=== PATIENT | female | born 1960 | race Hispanic/Latino ===

== ENCOUNTER 2017-05-23 16:32 | Observation (INO) | payer MEDICAID ==
[2017-05-23] MEDS ORDERED: Iohexol 240 (50 ml) PO ONE (17:38)
[2017-05-23] MEDS ORDERED: Sodium Chloride 0.9% 1,000 ML IV STA ×2 (17:38→21:01)
--- NOTE | 2017-05-23 17:54 | ED PDOC ---
HPI: Abdomen Time Seen by Provider: 05/23/17 17:26 Chief Complaint (Nursing): GI Problem Chief Complaint (Provider): Abd pain History Per: Patient History/Exam Limitations: no limitations Onset/Duration Of Symptoms: Days (Today) Outside of [place] travel?: No Additional Complaint(s): Abd pain mid abd constant. Nausea, vomit. No headaches, dizziness, weakness. Denies any drugs or etoh today. No dizziness. No diarrhea. No leg pain. No new food or drinks. No travel. No chest pain. Past Medical History Reviewed: Nursing Documentation, Vital Signs Vital Signs: Last Vital Signs Temp 98 F 05/23/17 17:17 Pulse 117 H 05/23/17 17:17 Resp 18 05/23/17 17:17 BP 185/103 H 05/23/17 17:17 Pulse Ox 98 05/23/17 18:33 - Medical History PMH: Anxiety, Arthritis, Fractures (right arm, right shoulder, left clavical ( current)), HTN, Seizures (LAST EPISODE 1.5YRS) Denies: HIV, Chronic Kidney Disease - Surgical History Surgical History: Tonsillectomy - Family History Family History: States: Unknown Family Hx - Social History Current smoker - smoking cessation education provided: No Alcohol: Occasional Drugs: Denies - Immunization History Hx Tetanus Toxoid Vaccination: No Hx Influenza Vaccination: No Hx Pneumococcal Vaccination: No - Home Medications Home Medications: Ambulatory Orders Medication Instructions Recorded Carbamazepine [Carbatrol] 200 mg PO BID 09/16/16 Cyclobenzaprine [Flexeril] 5 mg PO TID 09/16/16 Diclofenac Sodium [Voltaren] 1 appl TOP QID PRN 09/16/16 Hydrocodone/Acetaminophen 1 tab PO Q4H PRN 09/16/16 [Hydrocodon-Acetaminophn 10-325] Phenytoin, Extended [Dilantin] 100 mg PO TID 09/16/16 clonazePAM [Klonopin] 0.5 mg PO BID 09/16/16 traMADol [Ultram] 50 mg PO Q6H PRN 09/16/16 amLODIPine [Norvasc] 2.5 mg PO DAILY #30 tab 09/19/16 - Allergies Allergies/Adverse Reactions: Allergies Allergy/AdvReac Type Severity Reaction Status Date / Time No Known Allergies Allergy Verified 08/04/15 12:48 Review of Systems ROS Statement: Except As Marked, All Systems Reviewed And Found Negative Gastrointestinal: Positive for: Nausea, Vomiting, Abdominal Pain Physical Exam - Reviewed Nursing Documentation Reviewed: Yes Vital Signs Reviewed: Yes - Physical Exam Appears: Positive for: Non-toxic, No Acute Distress Head Exam: Positive for: ATRAUMATIC, NORMAL INSPECTION, NORMOCEPHALIC Skin: Positive for: Normal Color, Warm, DRY Eye Exam: Positive for: EOMI, Normal appearance, PERRL ENT: Positive for: Normal ENT Inspection Neck: Positive for: Normal, Painless ROM Cardiovascular/Chest: Positive for: Regular Rate, Rhythm Respiratory: Positive for: CNT, Normal Breath Sounds Gastrointestinal/Abdominal: Positive for: Bowel Sounds, Soft, Tenderness (mid abd). Negative for: Guarding, Rebound Back: Positive for: Normal Inspection. Negative for: L CVA Tenderness, R CVA Tenderness Extremity: Positive for: Normal ROM. Negative for: Tenderness, Pedal Edema Neurologic/Psych: Positive for: Alert, Oriented - Laboratory Results Result Diagrams: 05/23/17 17:00 05/23/17 17:00 - ECG O2 Sat by Pulse Oximetry: 98 Pulse Ox Interpretation: Normal - Progress ED Course And Treament: 1833: Stable. Will give more zofran and pain meds. Pt. possible excessive etoh use. Will give ativan. 190: Dr. Sibley to take over care. Fu on labs and imaging. Disposition - Clinical Impression Clinical Impression: Abdominal pain - Patient ED Disposition Is Patient to be Admitted: Transfer of Care - Disposition Disposition: Transfer of Care Disposition Time: 19:09 Condition: FAIR Patient Signed Over To: Lakhwinder Sibley
[2017-05-23 18:00] LABS: BASO # 0.1 K/uL (0.0-0.2); BASO % 0.8 % (0.0-2.0); EOS % 0.1 % (0.0-4.0); HEMOGLOBIN 14.2 g/dL (12.0-16.0); LYMPH # 1.2 K/uL (1.0-4.3); LYMPH % 9.7 % (20.0-40.0); MEAN CELL VOLUME 102.6 fl (81.0-99.0); MEAN CORPUSCULAR HEMOGLOBIN 33.6 pg (27.0-31.0); MEAN CORPUSCULAR HGB CONC 32.8 g/dL (33.0-37.0); MEAN PLATELET VOLUME 9.9 fl (7.2-11.7); MONO # 1.1 K/uL (0.0-0.8); MONO % 8.7 % (0.0-10.0); NEUT % 80.7 % (50.0-75.0); NRBC % 0.1 % (0.0-0.0); PLATELET COUNT 261 K/uL (130-400); RBC 4.22 Mil/uL (3.80-5.20); RED CELL DISTRIBUTION WIDTH 16.5 % (11.5-14.5); WHITE BLOOD COUNT 12.4 K/uL (4.8-10.8)
[2017-05-23 18:19] LABS: INR 1.1 (0.9-1.2); PARTIAL THROMBOPLASTIN TIME 26.7 Seconds (25.6-37.1); PROTHROMBIN TIME 12.5 Seconds (9.8-13.1)
[2017-05-23 18:21] LABS: ALB/GLOB RATIO 1.7 (1.0-2.1); ALBUMIN 5.5 g/dL (3.5-5.0); ALT/SGPT 38 U/L (9-52); AST/SGOT 57 U/L (14-36); BLOOD UREA NITROGEN 17 mg/dl (7-17); CALCIUM 9.2 mg/dL (8.4-10.2); GFR AFRICAN-AMERICAN > 60; GFR NON-AFRICAN AMERICAN > 60; LIPASE 125 U/L (23-300)
[2017-05-23 19:35] LABS: SQUAMOUS EPITHIAL 5 /hpf (0-5); URINE BACTERIA RARE (<OCC); URINE BILIRUBIN NEGATIVE (NEGATIVE); URINE BLOOD NEGATIVE (NEGATIVE); URINE CLARITY SLIGHTY-CLOUDY (Clear); URINE COLOR YELLOW (YELLOW); URINE GLUCOSE (UA) 50 mg/dL (Normal); URINE LEUKOCYTE ESTERASE SMALL Leu/uL (Negative); URINE NITRATE NEGATIVE (NEGATIVE); URINE PROTEIN 100 mg/dL (NEGATIVE)
[2017-05-23] MEDS ORDERED: Iohexol 240 (50 ml) ONE (19:43)
[2017-05-23 19:51] LABS: BARBITURATES, UR POSITIVE (NEGATIVE); BENZODIAZEPINES, UR NEGATIVE (NEGATIVE); OPIATES, UR POSITIVE (NEGATIVE); PHENCYCLIDINE, UR NEGATIVE (NEGATIVE)
[2017-05-23] MEDS ORDERED: Sodium Chloride 0.9% 50 ML IV ONE (19:54)
[2017-05-23] MEDS ORDERED: Iohexol 300 100 ML IJ ONE (19:54)
[2017-05-23 20:45] LABS: LYMPHOCYTE 17 % (20-50); MONOCYTE 8 % (0-10); NEUTROPHIL 75 % (42-75); PLATELET ESTIMATE NORMAL (NORMAL); TOTAL CELLS COUNTED 100
[2017-05-23 20:46] LABS: ANISOCYTOSIS SLIGHT; LARGE PLATELETS PRESENT; OVALOCYTES SLIGHT; TEARDROP CELLS SLIGHT
--- NOTE | 2017-05-23 23:11 | CT ---
EXAM: CT Abdomen and Pelvis With Intravenous Contrast CLINICAL HISTORY: 56 years old, female; Pain and signs and symptoms; Nausea and vomiting; Abdominal pain; Generalized; Additional info: Abd pain TECHNIQUE: Axial computed tomography images of the abdomen and pelvis with intravenous contrast. This CT exam was performed using one or more of the following dose reduction techniques: automated exposure control, adjustment of the mA and/or kV according to patient size, and/or use of iterative reconstruction technique. Coronal and sagittal reformatted images were created and reviewed. CONTRAST: 95 mL of administered intravenously. COMPARISON: CT - CHEST,ABD,PEL W/IV CONT ONLY 02/22/2016 4:09:43 PM FINDINGS: Lower thorax: The bilateral lung bases are clear. ABDOMEN: Liver: The liver is enlarged, and demonstrates decreased attenuation consistent with steatosis. Gallbladder and bile ducts: The gallbladder is only minimally distended, without calcified stones. No significant intra- or extrahepatic biliary ductal dilation. Pancreas: Enhances homogeneously. No ductal dilation. No discrete mass. Spleen: No acute findings. Adrenals: Nodular hypertrophy, stable dating back to 02/22/2016. Kidneys and ureters: Asymmetric enlargement of the right kidney, stable from prior examination. No hydronephrosis or renal calculi. No discrete solid mass. PELVIS: Bladder: No acute findings. Reproductive: No acute findings. Appendix: The air filled appendix is of normal caliber (series 3, image 134; series 601, image 60) . ABDOMEN and PELVIS: Stomach and bowel: No obstruction. No mucosal thickening. Peritoneum: No significant fluid collection. No free air. Lymph nodes: No pathologically enlarged lymph nodes. Vasculature: Unremarkable. Bones: No acute fracture. IMPRESSION: Fatty infiltration of an enlarged liver. Normal appendix. No obstruction.
--- NOTE | 2017-05-24 00:03 | ED PDOC ---
- Laboratory Results Result Diagrams: 05/23/17 17:00 05/23/17 17:00 - ECG O2 Sat by Pulse Oximetry: 95 (RA) Pulse Ox Interpretation: Normal Medical Decision Making Medical Decision Making: Patient signed out to provider pending labs. Scribe Attestation Documented by Diana Randolph acting as a scribe for Lakhwinder Sibley MD. Provider Attestation All medical record entries made by the Scribe were at my direction and personally dictated by me. I have reviewed the chart and agree that the record accurately reflects my personal performance of the history, physical exam, medical decision making, and the department course for this patient. I have also personally directed, reviewed, and agree with the discharge instructions and disposition. Disposition - Clinical Impression Clinical Impression: Gastroenteritis, Alcohol withdrawal - POA Present On Arrival: None - Disposition Disposition: Hospitalized as Observation Patient Disposition Time: 01:00 Condition: FAIR ED OBSERVATION Date of observation admission: 05/23/17 Time of observation admission: 08:00 - Observation admission statement Patient is being placed in observation because:: Pending labs. 100 Pt. has hypertensive urgency requiring two rounds of lopressor IV. Pt. also has tachycardia, likely from dehydration 2/2 to gastroenteritis and possible alcohol withdrawal. Case discussed with Dr. Arreola. Scribe Attestation Documented by Diana Randolph acting as a scribe for Lakhwinder Sibley MD. Provider Attestation All medical record entries made by the Scribe were at my direction and personally dictated by me. I have reviewed the chart and agree that the record accurately reflects my personal performance of the history, physical exam, medical decision making, and the department course for this patient. I have also personally directed, reviewed, and agree with the discharge instructions and disposition.
[2017-05-24] MEDS ORDERED: Metoprolol 1 mg/ml Inj IVP STA ×2 (00:23→02:23)
[2017-05-24] MEDS ORDERED: Metoprolol 1 mg/ml Inj IVP ONE ×2 (01:12→02:39)
[2017-05-24 05:31] VITALS: RESP 20
--- NOTE | 2017-05-24 07:29 | CARD ---
APPROVED REPORT EKG Measurement Heart [id number] <Conclusion> Sinus tachycardia Otherwise normal ECG
[2017-05-24] MEDS ORDERED: Multivitamin (MVI) 10 ML, Thiamine 100 MG, Folic Acid 1 MG in Sodium Chloride 0.9% 1,00... IV ONE (09:26)
--- NOTE | 2017-05-24 10:13 | CP.PCM.HP ---
History of Present Illness - History of Present Illness History of Present Illness: 56 y/o female with a PMHx remarkable for ETOH abuse, HTN, anxiety, and arthritis presents with diffuse abdominal pain. Pain is constant and nonradiating. Associated with nausea and several episodes of NBNB emesis. Denies recent drug or alcohol abuse. Denies change in diet, travel, sick contacts. No other complaints. Denies fever/chills, headaches, dizziness, changes in vision, CP/SOB/KSAGGS, D/C, urinary symptoms, numbness/tingling, leg pain. PMHx: HTN, anxiety, ETOH abuse, arthritis Meds: as listed in med rec ALL: NKDA SocialHx: denies recent alcohol, tobacco, drug consumption FamilyHx: noncontributory ED COURSE: CBC CMP Troponin Lipase Serum Alc UA Utox Imaging: CXR Abd/pelvic CT EKG admitted to telemetry Present on Admission - Present on Admission Any Indicators Present on Admission: No Review of Systems - Constitutional Constitutional: As Per HPI Past Patient History - Infectious Disease Hx of Infectious Diseases: None - Past Medical History & Family History Past Medical History?: Yes - Past Social History Smoking Status: Light Smoker < 10 Cigarettes Daily Alcohol: None Drugs: Denies Home Situation {Lives}: Alone Domestic Violence: Negative - CARDIAC Hx Hypertension: Yes - PULMONARY Hx Respiratory Disorders: No - NEUROLOGICAL Hx Seizures: Yes (LAST EPISODE 1.5YRS) - HEENT Hx HEENT Problems: Yes Other/Comment: Nystagmus - RENAL Hx Chronic Kidney Disease: No - ENDOCRINE/METABOLIC Hx Endocrine Disorders: Yes Hx Diabetes Mellitus Type 2: Yes - HEMATOLOGICAL/ONCOLOGICAL Hx AIDS: No Hx Blood Transfusions: No Hx Human Immunodeficiency Virus (HIV): No - INTEGUMENTARY Hx Dermatological Problems: No - MUSCULOSKELETAL/RHEUMATOLOGICAL Hx Arthritis: Yes Hx Falls: Yes Hx Fractures: Yes (right arm, right shoulder, left clavical (current)) - GASTROINTESTINAL Hx Gastrointestinal Disorders: No - GENITOURINARY/GYNECOLOGICAL Hx Genitourinary Disorders: No - PSYCHIATRIC Hx Anxiety: Yes Hx Substance Use: No - SURGICAL HISTORY Hx Surgeries: Yes Hx Orthopedic Surgery: Yes (right arm with titanium) Hx Tonsillectomy: Yes - ANESTHESIA Hx Anesthesia: Yes Hx Anesthesia Reactions: No Hx Malignant Hyperthermia: No Meds Allergies/Adverse Reactions: Allergies Allergy/AdvReac Type Severity Reaction Status Date / Time No Known Allergies Allergy Verified 08/04/15 12:48 Physical Exam - Constitutional Appears: Non-toxic, No Acute Distress - Eye Exam Eye Exam: Conjunctival injection, EOMI Pupil Exam: PERRL - ENT Exam ENT Exam: Mucous Membranes Moist - Neck Exam Neck exam: Positive for: Full Rom. Negative for: Lymphadenopathy - Respiratory Exam Respiratory Exam: Clear to Auscultation Bilateral, NORMAL BREATHING PATTERN. absent: Accessory Muscle Use, Chest Wall Tenderness, Rales, Rhonchi, Wheezes - Cardiovascular Exam Cardiovascular Exam: REGULAR RHYTHM, RRR, +S1, +S2. absent: Diastolic murmur, JVD, Rubs, Systolic Murmur - GI/Abdominal Exam GI & Abdominal Exam: Distended, Normal Bowel Sounds, Soft, Tenderness. absent: Firm, Guarding, Rebound, Rigid - Extremities Exam Extremities exam: Positive for: normal inspection, pedal pulses present. Negative for: calf tenderness, pedal edema, tenderness - Neurological Exam Neurological exam: Alert, CN II-XII Intact, Oriented x3 Results - Vital Signs Recent Vital Signs: Last Vital Signs Temp 98.9 F 05/24/17 08:34 Pulse 91 H 05/24/17 09:15 Resp 20 05/24/17 08:34 BP 167/83 H 05/24/17 09:15 Pulse Ox 98 05/24/17 08:34 - Labs Result Diagrams: 05/24/17 11:20 05/23/17 17:00 Labs: Laboratory Results - last 24 hr 05/23/17 05/23/17 05/24/17 19:26 19:26 05:30 POC Glucose (mg/dL) 126 H TSH 3rd Generation Urine Color Yellow Urine Clarity Slighty-cloudy Urine pH 5.0 Ur Specific [place] 1.021 Urine Protein 100 Urine Glucose (UA) 50 Urine Ketones 80 Urine Blood Negative Urine Nitrate Negative Urine Bilirubin Negative Urine Urobilinogen 2.0 H Ur Leukocyte Esterase Small Urine RBC (Auto) 2 Urine Microscopic WBC 4 Ur Squamous Epith Cells 5 Urine Bacteria Rare Hyaline Casts 6-10 H Urine Opiates Screen Positive H Urine Methadone Screen Negative Ur Barbiturates Screen Positive H Ur Phencyclidine Scrn Negative Ur Amphetamines Screen Negative U Benzodiazepines Scrn Negative U Oth Cocaine Metabols Negative U Cannabinoids Screen Negative 05/24/17 07:30 POC Glucose (mg/dL) TSH 3rd Generation 0.97 Urine Color Urine Clarity Urine pH Ur Specific [place] Urine Protein Urine Glucose (UA) Urine Ketones Urine Blood Urine Nitrate Urine Bilirubin Urine Urobilinogen Ur Leukocyte Esterase Urine RBC (Auto) Urine Microscopic WBC Ur Squamous Epith Cells Urine Bacteria Hyaline Casts Urine Opiates Screen Urine Methadone Screen Ur Barbiturates Screen Ur Phencyclidine Scrn Ur Amphetamines Screen U Benzodiazepines Scrn U Oth Cocaine Metabols U Cannabinoids Screen Assessment & Plan (1) Dehydration Assessment and Plan: currently tolerating PO intake monitor for signs of alcohol withdrawal, Ativan PRN CBC shows mild leukocytosis at 12.4 UA: hylaine casts EKG: Sinus tachycardia will continue to monitor, as pt is improving. Possible discharge 05/24 afternoon Status: Acute Priority: Medium
--- NOTE | 2017-05-24 11:32 | RAD ---
HISTORY: abd pain COMPARISON: 09/16/2016 FINDINGS: LUNGS: No active pulmonary disease. PLEURA: No significant pleural effusion identified, no pneumothorax apparent. CARDIOVASCULAR: Normal. OSSEOUS STRUCTURES: No significant abnormalities. VISUALIZED UPPER ABDOMEN: Normal. OTHER FINDINGS: None. IMPRESSION: No active disease.
[2017-05-24 12:20] LABS: HEMOGLOBIN 12.9 g/dL (12.0-16.0); MEAN CELL VOLUME 103.3 fl (81.0-99.0); MEAN CORPUSCULAR HEMOGLOBIN 33.7 pg (27.0-31.0); MEAN CORPUSCULAR HGB CONC 32.7 g/dL (33.0-37.0); RBC 3.81 Mil/uL (3.80-5.20); RED CELL DISTRIBUTION WIDTH 16.8 % (11.5-14.5); WHITE BLOOD COUNT 12.7 K/uL (4.8-10.8)
[2017-05-24 13:07] VITALS: BP 144/74; PULSE 109; TEMP 99.9; O2SAT 96
--- NOTE | 2017-05-24 14:50 | CP.PCM.DIS ---
Provider - Provider Date of Admission: 05/23/17 19:00 Attending physician: Vinicius Arreola MD Time Spent in preparation of Discharge (in minutes): 35 Diagnosis - Discharge Diagnosis (1) Dehydration Status: Acute Priority: Medium Hospital Course - Lab Results Lab Results: Most Recent Lab Values WBC 12.7 K/uL (4.8-10.8) H 05/24/17 11:20 RBC 3.81 Mil/uL (3.80-5.20) 05/24/17 11:20 Hgb 12.9 g/dL (12.0-16.0) 05/24/17 11:20 Hct 39.4 % (34.0-47.0) 05/24/17 11:20 MCV 103.3 fl (81.0-99.0) H 05/24/17 11:20 MCH 33.7 pg (27.0-31.0) H 05/24/17 11:20 MCHC 32.7 g/dL (33.0-37.0) L 05/24/17 11:20 RDW 16.8 % (11.5-14.5) H 05/24/17 11:20 Plt Count 209 K/uL (130-400) 05/24/17 11:20 MPV 9.9 fl (7.2-11.7) 05/23/17 17:00 Neut % (Auto) 80.7 % (50.0-75.0) H 05/23/17 17:00 Lymph % (Auto) 9.7 % (20.0-40.0) L 05/23/17 17:00 [place] % (Auto) 8.7 % (0.0-10.0) 05/23/17 17:00 Eos % (Auto) 0.1 % (0.0-4.0) 05/23/17 17:00 Baso % (Auto) 0.8 % (0.0-2.0) 05/23/17 17:00 Neut # 10.0 K/uL (1.8-7.0) H 05/23/17 17:00 Lymph # 1.2 K/uL (1.0-4.3) 05/23/17 17:00 [place] # 1.1 K/uL (0.0-0.8) H 05/23/17 17:00 Eos # 0.0 K/uL (0.0-0.7) 05/23/17 17:00 Baso # 0.1 K/uL (0.0-0.2) 05/23/17 17:00 Neutrophils % (Manual) 75 % (42-75) 05/23/17 17:00 Lymphocytes % (Manual) 17 % (20-50) L 05/23/17 17:00 Monocytes % (Manual) 8 % (0-10) 05/23/17 17:00 Platelet Estimate Normal (NORMAL) 05/23/17 17:00 Large Platelets Present 05/23/17 17:00 Anisocytosis (manual) Slight 05/23/17 17:00 Macrocytosis (manual) Slight 05/23/17 17:00 Tear Drop Cells Slight 05/23/17 17:00 Ovalocytes Slight 05/23/17 17:00 PT 12.5 Seconds (9.8-13.1) 05/23/17 17:00 INR 1.1 (0.9-1.2) 05/23/17 17:00 APTT 26.7 Seconds (25.6-37.1) 05/23/17 17:00 Sodium 135 mmol/l (132-148) 05/23/17 17:00 Potassium 5.1 MMOL/L (3.6-5.0) H 05/23/17 17:00 Chloride 93 mmol/L (98-107) L 05/23/17 17:00 Carbon Dioxide 12 mmol/L (22-30) L 05/23/17 17:00 Anion Gap 35 (10-20) H 05/23/17 17:00 BUN 17 mg/dl (7-17) 05/23/17 17:00 Creatinine 0.6 mg/dL (0.7-1.2) L 05/23/17 17:00 Est GFR ( Amer) > 60 05/23/17 17:00 Est GFR (Non-Af Amer) > 60 05/23/17 17:00 POC Glucose (mg/dL) 145 mg/dL (65-110) H 05/24/17 11:59 Random Glucose 169 mg/dL (65-105) H 05/23/17 17:00 Hemoglobin A1c 6.1 % (4.2-6.5) 05/24/17 07:30 Calcium 9.2 mg/dL (8.4-10.2) 05/23/17 17:00 Total Bilirubin 1.6 mg/dl (0.2-1.3) H 05/23/17 17:00 AST 57 U/L (14-36) H D 05/23/17 17:00 ALT 38 U/L (9-52) 05/23/17 17:00 Alkaline Phosphatase 119 U/L (38-126) 05/23/17 17:00 Troponin I 0.0200 ng/mL (0.00-0.120) 05/23/17 17:00 Total Protein 8.7 G/DL (6.3-8.2) H 05/23/17 17:00 Albumin 5.5 g/dL (3.5-5.0) H D 05/23/17 17:00 Globulin 3.3 gm/dL (2.2-3.9) 05/23/17 17:00 Albumin/Globulin Ratio 1.7 (1.0-2.1) 05/23/17 17:00 Lipase 125 U/L (23-300) 05/23/17 17:00 TSH 3rd Generation 0.97 mIU/ML (0.46-4.68) 05/24/17 07:30 Urine Color Yellow (YELLOW) 05/23/17 19:26 Urine Clarity Slighty-cloudy (Clear) 05/23/17 19:26 Urine pH 5.0 (5.0-8.0) 05/23/17 19:26 Ur Specific [place] 1.021 (1.003-1.030) 05/23/17 19:26 Urine Protein 100 mg/dL (NEGATIVE) 05/23/17 19:26 Urine Glucose (UA) 50 mg/dL (Normal) 05/23/17 19:26 Urine Ketones 80 mg/dL (NEGATIVE) 05/23/17 19:26 Urine Blood Negative (NEGATIVE) 05/23/17 19:26 Urine Nitrate Negative (NEGATIVE) 05/23/17 19:26 Urine Bilirubin Negative (NEGATIVE) 05/23/17 19:26 Urine Urobilinogen 2.0 mg/dL (0.2-1.0) H 05/23/17 19:26 Ur Leukocyte Esterase [place]/uL (Negative) 05/23/17 19:26 Urine RBC (Auto) 2 /hpf (0-3) 05/23/17 19:26 Urine Microscopic WBC 4 /hpf (0-5) 05/23/17 19:26 Ur Squamous Epith Cells 5 /hpf (0-5) 05/23/17 19:26 Urine Bacteria Rare (<OCC) 05/23/17 19:26 Hyaline Casts 6-10 /hpf (0-2) H 05/23/17 19:26 Urine Opiates Screen Positive (NEGATIVE) H 05/23/17 19:26 Urine Methadone Screen Negative (NEGATIVE) 05/23/17 19:26 Ur Barbiturates Screen Positive (NEGATIVE) H 05/23/17 19:26 Ur Phencyclidine Scrn Negative (NEGATIVE) 05/23/17 19:26 Ur Amphetamines Screen Negative (NEGATIVE) 05/23/17 19:26 U Benzodiazepines Scrn Negative (NEGATIVE) 05/23/17 19:26 U Oth Cocaine Metabols Negative (NEGATIVE) 05/23/17 19:26 U Cannabinoids Screen Negative (NEGATIVE) 05/23/17 19:26 Alcohol, Quantitative 100 mg/dl (0-10) H 05/23/17 17:00 - Hospital Course Hospital Course: 56 y/o female with a PMHx remarkable for ETOH abuse, HTN, anxiety, and arthritis presents with diffuse abdominal pain. Pain is constant and nonradiating. Associated with nausea and several episodes of NBNB emesis. Denies recent drug or alcohol abuse. Denies change in diet, travel, sick contacts. No other complaints. Denies fever/chills, headaches, dizziness, changes in vision, CP/SOB/SKAGGS, D/C, urinary symptoms, numbness/tingling, leg pain. PMHx: HTN, anxiety, ETOH abuse, arthritis Meds: as listed in med rec ALL: NKDA SocialHx: denies recent alcohol, tobacco, drug consumption FamilyHx: noncontributory HOSPITAL COURSE: CBC: macrocytosis, otherwise wnl CMP: wnl Troponin: neg Lipase: neg Serum Alc: positive for ETOH UA: high amount of hyaline casts Utox: positive for opiates and barbituates Imaging: CXR: no active disease Abd/pelvic CT: neg EKG: NSR, Sinus tach Pt was advanced to CLD, then full LD. Pt tolerated intake without any vomiting. After an uneventful hospital stay the pt was discharged in stable condition. Discharge Exam - Head Exam Head Exam: ATRAUMATIC, NORMAL INSPECTION, NORMOCEPHALIC - Eye Exam Eye Exam: EOMI. absent: Conjunctival injection, Scleral icterus Pupil Exam: PERRL - ENT Exam ENT Exam: Mucous Membranes Moist - Respiratory Exam Respiratory Exam: Clear to PA & Lateral, UNREMARKABLE - Cardiovascular Exam Cardiovascular Exam: REGULAR RHYTHM, RRR, +S1, +S2. absent: Tachycardia, Gallop , JVD, Rubs - GI/Abdominal Exam GI & Abdominal Exam: Normal Bowel Sounds, Soft, Unremarkable. absent: Distended , Firm, Guarding, Rigid, Tenderness - Extremities Exam Extremities exam: normal inspection - Neurological Exam Neurological exam: Alert, CN II-XII Intact, Normal Gait, Oriented x3 - Psychiatric Exam Psychiatric exam: Normal Affect, Normal Mood - Skin Skin Exam: Dry, Intact, Normal Color Discharge Plan - Follow Up Plan Condition: FAIR Disposition: HOME/ ROUTINE
== END 2017-05-24 16:35 | disposition home or self-care (01) ==
LOC: H.ER 16:32 → H.EROBSV 19:00 → H.ERHOLD 05-24 00:23 → H.TEL 05-24 04:58
PROVIDERS: ADMIT Family Medicine; ATTEND Family Medicine
DX: E86.0 Dehydration (principal); F10.10 Alcohol abuse, uncomplicated; Y90.5 Blood alcohol level of 100-119 mg/100 ml; I10 Essential (primary) hypertension; R00.0 Tachycardia, unspecified; R11.2 Nausea with vomiting, unspecified; F41.9 Anxiety disorder, unspecified; M19.90 Unspecified osteoarthritis, unspecified site; I16.0 Hypertensive urgency

== ENCOUNTER 2017-08-05 16:16 | Inpatient (IN) | payer MEDICAID ==
--- NOTE | 2017-08-05 17:06 | ED PDOC ---
HPI: Psych/Substance Abuse Time Seen by Provider: 08/05/17 16:19 Chief Complaint (Nursing): Alcohol Ingestion Chief Complaint (Provider): Alcohol Ingestion ED Caveat: Intoxicated History Per: Patient, EMS History/Exam Limitations: intoxication Onset/Duration Of Symptoms: Mins (prior to arrival) Current Symptoms Are (Timing): Still Present Additional Complaint(s): Venessa Sanchez is a 57 year old female with previous medical history of hypertension, seizures and anxiety, who presents to the emergency department via EMS after bystanders reported witnessing patient falling. (+) AOB and Pt admits to drinking today and a history of alcohol abuse. Patient states she was walking to [employer] and thats the last thing she remembers until she woke up and saw" 2 beautiful women and the ambulance." She also noted having left shoulder pain in ED. PMD: none provided Past Medical History Reviewed: Historical Data, Nursing Documentation, Vital Signs Vital Signs: Last Vital Signs Temp 99.1 F 08/05/17 16:19 Pulse 109 H 08/05/17 16:19 Resp 16 08/05/17 16:19 BP 164/97 H 08/05/17 16:19 Pulse Ox 93 L 08/05/17 16:19 - Medical History PMH: Anxiety, Arthritis, Fractures (right arm, right shoulder, left clavical ( current)), HTN, Seizures (unknown) Denies: HIV, Chronic Kidney Disease - Surgical History Surgical History: Tonsillectomy - Family History Family History: States: Unknown Family Hx - Social History Current smoker - smoking cessation education provided: Yes Alcohol: Occasional Drugs: Denies - Immunization History Hx Tetanus Toxoid Vaccination: No Hx Influenza Vaccination: No Hx Pneumococcal Vaccination: No - Home Medications Home Medications: Ambulatory Orders Medication Instructions Recorded Carbamazepine [Carbatrol] 200 mg PO BID 09/16/16 Phenytoin, Extended [Dilantin] 100 mg PO TID 09/16/16 amLODIPine [Norvasc] 2.5 mg PO DAILY #30 tab 09/19/16 Ondansetron HCl [Zofran] 4 mg PO Q8 #20 tablet 05/24/17 - Allergies Allergies/Adverse Reactions: Allergies Allergy/AdvReac Type Severity Reaction Status Date / Time No Known Allergies Allergy Verified 08/04/15 12:48 Review of Systems Review Of Systems: ROS cannot be obtained secondary to pt's inabilty to answer questions. (unreliable history due to possible intoxication) Musculoskeletal: Positive for: Shoulder Pain (left) Neurological: Positive for: Other (loss on consciousness) Physical Exam - Reviewed Nursing Documentation Reviewed: Yes Vital Signs Reviewed: Yes - Physical Exam Appears: Positive for: Well (with alcohol on breath), Non-toxic, No Acute Distress Head Exam: Positive for: ATRAUMATIC, NORMAL INSPECTION, NORMOCEPHALIC Skin: Positive for: Normal Color Respiratory: Positive for: Normal Breath Sounds, Accessory Muscle Use. Negative for: Decreased Breath Sounds, Respiratory Distress Neurologic/Psych: Positive for: Alert (speaking full sentences), Oriented. Negative for: Motor/Sensory Deficits, Aphasia - Laboratory Results Result Diagrams: 08/05/17 17:29 08/05/17 17:29 - ECG O2 Sat by Pulse Oximetry: 93 (RA) Pulse Ox Interpretation: Normal Medical Decision Making Medical Decision Making: Initial Impression: Initial Plan: * CT head without contrast * EKG * Acetaminophen * Alcohol serum * CMP * Drug screen, urine * Salicylate * CBC * Chest X-Ray * Xray shoulder (left) * Urinalysis * Labs resulted and reviewed ETOH 347 UDS (+) Barbituates and Benzos UA resulted with 62 WBCs and large leuks. IV Rocephin started after Pt did admit to increased frequency of urination upon further questioning. CT Head IMPRESSION: Subacute isodense left subdural hematoma with mild effacement of sulci and gyri, 1.4 mm midline shift to the right Case discussed with ED MD, Dr. Musa.w ho discussed case with Dr. Dockery. Agreed admission to ICU Dr. Garcia at bedside for evaluation at 2030 Dr. Arreola, covering for Dr. Bradley, made aware. Scribe Attestation: Documented by Merry Yen, acting as a scribe for Silvia Dominguez Provider Scribe Attestation: All medical record entries made by the Scribe were at my direction and personally dictated by me. I have reviewed the chart and agree that the record accurately reflects my personal performance of the history, physical exam, medical decision making, and the department course for this patient. I have also personally directed, reviewed, and agree with the discharge instructions and disposition. Disposition - Clinical Impression Clinical Impression: Alcohol intoxication, Subdural hematoma - Patient ED Disposition Is Patient to be Admitted: Yes - Disposition Disposition Time: 21:07 Condition: FAIR - Pt Status Changed To: Hospital Disposition Of: Inpatient - Admit Certification Admit to Inpatient:: After my assessment, the patient will require hospitalization for at least two midnights. This is because of the severity of symptoms shown, intensity of services needed, and/or the medical risk in this patient being treated as an outpatient. - POA Present On Arrival: Falls Or Trauma
[2017-08-05 17:34] LABS: BASO # 0.1 K/uL (0.0-0.2); BASO % 1.5 % (0.0-2.0); EOS # 0.2 K/uL (0.0-0.7); HEMATOCRIT 40.5 % (34.0-47.0); LYMPH # 2.2 K/uL (1.0-4.3); LYMPH % 22.6 % (20.0-40.0); MEAN CORPUSCULAR HEMOGLOBIN 34.1 pg (27.0-31.0); MEAN CORPUSCULAR HGB CONC 32.3 g/dL (33.0-37.0); MEAN PLATELET VOLUME 8.3 fl (7.2-11.7); MONO # 0.7 K/uL (0.0-0.8); MONO % 7.3 % (0.0-10.0); NEUT # 6.6 K/uL (1.8-7.0); NEUT % 66.6 % (50.0-75.0); NRBC % 0.4 % (0.0-0.0); RED CELL DISTRIBUTION WIDTH 15.6 % (11.5-14.5); WHITE BLOOD COUNT 9.9 K/uL (4.8-10.8)
[2017-08-05 17:44] LABS: ALB/GLOB RATIO 1.6 (1.0-2.1); ALKALINE PHOSPHATASE 93 U/L (38-126); ALT/SGPT 34 U/L (9-52); AST/SGOT 50 U/L (14-36); BILIRUBIN,TOTAL 0.4 mg/dl (0.2-1.3); BLOOD UREA NITROGEN 18 mg/dl (7-17); CALCIUM 9.5 mg/dL (8.4-10.2); CARBON DIOXIDE 21 mmol/L (22-30); CHLORIDE 105 mmol/L (98-107); GFR AFRICAN-AMERICAN > 60; GLUCOSE,RANDOM 106 mg/dL (65-105); MEAN CELL VOLUME 105.5 fl (81.0-99.0); POTASSIUM 3.8 MMOL/L (3.6-5.0); SODIUM 150 mmol/l (132-148); TOTAL PROTEIN 7.8 G/DL (6.3-8.2)
--- NOTE | 2017-08-05 17:53 | RAD ---
PROCEDURE: Radiographs of the Left Shoulder HISTORY: shoulder pain s/p fall COMPARISON: Comparison is made to previous study dated 02/22/2016 FINDINGS: BONES: Again seen is old fracture at the distal left clavicle. No evidence of acute fracture. JOINTS: Mild osteoarthritic changes SOFT TISSUES: Again seen is calcification adjacent to the left humeral suggestive of calcified tendinitis. OTHER FINDINGS: None. IMPRESSION: No evidence of acute fracture or dislocation.
--- NOTE | 2017-08-05 17:54 | RAD ---
PROCEDURE: CHEST RADIOGRAPH, 1 VIEW HISTORY: med screening COMPARISON: Comparison is made to 05/23/2017 FINDINGS: LUNGS: No evidence of new infiltrate or consolidation in the lungs. PLEURA: No pneumothorax or pleural fluid seen. CARDIOVASCULAR: Normal. OSSEOUS STRUCTURES: Status post internal fixation at the right humerus again noted. Old fracture at the distal left clavicle is also again noted. VISUALIZED UPPER ABDOMEN: Normal. OTHER FINDINGS: None. IMPRESSION: No significant interval change since the previous exam.
[2017-08-05 18:13] LABS: ALCOHOL SERUM 347 mg/dl (0-10)
--- NOTE | 2017-08-05 18:42 | CT ---
EXAM: CT Head Without Intravenous Contrast EXAM DATE/TIME: 08/05/2017 5:08 PM CLINICAL HISTORY: 57 years old, female; Injury or trauma; Fall; Initial encounter; Laceration; Consciousness not specified; Without residual foreign body; Head, generalized; Injury date: Today; Injury details: ETOH seizure falling; Patient HX: HX anxiety HTN sizures. Tonsillectomy; Additional info: ETOH, loc TECHNIQUE: Axial computed tomography images of the head/brain without intravenous contrast. All CT scans at this facility use one or more dose reduction techniques, viz.: automated exposure control; ma/kV adjustment per patient size (including targeted exams where dose is matched to indication; i.e. head); or iterative reconstruction technique. Coronal and sagittal reformatted images were created and reviewed. COMPARISON: CT - HEAD W/O CONTRAST 09/16/2016 12:46:56 PM FINDINGS: Brain: Ventricles are normal in size. There is a 1.4 mm midline shift to the right. There is mild prominence of sulci and gyri. There are no intra-axial or extra-axial mass. There is no intra-axial hemorrhage. There is a subacute left subdural hematoma which is isodense with parenchyma. There is mild effacement of left sulci and gyri. Escamilla-white differentiation is maintained. Ventricles: See above Bones: Cranial vault is intact. There are postsurgical changes in the left orbital floor with mesh. Soft tissues: unremarkable Sinuses: There is no acute sinusitis. Ears and mastoids: Middle ears and mastoids are unremarkable Orbits: Globes are intact. IMPRESSION: Subacute isodense left subdural hematoma with mild effacement of sulci and gyri, 1.4 mm midline shift to the right Additional findings as described above.
--- NOTE | 2017-08-05 18:59 | ED PDOC ---
- Laboratory Results Result Diagrams: 08/05/17 17:29 08/05/17 17:29 - ECG O2 Sat by Pulse Oximetry: 93 (RA) Medical Decision Making Medical Decision Making: Subdural reported on interpretation of CT head. Pt awake alert and oriented with no focal dfeicits. Discussed with Dr. Doyle. Recommends observation in ICU. Disposition - Clinical Impression Clinical Impression: Alcohol intoxication, Subdural hematoma - POA Present On Arrival: None - Disposition Disposition: Transfer of Care Disposition Time: 18:59 Condition: FAIR Forms: [facility] (Yoruba) Patient Signed Over To: Sarath Rodriguez
[2017-08-05 19:07] LABS: RBC URINE 4 /hpf (0-3); URINE BILIRUBIN NEGATIVE (NEGATIVE); URINE BLOOD NEGATIVE (NEGATIVE); URINE COLOR YELLOW (YELLOW); URINE GLUCOSE (UA) NEG (Normal); URINE KETONE NEGATIVE (NEGATIVE); URINE LEUKOCYTE ESTERASE LARGE Leu/uL (Negative); URINE PROTEIN 30 mg/dL (NEGATIVE); URINE UROBILINOGEN 0.2-1.0 mg/dL (0.2-1.0); WBC URINE 62 /hpf (0-5)
[2017-08-05] MEDS ORDERED: Oxycodone/Acetaminophen 5/325 mg Tab PO STA (19:09)
[2017-08-05] MEDS ORDERED: Oxycodone/Acetaminophen 5/325 mg Tab ONE (19:50)
--- NOTE | 2017-08-05 19:57 | CP.PCM.CON ---
History of Present Illness - History of Present Illness History of Present Illness: Attending: Vinicius Bonner MD PCP: Jennifer Solis MD Reason for Consult: Critical care Management Chief Complaint: Fall with LOC HPI: The hx was obtained from the Patient and the Medical records. She is a 57 years old female Non compliant with medication, who was brought to the ED after she had a witnessed fall with loss of awareness. She had been drinking Alcohol earlier and was walking to the shop when she blanked out waking up when the ambulance arrived. She has Hx of HTN, DM II not on medication, Alcohol abuse and Seizures. In the ED she referred left shoulder and left lateral chest wall pain on deep inspiration and on sitting up from a lying position. She also has pain to the left forehead and the whole head with some dizziness and epigastric pain. PMH: Anxiety, panic attacks; Arthritis; Fractures (right arm, right shoulder, left clavicle ); HTN; Seizures ; DM II not on medication; Closed Nasal bone fracture; PSH: Tonsillectomy; ORIF right shoulder SH: Denies smoking cigarettes; Drinks Alcohol Occasionally; No illegal drug use ; Live alone with many cats; on Disability FH: Sister with Multiple Myeloma; mother with Diabetes Mellitus Allergies: NKDA Medication: Ibuprofen; Dilantin TID most days; Does not take Carbamazepine; Supposed to be taking Keppra, not taking keppra at present; Not taking medication for Hypertension Review of Systems - Constitutional Constitutional: Headache. absent: Anorexia, Chills, Fatigue, Fever, Lethargy - EENT Eyes: Requires Corrective Lenses. absent: Blind Spots, Diplopia, Floaters, Spots in Vision Ears: absent: Decreased Hearing, Ear Discharge, Ear Pain, Tinnitus Nose/Mouth/Throat: absent: Epistaxis, Nasal Congestion, Nasal Discharge - Cardiovascular Cardiovascular: Chest Pain, Leg Edema. absent: Dyspnea Additional comments: Left chest wall pain - Respiratory Respiratory: absent: Cough, Dyspnea, Wheezing, Chest Congestion - Gastrointestinal Gastrointestinal: Abdominal Pain, Diarrhea. absent: Constipation, Nausea, Vomiting - Genitourinary Genitourinary: absent: Dysuria, Flank Pain, Hematuria, Urinary Frequency - Musculoskeletal Additional comments: Pain to both feet and to the left chest wall. - Integumentary Integumentary: absent: Pruritus, Rash, Skin Ulcer, Sores, Striae - Neurological Neurological: Convulsions, Headaches. absent: Confusion, Focal Weakness, Vertigo, Weakness - Psychiatric Psychiatric: Anxiety, Panic Attacks. absent: Depression - Endocrine Endocrine: absent: Palpitations, Polydipsia, Polyphagia, Polyuria - Hematologic/Lymphatic Hematologic: absent: Easy Bleeding, Easy Bruising Past Patient History - Infectious Disease Hx of Infectious Diseases: None - Past Medical History & Family History Past Medical History?: Yes - Past Social History Smoking Status: Never Smoked Chewing Tobacco Use: No Cigar Use: No Alcohol: Occasional Drugs: Denies Home Situation {Lives}: Alone - CARDIAC Hx Hypertension: Yes - PULMONARY Hx Respiratory Disorders: No - NEUROLOGICAL Hx Seizures: Yes (unknown) - HEENT Hx HEENT Problems: Yes Other/Comment: Nystagmus - RENAL Hx Chronic Kidney Disease: No - ENDOCRINE/METABOLIC Hx Endocrine Disorders: Yes Hx Diabetes Mellitus Type 2: Yes - HEMATOLOGICAL/ONCOLOGICAL Hx Human Immunodeficiency Virus (HIV): No - INTEGUMENTARY Hx Dermatological Problems: No - MUSCULOSKELETAL/RHEUMATOLOGICAL Hx Arthritis: Yes Hx Fractures: Yes (right arm, right shoulder, left clavical (current)) - GASTROINTESTINAL Hx Gastrointestinal Disorders: No - GENITOURINARY/GYNECOLOGICAL Hx Genitourinary Disorders: No - PSYCHIATRIC Hx Anxiety: Yes - SURGICAL HISTORY Hx Orthopedic Surgery: Yes (ORIF right shoulder) Hx Tonsillectomy: Yes - ANESTHESIA Hx Anesthesia: Yes Hx Anesthesia Reactions: No Hx Malignant Hyperthermia: No Meds Allergies/Adverse Reactions: Allergies Allergy/AdvReac Type Severity Reaction Status Date / Time No Known Allergies Allergy Verified 08/04/15 12:48 Physical Exam - Constitutional Appears: No Acute Distress - Head Exam Head Exam: ATRAUMATIC, NORMAL INSPECTION, NORMOCEPHALIC - Eye Exam Eye Exam: EOMI, Normal appearance Pupil Exam: NORMAL ACCOMODATION, PERRL - ENT Exam ENT Exam: Mucous Membranes Moist, Normal Exam, TM's Normal Bilaterally - Neck Exam Neck exam: Positive for: Full Rom, Normal Inspection. Negative for: Lymphadenopathy, Tenderness - Respiratory Exam Respiratory Exam: Clear to Auscultation Bilateral. absent: Rales, Rhonchi, Wheezes - Cardiovascular Exam Cardiovascular Exam: REGULAR RHYTHM, RRR, +S1, +S2. absent: Gallop, JVD - GI/Abdominal Exam GI & Abdominal Exam: Normal Bowel Sounds, Soft. absent: Mass, Organomegaly Additional comments: Epigastric tenderness. - Rectal Exam Rectal Exam: Deferred - Extremities Exam Extremities exam: Positive for: full ROM, normal inspection. Negative for: calf tenderness, joint swelling, pedal edema, tenderness - Back Exam Back exam: NORMAL INSPECTION. absent: CVA tenderness (L), CVA tenderness (R) - Neurological Exam Neurological exam: CN II-XII Intact, Oriented x3, Reflexes Normal - Psychiatric Exam Psychiatric exam: Normal Affect, Normal Mood - Skin Skin Exam: Dry, Intact, Normal Color, Warm Results - Vital Signs Recent Vital Signs: Last Vital Signs Temp 99.1 F 08/05/17 16:19 Pulse 90 08/05/17 19:51 Resp 18 08/05/17 19:51 BP 164/97 H 08/05/17 16:19 Pulse Ox 100 08/05/17 19:51 - Labs Result Diagrams: 08/05/17 17:29 08/05/17 17:29 Labs: Laboratory Results - last 24 hr 08/05/17 08/05/17 08/05/17 17:29 17:29 17:29 WBC 9.9 RBC 3.84 Hgb 13.1 Hct 40.5 MCV 105.5 H D MCH 34.1 H MCHC 32.3 L RDW 15.6 H Plt Count 242 MPV 8.3 Neut % (Auto) 66.6 Lymph % (Auto) 22.6 Kimble % (Auto) 7.3 Eos % (Auto) 2.0 Baso % (Auto) 1.5 Neut # 6.6 Lymph # 2.2 Kimble # 0.7 Eos # 0.2 Baso # 0.1 Sodium 150 H Potassium 3.8 Chloride 105 Carbon Dioxide 21 L Anion Gap 28 H BUN 18 H Creatinine 0.5 L Est GFR ( Amer) > 60 Est GFR (Non-Af Amer) > 60 Random Glucose 106 H Calcium 9.5 Total Bilirubin 0.4 AST 50 H ALT 34 Alkaline Phosphatase 93 Total Protein 7.8 Albumin 4.8 Globulin 3.1 Albumin/Globulin Ratio 1.6 Salicylates < 1.0 Urine Opiates Screen Urine Methadone Screen Acetaminophen < 10.0 L Ur Barbiturates Screen Ur Phencyclidine Scrn Ur Amphetamines Screen U Benzodiazepines Scrn U Oth Cocaine Metabols U Cannabinoids Screen Alcohol, Quantitative 347 H* 08/05/17 19:12 WBC RBC Hgb Hct MCV MCH MCHC RDW Plt Count MPV Neut % (Auto) Lymph % (Auto) Kimble % (Auto) Eos % (Auto) Baso % (Auto) Neut # Lymph # Kimble # Eos # Baso # Sodium Potassium Chloride Carbon Dioxide Anion Gap BUN Creatinine Est GFR ( Amer) Est GFR (Non-Af Amer) Random Glucose Calcium Total Bilirubin AST ALT Alkaline Phosphatase Total Protein Albumin Globulin Albumin/Globulin Ratio Salicylates Urine Opiates Screen Negative Urine Methadone Screen Negative Acetaminophen Ur Barbiturates Screen Positive H Ur Phencyclidine Scrn Negative Ur Amphetamines Screen Negative U Benzodiazepines Scrn Positive U Oth Cocaine Metabols Negative U Cannabinoids Screen Negative Alcohol, Quantitative - Imaging and Cardiology Chest x-ray Status: Image reviewed by me, Report reviewed by me Additional comment: No infiltrates nor sign of acute process Right shoulder head with hard condon from ORIF CT scan - head Status: Image reviewed by me, Report reviewed by me Additional comment: Subacute isodense left subdural Hematoma with mild effacement of the Sulci and Gyri. Midline shift to the right. Left Rib X ray Status: Image reviewed by me Additional comment: No fracture seen Left shoulder X ray Additional comment: No acute fracture nor dislocation Old Left clavicle fracture Assessment & Plan - Assessment and Plan (Free Text) Assessment: #. Left Subdural hemorrhage #. Fall with LOC #. Alcohol Intoxication #. Hyponatremia #. Muscle skeletal left rib pain #. Seizure Disorder #. Anxiety disorder Plan: 57 years old female Non compliant with medication, who was brought to the ED after she had a witnessed fall with loss of awareness. She had been drinking Alcohol earlier and was walking to the shop when she blanked out waking up when the ambulance arrived. In the ED she referred left shoulder and left lateral chest wall pain on deep inspiration and on sitting up from a lying position. #. Left Subdural hemorrhage - Neuro surgery Dr Doyle on consult - Neuro checks Q1H - Follow repeat CT head at 500AM 08/06/17 #. Fall with LOC most likely due to the alcohol intoxication causing the fall and the concussion with Subdural hematoma - Patient is admitted to the ICU for Close monitoring - Neuro surgery on consult #. Alcohol Intoxication - IV Fluids with Thiamine, Folic Acid and Multivitamins -Alcohol withdrawal precaution - Ativan for Agitation #. Hypernatremia - IV fluids with 0.45 NS - follow electrolytes #. Muscle skeletal left rib pain from the fall - Lidoderm Patch to left chest wall #. Seizure Disorder. Patient is noncompliant with medication - Bolus Phenytoin 15mg/kg followed by 100mg PO TID -seizure precautions with bed rails up and bed rail paddings #. Anxiety disorder - [place]avan PRN #. Hx of DM II noit on medication - Regular insulin sliding scale according to Accucheck - Follow HbA1c #. Stress ulcer Prophylaxis with Pepcid #. DVT prophylaxis with SCD #.Code Status: Full - Date & Time Date: 08/05/17 Time: 19:57
[2017-08-05] MEDS ORDERED: Multivitamin (MVI) 10 ML, Folic Acid 1 MG, Thiamine 100 MG in Dextrose 5%/0.45% NS 1,00... IV ONE (20:41)
[2017-08-05] MEDS ORDERED: Lidocaine 5% Patch TD ONE (21:15)
[2017-08-05] MEDS ORDERED: cefTRIAXone (Rocephin) 1 gm Inj ONE (21:15)
[2017-08-05] MEDS: Lidocaine 5% Patch TD SCH (21:31)
[2017-08-05] MEDS ORDERED: EnalaprilAT 1.25 mg/ml Inj ONE (21:42)
[2017-08-05] MEDS: Insulin Regular 100 units/ml SC SCH (22:02)
[2017-08-05] MEDS: EnalaprilAT 1.25 mg/ml Inj IV SCH (22:13)
[2017-08-05] MEDS ORDERED: Phenytoin 100 mg/2 ml Inj IVPB ONE (22:32)
[2017-08-05] MEDS ORDERED: PHENYTOIN IVPB STA (23:22)
[2017-08-05] MEDS ORDERED: SODIUM CHLORIDE 0.9% IVPB STA (23:22)
[2017-08-06] MEDS: Insulin Regular 100 units/ml SC SCH ×2 (04:30→08:34)
[2017-08-06] MEDS ORDERED: Insulin Regular 100 units/ml ONE (04:31)
[2017-08-06] MEDS: EnalaprilAT 1.25 mg/ml Inj IV SCH ×2 (04:36→08:02)
[2017-08-06 04:52] LABS: ALCOHOL SERUM < 10 mg/dl (0-10); BLOOD UREA NITROGEN 15 mg/dl (7-17); CALCIUM 8.8 mg/dL (8.4-10.2); CARBON DIOXIDE 23 mmol/L (22-30); CHLORIDE 101 mmol/L (98-107); GFR AFRICAN-AMERICAN > 60; GLUCOSE,RANDOM 137 mg/dL (65-105); PHOSPHOROUS 3.8 mg/dl (2.5-4.5); POTASSIUM 3.5 MMOL/L (3.6-5.0); SODIUM 140 mmol/l (132-148)
[2017-08-06 05:12] LABS: HEMATOCRIT 36.3 % (34.0-47.0); MEAN CORPUSCULAR HEMOGLOBIN 34.2 pg (27.0-31.0); MEAN CORPUSCULAR HGB CONC 33.2 g/dL (33.0-37.0); WHITE BLOOD COUNT 10.9 K/uL (4.8-10.8)
[2017-08-06] MEDS ORDERED: Magnesium Sulfate 2 gm/50 ml 2 GM/50 ML BAG IVPB ONE (06:54)
[2017-08-06] MEDS ORDERED: Potassium Chloride 20 mEq ER Tab PO ONE ×2 (06:55→08:18)
--- NOTE | 2017-08-06 07:52 | CT ---
EXAM: CT Head Without Intravenous Contrast CLINICAL HISTORY: 57 years old, female; Pain; Headache; Tension; Additional info: Left subdural hemorrhage follow up TECHNIQUE: Axial computed tomography images of the head/brain without intravenous contrast. All CT scans at this facility use one or more dose reduction techniques, viz.: automated exposure control; ma/kV adjustment per patient size (including targeted exams where dose is matched to indication; i.e. head); or iterative reconstruction technique. 326 images are submitted. Coronal and sagittal reformatted images were created and reviewed. COMPARISON: CT - HEAD W/O CONTRAST 08/05/2017 6:09:00 PM FINDINGS: Brain: There is stable appearance to the left convexity isodense subdural hematoma near the vertex measuring 1.1 cm with minimum midline shift of 1-2 mm. There is asymmetric right frontal cerebral volume loss seen on image 45 series 601. No significant white matter disease. No edema. Ventricles: Unremarkable. No ventriculomegaly. Bones/joints: Left orbital hardware. No acute fracture. Soft tissues: Unremarkable. Sinuses: Unremarkable. No acute sinusitis. Mastoid air cells: Unremarkable. No mastoid effusion. IMPRESSION: There is stable appearance to the left convexity isodense subdural hematoma near the vertex measuring 1.1 cm with minimum midline shift of 1-2 mm.Correlation with clinical neurosurgical expectation evaluation and further workup or followup as recommended by patient's clinical data.
[2017-08-06] MEDS ORDERED: EnalaprilAT 1.25 mg/ml Inj ONE (08:02)
[2017-08-06] MEDS ORDERED: Magnesium Sulfate 2 gm/50 ml 2 GM/50 ML BAG ONE (08:02)
[2017-08-06] MEDS: Lidocaine 5% Patch TD SCH (08:37)
[2017-08-06] MEDS ORDERED: Multivitamin With Minerals Tab PO SCH (09:00)
[2017-08-06 09:22] VITALS: O2SAT 94
--- NOTE | 2017-08-06 09:38 | CARD ---
APPROVED REPORT EKG Measurement Heart [id number] <Conclusion> Sinus tachycardia Otherwise normal ECG
--- NOTE | 2017-08-06 10:47 | RAD ---
PROCEDURE: Radiographs of the Chest and Left Ribs. HISTORY: fall COMPARISON: None available. TECHNIQUE: Frontal radiograph of the chest and multiple oblique radiographs of the left ribs were obtained. FINDINGS: LEFT RIBS: No fracture or focal lesion visualized. LUNGS: Clear. PLEURA: No pneumothorax or pleural fluid. CARDIOVASCULAR: Normal sized heart. No pulmonary vascular congestion. OTHER FINDINGS: None. IMPRESSION: Unremarkable radiographs of the chest and left ribs. No left rib fracture.
[2017-08-06 11:36] VITALS: BP 173/82; PULSE 108; RESP 20; TEMP 98.3
--- NOTE | 2017-08-06 20:15 | CON ---
DATE: HISTORY OF PRESENT ILLNESS: A 57-year-old female noncompliant with medications, diabetic hypertensive, alcohol history, history of seizures, had apparent seizure in sleep yesterday. She had CT of the head demonstrating a small left chronic on acute subdural hematoma with minimal mass affect. CAT scan was repeated this morning show no significant change. She denies any new headache, so she constantly has a headache, but this is old. She says that she has no numbness, weakness or paresthesias except for bilateral stocking distribution in her feet, which has been longstanding. She currently is awake, alert and oriented. No motor weakness. No sensory deficits. Reflexes 1/4. Pupils equal. EOMs full. Face is symmetric. My impression is that she has stable chronic subdural hematoma. She has been here 12 hours. I recommended that she remain overnight and if another CT in the morning is unchanged then she may go home. At that point; however, she is fairly adamant at this point signing out AMA. I told her that she needs followup in terms of repeat CAT scans to be done. I told her to ask the nurse my phone number to contact me for followup. If she changes her mind, I will evaluate the repeat CAT scans tomorrow morning, but I am at this point going to order in case if she is going to stay. Please note, I have reviewed her past medical history, which is significant as mentioned above. She has had multiple traumatic injuries. She has arthritis. She had tonsillectomy. She had surgery on right shoulder. She does not smoke, but she reports she drinks occasionally. She lives alone on disability. No allergies. Medications are listed in the chart. Family history and review of systems noncontributory. Celio Doyle MD
== END 2017-08-06 11:51 | disposition left against medical advice (07) | DRG 761 ==
LOC: H.ER 16:16 → H.ERHOLD 19:20
PROVIDERS: ADMIT Family Medicine; ATTEND Family Medicine
DX: S06.5X9A Traumatic subdural hemorrhage with loss of consciousness of unspecified duration, initial encounter (principal); E87.0 Hyperosmolality and hypernatremia; F10.129 Alcohol abuse with intoxication, unspecified; W19.XXXA Unspecified fall, initial encounter; Y93.01 Activity, walking, marching and hiking; Y92.9 Unspecified place or not applicable; Y90.8 Blood alcohol level of 240 mg/100 ml or more; Z91.14 Patient's other noncompliance with medication regimen; E11.9 Type 2 diabetes mellitus without complications; G40.909 Epilepsy, unspecified, not intractable, without status epilepticus; I10 Essential (primary) hypertension; M19.90 Unspecified osteoarthritis, unspecified site; F41.9 Anxiety disorder, unspecified; R07.81 Pleurodynia

== ENCOUNTER 2017-08-30 10:57 | Observation (INO) | payer MEDICAID ==
[2017-08-30] MEDS ORDERED: Sodium Chloride 0.9% 1,000 ML IV STA (11:15)
--- NOTE | 2017-08-30 11:36 | ED PDOC ---
HPI: Seizure Time Seen by Provider: 08/30/17 11:00 Chief Complaint (Nursing): Seizure Chief Complaint (Provider): Seizure History Per: EMS History/Exam Limitations: no limitations Quality Of Seizure: Generalized Additional History Per: Patient, Family (cousin) Additional Complaint(s): Venessa Sanchez is a 57 year old female with a past medical history of seizure disorder, alcohol abuse, and status post subdural hematoma brought to the ED by EMS after experiencing a generalized seizure witnessed by her cousin. The patient states she has no recollection of the event. The patient bit her tongue but denies any other injury. She denies drinking and states she has been taking Dilantin as prescribed. PMD: Feliciano Graham MD Past Medical History Reviewed: Historical Data, Nursing Documentation, Vital Signs Vital Signs: Last Vital Signs Temp Pulse 121 H 08/30/17 11:03 Resp 20 08/30/17 11:03 BP 162/102 H 08/30/17 11:03 Pulse Ox 95 08/30/17 11:39 - Medical History PMH: Anxiety, Arthritis, Fractures (right arm, right shoulder, left clavical ( current)), HTN, Seizures (unknown) Denies: HIV, Chronic Kidney Disease - Surgical History Surgical History: Tonsillectomy - Family History Family History: States: Unknown Family Hx - Immunization History Hx Tetanus Toxoid Vaccination: No Hx Influenza Vaccination: No Hx Pneumococcal Vaccination: No - Home Medications Home Medications: Ambulatory Orders Medication Instructions Recorded Phenytoin, Extended [Dilantin] 100 mg PO TID 09/16/16 Acetaminophen/Butalbital/Caf 1 tab PO Q6H PRN 08/30/17 [Fioricet] Cyclobenzaprine HCl 5 mg PO Q8H PRN 08/30/17 [Cyclobenzaprine HCl] Escitalopram Oxalate [Lexapro] 5 mg PO DAILY 08/30/17 Ibuprofen [Motrin Tab] 800 mg PO Q8H 08/30/17 - Allergies Allergies/Adverse Reactions: Allergies Allergy/AdvReac Type Severity Reaction Status Date / Time No Known Allergies Allergy Verified 08/04/15 12:48 Review of Systems ROS Statement: Except As Marked, All Systems Reviewed And Found Negative Neurological: Positive for: Seizures (bit tongue) Physical Exam - Reviewed Nursing Documentation Reviewed: Yes Vital Signs Reviewed: Yes - Physical Exam Appears: Positive for: Non-toxic, No Acute Distress Head Exam: Positive for: ATRAUMATIC, NORMOCEPHALIC Skin: Positive for: Normal Color, Warm, Dry Eye Exam: Positive for: Normal appearance, EOMI, PERRL ENT: Positive for: Other (bite vanegas present on lateral edge of the right side of tongue ) Neck: Positive for: Normal Cardiovascular/Chest: Positive for: Chest Non Tender, Tachycardia Respiratory: Positive for: Normal Breath Sounds (clear to auscultation bilaterally). Negative for: Respiratory Distress Gastrointestinal/Abdominal: Positive for: Normal Exam, Soft. Negative for: Tenderness Extremity: Positive for: Normal ROM (full ROM), Other (surgical scar noted to right shoulder). Negative for: Deformity Neurologic/Psych: Positive for: Alert, Oriented (x3), Other (equal strength ). Negative for: Motor/Sensory Deficits (moving all extremities) - Laboratory Results Result Diagrams: 08/30/17 11:30 08/30/17 11:30 - ECG O2 Sat by Pulse Oximetry: 95 (RA) Pulse Ox Interpretation: Normal Medical Decision Making Medical Decision Making: Time: 11:00 Impression: Seizure Plan: * ED EKG * Alcohol Serum * CMP * Dilantin * Drug screen, urine * CBC (with differential) * NS 1,000 ml IV 100 mls/hr * CT Head W/O Contrast * Reevaluation Scribe Attestation: Documented by Monika Artis, acting as a scribe for Ravi Musa MD. Provider Scribe Attestation: All medical record entries made by the Scribe were at my direction and personally dictated by me. I have reviewed the chart and agree that the record accurately reflects my personal performance of the history, physical exam, medical decision making, and the department course for this patient. I have also personally directed, reviewed, and agree with the discharge instructions and disposition. Disposition - Clinical Impression Clinical Impression: Generalized seizure - Patient ED Disposition Is Patient to be Admitted: Yes - Disposition Disposition Time: 12:48 Condition: FAIR Forms: [employer] ([employer]) - Pt Status Changed To: Hospital Disposition Of: Observation - POA Present On Arrival: None
[2017-08-30 11:40] LABS: BASO # 0.2 K/uL (0.0-0.2); BASO % 1.4 % (0.0-2.0); EOS % 0.2 % (0.0-4.0); HEMATOCRIT 43.7 % (34.0-47.0); LYMPH # 1.7 K/uL (1.0-4.3); LYMPH % 12.4 % (20.0-40.0); MEAN CELL VOLUME 103.2 fl (81.0-99.0); MEAN CORPUSCULAR HEMOGLOBIN 34.4 pg (27.0-31.0); MEAN CORPUSCULAR HGB CONC 33.4 g/dL (33.0-37.0); MEAN PLATELET VOLUME 8.7 fl (7.2-11.7); MONO % 6.9 % (0.0-10.0); NEUT # 10.9 K/uL (1.8-7.0); NEUT % 79.1 % (50.0-75.0); NRBC % 0.1 % (0.0-0.0); WHITE BLOOD COUNT 13.7 K/uL (4.8-10.8)
[2017-08-30 11:58] LABS: ALB/GLOB RATIO 1.6 (1.0-2.1); ALCOHOL SERUM < 10 mg/dl (0-10); ALKALINE PHOSPHATASE 127 U/L (38-126); ALT/SGPT 54 U/L (9-52); AST/SGOT 105 U/L (14-36); BILIRUBIN,TOTAL 0.7 mg/dl (0.2-1.3); BLOOD UREA NITROGEN 11 mg/dl (7-17); CALCIUM 9.6 mg/dL (8.4-10.2); CARBON DIOXIDE 16 mmol/L (22-30); CHLORIDE 98 mmol/L (98-107); GFR AFRICAN-AMERICAN > 60; GLUCOSE,RANDOM 133 mg/dL (65-105); SODIUM 139 mmol/l (132-148); TOTAL PROTEIN 7.9 G/DL (6.3-8.2)
[2017-08-30 11:59] LABS: POTASSIUM 4.4 MMOL/L (3.6-5.0)
--- NOTE | 2017-08-30 12:04 | CT ---
PROCEDURE: CT HEAD WITHOUT CONTRAST. HISTORY: r/o bleed COMPARISON: 08/06/2017. TECHNIQUE: Axial computed tomography images were obtained through the head/brain without intravenous contrast. Radiation dose: Total exam DLP = 873.88 mGy-cm. This CT exam was performed using one or more of the following dose reduction techniques: Automated exposure control, adjustment of the mA and/or kV according to patient size, and/or use of iterative reconstruction technique. FINDINGS: HEMORRHAGE: There is an acute on chronic left convexity subdural hematoma measuring 10 mm in maximum width without significant mass effect or midline shift. BRAIN: There is no territorial infarction or intracranial mass. VENTRICLES: There is mild global parenchymal volume loss and proportionate enlargement of the ventricles and cortical sulci. CALVARIUM: The skull base and calvarium are normal. There is a metallic plate transfixing left orbital floor fracture. PARANASAL SINUSES: Predominantly clear. MASTOID AIR CELLS: Predominantly clear. OTHER FINDINGS: None. IMPRESSION: Acute on chronic left convexity subdural hematoma measuring 10 mm in maximum width without significant mass effect or midline shift.
[2017-08-30] MEDS ORDERED: Fosphenytoin 100 mg/2 ml Inj IV ONE (12:21)
[2017-08-30] MEDS ORDERED: FOSPHENYTOIN IV ONE (12:45)
[2017-08-30] MEDS ORDERED: SODIUM CHLORIDE 0.9% IV ONE (12:45)
--- NOTE | 2017-08-30 13:32 | CP.PCM.CON ---
History of Present Illness - History of Present Illness History of Present Illness: Mrs. Sanchez is a 57-year-old woman with a past medical history of seizures treated with dilantin and Keppra, but states that she forgets to take her medication sometimes and Keppra makes her nauseous. She has a history of a left subdural hemorrhage as a result of a fall. She presented after having a generalized tonic-clonic seizure. In the ED, she had 3 subsequent seizures and was treated with ativan and loaded with dilantin. She is now somnolent, but cognitively intact. She is conversant and is able to provide an accurate history. She complained of bilateral tongue pain from lacerations sustained during the seizure. She denied headache, back pain, limb pain, nausea, vomiting , dizziness, double vision, chest pain or shortness of breath. Review of Systems - Review of Systems All systems: reviewed and no additional remarkable complaints except Past Patient History - Infectious Disease Hx of Infectious Diseases: None - Past Medical History & Family History Past Medical History?: Yes - Past Social History Smoking Status: Never Smoked - CARDIAC Hx Hypertension: Yes - PULMONARY Hx Respiratory Disorders: No - NEUROLOGICAL Hx Seizures: Yes (unknown) - HEENT Hx HEENT Problems: No - RENAL Hx Chronic Kidney Disease: No - ENDOCRINE/METABOLIC Hx Endocrine Disorders: No - HEMATOLOGICAL/ONCOLOGICAL Hx Human Immunodeficiency Virus (HIV): No - INTEGUMENTARY Hx Dermatological Problems: No - MUSCULOSKELETAL/RHEUMATOLOGICAL Hx Arthritis: Yes Hx Fractures: Yes (right arm, right shoulder, left clavical (current)) - GASTROINTESTINAL Hx Gastrointestinal Disorders: No - GENITOURINARY/GYNECOLOGICAL Hx Genitourinary Disorders: No - PSYCHIATRIC Hx Anxiety: Yes - SURGICAL HISTORY Hx Tonsillectomy: Yes - ANESTHESIA Hx Anesthesia: Yes Hx Anesthesia Reactions: No Hx Malignant Hyperthermia: No Meds Allergies/Adverse Reactions: Allergies Allergy/AdvReac Type Severity Reaction Status Date / Time No Known Allergies Allergy Verified 08/04/15 12:48 - Medications Medications: Current Medications Sodium Chloride (Sodium Chloride 0.9%) 1,000 mls @ 100 mls/hr IV .Q10H STA Stop: 08/30/17 21:14 Last Admin: 08/30/17 11:20 Dose: 100 mls/hr Physical Exam - Constitutional Appears: Well - Head Exam Head Exam: ATRAUMATIC, NORMAL INSPECTION, NORMOCEPHALIC - Eye Exam Eye Exam: EOMI, Normal appearance, PERRL - ENT Exam ENT Exam: Mucous Membranes Moist Additional comments: tongue laceration - Neck Exam Neck exam: Positive for: Normal Inspection - Respiratory Exam Respiratory Exam: Clear to Auscultation Bilateral, NORMAL BREATHING PATTERN - Cardiovascular Exam Cardiovascular Exam: REGULAR RHYTHM, +S1, +S2 - GI/Abdominal Exam GI & Abdominal Exam: Normal Bowel Sounds, Soft. absent: Tenderness - Rectal Exam Rectal Exam: Deferred - Extremities Exam Extremities exam: Positive for: normal inspection - Back Exam Back exam: NORMAL INSPECTION - Neurological Exam Neurological exam: Abnormal Gait, Alert, CN II-XII Intact, Oriented x3, Reflexes Normal - Psychiatric Exam Psychiatric exam: Normal Affect, Normal Mood - Skin Skin Exam: Abrasion Results - Vital Signs Recent Vital Signs: Last Vital Signs Temp Pulse 121 H 08/30/17 11:03 Resp 20 08/30/17 11:03 BP 162/102 H 08/30/17 11:03 Pulse Ox 95 08/30/17 12:48 - Labs Result Diagrams: 08/30/17 11:30 08/30/17 11:30 Labs: Laboratory Results - last 24 hr 08/30/17 08/30/17 08/30/17 11:30 11:30 11:30 WBC 13.7 H RBC 4.23 Hgb 14.6 D Hct 43.7 MCV 103.2 H MCH 34.4 H MCHC 33.4 RDW 15.0 H Plt Count 292 MPV 8.7 Neut % (Auto) 79.1 H Lymph % (Auto) 12.4 L King % (Auto) 6.9 Eos % (Auto) 0.2 Baso % (Auto) 1.4 Neut # 10.9 H Lymph # 1.7 King # 1.0 H Eos # 0.0 Baso # 0.2 Sodium 139 Potassium 4.4 Chloride 98 Carbon Dioxide 16 L Anion Gap 29 H BUN 11 Creatinine 0.6 L Est GFR ( Amer) > 60 Est GFR (Non-Af Amer) > 60 Random Glucose 133 H Calcium 9.6 Total Bilirubin 0.7 AST 105 H D ALT 54 H D Alkaline Phosphatase 127 H D Total Protein 7.9 Albumin 4.8 Globulin 3.1 Albumin/Globulin Ratio 1.6 Phenytoin < 3.0 L Alcohol, Quantitative < 10 - Imaging and Cardiology CT scan - head Status: Image reviewed by me, Report reviewed by me (Chronic left subdural with no significant midline shift. ) Assessment & Plan (1) Generalized seizure Assessment and Plan: Will load with Vimpat 200 mg and continue 100 mg Q12 hours. The patient has difficulty with TID dosing and has bad reactions to Keppra. Will repeat CT head in the AM. Q2 hour neuro-checks. Seizure precautions. PT/OT eval. DVT Px. Status: Acute Priority: High (2) Alcohol withdrawal Assessment and Plan: CIWA protocol Status: Acute (3) Subdural hematoma Assessment and Plan: Will repeat CT head in AM and monitor. Status: Acute
[2017-08-30] MEDS ORDERED: Lacosamide 200mg/20ml 200 MG in Sodium Chloride 0.9% 100 ML IVPB ONE (17:00)
[2017-08-30] MEDS ORDERED: Apap-Butalbital-Caffeine 325-50-40mg Tab PO PRN (17:30)
--- NOTE | 2017-08-30 21:45 | CP.PCM.PN ---
Subjective - Date & Time of Evaluation Date of Evaluation: 08/30/17 Time of Evaluation: 21:44 - Subjective Subjective: pt known to me was seen twice within last 5 weeks once at [facility] [place] [facility] [place] are old and the sd size has diminshed over last month no intervention indicated Objective - Vital Signs/Intake and Output Vital Signs (last 24 hours): Temp Pulse Resp BP Pulse Ox 98.3 F 114 H 20 154/89 H 94 L 08/30/17 15:36 08/30/17 15:36 08/30/17 15:36 08/30/17 15:36 08/30/17 15:36 - Medications Medications: Current Medications Acetaminophen (Tylenol 325mg Tab) 650 mg PO Q6 PRN PRN Reason: Pain, moderate (4-7) Acetaminophen/Butalbital/Caffeine (Fioricet) 1 tab PO Q6H PRN PRN Reason: Migraine headache Cyclobenzaprine HCl (Flexeril) 5 mg PO Q8H PRN PRN Reason: Muscle spasm Escitalopram Oxalate (Lexapro) 5 mg PO DAILY ROBYN Lacosamide (Vimpat) 100 mg PO BID ROBYN Lorazepam (Ativan) 1 mg PO BID PRN PRN Reason: Anxiety Last Admin: 08/30/17 17:41 Dose: 1 mg - Labs Labs: 08/30/17 11:30 08/30/17 11:30
[2017-08-31 05:03] VITALS: O2SAT 98
--- NOTE | 2017-08-31 07:37 | CARD ---
APPROVED REPORT EKG Measurement Heart [id number] <Conclusion> Sinus tachycardia Possible Left atrial enlargement Borderline ECG
[2017-08-31] MEDS ORDERED: Lacosamide 50 MG Tab PO SCH (09:00)
[2017-08-31 09:01] VITALS: BP 165/82; PULSE 102; RESP 18; TEMP 98.2
--- NOTE | 2017-08-31 12:08 | CP.PCM.PN ---
Subjective - Date & Time of Evaluation Date of Evaluation: 08/31/17 Time of Evaluation: 12:06 - Subjective Subjective: Ms. Sanchez was seen and examined at the bedside. She is alert, oriented in all spheres. She denies any headache, dizziness. numbness, weakness, nausea, or vomiting. She states of wanting to go home today. She is not in any kind of distress. There was no untoward events overnight. Objective - Vital Signs/Intake and Output Vital Signs (last 24 hours): Temp Pulse Resp BP Pulse Ox 98.2 F 102 H 18 165/82 H 98 08/31/17 09:00 08/31/17 09:00 08/31/17 09:00 08/31/17 09:00 08/31/17 09:00 - Medications Medications: Current Medications Acetaminophen (Tylenol 325mg Tab) 650 mg PO Q6 PRN PRN Reason: Pain, moderate (4-7) Last Admin: 08/31/17 08:23 Dose: 650 mg Acetaminophen/Butalbital/Caffeine (Fioricet) 1 tab PO Q6H PRN PRN Reason: Migraine headache Cyclobenzaprine HCl (Flexeril) 5 mg PO Q8H PRN PRN Reason: Muscle spasm Last Admin: 08/31/17 08:24 Dose: 5 mg Escitalopram Oxalate (Lexapro) 5 mg PO DAILY [facility] Last Admin: 08/31/17 08:25 Dose: 5 mg Lacosamide (Vimpat) 100 mg PO BID [facility] Last Admin: 08/31/17 08:27 Dose: 100 mg Lorazepam (Ativan) 1 mg PO BID PRN PRN Reason: Anxiety Last Admin: 08/31/17 08:27 Dose: 1 mg - Labs Labs: 08/30/17 11:30 08/30/17 11:30 - Constitutional Appears: No Acute Distress - Head Exam Head Exam: NORMAL INSPECTION - Neurological Exam Neurological Exam: Alert, Awake, CN II-XII Intact, Oriented x3 Neuro motor strength exam: Left Upper Extremity: 5, Right Upper Extremity: 5, Left Lower Extremity: 5, Right Lower Extremity: 5 Additional comments: She follow commands and answer questions appropriately. Sensation is intact. Assessment and Plan (1) Generalized seizure Assessment & Plan: Case discussed with Dr. Steve, continue all current medical regimen. Clear for discharge. Status: Acute
--- NOTE | 2017-08-31 13:28 | CT ---
PROCEDURE: CT HEAD WITHOUT CONTRAST. HISTORY: follow sdh COMPARISON: 08/30/2017 and 08/06/2017 TECHNIQUE: Axial computed tomography images were obtained through the head/brain without intravenous contrast. Radiation dose: Total exam DLP = 857.19 mGy-cm. This CT exam was performed using one or more of the following dose reduction techniques: Automated exposure control, adjustment of the mA and/or kV according to patient size, and/or use of iterative reconstruction technique. FINDINGS: HEMORRHAGE: There is no appreciable change in size of a high left frontal convexity subdural hematoma as compared to the examination of 08/30/2017. The appearance is somewhat different from 08/30/2017 due to differences in patient positioning and gantry angulation relative to the brain. In comparison to the examination of 08/06/2017, the subdural collection shows little interval change. It is isodense to the brain parenchyma. It measures approximately 8 mm in width. There is no intraventricular hemorrhage. There is no other extra-axial hemorrhage. There is no parenchymal hemorrhage peer BRAIN: No mass effect or edema. There is mild diffuse atrophy. There is no appreciable chronic white matter ischemic VENTRICLES: Change. No hydrocephalus. No midline shift. CALVARIUM: Unremarkable. PARANASAL SINUSES: Unremarkable as visualized. No significant inflammatory changes. MASTOID AIR CELLS: Unremarkable as visualized. No inflammatory changes. OTHER FINDINGS: Evidence of surgical repair of left orbital floor. Only partially included in this examination. IMPRESSION: Stable high left frontal convexity isodense subdural hematoma. No acute hemorrhage. No midline shift.
--- NOTE | 2017-08-31 15:42 | CP.PCM.HP ---
History of Present Illness - History of Present Illness History of Present Illness: CC: Seizure. 57 y/o F, brought to ER [facility], [place] by EMS on 08/30/17 for evaluation of Seizure on DOA witnessed by cousin, Pt on Dilantin but not in compliance with her medication. Pt c/o of pain in the lateral edge of R tongue associated to tongue bite during the event. Worsening symptom: CT Head showing acute on chronic L convexity subdural hematoma. In ER Pt had 3 episodes of Seizure ( Tx with Ativan and Dilantin) Aggravated factor: Pt do no remember history of event. Pt denied: Fever, chills, headache, dizziness, n/v/d, abdominal pain, CP, palpitation, SOB, sick contact, recent travel. PMHx: Seizure, O/A/ HTN, Anxiety, Depression, Hx of fall and Multiple Fx: R arm , R shoulder (S/P ORIF R shoulder), L Clavicle, Hx of ETOH abuse. Present on Admission - Present on Admission Any Indicators Present on Admission: No Review of Systems - Constitutional Constitutional: Other (negative) - EENT Eyes: Other (negative) Ears: Other (negative) Nose/Mouth/Throat: Other (tongue pain 2nd to bite.) - Cardiovascular Cardiovascular: Other (negative) - Respiratory Respiratory: Other (negative) - Gastrointestinal Gastrointestinal: Other (negative) - Genitourinary Genitourinary: Other (negative) - Musculoskeletal Musculoskeletal: Arthralgias - Integumentary Integumentary: New Lesions (tongue bite) - Neurological Neurological: Convulsions - Psychiatric Psychiatric: Anxiety, Depression - Endocrine Endocrine: Other (negative) - Hematologic/Lymphatic Hematologic: Other (negative) Past Patient History - Infectious Disease Hx of Infectious Diseases: None - Past Medical History & Family History Past Medical History?: Yes Pertinent Family History: Unknown - Past Social History Smoking Status: Never Smoked Alcohol: Other (Hx of ETOH abuse) Drugs: Denies Home Situation {Lives}: Alone - CARDIAC Hx Cardiac Disorders: Yes Hx Hypertension: Yes - PULMONARY Hx Respiratory Disorders: No - NEUROLOGICAL Hx Neurological Disorder: Yes Hx Seizures: Yes - HEENT Hx HEENT Problems: No - RENAL Hx Chronic Kidney Disease: No - ENDOCRINE/METABOLIC Hx Endocrine Disorders: No - HEMATOLOGICAL/ONCOLOGICAL Hx Blood Disorders: No Hx AIDS: No Hx Human Immunodeficiency Virus (HIV): No - INTEGUMENTARY Hx Dermatological Problems: No - MUSCULOSKELETAL/RHEUMATOLOGICAL Hx Musculoskeletal Disorders: Yes Hx Arthritis: Yes Hx Falls: No Hx Fractures: Yes - GASTROINTESTINAL Hx Gastrointestinal Disorders: No - GENITOURINARY/GYNECOLOGICAL Hx Genitourinary Disorders: No - PSYCHIATRIC Hx Psychophysiologic Disorder: Yes Hx Anxiety: Yes Hx Substance Use: No - SURGICAL HISTORY Hx Surgeries: Yes Hx Tonsillectomy: Yes - ANESTHESIA Hx Anesthesia: Yes Hx Anesthesia Reactions: No Hx Malignant Hyperthermia: No Has any member of the family had a problem w/ anesthesia?: No Meds Home Medications: Home Medication List Medication Instructions Recorded Confirmed Type Lacosamide [Vimpat] 100 mg PO BID #60 tab 08/31/17 Rx Allergies/Adverse Reactions: Allergies Allergy/AdvReac Type Severity Reaction Status Date / Time No Known Allergies Allergy Verified 08/04/15 12:48 Physical Exam - Constitutional Appears: No Acute Distress - Head Exam Head Exam: NORMAL INSPECTION - Eye Exam Eye Exam: PERRL - ENT Exam ENT Exam: Normal Exam Additional comments: Tongue bite - Neck Exam Neck exam: Positive for: Normal Inspection - Respiratory Exam Respiratory Exam: NORMAL BREATHING PATTERN - Cardiovascular Exam Cardiovascular Exam: REGULAR RHYTHM - GI/Abdominal Exam GI & Abdominal Exam: Normal Bowel Sounds, Soft - Extremities Exam Extremities exam: Positive for: full ROM - Back Exam Additional comments: Sacral redness, POA - Neurological Exam Neurological exam: Alert, Oriented x3 Additional comments: Follows commands, answer questions appropriately. - Psychiatric Exam Psychiatric exam: Anxious, Depressed - Skin Skin Exam: Warm Results - Vital Signs Recent Vital Signs: Last Vital Signs Temp 98.2 F 08/31/17 09:00 Pulse 102 H 08/31/17 09:00 Resp 18 08/31/17 09:00 BP 165/82 H 08/31/17 09:00 Pulse Ox 98 08/31/17 09:00 reviewed J.P. - Labs Result Diagrams: 08/30/17 11:30 08/30/17 11:30 Labs: Laboratory Results - last 24 hr 08/30/17 08/30/17 11:04 21:27 POC Glucose (mg/dL) 122 H 110 reviewed J.P. - EKG Data EKG comments: Reviewed J.P. - Imaging and Cardiology CT scan - head Status: Report reviewed by me (Anthony) Assessment & Plan (1) Generalized seizure Status: Acute Priority: High (2) Anxiety Status: Acute (3) Depression Status: Acute (4) Subdural hematoma Status: Acute - Assessment and Plan (Free Text) Plan: Continue Vimpat as per Neurologist and rest of Tx. Neurology consult appreciated. Pt improved and stable to be discharged, f/u with PMD and Neurology in a week. - Date & Time Date: 08/31/17 Time: 11:30
== END 2017-08-31 14:30 | disposition home or self-care (01) ==
LOC: H.ER 10:57 → H.ERHOLD 12:44 → H.TEL 14:52
PROVIDERS: ADMIT Internal Medicine Pulmonary Disease; ATTEND Internal Medicine Pulmonary Disease
DX: G40.409 Other generalized epilepsy and epileptic syndromes, not intractable, without status epilepticus (principal); F41.9 Anxiety disorder, unspecified; F32.9 Major depressive disorder, single episode, unspecified; I10 Essential (primary) hypertension; Z91.14 Patient's other noncompliance with medication regimen; M19.90 Unspecified osteoarthritis, unspecified site; S06.5X9A Traumatic subdural hemorrhage with loss of consciousness of unspecified duration, initial encounter; X58.XXXA Exposure to other specified factors, initial encounter
CPT/HCPCS: 70450; 80053; 80185; 80320; 82948; 85025; 92526; 92610; 93005; 96374; 99285; G0378; G8996; G8997; G8998; J2060; J7040; Q2009

== ENCOUNTER 2017-09-06 11:12 | Observation (INO) | payer MEDICAID ==
[2017-09-06 11:17] VITALS: BMI 26.6
--- NOTE | 2017-09-06 11:39 | ED PDOC ---
HPI: Seizure <Garth Granado - Last Filed: 09/06/17 15:42> Quality Of Seizure: Focal Involving: (bilateral upper extremities, eyes rolling back) Precipitating Factor(s): Decreased Sleep <Nelli Mcmahon - Last Filed: 09/06/17 16:06> Time Seen by Provider: 09/06/17 11:22 Chief Complaint (Nursing): Seizure Additional Complaint(s): 57F p/w seizure at approximately 10:00am as witnessed by friend who is at bedside. The friend reports that the seizure involved b/l upper extremity flexion, with jaw clenching, and eyes "rolling into the back of her head", duration was ~1.5 minutes and there was no bowel/bladder loss. Pt unable to recall if she took any of her medication today. Of note, patient reports having difficulty staying asleep for the past couple of days, decreased appetite , nausea, fatigue, and loose, non-bloody BM 1-2x/day and has been having shortness of breath. She denies fever, chills, chest pain, palpitations, visual /auditory changes or difficulties, denies dysuria, or abdominal pain. PMD: Jennifer Linda Neurologist: Dr Yoo PMH: DM, Seizures PSH: RUE (fx in 4 places w/ kandis) Smoker: No Alcohol: Occasionally, last drink 2 days ago Allergies: None (Nelli Mcmhaon) Supervising Attending Note - Attestation: I have personally seen and examined this patient.: Yes I have fully participated in the care of the patient.: Yes I have reviewed all pertinent clinical information, including history, physical exam and plan: Yes <Garth Granado - Last Filed: 09/06/17 15:42> <Nelli Mcmahon - Last Filed: 09/06/17 16:06> - Notes: Notes:: 57 y/o f with a long ho of etoh withdrawal seizure p/w the same two seizure here last admission for same last week, examined by me neuro post ictal but moves all fours perrl, rrr lungs ctab. will admit (Garth Granado) Past Medical History <Garth Granado - Last Filed: 09/06/17 15:42> - Medical History PMH: Anxiety, Arthritis, Fractures, HTN, Seizures Denies: HIV, Chronic Kidney Disease - Surgical History Surgical History: Tonsillectomy - Family History Family History: States: Unknown Family Hx - Immunization History Hx Tetanus Toxoid Vaccination: No Hx Influenza Vaccination: No Hx Pneumococcal Vaccination: No <Nelli Mcmahon - Last Filed: 09/06/17 16:06> Vital Signs: Last Vital Signs Temp 37.3 C 09/06/17 14:50 Pulse 110 H 09/06/17 14:50 Resp 21 09/06/17 14:50 BP 162/92 H 09/06/17 14:50 Pulse Ox 98 09/06/17 14:50 - Home Medications Home Medications: Ambulatory Orders Medication Instructions Recorded Phenytoin, Extended [Dilantin] 100 mg PO TID 09/16/16 Acetaminophen/Butalbital/Caf 1 tab PO Q6H PRN 08/30/17 [Fioricet] Cyclobenzaprine HCl 5 mg PO Q8H PRN 08/30/17 Ibuprofen [Motrin Tab] 800 mg PO Q8H PRN 08/30/17 Escitalopram [Lexapro] 10 mg PO DAILY 09/06/17 Furosemide [Lasix] 20 mg PO DAILY 09/06/17 Lubiprostone [Amitiza] 8 mcg PO BID 09/06/17 Meclizine [Meclizine*] 25 mg PO Q8H PRN 09/06/17 Metformin ER [Glucophage XR] 500 mg PO BID 09/06/17 Triamterene/Hydrochlorothiazid 1 cap PO DAILY 09/06/17 [Triamterene-Hctz 37.5-25 mg Cp] amLODIPine [Norvasc] 2.5 mg PO DAILY 09/06/17 carBAMazepine [Tegretol] 200 mg PO BID 09/06/17 - Allergies Allergies/Adverse Reactions: Allergies Allergy/AdvReac Type Severity Reaction Status Date / Time No Known Allergies Allergy Verified 09/06/17 11:18 Review of Systems ROS Statement: Except As Marked, All Systems Reviewed And Found Negative Constitutional: Positive for: Malaise, Other (fatigue) Respiratory: Positive for: SOB with Exertion Gastrointestinal: Positive for: Diarrhea (loose stool) Neurological: Positive for: Seizures <Nelli Mcmahon - Last Filed: 09/06/17 16:06> Physical Exam - Reviewed Vital Signs Reviewed: Yes (Re-assess) - Physical Exam Appears: Positive for: Non-toxic, No Acute Distress Head Exam: Positive for: ATRAUMATIC, NORMAL INSPECTION Skin: Positive for: Normal Color, Warm, Dry Eye Exam: Positive for: Normal appearance, EOMI, PERRL. Negative for: Nystagmus ENT: Positive for: Other (Tongue with bite vanegas from prior visit last week) Neck: Positive for: Normal, Painless ROM, Supple Cardiovascular/Chest: Positive for: Regular Rate, Rhythm, Tachycardia. Negative for: JVD Respiratory: Positive for: Normal Breath Sounds. Negative for: Rales, Wheezing , Respiratory Distress Gastrointestinal/Abdominal: Positive for: Bowel Sounds, Soft. Negative for: Tenderness Extremity: Positive for: Normal ROM, Capillary Refill. 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 Negative for: Motor/Sensory Deficits, Facial Droop <Nelli Mcmahon - Last Filed: 09/06/17 16:06> - Laboratory Results Result Diagrams: 09/06/17 11:57 09/06/17 12:18 <Garth Granado - Last Filed: 09/06/17 15:42> - Laboratory Results Result Diagrams: 09/06/17 11:57 09/06/17 12:18 - ECG O2 Sat by Pulse Oximetry: 98 <Nelli Mcmahon - Last Filed: 09/06/17 16:06> Medical Decision Making <Garth Granado - Last Filed: 09/06/17 15:42> <Nelli Mcmahon - Last Filed: 09/06/17 16:06> Medical Decision Making: Breakthrough seizures - CBC, CMP, Phenytoin Level - Urinalysis, Urine C&S - etoh, UDS - EKG, Accu-check - CT Head - Neurology Consult: Spoke to Dr Reynoso who recommends not changing medication at present and feels patient could be discharged tomorrow. CBC: no leukocytosis, but elevated neutrophils CMP: no acute electrolyte abnml Alcohol: <10 Accu-check: 130 CT Head: minimal interval change since last CT, but no mass effect 1310: Patient began having another seizure involving upper extremities, eye movement, and head jerking. Oxygen placed, Ativan given, and mouth suctioned for secretions and post- biting her own tongue. CIWA: 4 (Nelli Mcmahon) Disposition <Garth Granado - Last Filed: 09/06/17 15:42> - Patient ED Disposition Is Patient to be Admitted: Yes Discussed With : Frandy Caldwell Doctor Will See Patient In The: Hospital Counseled Patient/Family Regarding: Studies Performed, Diagnosis - Disposition Disposition Time: 16:06 - Pt Status Changed To: Hospital Disposition Of: Observation <Nelli Mcmahon - Last Filed: 09/06/17 16:06> - Clinical Impression Clinical Impression: Seizure, Recurrent seizures - Disposition Condition: IMPROVED
[2017-09-06 12:00] LABS: BASO # 0.2 K/uL (0.0-0.2); BASO % 1.7 % (0.0-2.0); EOS # 0.1 K/uL (0.0-0.7); EOS % 0.5 % (0.0-4.0); HEMATOCRIT 39.8 % (34.0-47.0); LYMPH # 1.4 K/uL (1.0-4.3); LYMPH % 14.1 % (20.0-40.0); MEAN CELL VOLUME 98.9 fl (81.0-99.0); MEAN CORPUSCULAR HEMOGLOBIN 34.7 pg (27.0-31.0); MEAN CORPUSCULAR HGB CONC 35.1 g/dL (33.0-37.0); MEAN PLATELET VOLUME 8.7 fl (7.2-11.7); MONO % 9.6 % (0.0-10.0); NEUT # 7.6 K/uL (1.8-7.0); NEUT % 74.1 % (50.0-75.0); RED CELL DISTRIBUTION WIDTH 14.9 % (11.5-14.5); WHITE BLOOD COUNT 10.2 K/uL (4.8-10.8)
[2017-09-06 12:31] LABS: ALB/GLOB RATIO 1.5 (1.0-2.1); ALCOHOL SERUM < 10 mg/dl (0-10); ALKALINE PHOSPHATASE 127 U/L (38-126); ALT/SGPT 42 U/L (9-52); AST/SGOT 72 U/L (14-36); BILIRUBIN,TOTAL 0.7 mg/dl (0.2-1.3); BLOOD UREA NITROGEN 9 mg/dl (7-17); CALCIUM 9.2 mg/dL (8.4-10.2); CARBON DIOXIDE 25 mmol/L (22-30); CHLORIDE 99 mmol/L (98-107); GFR AFRICAN-AMERICAN > 60; GLUCOSE,RANDOM 137 mg/dL (65-105); POTASSIUM 4.3 MMOL/L (3.6-5.0); SODIUM 140 mmol/l (132-148); TOTAL PROTEIN 7.5 G/DL (6.3-8.2)
[2017-09-06] MEDS ORDERED: Multivitamin (MVI) 10 ML, Thiamine 100 MG, Folic Acid 1 MG in Sodium Chloride 0.9% 1,00... IV ONE (13:12)
--- NOTE | 2017-09-06 13:23 | CT ---
PROCEDURE: CT HEAD WITHOUT CONTRAST. HISTORY: Seizure COMPARISON: 08/31/2017. TECHNIQUE: Axial computed tomography images were obtained through the head/brain without intravenous contrast. Radiation dose: Total exam DLP = 883.27 mGy-cm. This CT exam was performed using one or more of the following dose reduction techniques: Automated exposure control, adjustment of the mA and/or kV according to patient size, and/or use of iterative reconstruction technique. FINDINGS: HEMORRHAGE: Since the prior examination, there has been no significant interval change 10 mm left high frontal convexity subacute subdural hematoma without significant mass effect, midline shift or herniation. BRAIN: There are mild chronic microangiopathic changes. There is no territorial infarction. VENTRICLES: There is mild age-related global parenchymal volume loss and proportionate enlargement of the ventricles and cortical sulci. CALVARIUM: The skull base and calvarium are normal. PARANASAL SINUSES: Predominantly clear. MASTOID AIR CELLS: Predominantly clear. OTHER FINDINGS: None. IMPRESSION: Little interval change in known left high frontal convexity subdural hematoma without evidence of mass effect, midline shift or herniation. Mild chronic microangiopathic changes and mild age-related global parenchymal volume loss.
[2017-09-06] MEDS ORDERED: Multivitamin (MVI) 10 ML, Thiamine 100 MG in Sodium Chloride 0.9% 1,000 ML IV ONE (13:41)
--- NOTE | 2017-09-06 14:43 | RAD ---
HISTORY: Seizure COMPARISON: 08/05/2017. FINDINGS: LUNGS: The lungs are clear. PLEURA: No significant pleural effusion identified, no pneumothorax apparent. CARDIOVASCULAR: Normal. OSSEOUS STRUCTURES: Status post open reduction and internal fixation of right proximal humeral fracture. VISUALIZED UPPER ABDOMEN: Normal. OTHER FINDINGS: None. IMPRESSION: No active pulmonary disease.
[2017-09-06 16:59] VITALS: RESP 20
[2017-09-06] MEDS ORDERED: Apap-Butalbital-Caffeine 325-50-40mg Tab PO PRN (17:25)
[2017-09-06 21:11] LABS: URINE BACTERIA MOD (<OCC); URINE BILIRUBIN SMALL (NEGATIVE); URINE BLOOD MODERATE (NEGATIVE); URINE COLOR AMBER (YELLOW); URINE GLUCOSE (UA) NEG (Normal); URINE KETONE NEGATIVE (NEGATIVE); URINE LEUKOCYTE ESTERASE MOD Leu/uL (Negative); URINE PROTEIN 100 mg/dL (NEGATIVE); WBC URINE 59 /hpf (0-5)
[2017-09-06 21:14] LABS: RBC URINE 10 /hpf (0-3)
--- NOTE | 2017-09-06 21:38 | CP.PCM.HP ---
History of Present Illness - History of Present Illness History of Present Illness: A 57 year old female with history of alcohol withdrawal seizure was admitted for two seizures, one at home and another at ER. She had a seizure at approximately 10:00 am as witnessed by a friend who is at bedside. The friend reports that the seizure involved b/l upper extremity flexion, with jaw clenching, tongue bites, and eyes "rolling into the back of her head", duration was ~1.5 minutes and there was no bowel/bladder loss. Pt was unable to recall if she took any of her medication today. Of note, patient reports having difficulty staying asleep for the past couple of days, decreased appetite, nausea, fatigue, and loose, non-bloody BM 1-2x/day and has been having shortness of breath. She denies fever, chills, chest pain, palpitations, visual /auditory changes or difficulties, denies dysuria, or abdominal pain. Present on Admission - Present on Admission Any Indicators Present on Admission: No History of DVT/PE: No History of Uncontrolled Diabetes: No Urinary Catheter: No Decubitus Ulcer Present: No Review of Systems - EENT Eyes: absent: Blurred Vision - Cardiovascular Cardiovascular: Dyspnea on Exertion. absent: Chest Pain, Diaphoresis, Dyspnea - Respiratory Respiratory: absent: Cough, Dyspnea - Gastrointestinal Gastrointestinal: absent: Bloating, Cramping, Diarrhea, Vomiting - Genitourinary Genitourinary: absent: Difficulty Urinating - Neurological Neurological: Abnormal Gait (knee weakness). absent: Abnormal Hearing, Dizziness, Headaches Past Patient History - Infectious Disease Hx of Infectious Diseases: None - Past Medical History & Family History Past Medical History?: Yes - Past Social History Smoking Status: Never Smoked - CARDIAC Hx Cardiac Disorders: Yes (HTN) Hx Hypertension: Yes - PULMONARY Hx Respiratory Disorders: No - NEUROLOGICAL Hx Neurological Disorder: Yes (SEIZURE) Hx Seizures: Yes - HEENT Hx HEENT Problems: No - RENAL Hx Chronic Kidney Disease: No - ENDOCRINE/METABOLIC Hx Endocrine Disorders: Yes (DM2) Hx Diabetes Mellitus Type 2: Yes - HEMATOLOGICAL/ONCOLOGICAL Hx Blood Disorders: No - INTEGUMENTARY Hx Dermatological Problems: No - MUSCULOSKELETAL/RHEUMATOLOGICAL Hx Musculoskeletal Disorders: Yes Hx Arthritis: Yes Hx Falls: Yes (X8 as per pt) Hx Fractures: Yes (right upper arm) Hx Unsteady Gait: Yes Other/Comment: pt had right upper arm fx in 4 places with kandis placement. - GASTROINTESTINAL Hx Gastrointestinal Disorders: No - GENITOURINARY/GYNECOLOGICAL Hx Genitourinary Disorders: No - PSYCHIATRIC Hx Psychophysiologic Disorder: Yes Hx Anxiety: Yes Hx Substance Use: No Other/Comment: pt states she drinks occasionally and last drink was 2 days ago. - SURGICAL HISTORY Hx Surgeries: Yes Hx Tonsillectomy: Yes - ANESTHESIA Hx Anesthesia: Yes Hx Anesthesia Reactions: No Hx Malignant Hyperthermia: No Has any member of the family had a problem w/ anesthesia?: No Meds Allergies/Adverse Reactions: Allergies Allergy/AdvReac Type Severity Reaction Status Date / Time No Known Allergies Allergy Verified 09/06/17 11:18 Physical Exam - Constitutional Appears: No Acute Distress - Neck Exam Neck exam: Negative for: Meningismus - Respiratory Exam Respiratory Exam: Clear to Auscultation Bilateral, NORMAL BREATHING PATTERN - Cardiovascular Exam Cardiovascular Exam: REGULAR RHYTHM - GI/Abdominal Exam GI & Abdominal Exam: Soft. absent: Normal Bowel Sounds, Tenderness - Extremities Exam Extremities exam: Positive for: full ROM, normal inspection. Negative for: pedal edema - Back Exam Back exam: NORMAL INSPECTION - Neurological Exam Neurological exam: Reflexes Normal - Psychiatric Exam Psychiatric exam: Normal Affect Results - Vital Signs Recent Vital Signs: Last Vital Signs Temp 99 F 09/06/17 19:37 Pulse 106 H 09/06/17 19:37 Resp 20 09/06/17 19:37 BP 159/92 H 09/06/17 19:37 Pulse Ox 95 09/06/17 19:37 - Labs Result Diagrams: 09/07/17 04:10 09/07/17 04:10 Labs: Laboratory Results - last 24 hr 09/06/17 09/06/17 09/06/17 11:57 12:18 16:53 WBC 10.2 RBC 4.02 Hgb 14.0 Hct 39.8 MCV 98.9 D MCH 34.7 H MCHC 35.1 RDW 14.9 H Plt Count 261 MPV 8.7 Neut % (Auto) 74.1 Lymph % (Auto) 14.1 L [place] % (Auto) 9.6 Eos % (Auto) 0.5 Baso % (Auto) 1.7 Neut # 7.6 H Lymph # 1.4 [place] # 1.0 H Eos # 0.1 Baso # 0.2 Sodium 140 Potassium 4.3 Chloride 99 Carbon Dioxide 25 Anion Gap 21 H BUN 9 Creatinine 0.6 L Est GFR ( Amer) > 60 Est GFR (Non-Af Amer) > 60 POC Glucose (mg/dL) 127 H Random Glucose 137 H Calcium 9.2 Total Bilirubin 0.7 AST 72 H D ALT 42 Alkaline Phosphatase 127 H Total Protein 7.5 Albumin 4.5 Globulin 3.0 Albumin/Globulin Ratio 1.5 Urine Color Urine Clarity Urine pH Ur Specific [place] Urine Protein Urine Glucose (UA) Urine Ketones Urine Blood Urine Nitrate Urine Bilirubin Urine Urobilinogen Ur Leukocyte Esterase Urine RBC (Auto) Urine Microscopic WBC Ur Squamous Epith Cells Urine Bacteria Hyaline Casts Ur Yeast w [place]pha[place] Urine Opiates Screen Urine Methadone Screen Ur Barbiturates Screen Ur Phencyclidine Scrn Ur Amphetamines Screen U Benzodiazepines Scrn U Oth Cocaine Metabols U Cannabinoids Screen Alcohol, Quantitative < 10 09/06/17 09/06/17 20:40 20:40 WBC RBC Hgb Hct MCV MCH MCHC RDW Plt Count MPV Neut % (Auto) Lymph % (Auto) [place] % (Auto) Eos % (Auto) Baso % (Auto) Neut # Lymph # [place] # Eos # Baso # Sodium Potassium Chloride Carbon Dioxide Anion Gap BUN Creatinine Est GFR ( Amer) Est GFR (Non-Af Amer) POC Glucose (mg/dL) Random Glucose Calcium Total Bilirubin AST ALT Alkaline Phosphatase Total Protein Albumin Globulin Albumin/Globulin Ratio Urine Color [place] Urine Clarity Cloudy Urine pH 5.0 Ur Specific [place] 1.023 Urine Protein 100 Urine Glucose (UA) Neg Urine Ketones Negative Urine Blood Moderate Urine Nitrate Negative Urine Bilirubin Small Urine Urobilinogen 4.0 H Ur Leukocyte Esterase Mod Urine RBC (Auto) 10 H Urine Microscopic WBC 59 H Ur Squamous Epith Cells 31 H Urine Bacteria Mod H Hyaline Casts >20 H Ur Yeast w [place] Occ H Urine Opiates Screen Negative Urine Methadone Screen Negative Ur Barbiturates Screen Positive H Ur Phencyclidine Scrn Negative Ur Amphetamines Screen Negative U Benzodiazepines Scrn Positive U Oth Cocaine Metabols Negative U Cannabinoids Screen Negative Alcohol, Quantitative Assessment & Plan - Assessment and Plan (Free Text) Assessment: 57 year old female came with seizure chronic subdural hematoma breakthrough seizure Plan: ativan prn for seziure neuro check neurology consult dilantin level continue anti-epileptic medicines - Date & Time Date: 09/06/17 Time: 21:41 Decision To Admit - Pt Status Changed To: Hospital Disposition Of: Inpatient - Admit Certification Admit to Inpatient:: After my assessment, the patient will require hospitalization for at least two midnights. This is because of the severity of symptoms shown, intensity of services needed, and/or the medical risk in this patient being treated as an outpatient. - . Bed Request Type: Telemetry Admitting Physician: Frandy Caldwell
[2017-09-07 01:03] VITALS: O2SAT 97
[2017-09-07 05:23] LABS: HEMATOCRIT 40.2 % (34.0-47.0); MEAN CELL VOLUME 103.3 fl (81.0-99.0); MEAN CORPUSCULAR HEMOGLOBIN 33.9 pg (27.0-31.0); MEAN CORPUSCULAR HGB CONC 32.9 g/dL (33.0-37.0); RED CELL DISTRIBUTION WIDTH 14.6 % (11.5-14.5); WHITE BLOOD COUNT 7.4 K/uL (4.8-10.8)
[2017-09-07 05:29] LABS: ALB/GLOB RATIO 1.3 (1.0-2.1); ALKALINE PHOSPHATASE 98 U/L (38-126); ALT/SGPT 29 U/L (9-52); AST/SGOT 69 U/L (14-36); BILIRUBIN,TOTAL 1.1 mg/dl (0.2-1.3); BLOOD UREA NITROGEN 14 mg/dl (7-17); CALCIUM 8.4 mg/dL (8.4-10.2); CARBON DIOXIDE 28 mmol/L (22-30); CHLORIDE 101 mmol/L (98-107); CHOLESTEROL 239 mg/dL (0-199); GFR AFRICAN-AMERICAN > 60; GLUCOSE,RANDOM 123 mg/dL (65-105); SODIUM 141 mmol/l (132-148); TOTAL PROTEIN 7.3 G/DL (6.3-8.2)
[2017-09-07 06:18] LABS: POTASSIUM 4.6 MMOL/L (3.6-5.0)
--- NOTE | 2017-09-07 06:59 | CON ---
DATE: 09/06/2017 REASON FOR THE CONSULTATION: Seizure. CHIEF COMPLAINT: Patient was brought into [facility] with a history of recurrent seizures. This happened approximately at 10 o'clock in the morning at the bedside. She was brought into the hospital bed for further evaluation. HISTORY OF PRESENT ILLNESS: Ms. Venessa Sanchez is a 57-year-old right-handed, well-built female, who carries a history of seizures for the last 6 years, being followed by the neurologist, been taking medication in the past. She also was having a history of alcohol abuse in the past, lately she admits she stopped drinking. Recently, she was admitted in [facility], being worked up and being discharged a few days ago. This morning, at around 10 o'clock, she had a seizure at the bedside manifesting with clenching of the teeth and upper extremity being flexed with rolled eyes. She bit her tongue on either side. No bowel or urinary incontinence. She claims that 2 nights, she had not slept good. PAST MEDICAL HISTORY: History of posttraumatic subdural hematoma in the past. Right shoulder injury resulting with metal placement in the past. PERSONAL HISTORY: Denies smoking. Her last drink was 2 days ago. ALLERGIES: NO KNOWN ALLERGIES. REVIEW OF SYSTEMS: A 12-point system being reviewed. From neurological point, the patient does have seizures and subdural hematoma. MEDICATIONS: Ativan, Fioricet, folic acid, Glucophage, Lasix, Lexapro, ibuprofen, thiamine and Norvasc. PHYSICAL EXAMINATION: VITAL SIGNS: Blood pressure 176/93, mean arterial pressure of 120, respiratory rate 16, temperature afebrile. NECK: Supple. No carotid bruit. HEART: Sounds regular. CHEST: Fair air entry. EXTREMITIES: No edema in legs. NEUROLOGIC: Mental status examination, she is awake, alert and oriented to person, place and time. Speech is clear. Naming, repetition, fluency, comprehension, all within normal. She is complaining of tongue soreness from her bite during the seizure. No confabulation. No suicidal ideation or depression. CRANIAL NERVE EXAMINATION: Visual field is intact. Pupils reactive to light. Extraocular movement normal. No nystagmus. No facial sensory deficit. No facial asymmetry. Hearing is normal. Tongue is midline. Good gag. MOTOR EXAMINATION: On an outstretched hand with eyes closed, no drift noted. Power is symmetric on either side. Deep tendon reflexes, biceps, brachialis, triceps 1+, both knees are 1+, both ankles are 1+. Plantars are downgoing. SENSORY EXAMINATION: Grossly intact. COORDINATION: [id number] test is intact. GAIT: Deferred at this time. DIAGNOSTIC AND LABORATORY DATA: CT of the head reviewed by me showed subdural hematoma, which was subacute process over left convexity, about 10 mm in maximum diameter, without any mass effect. Some small vessel disease also noted. Blood workup, WBC 10.2, hemoglobin 14.0, hematocrit 38.9, platelet 261. Sodium 140, potassium 4.3, chloride 99, bicarbonate 25, BUN 21, creatinine 0.6, GFR more than 60, glucose 127, calcium 9.2. shows less than 10. CONCLUSION: Ms. Venessa Sanchez presenting with following: Recurrent seizures, probably a subtherapeutic dose of antiepileptic drugs, which may be provoked with sleep deprivation as above. RECOMMENDATION: Continue observation for another 24-hour period. Tegretol dose can be increased to 300 mg b.i.d. and sleep hygiene being discussed with the patient. If patient is neurologically stable, no seizures for next 24-hour period. Patient can be discharged tomorrow and should have been followed by her neurologist. No further workup is needed. Alan Reynoso MD
--- NOTE | 2017-09-07 07:39 | CP.PCM.PN ---
Subjective - Date & Time of Evaluation Date of Evaluation: 09/07/17 Time of Evaluation: 07:37 - Subjective Subjective: came with two times of generalized seizure, one at home, one at ER no seizure overnight no headache tongue pain due to tongue bite Objective - Vital Signs/Intake and Output Vital Signs (last 24 hours): Temp Pulse Resp BP Pulse Ox 98.4 F 91 H 20 148/83 97 09/07/17 05:50 09/07/17 05:50 09/07/17 05:50 09/07/17 05:50 09/07/17 05:50 - Medications Medications: Current Medications Acetaminophen/Butalbital/Caffeine (Fioricet) 1 tab PO Q6H PRN PRN Reason: Migraine headache Amlodipine Besylate (Norvasc) 2.5 mg PO DAILY [facility] Last Admin: 09/06/17 18:04 Dose: 2.5 mg Carbamazepine (Tegretol-Xr) 200 mg PO Q12 [facility] Escitalopram Oxalate (Lexapro) 10 mg PO DAILY [facility] Folic Acid (Folic Acid) 1 mg PO DAILY [facility] Last Admin: 09/06/17 14:44 Dose: 1 mg Furosemide (Lasix) 20 mg PO DAILY [facility] Last Admin: 09/06/17 18:07 Dose: 20 mg Home Med (Lubiprostone [Amitiza]) 8 mcg PO BID [facility] Ibuprofen (Motrin Tab) 800 mg PO Q8H PRN PRN Reason: Pain, moderate (4-7) Last Admin: 09/07/17 04:56 Dose: 800 mg Lorazepam (Ativan) 2 mg IVP Q4H PRN PRN Reason: Seizure activity Metformin HCl (Glucophage) 500 mg PO BID [facility] - Labs Labs: 09/07/17 04:10 09/07/17 04:10 - Constitutional Appears: No Acute Distress - Respiratory Exam Respiratory Exam: Clear to Ausculation Bilateral, NORMAL BREATHING PATTERN. absent: Wheezes - Cardiovascular Exam Cardiovascular Exam: REGULAR RHYTHM. absent: Murmur - GI/Abdominal Exam GI & Abdominal Exam: Distended (obese), Soft. absent: Tenderness - Extremities Exam Extremities Exam: Normal Inspection. absent: Pedal Edema - Back Exam Back Exam: NORMAL INSPECTION - Neurological Exam Neurological Exam: Alert, Altered, Awake - Psychiatric Exam Psychiatric exam: Normal Mood - Skin Skin Exam: Dry, Warm Assessment and Plan - Assessment and Plan (Free Text) Assessment: a 57 year old female alcohol withdrawal seizure (she denies recent drinking) epilepsy Plan: optimize seizure medicines ativan at bed side neurology consult
[2017-09-07 08:10] VITALS: BP 150/87; PULSE 87; TEMP 98.9
--- NOTE | 2017-09-07 08:15 | CARD ---
APPROVED REPORT EKG Measurement Heart [id number] <Conclusion> Sinus tachycardia Possible Left atrial enlargement Borderline ECG
[2017-09-07] MEDS ORDERED: Nystatin 100,000 Units/ml Oral Susp 5 ml UD PO SCH (13:00)
== END 2017-09-07 11:45 | disposition home or self-care (01) ==
LOC: H.ER 11:12 → H.ERHOLD 15:27 → H.TEL 16:43
PROVIDERS: ADMIT Internal Medicine; ATTEND Internal Medicine
DX: F10.239 Alcohol dependence with withdrawal, unspecified (principal); G40.909 Epilepsy, unspecified, not intractable, without status epilepticus; E11.9 Type 2 diabetes mellitus without complications; I10 Essential (primary) hypertension; Y90.0 Blood alcohol level of less than 20 mg/100 ml; M19.90 Unspecified osteoarthritis, unspecified site
CPT/HCPCS: 36415; 70450; 71010; 80053; 80061; 80186; 80320; 80324; 80345; 80346; 80349; 80353; 80358; 80361; 81003; 82948; 83036; 83992; 85025; 85027; 87086; 93005; 96374; 99285; G0378; J2060; J3411; J7040

== ENCOUNTER 2017-09-20 10:07 | Observation (INO) | payer MEDICAID ==
[2017-09-20 10:12] VITALS: BMI 29.5
[2017-09-20] MEDS ORDERED: Sodium Chloride 0.9% 1,000 ML IV STA (10:22)
--- NOTE | 2017-09-20 10:37 | ED PDOC ---
HPI: Seizure Time Seen by Provider: 09/20/17 10:18 Chief Complaint (Provider): Seizure History Per: Patient, EMS, Other (homemaker) History/Exam Limitations: no limitations Recent Seizure Activity Began: Just Before Arrival Number Of Seizures: One Length Of Seizures (Duration): Minutes Quality Of Seizure: Generalized Associated Symptoms: Bit Tongue Additional Complaint(s): 57yo female with history of seizure disorder secondary to alcohol withdrawal, subdural hematoma, brought in by EMS for evaluation after the patient's homemaker witnessed a generalized seizure lasting approximately 1 minute. She denies any head injury. At present, patient has no recollection of the event. No other complaints. Past Medical History Reviewed: Historical Data, Nursing Documentation, Vital Signs Vital Signs: Last Vital Signs Temp 98.9 F 09/20/17 10:10 Pulse 116 H 09/20/17 11:09 Resp 20 09/20/17 10:10 BP 199/137 H 09/20/17 10:10 Pulse Ox 96 09/20/17 11:09 - Medical History PMH: Anxiety, Arthritis, Fractures (right upper arm), HTN, Seizures Denies: HIV, Chronic Kidney Disease - Surgical History Surgical History: Tonsillectomy - Family History Family History: States: No Known Family Hx, Unknown Family Hx - Living Arrangements Living Arrangements: Alone - Social History Current smoker - smoking cessation education provided: No Ex-Smoker (has not smoked in the last 12 months): No Alcohol: None Drugs: Denies - Immunization History Hx Tetanus Toxoid Vaccination: No Hx Influenza Vaccination: No Hx Pneumococcal Vaccination: No - Home Medications Home Medications: Ambulatory Orders Medication Instructions Recorded Phenytoin, Extended [Dilantin] 100 mg PO TID 09/16/16 Acetaminophen/Butalbital/Caf 1 tab PO Q6H PRN 08/30/17 [Fioricet] Cyclobenzaprine HCl 5 mg PO Q8H PRN 08/30/17 Ibuprofen [Motrin Tab] 800 mg PO Q8H PRN 08/30/17 Escitalopram [Lexapro] 10 mg PO DAILY 09/06/17 Furosemide [Lasix] 20 mg PO DAILY 09/06/17 Lubiprostone [Amitiza] 8 mcg PO BID 09/06/17 Meclizine [Meclizine*] 25 mg PO Q8H PRN 10/25/17 Metformin ER [Glucophage XR] 500 mg PO BID 09/06/17 Triamterene/Hydrochlorothiazid 1 cap PO DAILY 09/06/17 [Triamterene-Hctz 37.5-25 mg Cp] amLODIPine [Norvasc] 2.5 mg PO DAILY 09/06/17 Folic Acid 1 mg PO DAILY #30 tab 09/07/17 carBAMazepine [TEGretol-XR] 300 mg PO Q12 #60 ter 09/07/17 - Allergies Allergies/Adverse Reactions: Allergies Allergy/AdvReac Type Severity Reaction Status Date / Time No Known Allergies Allergy Verified 09/06/17 11:18 Review of Systems ROS Statement: Except As Marked, All Systems Reviewed And Found Negative Neurological: Positive for: Seizures. Negative for: Other (head injury) Physical Exam - Reviewed Nursing Documentation Reviewed: Yes Vital Signs Reviewed: Yes - Physical Exam Appears: Positive for: Non-toxic, No Acute Distress Head Exam: Positive for: ATRAUMATIC, NORMAL INSPECTION, NORMOCEPHALIC Skin: Positive for: Normal Color, Warm Eye Exam: Positive for: Normal appearance, EOMI, PERRL ENT: Positive for: Other (+ bite vanegas noted to lateral aspect of tongue bilaterally, no active bleeding) Neck: Positive for: Normal, Supple Cardiovascular/Chest: Positive for: Regular Rate, Rhythm Respiratory: Positive for: Normal Breath Sounds. Negative for: Respiratory Distress Gastrointestinal/Abdominal: Positive for: Normal Exam, Soft. Negative for: Tenderness Back: Positive for: Normal Inspection. Negative for: Vertebral Tenderness Extremity: Positive for: Normal ROM. Negative for: Deformity, Swelling Neurologic/Psych: Positive for: Alert, Oriented (x3). Negative for: Motor/ Sensory Deficits - Laboratory Results Result Diagrams: 09/20/17 10:45 09/20/17 10:45 - ECG ECG: Positive for: Interpreted By Me, Viewed By Me ECG Rhythm: Positive for: Normal QRS, Normal ST Segment, Sinus Tachycardia. Negative for: ST/T Changes Rate: 116 O2 Sat by Pulse Oximetry: 96 (RA) Medical Decision Making Medical Decision Making: Time: 1022 Impression: Seizure Plan: -- CT Head -- Labs -- EKG -- IV Fluids Reassess Scribe Attestation: Documented by Dorys Pinedo acting as a scribe for Ravi Musa MD. Provider Attestation: All medical record entries made by the Scribe were at my direction and personally dictated by me. I have reviewed the chart and agree that the record accurately reflects my personal performance of the history, physical exam, medical decision making, and the department course for this patient. I have also personally directed, reviewed, and agree with the discharge instructions and disposition. Disposition - Clinical Impression Clinical Impression: Recurrent seizures - Patient ED Disposition Is Patient to be Admitted: Yes - Disposition Disposition Time: 13:38 Condition: FAIR - Pt Status Changed To: Hospital Disposition Of: Observation - POA Present On Arrival: None
[2017-09-20 10:59] LABS: BASO # 0.2 K/uL (0.0-0.2); BASO % 1.3 % (0.0-2.0); HEMATOCRIT 40.6 % (34.0-47.0); MEAN CELL VOLUME 100.4 fl (81.0-99.0); MEAN CORPUSCULAR HEMOGLOBIN 33.5 pg (27.0-31.0); MEAN CORPUSCULAR HGB CONC 33.4 g/dL (33.0-37.0); MEAN PLATELET VOLUME 8.6 fl (7.2-11.7); MONO # 0.6 K/uL (0.0-0.8); MONO % 3.5 % (0.0-10.0); NEUT # 14.5 K/uL (1.8-7.0); NEUT % 89.2 % (50.0-75.0); PLATELET COUNT 228 K/uL (130-400); RED CELL DISTRIBUTION WIDTH 14.8 % (11.5-14.5); WHITE BLOOD COUNT 16.3 K/uL (4.8-10.8)
[2017-09-20 11:03] LABS: ALB/GLOB RATIO 1.5 (1.0-2.1); ALCOHOL SERUM < 10 mg/dl (0-10); ALKALINE PHOSPHATASE 131 U/L (38-126); ALT/SGPT 55 U/L (9-52); AST/SGOT 57 U/L (14-36); BILIRUBIN,TOTAL 0.8 mg/dl (0.2-1.3); BLOOD UREA NITROGEN 14 mg/dl (7-17); CALCIUM 8.9 mg/dL (8.4-10.2); CARBON DIOXIDE 19 mmol/L (22-30); CHLORIDE 98 mmol/L (98-107); GFR AFRICAN-AMERICAN > 60; GLUCOSE,RANDOM 142 mg/dL (65-105); POTASSIUM 3.6 MMOL/L (3.6-5.0); SODIUM 138 mmol/l (132-148); TOTAL PROTEIN 7.5 G/DL (6.3-8.2)
[2017-09-20 11:28] LABS: BASOPHIL 1 % (0-2); NEUTROPHIL 90 % (42-75); TOTAL CELLS COUNTED 100
[2017-09-20] MEDS ORDERED: Fosphenytoin 100 mg/2 ml Inj IV ONE (12:58)
[2017-09-20] MEDS: Fosphenytoin 1,000 MG in Sodium Chloride 0.9% 50 ML IV ONE ×2 (13:15→14:19)
--- NOTE | 2017-09-20 13:37 | CT ---
PROCEDURE: CT HEAD WITHOUT CONTRAST. HISTORY: r/o bleed COMPARISON: 09/06/2017. TECHNIQUE: Axial computed tomography images were obtained through the head/brain without intravenous contrast. Radiation dose: Total exam DLP = 1134.84 mGy-cm. This CT exam was performed using one or more of the following dose reduction techniques: Automated exposure control, adjustment of the mA and/or kV according to patient size, and/or use of iterative reconstruction technique. FINDINGS: HEMORRHAGE: No intracranial hemorrhage. BRAIN: There is a left convexity chronic subdural hematoma measuring 6 mm in maximum with without mass effect or midline shift. There are mild chronic microangiopathic changes. There is no mass, mass effect or abnormal extra-axial fluid collection. VENTRICLES: There is mild global parenchymal volume loss and proportionate enlargement of the ventricles and cortical sulci. CALVARIUM: There is no calvarial fracture or extracranial soft tissue swelling. PARANASAL SINUSES: Predominantly clear. MASTOID AIR CELLS: Predominantly clear. OTHER FINDINGS: None. IMPRESSION: No acute intracranial abnormality. Chronic left convexity subdural hematoma without mass effect or midline shift. Mild global parenchymal volume loss, slightly advanced for the patient's age.
--- NOTE | 2017-09-20 18:00 | CARD ---
APPROVED REPORT EKG Measurement Heart [id number] <Conclusion> Sinus tachycardia Otherwise normal ECG
[2017-09-20] MEDS ORDERED: Enoxaparin 40 mg Syringe SC STA (18:35)
[2017-09-20] MEDS: hydroCHLOROthiazide-Triamterene 25 mg-37.5 mg Cap UD PO SCH (18:39)
--- NOTE | 2017-09-20 18:50 | CP.PCM.HP ---
History of Present Illness - History of Present Illness History of Present Illness: 57 year old female with hx of seizures presented to ED after having seizure at home. Unsure if it was witnessed. Unsure if she hit her head, only her right hip hurts. She is confused, unable to give history. Has a neurologist she follows up with outpatient, unable to state his name. She is requesting Ativan, unable to give reason for why she needs it. Patients says she 'feels sick', some nausea, has sore throat, no cough, chest pain, dyspnea, abdominal pain, vomiting, diarrhea. Has home health aide. PMH: Seizures, seizures 2' to alcohol withdrawal, HTN Medications reviewed Allergies: NKDA PMD: unknown Present on Admission - Present on Admission Any Indicators Present on Admission: No Past Patient History - Infectious Disease Hx of Infectious Diseases: None - Past Medical History & Family History Past Medical History?: Yes - Past Social History Alcohol: None Drugs: Denies - CARDIAC Hx Hypertension: Yes - PULMONARY Hx Respiratory Disorders: No - NEUROLOGICAL Hx Seizures: Yes - HEENT Hx HEENT Problems: No - RENAL Hx Chronic Kidney Disease: No - ENDOCRINE/METABOLIC Hx Endocrine Disorders: Yes (DM2) Hx Diabetes Mellitus Type 2: Yes - HEMATOLOGICAL/ONCOLOGICAL Hx Human Immunodeficiency Virus (HIV): No - INTEGUMENTARY Hx Dermatological Problems: No - MUSCULOSKELETAL/RHEUMATOLOGICAL Hx Arthritis: Yes Hx Fractures: Yes (right upper arm) - GASTROINTESTINAL Hx Gastrointestinal Disorders: No - GENITOURINARY/GYNECOLOGICAL Hx Genitourinary Disorders: No - PSYCHIATRIC Hx Anxiety: Yes - SURGICAL HISTORY Hx Tonsillectomy: Yes - ANESTHESIA Hx Anesthesia: Yes Hx Anesthesia Reactions: No Hx Malignant Hyperthermia: No Meds Allergies/Adverse Reactions: Allergies Allergy/AdvReac Type Severity Reaction Status Date / Time No Known Allergies Allergy Verified 09/06/17 11:18 Physical Exam - Constitutional Appears: Confused - Head Exam Head Exam: ATRAUMATIC, NORMAL INSPECTION, NORMOCEPHALIC - Eye Exam Eye Exam: EOMI, Normal appearance, PERRL - Respiratory Exam Respiratory Exam: Clear to Auscultation Bilateral, NORMAL BREATHING PATTERN - Cardiovascular Exam Cardiovascular Exam: Tachycardia, REGULAR RHYTHM, +S1, +S2 - GI/Abdominal Exam GI & Abdominal Exam: Normal Bowel Sounds, Soft. absent: Tenderness - Extremities Exam Extremities exam: Negative for: pedal edema, tenderness - Expanded Neurological Exam Expanded Neurological exam: Memory Loss-Recent Event Cranial nerves: EOM's Intact: Normal, Facial Palsey w/Forehead Movement: Normal , Facial Palsey w/o Forehead Movement: Normal, Nystagmus: Normal Coma Scale Eye Opening: SPONTANEOUS Coma Scale Motor Response: OBEYS COMMANDS Coma Scale Verbal: Confused Coma Scale Total: 14 - Skin Skin Exam: Dry, Intact, Normal Color, Warm Results - Vital Signs Recent Vital Signs: Last Vital Signs Temp 98.9 F 09/20/17 10:10 Pulse 116 H 09/20/17 14:20 Resp 20 09/20/17 14:20 BP 188/107 H 09/20/17 14:20 Pulse Ox 95 09/20/17 14:20 - Labs Result Diagrams: 09/20/17 10:45 09/20/17 10:45 Labs: Laboratory Results - last 24 hr 09/20/17 09/20/17 09/20/17 10:45 10:45 11:09 WBC 16.3 H D RBC 4.05 Hgb 13.6 Hct 40.6 MCV 100.4 H D MCH 33.5 H MCHC 33.4 RDW 14.8 H Plt Count 228 D MPV 8.6 Neut % (Auto) 89.2 H Lymph % (Auto) 6.0 L Ripley % (Auto) 3.5 Eos % (Auto) 0.0 Baso % (Auto) 1.3 Neut # 14.5 H Lymph # 1.0 Ripley # 0.6 Eos # 0.0 Baso # 0.2 Neutrophils % (Manual) 90 H Band Neutrophils % 1 Lymphocytes % (Manual) 7 L Monocytes % (Manual) 1 Basophils % (Manual) 1 Platelet Estimate Normal Macrocytosis (manual) Slight Sodium 138 Potassium 3.6 Chloride 98 Carbon Dioxide 19 L Anion Gap 25 H BUN 14 Creatinine 0.5 L Est GFR ( Amer) > 60 Est GFR (Non-Af Amer) > 60 Random Glucose 142 H Calcium 8.9 Total Bilirubin 0.8 AST 57 H ALT 55 H D Alkaline Phosphatase 131 H D Total Protein 7.5 Albumin 4.5 Globulin 2.9 Albumin/Globulin Ratio 1.5 Urine Opiates Screen Urine Methadone Screen Ur Barbiturates Screen Phenytoin < 3.0 L Ur Phencyclidine Scrn Ur Amphetamines Screen U Benzodiazepines Scrn U Oth Cocaine Metabols U Cannabinoids Screen Alcohol, Quantitative < 10 09/20/17 13:55 WBC RBC Hgb Hct MCV MCH MCHC RDW Plt Count MPV Neut % (Auto) Lymph % (Auto) Ripley % (Auto) Eos % (Auto) Baso % (Auto) Neut # Lymph # Ripley # Eos # Baso # Neutrophils % (Manual) Band Neutrophils % Lymphocytes % (Manual) Monocytes % (Manual) Basophils % (Manual) Platelet Estimate Macrocytosis (manual) Sodium Potassium Chloride Carbon Dioxide Anion Gap BUN Creatinine Est GFR ( Amer) Est GFR (Non-Af Amer) Random Glucose Calcium Total Bilirubin AST ALT Alkaline Phosphatase Total Protein Albumin Globulin Albumin/Globulin Ratio Urine Opiates Screen Negative Urine Methadone Screen Negative Ur Barbiturates Screen Positive H Phenytoin Ur Phencyclidine Scrn Negative Ur Amphetamines Screen Negative U Benzodiazepines Scrn Negative U Oth Cocaine Metabols Negative U Cannabinoids Screen Negative Alcohol, Quantitative Assessment & Plan - Assessment and Plan (Free Text) Assessment: 57 year old female with recurrent seizures, hx of alcohol withdrawal seizures. Patient is confused, likely [address]' [address] state[address] head reviewed, labs reviewed. Unclear if she is compliant with her medications. Hemodynanmically stable. Given hx of alcoholism will tx with clindamycin due to aspiration risk Resume home medications, had phenytoin bolus. #Seizures #HTN #DVT PPX Neurology consult. Neurochecks Resume home medications. Lovenox Ativan PRN seizures.
[2017-09-20] MEDS ORDERED: Apap-Butalbital-Caffeine 325-50-40mg Tab ONE (20:17)
[2017-09-20] MEDS: Apap-Butalbital-Caffeine 325-50-40mg Tab PO PRN (20:26)
[2017-09-21] MEDS ORDERED: Benzocaine/Menthol (Cepacol) Lozenge PO PRN (07:50)
[2017-09-21] MEDS: hydroCHLOROthiazide-Triamterene 25 mg-37.5 mg Cap UD PO SCH (08:11)
[2017-09-21] MEDS: Enoxaparin 40 mg Syringe SC SCH (08:12)
--- NOTE | 2017-09-21 11:24 | CP.PCM.PN ---
Subjective - Date & Time of Evaluation Date of Evaluation: 09/21/17 Time of Evaluation: 07:30 - Subjective Subjective: Patient seen and examined with attending. Patient complaining of sore throat. Sleeping, arousable. No other complaints offered. NO seizure recurrence. Awaiting neurology evaluation. Objective - Vital Signs/Intake and Output Vital Signs (last 24 hours): Temp Pulse Resp BP Pulse Ox 98.9 F 98 H 20 165/95 H 96 09/21/17 08:00 09/21/17 09:00 09/21/17 08:00 09/21/17 08:14 09/21/17 08:00 - Medications Medications: Current Medications Acetaminophen/Butalbital/Caffeine (Fioricet) 1 tab PO Q6H PRN PRN Reason: Migraine headache Last Admin: 09/20/17 20:26 Dose: 1 tab Amlodipine Besylate (Norvasc) 2.5 mg PO DAILY [facility] Last Admin: 09/21/17 08:14 Dose: 2.5 mg Benzocaine/Menthol (Cepacol Sore Throat) 1 magi PO Q3 PRN PRN Reason: Sore Throat Carbamazepine (Tegretol-Xr) 300 mg PO Q12 [facility] Last Admin: 09/21/17 08:15 Dose: 300 mg Cyclobenzaprine HCl (Flexeril) 5 mg PO Q8H PRN PRN Reason: Muscle spasm Last Admin: 09/20/17 18:50 Dose: 5 mg Enoxaparin Sodium (Lovenox) 40 mg SC DAILY [facility] PRN Reason: Protocol Last Admin: 09/21/17 08:12 Dose: 40 mg Escitalopram Oxalate (Lexapro) 10 mg PO DAILY [facility] Last Admin: 09/21/17 08:12 Dose: 10 mg Folic Acid (Folic Acid) 1 mg PO DAILY [facility] Last Admin: 09/21/17 08:11 Dose: 1 mg Furosemide (Lasix) 20 mg PO DAILY [facility] Last Admin: 09/21/17 08:11 Dose: 20 mg Home Med (Lubiprostone [Amitiza]) 8 mcg PO BID [facility] Ibuprofen (Motrin Tab) 800 mg PO Q8H PRN PRN Reason: Pain, moderate (4-7) Last Admin: 09/21/17 08:13 Dose: 800 mg Lorazepam (Ativan) 2 mg IVP Q6 PRN PRN Reason: Seizure activity Meclizine HCl (Antivert) 25 mg PO Q8H PRN PRN Reason: Dizziness Metformin HCl (Glucophage) 500 mg PO BID [facility] Last Admin: 09/21/17 08:11 Dose: 500 mg Moxifloxacin HCl (Avelox) 400 mg PO DAILY [facility] Phenytoin Sodium (Dilantin) 100 mg PO TID [facility] Last Admin: 09/21/17 08:10 Dose: 100 mg Triamterene/HCTZ (Dyazide 25 Mg-37.5 Mg) 1 cap PO DAILY [facility] Last Admin: 09/21/17 08:11 Dose: 1 cap - Labs Labs: 09/20/17 10:45 09/20/17 10:45 - Constitutional Appears: No Acute Distress - Head Exam Head Exam: NORMOCEPHALIC - ENT Exam ENT Exam: Mucous Membranes Moist - Respiratory Exam Respiratory Exam: NORMAL BREATHING PATTERN - Cardiovascular Exam Cardiovascular Exam: REGULAR RHYTHM - Extremities Exam Extremities Exam: absent: Pedal Edema, Tenderness - Neurological Exam Additional comments: clear speech - Skin Skin Exam: Dry, Intact, Normal Color, Warm Assessment and Plan - Assessment and Plan (Free Text) Assessment: 57 year old female with recurrent seizures, hx of alcohol withdrawal seizures admitted for seizures x 2 yesterday. No longer confused this AM. no seizure recurrence. Abx prophlactic tx for aspiration risk -moxifloxacin Resume home medications, had phenytoin bolus. Awaiting neurology eval #Seizures #HTN #DVT PPX Neurology consult. Lovenox moxifloxacin Ativan PRN seizures. case d/w Dr. Warren
[2017-09-21] MEDS: Apap-Butalbital-Caffeine 325-50-40mg Tab PO PRN (15:52)
--- NOTE | 2017-09-21 17:34 | CP.PCM.CON ---
History of Present Illness - History of Present Illness History of Present Illness: 57 year old female with hx of seizures presented to ED after having seizure at home. Unsure if it was witnessed. Unsure if she hit her head, only her right hip hurts. She is confused, unable to give history. Has a neurologist she follows up with outpatient, unable to state his name. She is requesting Ativan, unable to give reason for why she needs it. Patients says she 'feels sick', some nausea, has sore throat, no cough, chest pain, dyspnea, abdominal pain, vomiting, diarrhea. Has home health aide. PMH: Seizures, seizures 2' to alcohol withdrawal, HTN Medications reviewed Allergies: NKDA PMD: unknown Present on Admission - Present on Admission Any Indicators Present on Admission: No Past Patient History - Infectious Disease Hx of Infectious Diseases: None - Past Medical History & Family History Past Medical History?: Yes - Past Social History Alcohol: None Drugs: Denies - CARDIAC Hx Hypertension: Yes - PULMONARY Hx Respiratory Disorders: No - NEUROLOGICAL Hx Seizures: Yes - HEENT Hx HEENT Problems: No - RENAL Hx Chronic Kidney Disease: No - ENDOCRINE/METABOLIC Hx Endocrine Disorders: Yes (DM2) DMII Hx Diabetes Mellitus Type 2: Yes - HEMATOLOGICAL/ONCOLOGICAL Hx Human Immunodeficiency Virus (HIV): No - INTEGUMENTARY Hx Dermatological Problems: No - MUSCULOSKELETAL/RHEUMATOLOGICAL Hx Arthritis: Yes Hx Fractures: Yes (right upper arm) - GASTROINTESTINAL Hx Gastrointestinal Disorders: No - GENITOURINARY/GYNECOLOGICAL Hx Genitourinary Disorders: No - PSYCHIATRIC Hx Anxiety: Yes Anxiety - SURGICAL HISTORY Hx Tonsillectomy: Yes - ANESTHESIA Hx Anesthesia: Yes Hx Anesthesia Reactions: No Hx Malignant Hyperthermia: No Meds Allergies/Adverse Reactions: Allergies Allergy/AdvReac Type Severity Reaction Status Date / Time No Known Allergies Allergy Verified 09/06/17 11:18 Physical Exam - Constitutional Appears: Confused - Head Exam Head Exam: ATRAUMATIC, NORMAL INSPECTION, NORMOCEPHALIC - Eye Exam Eye Exam: EOMI, Normal appearance, PERRL - Respiratory Exam Respiratory Exam: Clear to Auscultation Bilateral, NORMAL BREATHING PATTERN - Cardiovascular Exam Cardiovascular Exam: Tachycardia, REGULAR RHYTHM, +S1, +S2 - GI/Abdominal Exam GI & Abdominal Exam: Normal Bowel Sounds, Soft. absent: Tenderness - Extremities Exam Extremities exam: Negative for: pedal edema, tenderness - Expanded Neurological Exam Expanded Neurological exam: Memory Loss-Recent Event Cranial nerves: EOM's Intact: Normal, Facial Palsey w/Forehead Movement: Normal , Facial Palsey w/o Forehead Movement: Normal, Nystagmus: Normal Coma Scale Eye Opening: SPONTANEOUS Coma Scale Motor Response: OBEYS COMMANDS Coma Scale Verbal: Confused Coma Scale Total: 14 - Skin Skin Exam: Dry, Intact, Normal Color, Warm Results - Vital Signs Recent Vital Signs: Last Vital Signs Temp 98.9 F 09/20/17 10:10 Pulse 116 H 09/20/17 14:20 Resp 20 09/20/17 14:20 BP 188/107 H 09/20/17 14:20 Pulse Ox 95 09/20/17 14:20 Assessment & Plan - Assessment and Plan (Free Text) Assessment: 57 year old female with recurrent seizures, hx of alcohol withdrawal seizures. Patient is confused, likely [address] head reviewed, labs reviewed. Unclear if she is compliant with her medications. stable. Given hx of alcoholism will tx with clindamycin due to aspiration risk Resume home medications, had phenytoin bolus. #Seizures #HTN #DVT PPX Neurology consult. Neuro checks Resume home medications. Lovenox Ativan PRN seizures. Past Patient History - Infectious Disease Hx of Infectious Diseases: None - Past Medical History & Family History Past Medical History?: Yes - Past Social History Alcohol: None Drugs: Denies - CARDIAC Hx Hypertension: Yes - PULMONARY Hx Respiratory Disorders: No - NEUROLOGICAL Hx Seizures: Yes - HEENT Hx HEENT Problems: No - RENAL Hx Chronic Kidney Disease: No - ENDOCRINE/METABOLIC Hx Endocrine Disorders: Yes (DM2) Hx Diabetes Mellitus Type 2: Yes - HEMATOLOGICAL/ONCOLOGICAL Hx Human Immunodeficiency Virus (HIV): No - INTEGUMENTARY Hx Dermatological Problems: No - MUSCULOSKELETAL/RHEUMATOLOGICAL Hx Arthritis: Yes Hx Fractures: Yes (right upper arm) - GASTROINTESTINAL Hx Gastrointestinal Disorders: No - GENITOURINARY/GYNECOLOGICAL Hx Genitourinary Disorders: No - PSYCHIATRIC Hx Anxiety: Yes - SURGICAL HISTORY Hx Tonsillectomy: Yes - ANESTHESIA Hx Anesthesia: Yes Hx Anesthesia Reactions: No Hx Malignant Hyperthermia: No Meds Allergies/Adverse Reactions: Allergies Allergy/AdvReac Type Severity Reaction Status Date / Time No Known Allergies Allergy Verified 09/06/17 11:18 - Medications Medications: Current Medications Acetaminophen/Butalbital/Caffeine (Fioricet) 1 tab PO Q6H PRN PRN Reason: Migraine headache Last Admin: 09/21/17 15:52 Dose: 1 tab Amlodipine Besylate (Norvasc) 2.5 mg PO DAILY [facility] Last Admin: 09/21/17 08:14 Dose: 2.5 mg Benzocaine/Menthol (Cepacol Sore Throat) 1 magi PO Q3 PRN PRN Reason: Sore Throat Last Admin: 09/21/17 13:35 Dose: 1 magi Carbamazepine (Tegretol-Xr) 300 mg PO Q12 [facility] Last Admin: 09/21/17 08:15 Dose: 300 mg Cyclobenzaprine HCl (Flexeril) 5 mg PO Q8H PRN PRN Reason: Muscle spasm Last Admin: 09/20/17 18:50 Dose: 5 mg Enoxaparin Sodium (Lovenox) 40 mg SC DAILY [facility] PRN Reason: Protocol Last Admin: 09/21/17 08:12 Dose: 40 mg Escitalopram Oxalate (Lexapro) 10 mg PO DAILY [facility] Last Admin: 09/21/17 08:12 Dose: 10 mg Folic Acid (Folic Acid) 1 mg PO DAILY [facility] Last Admin: 09/21/17 08:11 Dose: 1 mg Furosemide (Lasix) 20 mg PO DAILY [facility] Last Admin: 09/21/17 08:11 Dose: 20 mg Home Med (Lubiprostone [Amitiza]) 8 mcg PO BID [facility] Ibuprofen (Motrin Tab) 800 mg PO Q8H PRN PRN Reason: Pain, moderate (4-7) Last Admin: 09/21/17 08:13 Dose: 800 mg Lorazepam (Ativan) 2 mg IVP Q6 PRN PRN Reason: Seizure activity Meclizine HCl (Antivert) 25 mg PO Q8H PRN PRN Reason: Dizziness Metformin HCl (Glucophage) 500 mg PO BID [facility] Last Admin: 09/21/17 17:02 Dose: 500 mg Moxifloxacin HCl (Avelox) 400 mg PO DAILY [facility] Last Admin: 09/21/17 13:35 Dose: 400 mg Phenytoin Sodium (Dilantin) 100 mg PO TID [facility] Last Admin: 09/21/17 17:02 Dose: 100 mg Triamterene/HCTZ (Dyazide 25 Mg-37.5 Mg) 1 cap PO DAILY [facility] Last Admin: 09/21/17 08:11 Dose: 1 cap Physical Exam - Neurological Exam Additional comments: Mental Status: Awake alert Oriented X2 disoriented to the President Mental Status: Awake, Alert, Oriented X 2 confused , memory is cloudy Patient has non fluent speech, slightly coherent Cranial Nerves II to XII: No deficits. Motor: Normal Tone, power DTR 0/4 Plantar are down going Sensory: no deficits Cerebellar; normal FNT Walks unsteadily Results - Vital Signs Recent Vital Signs: Last Vital Signs Temp 99.7 F H 09/21/17 15:52 Pulse 115 H 09/21/17 15:52 Resp 19 09/21/17 15:52 BP 162/106 H 09/21/17 15:52 Pulse Ox 95 09/21/17 15:52 - Labs Result Diagrams: 09/20/17 10:45 09/20/17 10:45 Labs: Laboratory Results - last 24 hr 09/20/17 09/21/17 09/21/17 21:36 05:30 12:07 POC Glucose (mg/dL) 98 127 H 137 H Assessment & Plan (1) Recurrent seizures Status: Acute (2) Alcohol abuse Status: Acute (3) Alcohol intoxication Status: Acute (4) Anxiety Status: Acute (5) Black eye of left side Status: Acute (6) Clavicle fracture Status: Acute (7) Closed nondisplaced fracture of clavicle Status: Acute
[2017-09-22 07:43] LABS: HEMATOCRIT 41.7 % (34.0-47.0); MEAN CELL VOLUME 100.6 fl (81.0-99.0); MEAN CORPUSCULAR HEMOGLOBIN 34.1 pg (27.0-31.0); MEAN CORPUSCULAR HGB CONC 33.9 g/dL (33.0-37.0); RED CELL DISTRIBUTION WIDTH 14.8 % (11.5-14.5); WHITE BLOOD COUNT 10.5 K/uL (4.8-10.8)
[2017-09-22] MEDS: hydroCHLOROthiazide-Triamterene 25 mg-37.5 mg Cap UD PO SCH (08:49)
[2017-09-22] MEDS: Enoxaparin 40 mg Syringe SC SCH (08:50)
[2017-09-22 13:04] VITALS: BP 129/76; PULSE 109; RESP 19; TEMP 98.9; O2SAT 98
--- NOTE | 2017-09-22 13:27 | US ---
PROCEDURE: Duplex ultrasound of the carotid and vertebral arteries. HISTORY: seizures, r/o cva COMPARISON: None available. TECHNIQUE: Grayscale and duplex Doppler evaluation of the cervical carotid and vertebral arteries were performed. The common carotid, carotid bifurcations and cervical ICA and proximal ECA were evaluated. The vertebral arteries were evaluated for gross patency and direction. FINDINGS: RIGHT CAROTID ARTERIES: Common Carotid Artery: Normal. Maximal flow velocity of 98.6 cm/s. Carotid Bifurcation: Normal. Internal Carotid Artery:Normal. Maximal flow velocity of 54.6 cm/s. External Carotid Artery (proximal branches): Heterogeneous plaque formation. Maximal flow velocity of 89.9 cm/s. ICA/CCA Ratio: 0.6 LEFT CAROTID ARTERIES: Common Carotid Artery: Normal. Maximal flow velocity of 98.4 cm/s. Carotid Bifurcation: Calcified plaque at the bifurcation and extending into the left ICA Internal Carotid Artery:Normal. Maximal flow velocity of 58.5 cm/s. External Carotid Artery (proximal branches): Normal. Maximal flow velocity of 89.1 cm/s. ICA/CCA Ratio: 0.6 VERTEBRAL ARTERIES: Right Vertebral Artery: Patent. Antegrade flow. Left Vertebral Artery: Patent. Antegrade flow. OTHER FINDINGS: Morphologically, unremarkable lymph nodes. Anatomically adjacent to the distal right common carotid artery IMPRESSION: Right ICA degree of stenosis: Less than 50% Left ICA degree of stenosis: Less than 50% Reference Internal Carotid Artery (ICA) Peak Systolic Velocity (PSV) for above: 1. Less than 50% stenosis less than 125 cm/s peak systolic velocity 2. 50-69% stenosis 125-230cm/s peak systolic velocity 3. Greater than 70% but less than near occlusion greater than 230 cm/s peak systolic velocity
[2017-09-22 17:17] LABS: VITAMIN D 25 OH TOTAL < 12.8 NG/ML (30.0-100.0)
[2017-09-22 18:05] LABS: FOLATE 6.8 ng/mL
--- NOTE | 2017-09-22 22:32 | CP.PCM.PN ---
Subjective - Date & Time of Evaluation Date of Evaluation: 09/22/17 Time of Evaluation: 18:00 - Subjective Subjective: No seizures, very low vitamin D level that needs to be treated. She is discharged home on Tegretol. she will be given Vitamin D and Calcium as an Outpatient. Objective - Vital Signs/Intake and Output Vital Signs (last 24 hours): Temp Pulse Resp BP Pulse Ox 98.9 F 109 H 19 129/76 98 09/22/17 13:03 09/22/17 13:03 09/22/17 13:03 09/22/17 13:03 09/22/17 13:03 - Labs Labs: 09/22/17 04:20 09/20/17 10:45 Assessment and Plan (1) Recurrent seizures Status: Acute (2) Alcohol abuse Status: Acute (3) Alcohol intoxication Status: Acute (4) Anxiety Status: Acute (5) Black eye of left side Status: Acute (6) Clavicle fracture Status: Acute (7) Closed nondisplaced fracture of clavicle Status: Acute
--- NOTE | 2017-09-26 09:17 | EEG ---
CONDITION OF THE RECORDING: The record was obtained for a history of rule-out seizures and the record was obtained while patient was awake and drowsy and the record was symmetrically equal on both sides with velocity of 8 cycles per second. The waves were fairly formed, fairly organized with a posterior distribution. Moderate amplitude, reactive to opening by attenuation. There were many movement artifacts, electrode artifact, muscle movement artifacts, and eye movement artifacts that were seen *------* artifacts. There were periods of drowsiness during which attenuation and slowing of the record were seen. There were no periods of sleep. The record did not show any change with photic stimulation. Hyperventilation was omitted. In sum, this is a normal, awake and drowsy EEG. Clinical correlation is recommended. Monae Ansari MD
== END 2017-09-22 15:09 | disposition left against medical advice (07) ==
LOC: H.ER 10:07 → H.ERHOLD 13:37 → H.TEL 21:21
PROVIDERS: ADMIT Internal Medicine; ATTEND Internal Medicine
DX: G40.909 Epilepsy, unspecified, not intractable, without status epilepticus (principal); F10.20 Alcohol dependence, uncomplicated; S00.12XA Contusion of left eyelid and periocular area, initial encounter; E11.9 Type 2 diabetes mellitus without complications; I10 Essential (primary) hypertension; F41.9 Anxiety disorder, unspecified; W18.39XA Other fall on same level, initial encounter; Y92.009 Unspecified place in unspecified non-institutional (private) residence as the place of occurrence of the external cause; Z87.81 Personal history of (healed) traumatic fracture
CPT/HCPCS: 36415; 70450; 80053; 80156; 80185; 80320; 80324; 80345; 80346; 80349; 80353; 80358; 80361; 82306; 82607; 82746; 82948; 83992; 85025; 85027; 93005; 93880; 95816; 96365; 96372; 96376; 99285; G0378; J1650; J2060; J7040; Q2009

== ENCOUNTER 2017-10-27 13:15 | Inpatient (IN) | payer MEDICAID ==
[2017-10-27 13:16] VITALS: BMI 29.5
[2017-10-27] MEDS ORDERED: Sodium Chloride 0.9% 1,000 ML IV STA (13:47)
--- NOTE | 2017-10-27 13:57 | ED PDOC ---
HPI: Psych/Substance Abuse Time Seen by Provider: 10/27/17 13:40 Chief Complaint (Nursing): Headache Chief Complaint (Provider): Tremulousness and Anxiety History Per: Patient History/Exam Limitations: no limitations Onset/Duration Of Symptoms: Days (x3) Current Symptoms Are (Timing): Still Present Additional Complaint(s): Venessa Sanchez is a 57 year old female with a past medical history of seizure disorder brought to the ED by her family complaining of tremulousness and anxiety. The patient reports she feels like shes going to have a seizure and she drinks daily. Her last drink was 3 days ago. The patient is also noncompliant with anti-seizure medications. PMD: Jennifer Solis MD Past Medical History Reviewed: Historical Data, Nursing Documentation, Vital Signs Vital Signs: Last Vital Signs Temp 98.4 F 10/27/17 13:21 Pulse 113 H 10/27/17 13:21 Resp 18 10/27/17 13:21 BP 139/76 10/27/17 13:21 Pulse Ox 97 10/27/17 13:21 - Medical History PMH: Anxiety, Arthritis, Fractures (right upper arm), HTN, Seizures Denies: HIV, Chronic Kidney Disease - Surgical History Surgical History: Tonsillectomy - Family History Family History: States: Unknown Family Hx - Immunization History Hx Tetanus Toxoid Vaccination: No Hx Influenza Vaccination: No Hx Pneumococcal Vaccination: No - Home Medications Home Medications: Ambulatory Orders Medication Instructions Recorded Phenytoin, Extended [Dilantin] 100 mg PO TID 09/16/16 Acetaminophen/Butalbital/Caf 1 tab PO Q6H PRN 08/30/17 [Fioricet] Cyclobenzaprine HCl 5 mg PO Q8H PRN 08/30/17 Ibuprofen [Motrin Tab] 800 mg PO Q8H PRN 08/30/17 Escitalopram [Lexapro] 10 mg PO DAILY 09/06/17 Furosemide [Lasix] 20 mg PO DAILY 09/06/17 Lubiprostone [Amitiza] 8 mcg PO BID 09/06/17 Meclizine [Meclizine*] 25 mg PO Q8H PRN 09/06/17 Metformin ER [Glucophage XR] 500 mg PO BID 09/06/17 Triamterene/Hydrochlorothiazid 1 cap PO DAILY 09/06/17 [Triamterene-Hctz 37.5-25 mg Cp] amLODIPine [Norvasc] 2.5 mg PO DAILY 09/06/17 Folic Acid 1 mg PO DAILY #30 tab 09/07/17 carBAMazepine [TEGretol-XR] 300 mg PO Q12 #60 ter 09/07/17 - Allergies Allergies/Adverse Reactions: Allergies Allergy/AdvReac Type Severity Reaction Status Date / Time No Known Allergies Allergy Verified 09/06/17 11:18 Review of Systems ROS Statement: Except As Marked, All Systems Reviewed And Found Negative Psych: Positive for: Anxiety (and tremulousness) Physical Exam - Reviewed Nursing Documentation Reviewed: Yes Vital Signs Reviewed: Yes - Physical Exam Appears: Positive for: Non-toxic, No Acute Distress Head Exam: Positive for: ATRAUMATIC, NORMOCEPHALIC Skin: Positive for: Normal Color, Warm, Dry Eye Exam: Positive for: Normal appearance, EOMI ENT: Positive for: Normal ENT Inspection Neck: Positive for: Normal, Painless ROM Cardiovascular/Chest: Positive for: Regular Rate, Rhythm, Chest Non Tender Respiratory: Positive for: Normal Breath Sounds. Negative for: Respiratory Distress Gastrointestinal/Abdominal: Positive for: Normal Exam, Soft. Negative for: Tenderness Back: Positive for: Normal Inspection Extremity: Positive for: Normal ROM. Negative for: Deformity, Swelling Neurologic/Psych: Positive for: Alert, Oriented (x3), Other (tremors in upper extremities). Negative for: Motor/Sensory Deficits (or focal deficits) - Laboratory Results Result Diagrams: 10/27/17 13:48 10/27/17 13:48 - ECG O2 Sat by Pulse Oximetry: 97 (RA) Pulse Ox Interpretation: Normal Medical Decision Making Medical Decision Making: Time: 13:40 Impression: s/p alcohol withdrawal and anxiety Plan: * Alcohol Serum * Carbamazepine * CMP * Dilantin * CBC (with differential) * ED EKG * Ativan 1 mg IVP * NS 0.9% 1,000 ml IV 100 mls/hr * [RAD] Chest portable * Reevaluation Scribe Attestation: Documented by Monika Artis, acting as a scribe for Ravi Musa MD. Provider Scribe Attestation: All medical record entries made by the Scribe were at my direction and personally dictated by me. I have reviewed the chart and agree that the record accurately reflects my personal performance of the history, physical exam, medical decision making, and the department course for this patient. I have also personally directed, reviewed, and agree with the discharge instructions and disposition. Disposition - Clinical Impression Clinical Impression: Seizure disorder, Alcohol withdrawal - Patient ED Disposition Is Patient to be Admitted: Yes - Disposition Disposition Time: 14:59 Condition: FAIR Forms: Vehrity (Scottish) - Pt Status Changed To: Hospital Disposition Of: Observation - POA Present On Arrival: None
[2017-10-27 14:18] LABS: BASO # 0.1 K/uL (0.0-0.2); BASO % 0.8 % (0.0-2.0); EOS # 0.1 K/uL (0.0-0.7); EOS % 0.8 % (0.0-4.0); HEMATOCRIT 33.4 % (34.0-47.0); LYMPH # 0.9 K/uL (1.0-4.3); LYMPH % 7.1 % (20.0-40.0); MEAN CELL VOLUME 106.6 fl (81.0-99.0); MEAN CORPUSCULAR HEMOGLOBIN 35.1 pg (27.0-31.0); MEAN CORPUSCULAR HGB CONC 32.9 g/dL (33.0-37.0); MEAN PLATELET VOLUME 8.9 fl (7.2-11.7); MONO # 1.2 K/uL (0.0-0.8); MONO % 9.9 % (0.0-10.0); NEUT # 9.9 K/uL (1.8-7.0); NEUT % 81.4 % (50.0-75.0); NRBC % 0.2 % (0.0-0.0); PLATELET COUNT 268 K/uL (130-400); RED CELL DISTRIBUTION WIDTH 17.6 % (11.5-14.5); WHITE BLOOD COUNT 12.1 K/uL (4.8-10.8)
[2017-10-27 14:48] LABS: ALB/GLOB RATIO 1.3 (1.0-2.1); ALCOHOL SERUM < 10 mg/dl (0-10); ALKALINE PHOSPHATASE 112 U/L (38-126); ALT/SGPT 48 U/L (9-52); AST/SGOT 104 U/L (14-36); BILIRUBIN,TOTAL 1.2 mg/dl (0.2-1.3); BLOOD UREA NITROGEN 11 mg/dl (7-17); CALCIUM 8.4 mg/dL (8.4-10.2); CARBON DIOXIDE 26 mmol/L (22-30); CHLORIDE 98 mmol/L (98-107); GFR AFRICAN-AMERICAN > 60; GLUCOSE,RANDOM 131 mg/dL (65-105); POTASSIUM 4.5 MMOL/L (3.6-5.0); SODIUM 136 mmol/l (132-148); TOTAL PROTEIN 7.6 G/DL (6.3-8.2)
[2017-10-27 14:52] LABS: CARBAMAZEPINE 6.6 ug/mL (4.0-12.0)
[2017-10-27] MEDS ORDERED: levETIRAcetam 1,000 MG in Sodium Chloride 0.9% 100 ML IVPB ONE (14:58)
[2017-10-27 15:10] LABS: BASOPHIL 1 % (0-2); EOSINOPHIL 2 % (0-7); NEUTROPHIL 76 % (42-75); TOTAL CELLS COUNTED 100
[2017-10-27 15:13] LABS: LARGE PLATELETS PRESENT
--- NOTE | 2017-10-27 15:26 | RAD ---
HISTORY: Cough. COMPARISON: 09/06/2017. FINDINGS: LUNGS: No active pulmonary disease. PLEURA: No significant pleural effusion identified, no pneumothorax apparent. CARDIOVASCULAR: Normal. OSSEOUS STRUCTURES: No significant abnormalities. VISUALIZED UPPER ABDOMEN: Normal. OTHER FINDINGS: None. IMPRESSION: No active disease. No significant interval change compared to the prior examination(s).
[2017-10-28 06:40] LABS: BASO # 0.1 K/uL (0.0-0.2); BASO % 0.7 % (0.0-2.0); EOS # 0.3 K/uL (0.0-0.7); EOS % 3.5 % (0.0-4.0); HEMATOCRIT 31.4 % (34.0-47.0); LYMPH # 1.4 K/uL (1.0-4.3); LYMPH % 15.9 % (20.0-40.0); MEAN CELL VOLUME 107.5 fl (81.0-99.0); MEAN CORPUSCULAR HEMOGLOBIN 34.7 pg (27.0-31.0); MEAN CORPUSCULAR HGB CONC 32.3 g/dL (33.0-37.0); MEAN PLATELET VOLUME 8.9 fl (7.2-11.7); MONO # 0.9 K/uL (0.0-0.8); MONO % 10.5 % (0.0-10.0); NEUT # 5.9 K/uL (1.8-7.0); NEUT % 69.4 % (50.0-75.0); RED CELL DISTRIBUTION WIDTH 17.3 % (11.5-14.5); WHITE BLOOD COUNT 8.5 K/uL (4.8-10.8)
[2017-10-28 07:22] LABS: ALB/GLOB RATIO 1.3 (1.0-2.1); ALKALINE PHOSPHATASE 98 U/L (38-126); ALT/SGPT 46 U/L (9-52); AST/SGOT 67 U/L (14-36); BILIRUBIN,TOTAL 0.9 mg/dl (0.2-1.3); BLOOD UREA NITROGEN 14 mg/dl (7-17); CALCIUM 8.3 mg/dL (8.4-10.2); CARBON DIOXIDE 30 mmol/L (22-30); CHLORIDE 101 mmol/L (98-107); GFR AFRICAN-AMERICAN > 60; GLUCOSE,RANDOM 121 mg/dL (65-105); POTASSIUM 3.9 MMOL/L (3.6-5.0); SODIUM 140 mmol/l (132-148); TOTAL PROTEIN 6.8 G/DL (6.3-8.2)
--- NOTE | 2017-10-28 07:27 | CP.PCM.CON ---
History of Present Illness - History of Present Illness History of Present Illness: CONSULT DICTATED [facility]BI NEEDS WORKUP Rx PER ORDER CONTINUE AED SHE TAKES DM/HTN CONTROL ABSTINENCE FROM ETOH - MVT B1 IF STABLE D/C HME AFTER HER WORK UP Past Patient History - Infectious Disease Hx of Infectious Diseases: None - Past Medical History & Family History Past Medical History?: Yes - Past Social History Smoking Status: Never Smoked - CARDIAC Hx Hypertension: Yes - PULMONARY Hx Respiratory Disorders: No - NEUROLOGICAL Hx Seizures: Yes - HEENT Hx HEENT Problems: No - RENAL Hx Chronic Kidney Disease: No - ENDOCRINE/METABOLIC Hx Endocrine Disorders: Yes (DM2) - HEMATOLOGICAL/ONCOLOGICAL Hx Human Immunodeficiency Virus (HIV): No - INTEGUMENTARY Hx Dermatological Problems: No - MUSCULOSKELETAL/RHEUMATOLOGICAL Hx Arthritis: Yes Hx Falls: Yes Hx Fractures: Yes (right upper arm) - GASTROINTESTINAL Hx Gastrointestinal Disorders: No - GENITOURINARY/GYNECOLOGICAL Hx Genitourinary Disorders: No - PSYCHIATRIC Hx Anxiety: Yes Hx Substance Use: No - SURGICAL HISTORY Hx Tonsillectomy: Yes - ANESTHESIA Hx Anesthesia: Yes Hx Anesthesia Reactions: No Hx Malignant Hyperthermia: No Meds Allergies/Adverse Reactions: Allergies Allergy/AdvReac Type Severity Reaction Status Date / Time No Known Allergies Allergy Verified 09/06/17 11:18 - Medications Medications: Current Medications Acetaminophen (Tylenol 325mg Tab) 650 mg PO Q6 PRN PRN Reason: Pain, Mild (1-3) Atorvastatin Calcium (Lipitor) 10 mg PO DAILY [facility] Carbamazepine (Tegretol-Xr) 300 mg PO DAILY [facility] Clopidogrel Bisulfate (Plavix) 75 mg PO DAILY [facility] Cyclobenzaprine HCl (Flexeril) 5 mg PO BID PRN PRN Reason: Pain, Mild (1-3) Last Admin: 10/28/17 06:03 Dose: 5 mg Enoxaparin Sodium (Lovenox) 40 mg SC DAILY [facility] PRN Reason: Protocol Lorazepam (Ativan) 1 mg IVP Q6 PRN PRN Reason: Anxiety Last Admin: 10/27/17 20:05 Dose: 1 mg Losartan Potassium (Cozaar) 25 mg PO DAILY [facility] Meclizine HCl (Antivert) 25 mg PO BID [facility] Last Admin: 10/27/17 20:06 Dose: 25 mg Metformin HCl (Glucophage) 500 mg PO BIDWM [facility] Phenytoin (Dilantin) 100 mg PO TID [facility] Thiamine HCl (Vitamin B1 Tab) 100 mg PO DAILY [facility] Results - Vital Signs Recent Vital Signs: Last Vital Signs Temp 97.7 F 10/28/17 05:00 Pulse 90 10/28/17 05:00 Resp 20 10/28/17 05:00 BP 139/81 10/28/17 05:00 Pulse Ox 96 10/28/17 05:00 - Labs Result Diagrams: 10/28/17 05:45 10/28/17 05:45 Labs: Laboratory Results - last 24 hr 10/27/17 10/27/17 10/27/17 13:48 13:48 13:48 WBC 12.1 H RBC 3.14 L Hgb 11.0 L D Hct 33.4 L MCV 106.6 H D MCH 35.1 H MCHC 32.9 L RDW 17.6 H Plt Count 268 D MPV 8.9 Neut % (Auto) 81.4 H Lymph % (Auto) 7.1 L [place] % (Auto) 9.9 Eos % (Auto) 0.8 Baso % (Auto) 0.8 Neut # 9.9 H Lymph # 0.9 L [place] # 1.2 H Eos # 0.1 Baso # 0.1 Neutrophils % (Manual) 76 H Band Neutrophils % 4 H Lymphocytes % (Manual) 10 L Monocytes % (Manual) 7 Eosinophils % (Manual) 2 Basophils % (Manual) 1 Platelet Estimate Normal Large Platelets Present Anisocytosis (manual) Slight Microcytosis (manual) Slight Tear Drop Cells Slight Ovalocytes Slight Sodium 136 Potassium 4.5 Chloride 98 Carbon Dioxide 26 Anion Gap 17 BUN 11 Creatinine 0.5 L Est GFR ( Amer) > 60 Est GFR (Non-Af Amer) > 60 POC Glucose (mg/dL) Random Glucose 131 H Calcium 8.4 Total Bilirubin 1.2 AST 104 H D ALT 48 Alkaline Phosphatase 112 Total Protein 7.6 Albumin 4.3 Globulin 3.3 Albumin/Globulin Ratio 1.3 Phenytoin < 3.0 L Carbamazepine 6.6 Alcohol, Quantitative < 10 10/27/17 10/27/17 10/28/17 14:01 20:54 05:19 WBC RBC Hgb Hct MCV MCH MCHC RDW Plt Count MPV Neut % (Auto) Lymph % (Auto) [place] % (Auto) Eos % (Auto) Baso % (Auto) Neut # Lymph # [place] # Eos # Baso # Neutrophils % (Manual) Band Neutrophils % Lymphocytes % (Manual) Monocytes % (Manual) Eosinophils % (Manual) Basophils % (Manual) Platelet Estimate Large Platelets Anisocytosis (manual) Microcytosis (manual) Tear Drop Cells Ovalocytes Sodium Potassium Chloride Carbon Dioxide Anion Gap BUN Creatinine Est GFR ( Amer) Est GFR (Non-Af Amer) POC Glucose (mg/dL) 125 H 142 H 110 Random Glucose Calcium Total Bilirubin AST ALT Alkaline Phosphatase Total Protein Albumin Globulin Albumin/Globulin Ratio Phenytoin Carbamazepine Alcohol, Quantitative 10/28/17 10/28/17 05:45 05:45 WBC 8.5 RBC 2.92 L Hgb 10.1 L Hct 31.4 L MCV 107.5 H MCH 34.7 H MCHC 32.3 L RDW 17.3 H Plt Count 229 MPV 8.9 Neut % (Auto) 69.4 Lymph % (Auto) 15.9 L [place] % (Auto) 10.5 H Eos % (Auto) 3.5 Baso % (Auto) 0.7 Neut # 5.9 Lymph # 1.4 Weld # 0.9 H Eos # 0.3 Baso # 0.1 Neutrophils % (Manual) Band Neutrophils % Lymphocytes % (Manual) Monocytes % (Manual) Eosinophils % (Manual) Basophils % (Manual) Platelet Estimate Large Platelets Anisocytosis (manual) Microcytosis (manual) Tear Drop Cells Ovalocytes Sodium 140 Potassium 3.9 Chloride 101 Carbon Dioxide 30 Anion Gap 13 BUN 14 Creatinine 0.6 L Est GFR ( Amer) > 60 Est GFR (Non-Af Amer) > 60 POC Glucose (mg/dL) Random Glucose 121 H Calcium 8.3 L Total Bilirubin 0.9 AST 67 H D ALT 46 Alkaline Phosphatase 98 Total Protein 6.8 Albumin 3.8 Globulin 3.0 Albumin/Globulin Ratio 1.3 Phenytoin Carbamazepine Alcohol, Quantitative
[2017-10-28 07:31] LABS: THYROID STIMULATING HORMONE 1.81 mIU/ML (0.46-4.68)
[2017-10-28] MEDS: Phenytoin 100 mg/4 ml Oral Susp UD PO SCH ×3 (08:38→16:44)
[2017-10-28 10:04] LABS: CHOLESTEROL 234 mg/dL (0-199)
--- NOTE | 2017-10-28 15:17 | MRI ---
PROCEDURE: MRI BRAIN WITHOUT CONTRAST HISTORY: vbi COMPARISON: Unenhanced brain MRI 09/17/[address] dated 09/20/2017. TECHNIQUE: Multiplanar, multisequence MR images of the brain were obtained without intravenous contrast enhancement. FINDINGS: HEMORRHAGE: None DWI: No evidence of an acute or early subacute infarction. BRAIN PARENCHYMA: Age-related neuro degenerative changes appear reiterated comprised of limited diffuse cerebral atrophy and minimal chronic microangiopathy as well. No interval mass effect or suspicious extra-axial fluid collection is appreciable with posted fossa remaining stable including the brainstem. VENTRICLES: Unremarkable. No hydrocephalus. CRANIUM: Unremarkable. ORBITS: Grossly unremarkable. PARANASAL SINUSES/MASTOIDS: Clear VASCULAR SYSTEM: Skull base flow voids intact including through the basilar and visualized distal vertebral arteries. OTHER FINDINGS: None. IMPRESSION: Stable reiterated age related neuro degenerative changes. No acute or subacute intracranial findings. Major skullbase arterial vasculature exhibits no MR sign of occlusion as discussed above. Further characterization can provided by MR angiography or contrast CT angiography if clinically warranted.
--- NOTE | 2017-10-28 15:25 | CARD ---
APPROVED REPORT EKG Measurement Heart [id number] <Conclusion> Sinus rhythm with short MS Otherwise normal ECG
--- NOTE | 2017-10-28 16:21 | CP.PCM.HP ---
History of Present Illness - History of Present Illness History of Present Illness: A 57 year old female with a past medical history of seizure disorder was admitted to telemetry for anxiety and dizziness. She has a history of multiple admissions due to seizure disorder and alcoholism. She was brought to the ED by her family complaining of tremulousness and anxiety. The patient reports she feels like shes going to have a seizure and she drinks daily. Her last drink was 3 days ago. The patient is also noncompliant with anti-seizure medications. She says she has three kinds of anti-seizure medicines. Present on Admission - Present on Admission Any Indicators Present on Admission: No History of DVT/PE: No History of Uncontrolled Diabetes: No Urinary Catheter: No Decubitus Ulcer Present: No Review of Systems - EENT Eyes: absent: Change in Vision - Cardiovascular Cardiovascular: absent: Chest Pain - Respiratory Respiratory: absent: Cough, Dyspnea - Gastrointestinal Gastrointestinal: Nausea, Vomiting. absent: Abdominal Pain Past Patient History - Infectious Disease Hx of Infectious Diseases: None - Past Medical History & Family History Past Medical History?: Yes - Past Social History Smoking Status: Never Smoked - CARDIAC Hx Hypertension: Yes - PULMONARY Hx Respiratory Disorders: No - NEUROLOGICAL Hx Seizures: Yes - HEENT Hx HEENT Problems: No - RENAL Hx Chronic Kidney Disease: No - ENDOCRINE/METABOLIC Hx Endocrine Disorders: Yes (DM2) - HEMATOLOGICAL/ONCOLOGICAL Hx Human Immunodeficiency Virus (HIV): No - INTEGUMENTARY Hx Dermatological Problems: No - MUSCULOSKELETAL/RHEUMATOLOGICAL Hx Arthritis: Yes Hx Falls: Yes Hx Fractures: Yes (right upper arm) - GASTROINTESTINAL Hx Gastrointestinal Disorders: No - GENITOURINARY/GYNECOLOGICAL Hx Genitourinary Disorders: No - PSYCHIATRIC Hx Anxiety: Yes Hx Substance Use: No - SURGICAL HISTORY Hx Tonsillectomy: Yes - ANESTHESIA Hx Anesthesia: Yes Hx Anesthesia Reactions: No Hx Malignant Hyperthermia: No Meds Allergies/Adverse Reactions: Allergies Allergy/AdvReac Type Severity Reaction Status Date / Time No Known Allergies Allergy Verified 09/06/17 11:18 Physical Exam - Constitutional Appears: No Acute Distress, Unkempt - Neck Exam Neck exam: Positive for: Full Rom - Respiratory Exam Respiratory Exam: Clear to Auscultation Bilateral. absent: Rales, Wheezes - Cardiovascular Exam Cardiovascular Exam: REGULAR RHYTHM. absent: Systolic Murmur - GI/Abdominal Exam GI & Abdominal Exam: Normal Bowel Sounds, Soft. absent: Tenderness - Neurological Exam Neurological exam: Abnormal Gait - Psychiatric Exam Psychiatric exam: Anxious Results - Vital Signs Recent Vital Signs: Last Vital Signs Temp 100.5 F H 10/28/17 15:44 Pulse 103 H 10/28/17 15:44 Resp 20 10/28/17 15:44 BP 157/78 H 10/28/17 15:44 Pulse Ox 95 10/28/17 15:44 - Labs Result Diagrams: 10/28/17 05:45 10/28/17 05:45 Labs: Laboratory Results - last 24 hr 10/27/17 10/28/17 10/28/17 20:54 05:19 05:45 WBC 8.5 RBC 2.92 L Hgb 10.1 L Hct 31.4 L MCV 107.5 H MCH 34.7 H MCHC 32.3 L RDW 17.3 H Plt Count 229 MPV 8.9 Neut % (Auto) 69.4 Lymph % (Auto) 15.9 L [place] % (Auto) 10.5 H Eos % (Auto) 3.5 Baso % (Auto) 0.7 Neut # 5.9 Lymph # 1.4 [place] # 0.9 H Eos # 0.3 Baso # 0.1 Sodium Potassium Chloride Carbon Dioxide Anion Gap BUN Creatinine Est GFR ( Amer) Est GFR (Non-Af Amer) POC Glucose (mg/dL) 142 H 110 Random Glucose Calcium Total Bilirubin AST ALT Alkaline Phosphatase Total Protein Albumin Globulin Albumin/Globulin Ratio Triglycerides Cholesterol LDL Cholesterol Direct HDL Cholesterol TSH 3rd Generation 10/28/17 10/28/17 10/28/17 05:45 09:30 10:49 WBC RBC Hgb Hct MCV MCH MCHC RDW Plt Count MPV Neut % (Auto) Lymph % (Auto) [place] % (Auto) Eos % (Auto) Baso % (Auto) Neut # Lymph # [place] # Eos # Baso # Sodium 140 Potassium 3.9 Chloride 101 Carbon Dioxide 30 Anion Gap 13 BUN 14 Creatinine 0.6 L Est GFR ( Amer) > 60 Est GFR (Non-Af Amer) > 60 POC Glucose (mg/dL) 127 H Random Glucose 121 H Calcium 8.3 L Total Bilirubin 0.9 AST 67 H D ALT 46 Alkaline Phosphatase 98 Total Protein 6.8 Albumin 3.8 Globulin 3.0 Albumin/Globulin Ratio 1.3 Triglycerides 134 Cholesterol 234 H LDL Cholesterol Direct 114 HDL Cholesterol 76 H TSH 3rd Generation 1.81 Assessment & Plan - Assessment and Plan (Free Text) Assessment: recurrent seizure disorder, noncompliant to medicines alcohol withdrawal dizziness, positional vertigo Plan: Ativan at bed side neurology consult for seizure disorder fall precaution DVT prophylaxis PT - Date & Time Date: 10/28/17 Time: 16:24
--- NOTE | 2017-10-28 16:26 | CP.PCM.PN ---
Subjective - Date & Time of Evaluation Date of Evaluation: 10/28/17 Time of Evaluation: 16:24 - Subjective Subjective: complaining that she can not walk and she has balance problem. she feels anxious and has pain on both hips denies tremor Objective - Vital Signs/Intake and Output Vital Signs (last 24 hours): Temp Pulse Resp BP Pulse Ox 100.5 F H 103 H 20 157/78 H 95 10/28/17 15:44 10/28/17 15:44 10/28/17 15:44 10/28/17 15:44 10/28/17 15:44 - Medications Medications: Current Medications Acetaminophen (Tylenol 325mg Tab) 650 mg PO Q6 PRN PRN Reason: Pain, Mild (1-3) Atorvastatin Calcium (Lipitor) 10 mg PO DAILY [facility] Carbamazepine (Tegretol-Xr) 300 mg PO DAILY [facility] Last Admin: 10/28/17 08:39 Dose: 300 mg Clopidogrel Bisulfate (Plavix) 75 mg PO DAILY [facility] Cyclobenzaprine HCl (Flexeril) 5 mg PO BID PRN PRN Reason: Pain, Mild (1-3) Last Admin: 10/28/17 13:12 Dose: 5 mg Enoxaparin Sodium (Lovenox) 40 mg SC DAILY [facility] PRN Reason: Protocol Lorazepam (Ativan) 1 mg PO Q6 [facility] Losartan Potassium (Cozaar) 25 mg PO DAILY [facility] Meclizine HCl (Antivert) 25 mg PO BID [facility] Last Admin: 10/28/17 08:38 Dose: 25 mg Metformin HCl (Glucophage) 500 mg PO BIDWM [facility] Last Admin: 10/28/17 08:39 Dose: 500 mg Phenytoin (Dilantin) 100 mg PO TID [facility] Last Admin: 10/28/17 13:15 Dose: 100 mg Thiamine HCl (Vitamin B1 Tab) 100 mg PO DAILY [facility] Last Admin: 10/28/17 08:40 Dose: 100 mg - Labs Labs: 10/28/17 05:45 10/28/17 05:45 - Constitutional Appears: No Acute Distress - Neck Exam Neck Exam: Full ROM - Respiratory Exam Respiratory Exam: Clear to Ausculation Bilateral. absent: Rales, Wheezes - Cardiovascular Exam Cardiovascular Exam: REGULAR RHYTHM. absent: Murmur - GI/Abdominal Exam GI & Abdominal Exam: Soft. absent: Tenderness Assessment and Plan - Assessment and Plan (Free Text) Assessment: recurrent seizure non-compliant to medicines alcohol (she is saying she was not drinking lately) fecal incontinence (as per the nurse, she defecates on the bed) brain MRI showed no infarct, age related changes Plan: follow up neurology consult she just had a carotid doppler one month ago. fall precaution PT continue anti-seizure medicines ativan po prn
[2017-10-28] MEDS: Enoxaparin 40 mg Syringe SC SCH (16:45)
[2017-10-29] MEDS: Phenytoin 100 mg/4 ml Oral Susp UD PO SCH ×3 (08:49→16:25)
[2017-10-29] MEDS: Enoxaparin 40 mg Syringe SC SCH (08:53)
--- NOTE | 2017-10-29 09:22 | CP.PCM.PN ---
Subjective - Date & Time of Evaluation Date of Evaluation: 10/29/17 Time of Evaluation: 09:20 - Subjective Subjective: fever this AM at 5, 101.3 feels less dizzy than yesterday has pain on both hips, more on right side can manage to go the bathroom Objective - Vital Signs/Intake and Output Vital Signs (last 24 hours): Temp Pulse Resp BP Pulse Ox 99.6 F 92 H 18 151/77 H 99 10/29/17 07:49 10/29/17 08:49 10/29/17 07:49 10/29/17 08:49 10/29/17 07:49 - Medications Medications: Current Medications Acetaminophen (Tylenol 325mg Tab) 650 mg PO Q6 PRN PRN Reason: Pain, Mild (1-3) Acetaminophen (Tylenol 325mg Tab) 650 mg PO Q4 PRN PRN Reason: Fever >100.4 F Atorvastatin Calcium (Lipitor) 10 mg PO DAILY [facility] Last Admin: 10/29/17 08:53 Dose: 10 mg Carbamazepine (Tegretol-Xr) 300 mg PO DAILY [facility] Last Admin: 10/29/17 08:54 Dose: 300 mg Clopidogrel Bisulfate (Plavix) 75 mg PO DAILY [facility] Last Admin: 10/29/17 08:54 Dose: 75 mg Cyclobenzaprine HCl (Flexeril) 5 mg PO BID PRN PRN Reason: Pain, Mild (1-3) Last Admin: 10/29/17 00:18 Dose: 5 mg Enoxaparin Sodium (Lovenox) 40 mg SC DAILY [facility] PRN Reason: Protocol Last Admin: 10/29/17 08:53 Dose: 40 mg Lorazepam (Ativan) 1 mg PO Q6 PRN PRN Reason: Anxiety Last Admin: 10/29/17 00:18 Dose: 1 mg Losartan Potassium (Cozaar) 25 mg PO DAILY [facility] Last Admin: 10/29/17 08:49 Dose: 25 mg Meclizine HCl (Antivert) 25 mg PO BID [facility] Last Admin: 10/29/17 08:49 Dose: 25 mg Metformin HCl (Glucophage) 500 mg PO BIDWM [facility] Last Admin: 10/29/17 08:53 Dose: 500 mg Phenytoin (Dilantin) 100 mg PO TID [facility] Last Admin: 10/29/17 08:49 Dose: 100 mg Thiamine HCl (Vitamin B1 Tab) 100 mg PO DAILY [facility] Last Admin: 10/29/17 08:54 Dose: 100 mg Zolpidem Tartrate (Ambien) 5 mg PO HS PRN PRN Reason: sleep Last Admin: 10/28/17 21:53 Dose: 5 mg - Labs Labs: 10/28/17 05:45 10/28/17 05:45 - Constitutional Appears: No Acute Distress - Respiratory Exam Respiratory Exam: Clear to Ausculation Bilateral. absent: Rales, Wheezes - Cardiovascular Exam Cardiovascular Exam: REGULAR RHYTHM. absent: Murmur - GI/Abdominal Exam GI & Abdominal Exam: Soft Assessment and Plan - Assessment and Plan (Free Text) Assessment: seizure disorder, non-compliant to medicines alcohol withdrawal Plan: continue seizure precaution anti-epileptic medicines septic work up follow up neurology
[2017-10-29] MEDS: Oxycodone/Acetaminophen 5/325 mg Tab PO PRN ×2 (11:58→18:09)
--- NOTE | 2017-10-29 16:06 | US ---
PROCEDURE: Duplex ultrasound of the carotid and vertebral arteries. HISTORY: assess stenosis COMPARISON: None available. TECHNIQUE: Grayscale and duplex Doppler evaluation of the cervical carotid and vertebral arteries were performed. The common carotid, carotid bifurcations and cervical ICA and proximal ECA were evaluated. The vertebral arteries were evaluated for gross patency and direction. FINDINGS: RIGHT CAROTID ARTERIES: Common Carotid Artery: Normal. Maximal flow velocity of 124.9 cm/s. Carotid Bifurcation: Normal. Internal Carotid Artery:Normal. Maximal flow velocity of 104.4 cm/s. External Carotid Artery (proximal branches): Normal. Maximal flow velocity of 47.0 cm/s. ICA/CCA Ratio: 1.0 LEFT CAROTID ARTERIES: Common Carotid Artery: Normal. Maximal flow velocity of 87.1 cm/s. Carotid Bifurcation: Normal. Internal Carotid Artery:Normal. Maximal flow velocity of 77.1 cm/s. External Carotid Artery (proximal branches): Normal. Maximal flow velocity of 73.7 cm/s. ICA/CCA Ratio: 1.1 VERTEBRAL ARTERIES: Right Vertebral Artery: Patent. Antegrade flow. Left Vertebral Artery: Patent. Antegrade flow. OTHER FINDINGS: None. IMPRESSION: Potential significant stenosis proximal to the visualized cervical common carotid artery at the right given elevated PEs and velocity approximate 1-5 cm/sec though this may be a function of turbulent blood flow. No morphological stenosis is been identified throughout the exam including the right common carotid artery. No significant stenosis bilateral visualized internal carotid arteries and left common carotid artery.
[2017-10-29 17:06] LABS: RBC URINE 4 /hpf (0-3); URINE BACTERIA RARE (<OCC); URINE BILIRUBIN NEGATIVE (NEGATIVE); URINE BLOOD NEGATIVE (NEGATIVE); URINE COLOR AMBER (YELLOW); URINE GLUCOSE (UA) NEG (Normal); URINE KETONE NEGATIVE (NEGATIVE); URINE LEUKOCYTE ESTERASE MOD Leu/uL (Negative); URINE PROTEIN 100 mg/dL (NEGATIVE); WBC URINE 109 /hpf (0-5)
--- NOTE | 2017-10-29 18:15 | PN ---
DATE: 10/29/2017 NEUROLOGICAL PROBLEM: Seizures and lower back pain. PHYSICAL EXAMINATION: VITAL SIGNS: Blood pressure 149/85, mean arterial pressure of 105, respiratory rate 16, temperature 99.3, pulse rate 105. NEUROLOGIC: Patient is complaining of lower back pain which has been radiating down to her leg, which is unbearable for her. Patient's seizure is well controlled with the current medication. Patient should be recommended to have MRA of the lumbosacral spine to rule out any herniated disk or stenosis. Pain medication can be given as she has been getting. Alan Reynoso MD
[2017-10-30] MEDS: Oxycodone/Acetaminophen 5/325 mg Tab PO PRN ×4 (00:29→21:01)
[2017-10-30] MEDS: Enoxaparin 40 mg Syringe SC SCH (08:26)
[2017-10-30] MEDS: Phenytoin 100 mg/4 ml Oral Susp UD PO SCH ×3 (08:27→16:58)
--- NOTE | 2017-10-30 10:18 | CON ---
DATE: 10/28/2017 NEUROLOGICAL PROBLEM: Dizziness. CHIEF COMPLAINT: The patient was brought into [facility] with history of high-level anxiety with tremor. From neurological point of view, I was called in to evaluate her for further management. HISTORY OF PRESENT ILLNESS: Ms. Venessa Sanchez is a 57-year-old right-handed female, usual state of health, waking up with dizziness, which she could not be able to control her leg and walking with unsteadiness. She became very anxious and tensed and decided to come to the hospital for further evaluation. Her last drink was a day prior to the admission. History of last seizure which was in weekend with family members related to alcohol use. PAST MEDICAL HISTORY: Arthritis, hypertension, seizure disorder for 4 years been diagnosed, being on dual medications and followed by neurologist. PERSONAL HISTORY: She smokes and drinks at least once to twice a week. ALLERGIES: NO KNOWN ALLERGIES. REVIEW OF SYSTEMS: A 12-point systems had been reviewed. From neuro, acute onset of dizziness. PHYSICAL EXAMINATION: VITAL SIGNS: Blood pressure 139/81, mean arterial pressure of 100, respiratory rate 18, temperature 97.7, pulse rate 82. NECK: Supple. No carotid bruit. HEART: Sounds are regular. CHEST: Fair air entry. EXTREMITIES: No edema in legs. NEUROLOGICAL: Mental status examination: She is awake, alert and oriented to person, place and time. Speech is clear. Naming, repetition, fluency, comprehension all within normal. No sign of confabulation. No sign of hallucination. No sign of suicidal ideation. No sign of apraxia. Cranial nerve examination: Visual field intact. Pupils react to light. Extraocular movement normal. No nystagmus. No facial sensory deficit. No facial asymmetry. Hearing is normal. Tongue is midline. Good gag. Motor examination: Outstretched hand with eyes closed, no drift noted. Power is symmetric on either side. Deep tendon reflexes, biceps, brachialis, triceps trace, both knees are absent, both ankles are absent. Plantars are downgoing. Sensory examination: Significant bilateral distal symmetric sensorimotor neuropathy, which probably secondary to her alcohol as well as diabetes mellitus. Coordination: [id number] test is intact. No sign of asterixis. Gait is deferred at this time. WORKUP: WBC 8.4, hemoglobin 10.1, hematocrit 31.4, platelet 229. Sodium 136, potassium 4.5, chloride 98, bicarbonate 26, BUN 11, creatinine 0.5, GFR more than 60, glucose 111. Calcium 8.4. Her Dilantin level less than 3. Carbamazepine 6.6. Alcohol level less than 10. CONCLUSION: Ms. Venessa Sanchez had been presenting with acute onset of dizziness and losing her balance. There is a possibility of vertebrobasilar insufficiency considering her risk factor of diabetes mellitus and hypertension. The patient has also alcohol-related seizures, which is controlled by dual medications. 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 RECOMMENDATION: 1. MRI of the brain to rule out any acute process. 2. If MRI is negative, start her on Plavix once a day. 3. Statin and keep the mean arterial pressure around 100 and the patient can be benefitted with starting angiotension receptor blockers or SAM inhibitor to stabilize the neurovascular endothelium. 4. Her pain can be controlled with Neurontin. For seizures, dual medication is not necessary, but she can be having one medication with keep the medication within therapeutic level. 5. If the patient is stable for next 24-hour period, the patient can be discharged and should have followup visit with me as outpatient. Alan Reynoso MD
--- NOTE | 2017-10-30 19:07 | CP.PCM.PN ---
Subjective - Date & Time of Evaluation Date of Evaluation: 10/30/17 Time of Evaluation: 19:05 - Subjective Subjective: complaining of right hip pain, sciatica less dizzy than yesterday no tremor no nausea Objective - Vital Signs/Intake and Output Vital Signs (last 24 hours): Temp Pulse Resp BP Pulse Ox 98.9 F 91 H 20 146/86 95 10/30/17 16:02 10/30/17 16:02 10/30/17 16:02 10/30/17 16:02 10/30/17 16:02 - Medications Medications: Current Medications Acetaminophen (Tylenol 325mg Tab) 650 mg PO Q6 PRN PRN Reason: Pain, Mild (1-3) Acetaminophen (Tylenol 325mg Tab) 650 mg PO Q4 PRN PRN Reason: Fever >100.4 F Atorvastatin Calcium (Lipitor) 10 mg PO DAILY [facility] Last Admin: 10/30/17 08:28 Dose: 10 mg Carbamazepine (Tegretol-Xr) 300 mg PO DAILY [facility] Last Admin: 10/30/17 08:27 Dose: 300 mg Clopidogrel Bisulfate (Plavix) 75 mg PO DAILY [facility] Last Admin: 10/30/17 08:26 Dose: 75 mg Cyclobenzaprine HCl (Flexeril) 5 mg PO BID PRN PRN Reason: Pain, Mild (1-3) Last Admin: 10/29/17 00:18 Dose: 5 mg Enoxaparin Sodium (Lovenox) 40 mg SC DAILY [facility] PRN Reason: Protocol Last Admin: 10/30/17 08:26 Dose: 40 mg Lorazepam (Ativan) 1 mg PO Q6 PRN PRN Reason: Anxiety Last Admin: 10/30/17 00:29 Dose: 1 mg Losartan Potassium (Cozaar) 25 mg PO DAILY [facility] Last Admin: 10/30/17 10:45 Dose: 25 mg Meclizine HCl (Antivert) 25 mg PO BID [facility] Last Admin: 10/30/17 16:59 Dose: 25 mg Metformin HCl (Glucophage) 500 mg PO BIDWM [facility] Last Admin: 10/30/17 17:39 Dose: 500 mg Oxycodone/Acetaminophen (Percocet 5/325 Mg Tab) 1 tab PO Q6 PRN PRN Reason: Pain, severe (8-10) Stop: 11/01/17 11:33 Last Admin: 10/30/17 15:04 Dose: 1 tab Phenytoin (Dilantin) 100 mg PO TID [facility] Last Admin: 10/30/17 16:58 Dose: 100 mg Thiamine HCl (Vitamin B1 Tab) 100 mg PO DAILY [facility] Last Admin: 10/30/17 08:27 Dose: 100 mg Zolpidem Tartrate (Ambien) 5 mg PO HS PRN PRN Reason: sleep Last Admin: 10/29/17 21:33 Dose: 5 mg - Labs Labs: 10/28/17 05:45 10/28/17 05:45 - Constitutional Appears: No Acute Distress - Respiratory Exam Respiratory Exam: Clear to Ausculation Bilateral - Cardiovascular Exam Cardiovascular Exam: REGULAR RHYTHM. absent: Murmur - Extremities Exam Extremities Exam: Normal Inspection Assessment and Plan - Assessment and Plan (Free Text) Assessment: seizure disorder alcohol withdrawal R/O herniated lumbar disc Plan: pending spine MRI continue anti-epileptic medicines as per neurology
[2017-10-31 00:40] VITALS: RESP 18
[2017-10-31] MEDS: Oxycodone/Acetaminophen 5/325 mg Tab PO PRN ×2 (04:22→11:14)
[2017-10-31] MEDS ORDERED: cefTRIAXone IV 1 gm in Dextros 50 ML IVPB SCH (09:00)
[2017-10-31] MEDS ORDERED: Lidocaine 5% Patch TD SCH (09:30)
[2017-10-31] MEDS: Phenytoin 100 mg/4 ml Oral Susp UD PO SCH (09:50)
[2017-10-31 12:11] VITALS: BP 150/91; PULSE 91; TEMP 98.9; O2SAT 96
--- NOTE | 2017-10-31 18:45 | CP.PCM.PN ---
Subjective - Date & Time of Evaluation Date of Evaluation: 10/31/17 Time of Evaluation: 11:43 - Subjective Subjective: right hip pain no seizure Objective - Vital Signs/Intake and Output Vital Signs (last 24 hours): Temp Pulse Resp BP Pulse Ox 98.9 F 91 H 18 150/91 H 96 10/31/17 12:00 10/31/17 12:00 10/31/17 12:00 10/31/17 12:00 10/31/17 12:00 Intake and Output: 10/31/17 10/31/17 06:59 18:59 Intake Total 1000 Balance 1000 - Labs Labs: 10/28/17 05:45 10/28/17 05:45 - Constitutional Appears: No Acute Distress - Respiratory Exam Respiratory Exam: Clear to Ausculation Bilateral - Cardiovascular Exam Cardiovascular Exam: REGULAR RHYTHM. absent: Murmur - GI/Abdominal Exam GI & Abdominal Exam: Soft. absent: Tenderness Assessment and Plan - Assessment and Plan (Free Text) Assessment: seizure disorder - less compliant to medicines alcohol withdrawal urine culture - E. coli UTI Plan: Neurology cleared the patient for discharge continue dilantain and carbamezepin at home discharge home with po antibioics for UTI.
== END 2017-10-31 14:38 | disposition home or self-care (01) | DRG 750 ==
LOC: H.ER 13:15 → H.ERHOLD 14:56 → H.TEL 17:19 → OBSVTOIN 10-28 14:56
PROVIDERS: ADMIT Internal Medicine; ATTEND Internal Medicine
DX: F10.239 Alcohol dependence with withdrawal, unspecified (principal); E11.40 Type 2 diabetes mellitus with diabetic neuropathy, unspecified; N39.0 Urinary tract infection, site not specified; G40.909 Epilepsy, unspecified, not intractable, without status epilepticus; B96.20 Unspecified Escherichia coli [E. coli] as the cause of diseases classified elsewhere; I10 Essential (primary) hypertension; Z91.14 Patient's other noncompliance with medication regimen; F41.9 Anxiety disorder, unspecified; M19.90 Unspecified osteoarthritis, unspecified site; G62.1 Alcoholic polyneuropathy; R15.9 Full incontinence of feces; M54.41 Lumbago with sciatica, right side; F17.200 Nicotine dependence, unspecified, uncomplicated; Y90.0 Blood alcohol level of less than 20 mg/100 ml

== ENCOUNTER 2017-11-21 01:20 | Emergency (ER) | payer MEDICAID ==
[2017-11-21 01:21] VITALS: BMI 29.5
--- NOTE | 2017-11-21 02:48 | ED PDOC ---
HPI: Altered Mental Status Time Seen by Provider: 11/21/17 01:35 Chief Complaint (Nursing): Altered Mental Status Chief Complaint (Provider): Confusion History Per: Patient History/Exam Limitations: None Exacerbating Factor(s): Alcohol Use Additional Complaint(s): Venessa Sanchez is a 57-year-old female with a past medical history of alcohol abuse, seizures, and subdural hematoma, who was brought to the emergency department by EMS for confusion. Patient was found wandering around streets. Admits she drank some vodka last night. Patient is noncompliant with seizure medications. Upon arrival, patient does not appear lethargic or altered. Patient is AAOx3. PMD: Provider TBD Past Medical History Reviewed: Historical Data, Nursing Documentation, Vital Signs Vital Signs: Last Vital Signs Temp 98.3 F 11/21/17 01:40 Pulse 107 H 11/21/17 01:40 Resp 16 11/21/17 01:40 BP 192/109 H 11/21/17 01:40 Pulse Ox 97 11/21/17 01:40 - Medical History PMH: Anxiety, Arthritis, Fractures (right upper arm), HTN, Seizures Denies: HIV, Chronic Kidney Disease Other PMH: subdural hematoma - Surgical History Surgical History: Tonsillectomy - Family History Family History: States: Unknown Family Hx - Immunization History Hx Tetanus Toxoid Vaccination: No Hx Influenza Vaccination: No Hx Pneumococcal Vaccination: No - Home Medications Home Medications: Ambulatory Orders Medication Instructions Recorded Escitalopram [Lexapro] 10 mg PO DAILY 09/06/17 Folic Acid 1 mg PO DAILY #30 tab 09/07/17 Atorvastatin [Lipitor] 10 mg PO DAILY #30 tab 10/31/17 Phenytoin, Extended [Dilantin] 100 mg PO TID #90 cer 11/17/17 amLODIPine [Norvasc] 5 mg PO DAILY #30 tab 11/17/17 carBAMazepine [Tegretol] 400 mg PO Q12 #60 tab 11/17/17 metFORMIN ER [glucoPHAGE XR] 500 mg PO BID #60 ter 11/17/17 Nitrofurantoin Macrocrystals 100 mg PO BID #14 cap 11/21/17 [Macrobid] - Allergies Allergies/Adverse Reactions: Allergies Allergy/AdvReac Type Severity Reaction Status Date / Time No Known Allergies Allergy Verified 01/09/18 01:40 Review of Systems ROS Statement: Except As Marked, All Systems Reviewed And Found Negative Neurological: Negative for: Confusion, Altered Mental Status Physical Exam - Reviewed Nursing Documentation Reviewed: Yes Vital Signs Reviewed: Yes - Physical Exam Appears: Positive for: Non-toxic, No Acute Distress Head Exam: Positive for: ATRAUMATIC, NORMAL INSPECTION, NORMOCEPHALIC Skin: Positive for: Normal Color, Warm, Dry Eye Exam: Positive for: EOMI, Normal appearance, PERRL Neck: Positive for: Normal, Supple Cardiovascular/Chest: Positive for: Regular Rate, Rhythm. Negative for: Murmur Respiratory: Positive for: Normal Breath Sounds. Negative for: Accessory Muscle Use, Respiratory Distress Gastrointestinal/Abdominal: Positive for: Normal Exam, Soft. Negative for: Tenderness Back: Positive for: Normal Inspection. Negative for: Vertebral Tenderness Extremity: Positive for: Normal ROM. Negative for: Pedal Edema, Deformity Neurologic/Psych: Positive for: Alert, Oriented (x3) - Laboratory Results Result Diagrams: 11/21/17 03:00 11/21/17 03:00 - ECG O2 Sat by Pulse Oximetry: 97 (RA) Pulse Ox Interpretation: Normal Medical Decision Making Medical Decision Making: Time: 02:39 Initial Plan:confusion --Urine drug screen --Acetaminophen --Alcohol serum --Salicylate --BMP --CBC w/ differential --Urinalysis --CT Head w/o contrast --Reevaluation Time: 05:[address]: FINDINGS: Brain: There is mild diffuse cerebral atrophy present, consistent with this patient's age. Left cerebral convexity extra-axial fluid collection demonstrating low density and intermediate density blood measuring 8 mm in thickness, unchanged. No significant white matter disease. No midline shift. Ventricles: The ventricular system demonstrates mild diffuse compensatory enlargement. Bones/joints: Unremarkable. No acute fracture. Soft tissues: Unremarkable. Sinuses: Unremarkable as visualized. No acute sinusitis. Mastoid air cells: Unremarkable as visualized. No mastoid effusion. IMPRESSION: Chronic left cerebral convexity subdural hematoma, stable since September 2017. No acute intracranial findings. Labs reviewed, and are grossly normal. Urine significant for UTI. Urine tox is negative. Patient is AAOx3, ambulating with steady gait. Will d/c with rx for macrobid Clinical Impression: UTI, Counseling was provided and all questions were answered regarding diagnosis and need for follow up with PMD. There is agreement to discharge plan. Return if symptoms persist or worsen. Scribe Attestation: Documented by Jie Durbin, acting as a scribe for Jose Alfredo Ortiz MD Provider Scribe Attestation: All medical record entries made by the Scribe were at my direction and personally dictated by me. I have reviewed the chart and agree that the record accurately reflects my personal performance of the history, physical exam, medical decision making, and the department course for this patient. I have also personally directed, reviewed, and agree with the discharge instructions and disposition. Disposition - Clinical Impression Clinical Impression: Altered mental status - Patient ED Disposition Is Patient to be Admitted: No Counseled Patient/Family Regarding: Studies Performed, Diagnosis, Need For Followup, Rx Given - Disposition Referrals: Jennifer Solis MD [Primary Care Provider] - Disposition: Routine/Home Disposition Time: 06:18 Condition: IMPROVED Additional Instructions: follow up with your primary doctor in 1-2 days return to the ED with any worsening or concerning symptoms Prescriptions: Nitrofurantoin Macrocrystals [Macrobid] 100 mg PO BID #14 cap Instructions: Urinary Tract Infection in Women (ED), Altered Mental Status (ED) Forms: [facility] ([place]) - POA Present On Arrival: None
[2017-11-21 03:54] LABS: BASO # 0.1 K/uL (0.0-0.2); BASO % 0.8 % (0.0-2.0); EOS # 0.4 K/uL (0.0-0.7); EOS % 3.8 % (0.0-4.0); HEMOGLOBIN 12.3 g/dL (12.0-16.0); LYMPH # 1.3 K/uL (1.0-4.3); LYMPH % 12.6 % (20.0-40.0); MEAN CORPUSCULAR HEMOGLOBIN 33.8 pg (27.0-31.0); MEAN CORPUSCULAR HGB CONC 33.1 g/dL (33.0-37.0); MEAN PLATELET VOLUME 8.9 fl (7.2-11.7); MONO # 0.8 K/uL (0.0-0.8); MONO % 7.5 % (0.0-10.0); NEUT # 7.9 K/uL (1.8-7.0); NEUT % 75.3 % (50.0-75.0); RBC 3.65 Mil/uL (3.80-5.20); RED CELL DISTRIBUTION WIDTH 15.8 % (11.5-14.5); WHITE BLOOD COUNT 10.5 K/uL (4.8-10.8)
[2017-11-21 04:05] LABS: BLOOD UREA NITROGEN 11 mg/dl (7-17); CALCIUM 9.7 mg/dL (8.4-10.2); GFR AFRICAN-AMERICAN > 60; GFR NON-AFRICAN AMERICAN > 60
[2017-11-21 04:10] LABS: ACETAMINOPHEN < 10.0 ug/ml (10.0-30.0); SALICYLATE < 1.0 mg/dl
--- NOTE | 2017-11-21 05:37 | CT ---
EXAM: CT Head Without Intravenous Contrast CLINICAL HISTORY: 57 years old, female; Signs and symptoms; Altered mental status/memory loss TECHNIQUE: Axial computed tomography images of the head/brain without intravenous contrast. All CT scans at this facility use one or more dose reduction techniques, viz.: automated exposure control; ma/kV adjustment per patient size (including targeted exams where dose is matched to indication; i.e. head); or iterative reconstruction technique. Coronal and sagittal reformatted images were created and reviewed. COMPARISON: CT - HEAD W/O CONTRAST 2017-09-20 12:56 FINDINGS: Brain: There is mild diffuse cerebral atrophy present, consistent with this patient's age. Left cerebral convexity extra-axial fluid collection demonstrating low density and intermediate density blood measuring 8 mm in thickness, unchanged. No significant white matter disease. No midline shift. Ventricles: The ventricular system demonstrates mild diffuse compensatory enlargement. Bones/joints: Unremarkable. No acute fracture. Soft tissues: Unremarkable. Sinuses: Unremarkable as visualized. No acute sinusitis. Mastoid air cells: Unremarkable as visualized. No mastoid effusion. IMPRESSION: Chronic left cerebral convexity subdural hematoma, stable since September 2017. No acute intracranial findings.
[2017-11-21 05:48] LABS: SQUAMOUS EPITHIAL 75 /hpf (0-5); URINE BACTERIA OCC (<OCC); URINE BILIRUBIN NEGATIVE (NEGATIVE); URINE BLOOD NEGATIVE (NEGATIVE); URINE CLARITY CLOUDY (Clear); URINE COLOR AMBER (YELLOW); URINE GLUCOSE (UA) NEG (Normal); URINE LEUKOCYTE ESTERASE LARGE Leu/uL (Negative); URINE NITRATE NEGATIVE (NEGATIVE); URINE PROTEIN 100 mg/dL (NEGATIVE); URINE UROBILINOGEN 0.2-1.0 mg/dL (0.2-1.0)
[2017-11-21 06:09] VITALS: BP 152/95; PULSE 95; RESP 18; TEMP 98.5
[2017-11-21 06:10] LABS: BARBITURATES, UR NEGATIVE (NEGATIVE); BENZODIAZEPINES, UR NEGATIVE (NEGATIVE); OPIATES, UR NEGATIVE (NEGATIVE); PHENCYCLIDINE, UR NEGATIVE (NEGATIVE)
[2017-11-21 06:12] VITALS: O2SAT 97
== END 2017-11-21 06:24 | disposition home or self-care (01) ==
LOC: H.ER 01:20
DX: N39.0 Urinary tract infection, site not specified (principal); Z91.14 Patient's other noncompliance with medication regimen; R56.9 Unspecified convulsions; F41.9 Anxiety disorder, unspecified; I10 Essential (primary) hypertension; Z79.84 Long term (current) use of oral hypoglycemic drugs

== ENCOUNTER 2017-12-19 17:21 | Emergency (ER) | payer MEDICAID ==
[2017-12-19 17:21] VITALS: BMI 29.5
--- NOTE | 2017-12-19 18:25 | ED PDOC ---
HPI: Head Injury Time Seen by Provider: 12/19/17 17:36 Chief Complaint (Nursing): Alcohol Ingestion Chief Complaint (Provider): Fall History Per: Patient History/Exam Limitations: intoxication Injury Occurred (Timing): Today @ (unknown time this afternoon) Patient States: Fell Striking Head Additional Complaint(s): Venessa Mcleod is a 57 year old female brought in by ambulance for evaluation of head injury. Patient admits to drinking today, and states she fell down at some point this afternoon (unsure of exact timing). She sustained a head injury , and may have had a seizure. History is unreliable due to level of intoxication. Patient now complaining of headache, dizziness, chest wall pain, and left knee pain. She denies any urinary incontinence or tongue biting. PMD: Dr. Nickie Graham Past Medical History Reviewed: Historical Data, Nursing Documentation, Vital Signs Vital Signs: Last Vital Signs Temp 98.0 F 12/19/17 17:25 Pulse 105 H 12/19/17 17:25 Resp 16 12/19/17 17:25 BP 196/116 H 12/19/17 17:25 Pulse Ox 98 12/19/17 17:25 - Medical History PMH: Anxiety, Arthritis, Fractures (right upper arm), HTN, Seizures Denies: HIV, Chronic Kidney Disease Other PMH: Alcohol abuse - Surgical History Surgical History: Tonsillectomy - Family History Family History: States: Unknown Family Hx - Social History Alcohol: > 2 Drinks/Day - Immunization History Hx Tetanus Toxoid Vaccination: No Hx Influenza Vaccination: No Hx Pneumococcal Vaccination: No - Home Medications Home Medications: Ambulatory Orders Medication Instructions Recorded Escitalopram [Lexapro] 10 mg PO DAILY 09/06/17 Folic Acid 1 mg PO DAILY #30 tab 09/07/17 Atorvastatin [Lipitor] 10 mg PO DAILY #30 tab 10/31/17 Phenytoin, Extended [Dilantin] 100 mg PO TID #90 cer 11/17/17 amLODIPine [Norvasc] 5 mg PO DAILY #30 tab 11/17/17 carBAMazepine [Tegretol] 400 mg PO Q12 #60 tab 11/17/17 metFORMIN ER [glucoPHAGE XR] 500 mg PO BID #60 ter 11/17/17 Nitrofurantoin Macrocrystals 100 mg PO BID #14 cap 11/21/17 [Macrobid] - Allergies Allergies/Adverse Reactions: Allergies Allergy/AdvReac Type Severity Reaction Status Date / Time No Known Allergies Allergy Verified 11/21/17 01:40 Review of Systems ROS Statement: Except As Marked, All Systems Reviewed And Found Negative (as per HPI otherwise negative) ENT: Negative for: Other (tongue biting) Cardiovascular: Positive for: Other (chest wall pain) Genitourinary Female: Negative for: Incontinence Musculoskeletal: Positive for: Other (left knee pain). Negative for: Neck Pain , Back Pain Skin: Positive for: Lesions (to head) Neurological: Positive for: Headache. Negative for: Weakness Physical Exam - Reviewed Nursing Documentation Reviewed: Yes Vital Signs Reviewed: Yes - Physical Exam Appears: Positive for: In Acute Distress (and appears intoxicated) Head Exam: Positive for: NORMOCEPHALIC (with hematoma on left brow, and abrasion to left forehead). Negative for: ATRAUMATIC Skin: Positive for: Warm, Dry Eye Exam: Positive for: EOMI, PERRL, Other (Left periorbital ecchymosis) Neck: Positive for: Normal, Painless ROM, Supple Cardiovascular/Chest: Positive for: Regular Rate, Rhythm, Other (Ecchymosis to superior sternum with tenderness at the site). Negative for: Murmur Respiratory: Positive for: Normal Breath Sounds. Negative for: Accessory Muscle Use, Respiratory Distress Gastrointestinal/Abdominal: Positive for: Normal Exam, Soft. Negative for: Tenderness Back: Positive for: Other (Ecchymosis at the left flank, no crepitus). Negative for: L CVA Tenderness, R CVA Tenderness, Vertebral Tenderness Extremity: Positive for: Tenderness (to left knee), Swelling (Diffuse edema noted to left knee), Other (Flexion and extension intact at the knee. (+) Ulcer to the plantar left second toe) Neurologic/Psych: Positive for: Alert (and awake), Other (Slurred speech, Poor concentration). Negative for: Motor/Sensory Deficits - Laboratory Results Result Diagrams: 12/19/17 18:30 12/19/17 18:30 - ECG O2 Sat by Pulse Oximetry: 98 (RA) Pulse Ox Interpretation: Normal Medical Decision Making Medical Decision Making: Impression: Alcohol intoxication, Fall, Multiple contusions, Head injury Time: 17:37 Initial Plan: * Blood type and screen * VBG * EKG * CMP * Alcohol serum * Urine drug screen * Creatine phosphokinase * Dilantin * Carbamazepine * Magnesium * CBC * PTT * Prothrombin time * Urine dipstick * Accucheck * X-Ray of left knee * CT Chest,Abd,Pelvis w/ IV contrast * CT Head w/o contrast * CT Orbits/Facial w/o contrast * Reevaluation Accession No. : [id number] Patient Name / ID : SHANI MARROQUIN D / [id number] Exam Date : 12/19/2017 18:36:22 ( Approved ) Study Comment : Sex / Age : F / 57Y Creator : Vipul Bauman MD Dictator : Vipul Bauman MD Metal Pourer : Youth Career Specialist : Vipul Bauman MD Approver2 : Report Date : 12/19/2017 18:54:57 My Comment : PROCEDURE: CT HEAD WITHOUT CONTRAST. HISTORY: alcohol intox head injury COMPARISON: 11/21/2017. Summary of findings on the comparison examination: Chronic left cerebral convexity subdural hematoma TECHNIQUE: Axial computed tomography images were obtained through the head/brain without intravenous contrast. Coronal and sagittal reconstructed images. Radiation dose: Total exam DLP = 897.53 mGy-cm. This CT exam was performed using one or more of the following dose reduction techniques: Automated exposure control, adjustment of the mA and/or kV according to patient size, and/or use of iterative reconstruction technique. FINDINGS: HEMORRHAGE: Chronic extra-axial fluid collection high left parietal frontal region. BRAIN: No mass effect or edema. No midline shift identified. Mild cortical atrophy. VENTRICLES: Unremarkable. No hydrocephalus. CALVARIUM: Unremarkable. PARANASAL SINUSES: Unremarkable as visualized. No significant inflammatory changes. MASTOID AIR CELLS: Unremarkable as visualized. No inflammatory changes. OTHER FINDINGS: Scalp contusion high posterior left parietal region without underlying calvarial or intracranial abnormality. Left periorbital scalp contusion. Adjacent osseous structures as visualized are unremarkable. Match identified medial wall of the left orbit, a finding identified previously. IMPRESSION: Stable chronic subdural hematoma high left anterior parietal region posterior left scalp contusion without adjacent or underlying calvarial, intracranial abnormality. Left periorbital contusion without visible orbital/ ocular abnormality. Patient Name: VENESSA MCLEOD (Age): 1960 57 Gender: F Date of Exam: 12/19/2017 Referring Physician: Silvia Moreno # of Images: [id number] Ordered As: CT ORBITS FACIALS W O CONTRAST Page 1 of 2 EXAM: CT Orbits Without Intravenous Contrast CLINICAL HISTORY: The patient is a 57 years female; Injury or trauma; Fall; Initial encounter; Blunt trauma (contusions or hematomas); Orbit/periorbital; Left; Injury date: 12/19/2017; Injury details: Pat admits drinking today and state she fell down at some point this afternoon; Additional info: Head injury 12/19/2017 5:53 PM TECHNIQUE: Axial computed tomography images of the orbits without intravenous contrast. All CT scans at this facility use one or more dose reduction techniques, viz.: automated exposure control; ma/kV adjustment per patient size (including targeted exams where dose is matched to indication; i.e. head); or iterative reconstruction technique. Coronal and sagittal reformatted images were created and reviewed. COMPARISON: CT - ORBITS W/O CONTRAST 2016-02-22 15:47 FINDINGS: Orbits: Postsurgical changes of the left inferior orbital wall. Sinuses: Unremarkable. No air-fluid levels. Bones/joints: Subcutaneous soft tissue swelling/hematoma is noted in the right left periorbital region. No evidence of acute displaced fracture. Left nasal bone fracture. Soft tissues: See above. Dental: Streak artifact from dental material limits evaluation. IMPRESSION: 1. Subcutaneous soft tissue swelling/hematoma is noted in the right left periorbital region. No evidence of acute displaced fracture. 2. Subcutaneous soft tissue swelling/hematoma is noted in the right left periorbital region. No evidence of acute displaced fracture. 3. Left nasal bone fracture. Thank you for allowing us to participate in the care of your patient. Dictated and Authenticated by: Naomi Yu MD 12/19/2017 7:19 PM Eastern Time ([place] & [place]) Patient Name: VENESSA MCLEOD (Age): 1960 57 Gender: F Date of Exam: 12/19/2017 Referring Physician: Silvia Moreno # of Images: [id number] Ordered As: CT CHEST ABD PEL W IV CONT ONLY Page 1 of 3 EXAM: CT Abdomen and Pelvis With Intravenous Contrast CLINICAL HISTORY: The patient is a 57 years female; Pain and injury or trauma; Fall; Initial encounter; Concussion/head injury; Abdominal pain; Flank; Left; Concussion /head injury; Other: Chest wall pain, see phy. Doc. ; Additional info: Fall alcohol intox left flank ecchymosis. Sent phy. Doc. 2017 5:56 PM TECHNIQUE: Axial computed tomography images of the abdomen and pelvis with intravenous contrast. All CT scans at this facility use one or more dose reduction techniques, viz.: automated exposure control; ma/kV adjustment per patient size (including targeted exams where dose is matched to indication; i.e. head); or iterative reconstruction technique. Coronal and sagittal reformatt H. ed images were created and reviewed. CONTRAST: 95 mL of [id number] administered intravenously. COMPARISON: CT - ABD PELVIS PO IV CONTRAST 2017-05-23 21:55 FINDINGS: Lower thorax: <No significant pleural effusions.> ABDOMEN: Liver: Lobular contour of the liver, correlate for chronic hepatic parenchymal disease. Gallbladder and bile ducts: Unremarkable. Pancreas: Unremarkable. No ductal dilation. Spleen: Unremarkable. No splenomegaly. Adrenals: Bilateral adrenal thickening. Kidneys and ureters: Symmetric enhancement. No hydronephrosis. Stomach and bowel: Lack of oral contrast opacification limits evaluation of the bowel. No dilated bowel loops are identified. Appendix: No findings to suggest acute appendicitis. PELVIS: Bladder: Partially contracted. Reproductive: Heterogeneous appearance of the uterus. Correlate with pelvic ultrasound. ABDOMEN and PELVIS: Intraperitoneal space: Unremarkable. No free air. No drainable fluid collection. Bones/joints: Spondylosis. No dislocation. Soft tissues: 17.8 x 3.7 cm which oblong collection with thick wall is noted in the left eye with associated fat infiltration. Vasculature: No abdominal aortic aneurysm. Lymph nodes: No enlarged lymph nodes. IMPRESSION: 1. Lobular contour of the liver, correlate for chronic hepatic parenchymal disease. 2. 17.8 x 3.7 cm oblong collection with thick wall is noted in the left eye with associated fat infiltration. Differential considerations include collection/hematoma versus superimposed infection/abscess in the appropriate clinical setting. 3. Heterogeneous appearance of the uterus. Correlate with pelvic ultrasound. EXAM: CT Chest With Intravenous Contrast CLINICAL HISTORY: The patient is a 57 years female; Pain and injury or trauma; Fall; Initial encounter; Concussion/head injury; Abdominal pain; Flank; Left; Concussion /head injury; Other: Chest wall pain, see phy. Doc. ; Additional info: Fall alcohol intox left flank ecchymosis. Sent phy. Doc. 2017 5:56 PM TECHNIQUE: Axial computed tomography images of the chest with intravenous contrast. All CT scans at this facility use one or more dose reduction techniques, viz.: automated exposure control; ma/kV adjustment per patient size (including targeted exams where dose is matched to indication; i.e. head); or iterative reconstruction technique. Coronal and sagittal reformatted images were created and reviewed. CONTRAST: 95 mL of [id number] administered intravenously. COMPARISON: No relevant prior studies available. FINDINGS: Lungs: No consolidation. Pleural space: Unremarkable. No pneumothorax. No significant effusion. 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 No cardiomegaly. No significant pericardial effusion. Bones/joints: Partially healed fractures of the right fourth, fifth, sixth ribs and 11th and 12th ribs. Partially healed fracture of the left fifth and sixth ribs. Partially displaced fracture of the right third and right ribs. Healed fracture of the left third rib fourth rib. Osteopenia. Spondylosis. Orthopedic hardware noted in the right humerus. Soft tissues: Unremarkable. Vasculature: Unremarkable. No thoracic aortic aneurysm. Lymph nodes: Unremarkable. No enlarged lymph nodes. IMPRESSION: 1. Partially healed fractures of the right fourth, fifth, sixth ribs and 11th and 12th ribs. Partially healed fracture of the left fifth and sixth ribs. Partially displaced fracture of the right third and right ribs. 2. No pneumothorax or consolidation. Thank you for allowing us to participate in the care of your patient. Dictated and Authenticated by: Naomi Yu MD 12/19/2017 8:23 PM Eastern Time ([place] & [place]) Time: 21:48 On reevaluation: patient is AAOx3, with no slurred speech. No signs of withdrawal. Patient reports feeling better, with decreased knee pain. Discussed findings with patient. Patient eager to go home. Will place in knee immobilizer and test her gait. Time: 00:00 While waiting for discharge transportation, patient got out of bed despite needing a walker, and fell down. Patient sustained a head injury, and will be signed out to Dr. Bautista pending CT Scan. Scribe Attestation: Documented by Jie Durbin and Rocio Naidu, acting as scribes for Silvia Moreno MD Provider Scribe Attestation: All medical record entries made by the Scribe were at my direction and personally dictated by me. I have reviewed the chart and agree that the record accurately reflects my personal performance of the history, physical exam, medical decision making, and the department course for this patient. I have also personally directed, reviewed, and agree with the discharge instructions and disposition. Disposition - Clinical Impression Clinical Impression: Alcohol abuse with intoxication, Black eye of left side, Dilantin level too low , Head injury, Knee contusion, Hematoma, Chest wall contusion - Patient ED Disposition Is Patient to be Admitted: Transfer of Care Counseled Patient/Family Regarding: Studies Performed, Diagnosis - Disposition Referrals: Jennifer Solis MD [Family Provider] - 12/20/17 Disposition: Transfer of Care Disposition Time: 00:00 Condition: FAIR Instructions: Black Eye (ED), Head Injury (ED), Alcohol Intoxication (ED), Contusion in Adults (ED), Fall Prevention (ED), Hematoma (ED), Facial Contusion (ED) Patient Signed Over To: Trinity Bautista
[2017-12-19 18:33] LABS: VENOUS BLOOD GAS BASE EXCESS -5.7 mmol/L (0.0-2.0); VENOUS BLOOD GAS PCO2 31 mmHg (40-60); VENOUS BLOOD GAS PO2 76 mm/Hg (30-55); VENOUS BLOOD PH 7.38 (7.32-7.43)
[2017-12-19 18:33] LABS: BENZODIAZEPINES, UR NEGATIVE (NEGATIVE); OPIATES, UR NEGATIVE (NEGATIVE); PHENCYCLIDINE, UR NEGATIVE (NEGATIVE)
[2017-12-19 18:34] LABS: BARBITURATES, UR POSITIVE (NEGATIVE)
[2017-12-19 18:43] LABS: BASO # 0.1 K/uL (0.0-0.2); BASO % 1.3 % (0.0-2.0); EOS # 0.3 K/uL (0.0-0.7); EOS % 3.1 % (0.0-4.0); HEMOGLOBIN 10.6 g/dL (12.0-16.0); LYMPH # 1.8 K/uL (1.0-4.3); LYMPH % 17.4 % (20.0-40.0); MEAN CELL VOLUME 100.4 fl (81.0-99.0); MEAN CORPUSCULAR HEMOGLOBIN 32.8 pg (27.0-31.0); MEAN CORPUSCULAR HGB CONC 32.6 g/dL (33.0-37.0); MEAN PLATELET VOLUME 8.5 fl (7.2-11.7); MONO # 0.5 K/uL (0.0-0.8); MONO % 5.1 % (0.0-10.0); NEUT # 7.3 K/uL (1.8-7.0); NEUT % 73.1 % (50.0-75.0); RBC 3.23 Mil/uL (3.80-5.20); WHITE BLOOD COUNT 10.1 K/uL (4.8-10.8)
[2017-12-19 18:49] LABS: ALB/GLOB RATIO 1.2 (1.0-2.1); ALBUMIN 3.8 g/dL (3.5-5.0); ALT/SGPT 23 U/L (9-52); AST/SGOT 20 U/L (14-36); BLOOD UREA NITROGEN 18 mg/dl (7-17); CALCIUM 8.2 mg/dL (8.4-10.2); GFR AFRICAN-AMERICAN > 60; GFR NON-AFRICAN AMERICAN > 60; MAGNESIUM 1.4 MG/DL (1.6-2.3)
--- NOTE | 2017-12-19 18:56 | CT ---
PROCEDURE: CT HEAD WITHOUT CONTRAST. HISTORY: alcohol intox head injury COMPARISON: 11/21/2017. Summary of findings on the comparison examination: Chronic left cerebral convexity subdural hematoma TECHNIQUE: Axial computed tomography images were obtained through the head/brain without intravenous contrast. Coronal and sagittal reconstructed images. Radiation dose: Total exam DLP = 897.53 mGy-cm. This CT exam was performed using one or more of the following dose reduction techniques: Automated exposure control, adjustment of the mA and/or kV according to patient size, and/or use of iterative reconstruction technique. FINDINGS: HEMORRHAGE: Chronic extra-axial fluid collection high left parietal frontal region. BRAIN: No mass effect or edema. No midline shift identified. Mild cortical atrophy. VENTRICLES: Unremarkable. No hydrocephalus. CALVARIUM: Unremarkable. PARANASAL SINUSES: Unremarkable as visualized. No significant inflammatory changes. MASTOID AIR CELLS: Unremarkable as visualized. No inflammatory changes. OTHER FINDINGS: Scalp contusion high posterior left parietal region without underlying calvarial or intracranial abnormality. Left periorbital scalp contusion. Adjacent osseous structures as visualized are unremarkable. Match identified medial wall of the left orbit, a finding identified previously. IMPRESSION: Stable chronic subdural hematoma high left anterior parietal region posterior left scalp contusion without adjacent or underlying calvarial, intracranial abnormality. Left periorbital contusion without visible orbital/ ocular abnormality.
[2017-12-19 19:03] LABS: CARBAMAZEPINE 10.4 ug/mL (4.0-12.0); DILANTIN (PHENYTOIN) < 3.0 ug/ML (10-20)
[2017-12-19 19:06] LABS: PROTHROMBIN TIME 10.9 Seconds (9.8-13.1)
[2017-12-19 19:07] LABS: PARTIAL THROMBOPLASTIN TIME 28.5 Seconds (25.6-37.1)
[2017-12-19] MEDS ORDERED: Sodium Chloride 0.9% 50 ML IV ONE (19:12)
[2017-12-19] MEDS ORDERED: Iohexol 300 100 ML IJ ONE (19:12)
[2017-12-19 22:45] VITALS: RESP 18
[2017-12-20] MEDS ORDERED: Lidocaine 2% Inj (20ml) ONE (00:27)
--- NOTE | 2017-12-20 00:44 | ED PDOC ---
- Laboratory Results Result Diagrams: 12/19/17 18:30 12/19/17 18:30 - ECG O2 Sat by Pulse Oximetry: 98 (RA) Medical Decision Making Medical Decision Makin:00 Patient signed out to me by Dr. Moreno pending repeat CT Scan after trying to ambulate without walker just prior to discharge. 2:[address] Head w/o Contrast FINDINGS: Grossly stable left-sided subdural hematoma with mild mass effect. Left-sided scalp swelling without calvarial fracture redemonstrated. No hydrocephalus, significant midline shift or acute territorial infarction. Left periorbital swelling is grossly stable. Chronic left orbital floor fracture. Chronic appearing nasal bone fractures IMPRESSION: Grossly stable noncontrast CT appearance of the brain Scribe Attestation: Documented by Rocio Naidu, acting as a scribe for Trinity Bautista MD. Provider Scribe Attestation: All medical record entries made by the Scribe were at my direction and personally dictated by me. I have reviewed the chart and agree that the record accurately reflects my personal performance of the history, physical exam, medical decision making, and the department course for this patient. I have also personally directed, reviewed, and agree with the discharge instructions and disposition. Disposition - Clinical Impression Clinical Impression: Alcohol abuse with intoxication, Black eye of left side, Dilantin level too low , Head injury, Knee contusion, Hematoma, Chest wall contusion - POA Present On Arrival: None - Disposition Referrals: Jennifer Solis MD [Family Provider] - 12/20/17 Disposition: Routine/Home Disposition Time: 02:53 Condition: FAIR Instructions: Black Eye (ED), Head Injury (ED), Alcohol Intoxication (ED), Contusion in Adults (ED), Fall Prevention (ED), Hematoma (ED), Facial Contusion (ED)
[2017-12-20] MEDS ORDERED: carBAMazepine Chew Tab 100 MG Chew Tab ONE (03:36)
[2017-12-20 06:54] VITALS: BP 160/96; PULSE 99; TEMP 98.5; O2SAT 100
--- NOTE | 2017-12-20 08:48 | CT ---
PROCEDURE: CT HEAD WITHOUT CONTRAST. HISTORY: recurrent head injury COMPARISON: 12/19/2017 TECHNIQUE: Axial computed tomography images were obtained through the head/brain without intravenous contrast. Radiation dose: Total exam DLP = 871 mGy-cm. This CT exam was performed using one or more of the following dose reduction techniques: Automated exposure control, adjustment of the mA and/or kV according to patient size, and/or use of iterative reconstruction technique. FINDINGS: HEMORRHAGE: Chronic left subdural hematoma high left parietal region -similar. No midline shift. No interval hyperdense re- bleeds BRAIN: Minimal mass effect from the left stable chronic subdural hematoma. Intrinsic mild cerebral atrophy -similar-appearing No gross interval infarct seen VENTRICLES: Unremarkable. No hydrocephalus. CALVARIUM: Unremarkable. PARANASAL SINUSES: No significant appearing inflammatory changes MASTOID AIR CELLS: Unremarkable as visualized. No inflammatory changes. OTHER FINDINGS: High left posterior parietal scalp hematoma and left periorbital soft tissue swelling -both slightly smaller in size compared the prior study. Left orbital wall fracture with plating -similar-appearing. No interval change in the orbits or intra orbital contents. Similar nasal bone fractures. IMPRESSION: Stable and chronic left subdural hematoma high parietal region. No rebleed noted Left scalp left periorbital soft tissue swelling -slightly decreased Known left orbital wall (and treated) and known left nasal bone fractures. No interval fractures noted Comments: Preliminary report per [facility] compatible with this report.
--- NOTE | 2017-12-20 10:38 | CT ---
PROCEDURE: CT ORBITS WITHOUT CONTRAST. HISTORY: head injury COMPARISON: Comparison is made to the previous study dated 02/22/2016 TECHNIQUE: Axial CT images of the orbits were obtained. Coronal and sagittal reformats were generated. Radiation dose: Total exam DLP = 813.41 mGy-cm. This CT exam was performed using one or more of the following dose reduction techniques: Automated exposure control, adjustment of the mA and/or kV according to patient size, and/or use of iterative reconstruction technique. FINDINGS: RIGHT ORBIT: RIGHT BONY ORBIT: Normal. RIGHT INTRAORBITAL STRUCTURES: Globe: Normal. Extraocular muscles: Normal. Post septal space: Normal. Optic Nerve: Normal. Lacrimal Apparatus: Normal. RIGHT PRESEPTAL SOFT TISSUES: Mild right periorbital soft tissue swelling. LEFT ORBIT: LEFT BONY ORBIT: Patient is status post hardware repair of left orbital floor fracture by metallic mesh. No evidence of new acute displaced fracture. LEFT INTRAORBITAL STRUCTURES: Globe: Normal. Extraocular muscles: Normal. Post septal space: Normal Optic Nerve: Normal. . Lacrimal Apparatus: Normal. LEFT PRESEPTAL SOFT TISSUES: Mild left periorbital soft tissue swelling. OTHER: There is displaced angulated fracture at the will nasal bone. IMPRESSION: Mild bilateral periorbital soft tissue swelling. Acute left nasal bone slightly displaced angulated fracture. Preliminary report was submitted by [facility].
--- NOTE | 2017-12-20 10:46 | RAD ---
PROCEDURE: Left Knee Radiographs. HISTORY: Pain. COMPARISON: None. FINDINGS: BONES: No fracture. JOINTS: Normal. No osteoarthritis. JOINT EFFUSION: None. OTHER FINDINGS: Mild subcutaneous reticulated edema present -fairly circumferential. Mild thickening of the prepatellar bone and prepatellar tendon soft tissues. A prepatellar bursitis is 1 consideration. Trace lateral patellar tilt. No subluxation IMPRESSION: No fracture or lytic lesion. No prominent spurs. Prepatellar soft tissue swelling - extensive skin thickening with or without prepatellar bursal effusion -consideration
--- NOTE | 2017-12-20 11:15 | CT ---
PROCEDURE: CT Chest, Abdomen and Pelvis with intravenous contrast HISTORY: fall alcohol intox LEFT flank ecchymosis COMPARISON: Comparison is made with the previous study dated 02/22/2016 TECHNIQUE: IV dose administered: 95 mL of Omnipaque 300. Axial and reformatted coronal and sagittal CT images of the chest abdomen and pelvis were obtained after IV contrast administration. Radiation dose: Total exam DLP = 1337.79 mGy-cm. This CT exam was performed using one or more of the following dose reduction techniques: Automated exposure control, adjustment of the mA and/or kV according to patient size, and/or use of iterative reconstruction technique. FINDINGS: CT CHEST WITH CONTRAST: LUNGS: No evidence of focal infiltrate or consolidation in the lungs. No CT evidence of lung contusion. MEDIASTINUM: Unremarkable. Normal caliber aorta and pulmonary arterial trunk. No aortic dissection. The heart is mildly to moderately enlarged. LYMPH NODES: Unremarkable. PLEURA: Unremarkable. No pneumothorax. No pleural fluid. BONES: Multiple bilateral bold rib fractures seen associated with callus formation. OTHER FINDINGS: None. CT ABDOMEN AND PELVIS: LIVER: Lobular contour of the liver noted suggestive of chronic hepatic parenchymal disease. No evidence of liver laceration or hematoma. GALLBLADDER AND BILE DUCTS: Unremarkable. PANCREAS: Unremarkable. No gross lesion or ductal dilatation. SPLEEN: Unremarkable. ADRENALS: Soft tissue nodule noted at the left adrenal gland measures 11.5 millimeter. KIDNEYS AND URETERS: No significant interval change in the kidneys noted since the previous exam. Again noted is a nonspecific bilateral perinephric strandy VASCULATURE: Unremarkable. No aortic aneurysm. BOWEL: Colonic diverticulosis are seen without evidence of diverticulitis. No evidence of bowel obstruction. Mild constipation is noted. APPENDIX: No evidence of appendicitis P PERITONEUM: Unremarkable. No free fluid. No free air. LYMPH NODES: Unremarkable. No enlarged lymph nodes. BLADDER: Unremarkable. REPRODUCTIVE: Heterogeneous mildly enlarged uterus likely contains fibroids is again noted. BONES: No acute fracture. OTHER FINDINGS: There is a thick wall collection at the left lateral pelvic wall measures 17.8 x 3.7 centimeter contains slightly high attenuation fluid and surrounding with fat stranding. The differential considerations include abscess formation versus hematoma. IMPRESSION: No evidence of acute traumatic changes in the chest. Multiple subacute or old partially healed fracture in the ribs bilaterally. No evidence of acute laceration or hematoma in the upper abdomen solid organs. Lobular contour of the liver suggestive of chronic hepatic parenchymal disease. 17.8 x 3.7 centimeter thick wall collection noted at the left lateral pelvic may represent hematoma or abscess. Mildly enlarged heterogeneous uterus likely contains fibroids. If indicated further assessment by ultrasound or MRI may be obtained. Preliminary report was submitted by [facility].
--- NOTE | 2017-12-20 11:19 | CARD ---
APPROVED REPORT EKG Measurement Heart [id number] <Conclusion> Sinus tachycardia Otherwise normal ECG
--- NOTE | 2017-12-20 13:02 | RAD ---
PROCEDURE: HISTORY: hematoma COMPARISON: None TECHNIQUE: Four images FINDINGS: No fracture dislocation. Left superolateral hip joint space narrowing with subchondral sclerosis noted. -senescent changes here suggested. There is mottled density and minimal reticulated edema of the left gluteal/lateral upper thigh soft tissue -compatible with a hematoma here. There is contrast within the moderately distended bladder IMPRESSION: No fracture or dislocation. Left lateral soft tissue swelling compatible with hematoma and edema here.
--- NOTE | 2017-12-20 13:06 | RAD ---
PROCEDURE: HISTORY: hematoma COMPARISON: None TECHNIQUE: AP view of the pelvis and applicable frog leg views obtained. FINDINGS: Left superolateral hip joint space narrowing with subchondral sclerosis. The covering of the left femoral head is slightly less than typically seen -a developmental variation is inferred No fracture or dislocation suggested. Lateral left thigh/left gluteal soft tissue swelling compatible with the clinical history provided of the left hematoma IMPRESSION: No fracture or dislocation. Left lateral hip soft tissue swelling compatible with hematoma. Degloving soft tissue injury - not excluded. .
== END 2017-12-20 07:39 | disposition home or self-care (01) ==
LOC: H.ER 17:21
DX: F10.129 Alcohol abuse with intoxication, unspecified (principal); S80.02XA Contusion of left knee, initial encounter; S30.1XXA Contusion of abdominal wall, initial encounter; S20.219A Contusion of unspecified front wall of thorax, initial encounter; S00.12XA Contusion of left eyelid and periocular area, initial encounter; S09.90XA Unspecified injury of head, initial encounter; W18.00XA Striking against unspecified object with subsequent fall, initial encounter; I10 Essential (primary) hypertension; R56.9 Unspecified convulsions
CPT/HCPCS: 70450; 70480; 71260; 73502; 73552; 73562; 74177; 80053; 80156; 80185; 80320; 80324; 80345; 80346; 80349; 80353; 80358; 80361; 82550; 82803; 82948; 83735; 83992; 85025; 85610; 85730; 86850; 86900; 93005; 96360; 99284; Q2009; Q9967

== ENCOUNTER 2018-01-03 14:58 | Emergency (ER) | payer MEDICAID ==
[2018-01-03 14:58] VITALS: BMI 29.5
[2018-01-03 15:57] VITALS: BP 187/110; PULSE 92; RESP 16; TEMP 98.4; O2SAT 94
--- NOTE | 2018-01-03 16:20 | ED PDOC ---
HPI: Wound Care - HPI Time Seen by Provider: 01/03/18 16:08 Chief Complaint (Nursing): Suture/Staple Removal Chief Complaint (Provider): Suture removal, left lateral eyebrow History Per: Patient Exam Limitations: no limitations Additional Complaint(s): PY denies pain or drainage. Pt states she had them placed 3 weeks ago when she fell while intoxicated. No complaints Past Medical History Reviewed: Historical Data, Nursing Documentation, Vital Signs Vital Signs: Last Vital Signs Temp 98.4 F 01/03/18 15:53 Pulse 92 H 01/03/18 15:53 Resp 16 01/03/18 15:53 BP 187/110 H 01/03/18 15:53 Pulse Ox 94 L 01/03/18 15:53 - Medical History PMH: Anxiety, Arthritis, Fractures (right upper arm), HTN, Seizures Denies: HIV, Chronic Kidney Disease - Surgical History Surgical History: Tonsillectomy - Family History Family History: States: Unknown Family Hx - Immunization History Hx Tetanus Toxoid Vaccination: No Hx Influenza Vaccination: No Hx Pneumococcal Vaccination: No - Home Medications Home Medications: Ambulatory Orders Medication Instructions Recorded Escitalopram [Lexapro] 10 mg PO DAILY 09/06/17 Folic Acid 1 mg PO DAILY #30 tab 09/07/17 Atorvastatin [Lipitor] 10 mg PO DAILY #30 tab 10/31/17 Phenytoin, Extended [Dilantin] 100 mg PO TID #90 cer 11/17/17 amLODIPine [Norvasc] 5 mg PO DAILY #30 tab 11/17/17 carBAMazepine [Tegretol] 400 mg PO Q12 #60 tab 11/17/17 metFORMIN ER [glucoPHAGE XR] 500 mg PO BID #60 ter 11/17/17 Nitrofurantoin Macrocrystals 100 mg PO BID #14 cap 11/21/17 [Macrobid] - Allergies Allergies/Adverse Reactions: Allergies Allergy/AdvReac Type Severity Reaction Status Date / Time No Known Allergies Allergy Verified 01/03/18 15:53 Review of Systems ROS Statement: Except As Marked, All Systems Reviewed And Found Negative Constitutional: Negative for: Fever, Chills Skin: Positive for: Other Physical Exam - Reviewed Nursing Documentation Reviewed: Yes Vital Signs Reviewed: Yes - Physical Exam Appears: Positive for: Well, Non-toxic, No Acute Distress Head Exam: Positive for: ATRAUMATIC, NORMAL INSPECTION, NORMOCEPHALIC Skin: Positive for: Warm. Negative for: Normal Color (Well healed area laceration, left lateral eyebrow - [address] ) Eye Exam: Positive for: Normal appearance, EOMI, PERRL ENT: Positive for: Normal ENT Inspection Neck: Positive for: Normal, Painless ROM Cardiovascular/Chest: Positive for: Regular Rate, Rhythm Respiratory: Positive for: CNT, Normal Breath Sounds Gastrointestinal/Abdominal: Positive for: Normal Exam, Bowel Sounds, Soft Back: Positive for: Normal Inspection Extremity: Positive for: Normal ROM Neurologic/Psych: Positive for: Alert, Oriented - ECG O2 Sat by Pulse Oximetry: 94 Medical Decision Making Medical Decision Making: Discussed abnormal vitals with patient. Pt does not want to stay for further evaluation and reports feeling well. Disposition - Clinical Impression Clinical Impression: Removal of suture - Patient ED Disposition Is Patient to be Admitted: No Counseled Patient/Family Regarding: Diagnosis, Need For Followup - Disposition Disposition: Routine/Home Disposition Time: 16:17 Condition: GOOD Instructions: Stitches Removal
== END 2018-01-03 16:46 | disposition home or self-care (01) ==
LOC: H.ER 14:58
DX: Z48.02 Encounter for removal of sutures (principal); Z79.84 Long term (current) use of oral hypoglycemic drugs; F41.9 Anxiety disorder, unspecified; I10 Essential (primary) hypertension

== ENCOUNTER 2018-02-25 19:57 | Observation (INO) | payer MEDICAID ==
[2018-02-25 19:57] VITALS: BMI 29.5
--- NOTE | 2018-02-25 20:52 | ED PDOC ---
HPI: Psych/Substance Abuse Time Seen by Provider: 02/25/18 20:07 Chief Complaint (Nursing): Alcohol Ingestion Chief Complaint (Provider): Alcohol Ingestion History Per: Patient History/Exam Limitations: no limitations Current Symptoms Are (Timing): Still Present Additional Complaint(s): 57 year old female presents to the emergency department via ambulance after alcohol intoxication. Patient presents with slurred speech. Past Medical History Reviewed: Historical Data, Nursing Documentation, Vital Signs Vital Signs: Last Vital Signs Temp 97.8 F 02/25/18 20:00 Pulse 109 H 02/25/18 20:00 Resp 16 02/25/18 20:00 BP Pulse Ox 100 02/25/18 20:00 - Medical History PMH: Anxiety, Arthritis, Fractures (right upper arm), HTN, Seizures Denies: HIV, Chronic Kidney Disease - Surgical History Surgical History: Tonsillectomy - Family History Family History: States: Unknown Family Hx - Immunization History Hx Tetanus Toxoid Vaccination: No Hx Influenza Vaccination: No Hx Pneumococcal Vaccination: No - Home Medications Home Medications: Ambulatory Orders Medication Instructions Recorded Escitalopram [Lexapro] 10 mg PO DAILY 09/06/17 Folic Acid 1 mg PO DAILY #30 tab 09/07/17 Atorvastatin [Lipitor] 10 mg PO DAILY #30 tab 10/31/17 amLODIPine [Norvasc] 5 mg PO DAILY #30 tab 11/17/17 carBAMazepine [Tegretol] 400 mg PO Q12 #60 tab 11/17/17 metFORMIN ER [glucoPHAGE XR] 500 mg PO BID #60 ter 11/17/17 Gabapentin [Neurontin] 600 mg PO TID #90 tab 02/03/18 - Allergies Allergies/Adverse Reactions: Allergies Allergy/AdvReac Type Severity Reaction Status Date / Time No Known Allergies Allergy Verified 02/25/18 20:00 Review of Systems Review Of Systems: ROS cannot be obtained secondary to pt's inabilty to answer questions. (intoxicated) Physical Exam - Reviewed Nursing Documentation Reviewed: Yes Vital Signs Reviewed: Yes - Physical Exam Appears: Positive for: No Acute Distress Head Exam: Positive for: NORMAL INSPECTION Skin: Positive for: Normal Color, Warm, Dry Cardiovascular/Chest: Positive for: Regular Rate, Rhythm. Negative for: Murmur Respiratory: Positive for: Normal Breath Sounds. Negative for: Accessory Muscle Use, Respiratory Distress Gastrointestinal/Abdominal: Positive for: Normal Exam, Soft. Negative for: Tenderness Extremity: Positive for: Normal ROM. Negative for: Pedal Edema Neurologic/Psych: Positive for: Other (slurred speech) - Laboratory Results Result Diagrams: 02/25/18 21:30 02/26/18 04:20 - ECG O2 Sat by Pulse Oximetry: 100 (RA) Pulse Ox Interpretation: Normal - Critical Care Total Time (In Min): 30 Medical Decision Making Medical Decision Making: Time: 2007 Initial impression: Alcohol intoxication Initial plan: Alcohol serum AccuCheck Reevaluation 0020 Labs reviewed: metabolic acidosis as per chemistry with CO2 <5 ABG indicates metabolic acidosis with compensatory respiratory alkalosis. Carbamazepine level is sub-therapeutic. Lactic acid level elevated at 5.6 Lab data indicative of likely seizure. Patient is unable to recall having one. It is unclear whether it is an alcohol-withdrawal seizure or breakthrough seizure. * CT HEAD * Librium 50mg PO * Ativan 2mg IV * Banana bag 30 minutes of critical care time documented. Patient will be admitted as discussed with Dr. Garcia (INPATIENT TELE) Condition: fair 0117 CT HEAD FINDINGS: Brain: Small left subdural intermediate density adjacent to the left frontal and parietal lobes most consistent with sequela of previous hematoma measuring 4 mm in thickness. No acute subdural hemorrhage. There is mild diffuse cerebral atrophy present, consistent with this patient's age. No hemorrhage. No acute infarct. Ventricles: The ventricular system demonstrates mild diffuse compensatory enlargement. Bones/joints: Nasal bone fracture, chronic. Postsurgical changes consistent with left orbital floor repair. Soft tissues: Left parietal scalp soft tissue swelling. Sinuses: Unremarkable as visualized. No acute sinusitis. Mastoid air cells: Unremarkable as visualized. No mastoid effusion. IMPRESSION: No evidence of an acute intracranial abnormality. Persistent left frontal and parietal subdural intermediate density likely the sequela of previous hematoma. No acute hemorrhage. Left parietal scalp soft tissue swelling Scribe Attestation: Documented by Geeta Hill and Oriana Galvan, acting as a scribe for Sarath Rodriguez MD Provider Scribe Attestation: All medical record entries made by the Scribe were at my direction and personally dictated by me. I have reviewed the chart and agree that the record accurately reflects my personal performance of the history, physical exam, medical decision making, and the department course for this patient. I have also personally directed, reviewed, and agree with the discharge instructions and disposition. Disposition - Clinical Impression Clinical Impression: Alcohol intoxication, Seizure, Lactic acid acidosis - Patient ED Disposition Is Patient to be Admitted: Yes - Disposition Disposition Time: 00:17 Condition: FAIR - Pt Status Changed To: Hospital Disposition Of: Inpatient (INPATIENT TELE) - Admit Certification Admit to Inpatient:: After my assessment, the patient will require hospitalization for at least two midnights. This is because of the severity of symptoms shown, intensity of services needed, and/or the medical risk in this patient being treated as an outpatient.
[2018-02-25] MEDS ORDERED: Thiamine 100 mg/ml Inj IM STA (21:36)
[2018-02-25] MEDS ORDERED: Thiamine 100 mg/ml Inj ONE (21:42)
[2018-02-25 21:52] LABS: BASO # 0.2 K/uL (0.0-0.2); BASO % 1.9 % (0.0-2.0); EOS % 0.5 % (0.0-4.0); LYMPH % 11.1 % (20.0-40.0); MEAN CELL VOLUME 100.3 fl (81.0-99.0); MEAN CORPUSCULAR HEMOGLOBIN 34.2 pg (27.0-31.0); MEAN CORPUSCULAR HGB CONC 34.1 g/dL (33.0-37.0); MEAN PLATELET VOLUME 8.8 fl (7.2-11.7); MONO # 0.4 K/uL (0.0-0.8); MONO % 4.3 % (0.0-10.0); NEUT # 7.2 K/uL (1.8-7.0); NEUT % 82.2 % (50.0-75.0); NRBC % 0.1 % (0.0-0.0); RBC 4.09 Mil/uL (3.80-5.20); RED CELL DISTRIBUTION WIDTH 16.7 % (11.5-14.5); WHITE BLOOD COUNT 8.7 K/uL (4.8-10.8)
[2018-02-25 23:00] LABS: ALB/GLOB RATIO 1.4 (1.0-2.1); ALBUMIN 4.4 g/dL (3.5-5.0); ALT/SGPT 44 U/L (9-52); AST/SGOT 42 U/L (14-36); BLOOD UREA NITROGEN 17 mg/dl (7-17); CALCIUM 8.7 mg/dL (8.4-10.2); GFR AFRICAN-AMERICAN > 60; GFR NON-AFRICAN AMERICAN > 60
[2018-02-25 23:02] LABS: PROTHROMBIN TIME 12.4 Seconds (9.8-13.1)
[2018-02-25 23:03] LABS: INR 1.1 (0.9-1.2); PARTIAL THROMBOPLASTIN TIME 30.2 Seconds (25.6-37.1)
[2018-02-25 23:19] LABS: ABG ALLEN TEST YES; ARTERIAL BLOOD GAS HCO3 22.6 mmol/L (21-28); ARTERIAL BLOOD GAS O2 SAT 99.8 % (95-98); ARTERIAL BLOOD GAS PCO2 24 mm/Hg (35-45); ARTERIAL BLOOD GAS PO2 104 mm/Hg (80-100); ARTERIAL BLOOD GAS TCO2 19.4 mmol/L (22-28)
[2018-02-25] MEDS ORDERED: Multivitamin (MVI) 10 ML, Folic Acid 1 MG, Thiamine 100 MG in Dextrose 5%/0.45% NS 1,00... IV ONE (23:29)
--- NOTE | 2018-02-26 00:59 | CP.PCM.HP ---
History of Present Illness - History of Present Illness History of Present Illness: PCP: Santos Julian MD Chief Complaint: Found sitting on ground post Alcohol Ingestion The patient was seen and examined in the ED HPI: 57 years old female who ambulates with walker has hx of DM II on Metformin , HTN, and multiple admissions for Alcohol intoxication and seizures. She was found sitting on the ground at an apartment complex admitting to ingesting Alcohol. She presented to the ED with slurred speech, fine tremors, anxious with pain to the left side of head, nausea, and referred some vomits. Occasional palpitation and chest pain. PMH: HTN; Seizure; Weakness to both lower extremities with Arthritis and ambulating with walker; Anxiety; DM II on Metformin; Left chronic Subdural Hemorrhage 08/2017; Fracture rt arm/ shoulder and clavicle PSH: tonsillectomy; Fx of the right arm SH: No illegal drug use; No cigarette smoking;Alcohol abuse; live alone FH: States: Unknown Family Hx Allergies: NKDA Medication: Reviewed Present on Admission - Present on Admission Any Indicators Present on Admission: No History of DVT/PE: No History of Uncontrolled Diabetes: No Urinary Catheter: No Decubitus Ulcer Present: No Review of Systems - Constitutional Constitutional: Headache. absent: Anorexia, Chills, Fever Additional comments: Pain to left side of head - EENT Eyes: Requires Corrective Lenses. absent: Diplopia, Floaters, Loss of Peripheral Vision Ears: absent: Decreased Hearing, Ear Discharge, Ear Pain, Tinnitus Nose/Mouth/Throat: absent: Epistaxis, Nasal Congestion, Nasal Discharge - Cardiovascular Cardiovascular: Chest Pain, Palpitations. absent: Dyspnea, Edema - Respiratory Respiratory: absent: Cough, Dyspnea, Wheezing - Gastrointestinal Gastrointestinal: Diarrhea, Nausea, Vomiting. absent: Abdominal Pain, Constipation - Genitourinary Genitourinary: absent: Dysuria, Flank Pain, Hematuria, Urinary Frequency - Musculoskeletal Musculoskeletal: Arthralgias, Back Pain, Muscle Weakness, Myalgias - Integumentary Integumentary: absent: Pruritus, Rash, Skin Ulcer, Sores, Striae, Swelling - Neurological Neurological: Weakness. absent: Confusion, Dizziness, Focal Weakness, Headaches - Psychiatric Psychiatric: Anxiety. absent: Depression, Panic Attacks - Endocrine Endocrine: absent: Palpitations, Polydipsia, Polyphagia, Polyuria - Hematologic/Lymphatic Hematologic: absent: Easy Bleeding, Easy Bruising Past Patient History - Infectious Disease Hx of Infectious Diseases: None - Past Medical History & Family History Past Medical History?: Yes - Past Social History Smoking Status: Never Smoked Chewing Tobacco Use: No Cigar Use: No Alcohol: Occasional Drugs: Denies Home Situation {Lives}: Alone - CARDIAC Hx Hypertension: Yes - PULMONARY Hx Respiratory Disorders: No - NEUROLOGICAL Hx Seizures: Yes - HEENT Hx HEENT Problems: No - RENAL Hx Chronic Kidney Disease: No - ENDOCRINE/METABOLIC Hx Endocrine Disorders: Yes Hx Diabetes Mellitus Type 2: Yes - HEMATOLOGICAL/ONCOLOGICAL Hx Blood Disorders: No Hx Human Immunodeficiency Virus (HIV): No - INTEGUMENTARY Hx Dermatological Problems: No - MUSCULOSKELETAL/RHEUMATOLOGICAL Hx Arthritis: Yes Hx Fractures: Yes (right upper arm) - GASTROINTESTINAL Hx Gastrointestinal Disorders: No - GENITOURINARY/GYNECOLOGICAL Hx Genitourinary Disorders: No - PSYCHIATRIC Hx Anxiety: Yes - SURGICAL HISTORY Hx Tonsillectomy: Yes - ANESTHESIA Hx Anesthesia: Yes Hx Anesthesia Reactions: No Hx Malignant Hyperthermia: No Meds Allergies/Adverse Reactions: Allergies Allergy/AdvReac Type Severity Reaction Status Date / Time No Known Allergies Allergy Verified 02/25/18 20:00 Physical Exam - Constitutional Appears: No Acute Distress - Head Exam Head Exam: NORMOCEPHALIC Additional comments: left side of head with mild swelling, mild tenderness to palpation - Eye Exam Eye Exam: EOMI, Normal appearance Pupil Exam: NORMAL ACCOMODATION, PERRL - ENT Exam ENT Exam: Mucous Membranes Dry, Normal Exam, Normal External Ear Exam - Neck Exam Neck exam: Positive for: Full Rom, Normal Inspection. Negative for: Lymphadenopathy, Tenderness - Respiratory Exam Respiratory Exam: Clear to Auscultation Bilateral. absent: Rales, Rhonchi, Wheezes - Cardiovascular Exam Cardiovascular Exam: REGULAR RHYTHM, RRR, +S1, +S2. absent: Gallop - GI/Abdominal Exam GI & Abdominal Exam: Normal Bowel Sounds, Soft. absent: Mass, Organomegaly, Tenderness - Rectal Exam Rectal Exam: Deferred - Extremities Exam Extremities exam: Positive for: normal inspection. Negative for: pedal edema, tenderness - Back Exam Back exam: NORMAL INSPECTION. absent: CVA tenderness (L), CVA tenderness (R) - Neurological Exam Neurological exam: Alert, CN II-XII Intact, Oriented x3, Reflexes Normal - Psychiatric Exam Psychiatric exam: Normal Affect, Normal Mood - Skin Skin Exam: Dry, Intact, Normal Color, Warm Results - Vital Signs Recent Vital Signs: Last Vital Signs Temp 97.8 F 02/25/18 20:00 Pulse 112 H 02/26/18 00:39 Resp 19 02/26/18 00:39 BP 157/91 H 02/26/18 00:39 Pulse Ox 100 02/26/18 00:50 - Labs Result Diagrams: 02/25/18 21:30 02/25/18 22:30 Labs: Laboratory Results - last 24 hr 02/25/18 02/25/18 02/25/18 20:43 21:30 22:30 WBC 8.7 RBC 4.09 Hgb 14.0 D Hct 41.0 MCV 100.3 H MCH 34.2 H MCHC 34.1 RDW 16.7 H Plt Count 204 MPV 8.8 Neut % (Auto) 82.2 H Lymph % (Auto) 11.1 L [place] % (Auto) 4.3 Eos % (Auto) 0.5 Baso % (Auto) 1.9 Neut # (Auto) 7.2 H Lymph # (Auto) 1.0 [place] # (Auto) 0.4 Eos # (Auto) 0.0 Baso # (Auto) 0.2 PT INR APTT pCO2 pO2 HCO3 ABG pH ABG Total CO2 ABG O2 Saturation ABG Base Excess Sebastien Test ABG Potassium A-a O2 Difference Glucose Lactate FiO2 Crit Value Called To Crit Value Called By Crit Value Read Back Blood Gas Notified Time Sodium 143 Potassium 4.1 Chloride 99 Carbon Dioxide 14 L Anion Gap 34 H BUN 17 Creatinine 0.5 L Est GFR ( Amer) > 60 Est GFR (Non-Af Amer) > 60 POC Glucose (mg/dL) 128 H Random Glucose 124 H Calcium 8.7 Total Bilirubin 0.8 AST 42 H D ALT 44 Alkaline Phosphatase 104 Total Protein 7.7 Albumin 4.4 Globulin 3.2 Albumin/Globulin Ratio 1.4 Arterial Blood Potassium Carbamazepine Alcohol, Quantitative 264 H 02/25/18 02/25/18 02/25/18 22:30 22:30 23:05 WBC RBC Hgb Hct MCV MCH MCHC RDW Plt Count MPV Neut % (Auto) Lymph % (Auto) [place] % (Auto) Eos % (Auto) Baso % (Auto) Neut # (Auto) Lymph # (Auto) [place] # (Auto) Eos # (Auto) Baso # (Auto) PT 12.4 INR 1.1 APTT 30.2 pCO2 24 L pO2 104 H HCO3 22.6 ABG pH 7.50 H ABG Total CO2 19.4 L ABG O2 Saturation 99.8 H ABG Base Excess -2.8 L Sebastien Test Yes ABG Potassium 3.8 A-a O2 Difference 16.0 Glucose 151 H Lactate 5.6 H* FiO2 21.0 Crit Value Called To Dr jay childers Crit Value Called By Genaro Crit Value Read Back Y Blood Gas Notified Time 2318 Sodium 139.0 Potassium Chloride 103.0 Carbon Dioxide Anion Gap BUN Creatinine Est GFR ( Amer) Est GFR (Non-Af Amer) POC Glucose (mg/dL) Random Glucose Calcium Total Bilirubin AST ALT Alkaline Phosphatase Total Protein Albumin Globulin Albumin/Globulin Ratio Arterial Blood Potassium 3.8 Carbamazepine < 3.0 L Alcohol, Quantitative - Imaging and Cardiology CT scan - head Status: Image reviewed by me, Report reviewed by me Additional comment: EXAM: CT Head Without Intravenous Contrast COMPARISON: CT - HEAD W/O CONTRAST 2017-12-20 02:28 FINDINGS: Brain: Small left subdural intermediate density adjacent to the left frontal and parietal lobes most consistent with sequela of previous hematoma measuring 4 mm in thickness. No acute subdural hemorrhage. There is mild diffuse cerebral atrophy present, consistent with this patient's age. No hemorrhage. No acute infarct. Ventricles: The ventricular system demonstrates mild diffuse compensatory enlargement. Bones/joints: Nasal bone fracture, chronic. Postsurgical changes consistent with left orbital floor repair. Soft tissues: Left parietal scalp soft tissue swelling. Sinuses: Unremarkable as visualized. No acute sinusitis. Mastoid air cells: Unremarkable as visualized. No mastoid effusion. IMPRESSION: No evidence of an acute intracranial abnormality. Persistent left frontal and parietal subdural intermediate density likely the sequela of previous hematoma. No acute hemorrhage. Left parietal scalp soft tissue swelling Chest x-ray Status: Image reviewed by me Additional comment: Clear No active disease Assessment & Plan - Assessment and Plan (Free Text) Assessment: #.Alcoholic Intoxication #. Head Trauma #. Hyperlactemia #. Dehydration #. DM II Plan: 57 years old female who ambulates with walker has hx of DM II on Metformin, HTN, and multiple admissions for Alcohol intoxication and seizures. She presented to the ED with slurred speech, fine tremors, anxious with headache, nausea, and referred some vomits. #. Alcoholic Intoxication with signs of impending withdrawal - Banana bag which includes Folic Acid , Thiamine, multivitamins - librium - Ativan #. Head Trauma, which could be from a fall as patient mentioned falling while walking with walker. - CT head showed no fracture nor new hemorrhage. There is Left parietal scalp soft tissue injury - Analgesics #. Hyperlactemia caused by a seizure but more likely by Metformin or a combination - IV fluids - Hold metformin - Hx of Seizure - Tegretol #. Dehydration - IV fluids #. DM II - Hold Metformin - Regular insulin sliding scale according to Accucheck - HbA1c 4.5 on 10/28/17 #. Stress Ulcer prophylaxis with Pepcid #. DVT prophylaxis with SCD and lovenox #. Code Status: Full - Date & Time Time: 00:59
--- NOTE | 2018-02-26 01:17 | CT ---
EXAM: CT Head Without Intravenous Contrast CLINICAL HISTORY: 57 years old, female; Signs and symptoms; Other: Seizures; Additional info: Seizure TECHNIQUE: Axial computed tomography images of the head/brain without intravenous contrast. All CT scans at this facility use one or more dose reduction techniques, viz.: automated exposure control; ma/kV adjustment per patient size (including targeted exams where dose is matched to indication; i.e. head); or iterative reconstruction technique. Coronal and sagittal reformatted images were created and reviewed. COMPARISON: CT - HEAD W/O CONTRAST 2017-12-20 02:28 FINDINGS: Brain: Small left subdural intermediate density adjacent to the left frontal and parietal lobes most consistent with sequela of previous hematoma measuring 4 mm in thickness. No acute subdural hemorrhage. There is mild diffuse cerebral atrophy present, consistent with this patient's age. No hemorrhage. No acute infarct. Ventricles: The ventricular system demonstrates mild diffuse compensatory enlargement. Bones/joints: Nasal bone fracture, chronic. Postsurgical changes consistent with left orbital floor repair. Soft tissues: Left parietal scalp soft tissue swelling. Sinuses: Unremarkable as visualized. No acute sinusitis. Mastoid air cells: Unremarkable as visualized. No mastoid effusion. IMPRESSION: No evidence of an acute intracranial abnormality. Persistent left frontal and parietal subdural intermediate density likely the sequela of previous hematoma. No acute hemorrhage. Left parietal scalp soft tissue swelling.
[2018-02-26] MEDS: Sodium Chloride 0.45% 1,000 ML IV SCH ×2 (02:07→10:00)
[2018-02-26 06:07] LABS: BLOOD UREA NITROGEN 19 mg/dl (7-17); CALCIUM 8.6 mg/dL (8.4-10.2); GFR AFRICAN-AMERICAN > 60; GFR NON-AFRICAN AMERICAN > 60
[2018-02-26] MEDS: Insulin Regular 100 units/ml SC SCH ×3 (06:36→17:16)
--- NOTE | 2018-02-26 08:05 | RAD ---
HISTORY: chest pain COMPARISON: Portable chest 10/27/2017. FINDINGS: LUNGS: No active pulmonary disease. PLEURA: No significant pleural effusion identified, no pneumothorax apparent. CARDIOVASCULAR: Normal. OSSEOUS STRUCTURES: Prior ORIF proximal right humerus again evident. VISUALIZED UPPER ABDOMEN: Normal. OTHER FINDINGS: None. IMPRESSION: No interval acute cardiopulmonary disease appreciated.
[2018-02-26 08:49] LABS: BENZODIAZEPINES, UR NEGATIVE (NEGATIVE)
[2018-02-26 08:51] LABS: BARBITURATES, UR NEGATIVE (NEGATIVE); OPIATES, UR NEGATIVE (NEGATIVE); PHENCYCLIDINE, UR NEGATIVE (NEGATIVE)
[2018-02-26 08:58] LABS: SQUAMOUS EPITHIAL 4 /hpf (0-5); URINE BILIRUBIN NEGATIVE (NEGATIVE); URINE BLOOD NEGATIVE (NEGATIVE); URINE CLARITY SLIGHTY-CLOUDY (Clear); URINE COLOR AMBER (YELLOW); URINE GLUCOSE (UA) 50 mg/dL (Normal); URINE LEUKOCYTE ESTERASE NEG Leu/uL (Negative); URINE PROTEIN 100 mg/dL (NEGATIVE)
[2018-02-26] MEDS ORDERED: Enoxaparin 40 mg Syringe SC SCH (09:00)
--- NOTE | 2018-02-26 11:38 | CARD ---
APPROVED REPORT EKG Measurement Heart [id number] <Conclusion> Sinus tachycardia Otherwise normal ECG
[2018-02-27] MEDS: Insulin Regular 100 units/ml SC SCH (01:17)
--- NOTE | 2018-02-27 11:53 | RAD ---
PROCEDURE: Radiographs of the pelvis and bilateral hips HISTORY: fall COMPARISON: None. FINDINGS: BONES: Pelvis: Unremarkable. Right hip:Unremarkable. Left hip:Unremarkable. JOINTS: Right hip: Unremarkable. Left hip: Unremarkable. Sacroiliac Joints: Unremarkable. Pubic symphysis: Unremarkable. SOFT TISSUES: Normal. OTHER FINDINGS: None. IMPRESSION: Unremarkable radiographs of the hips and pelvis.
--- NOTE | 2018-02-27 12:08 | CP.PCM.DIS ---
Provider - Provider Date of Admission: 02/26/18 00:17 Attending physician: Jose Garcia Consults: Dr Bradley Time Spent in preparation of Discharge (in minutes): 40 Diagnosis - Discharge Diagnosis (1) Alcohol intoxication Status: Acute (2) Lactic acid acidosis Status: Acute (3) Seizure Status: Chronic Priority: High (4) Alcohol abuse Status: Chronic (5) Alcohol withdrawal Status: Acute Hospital Course - Lab Results Lab Results: Most Recent Lab Values WBC 8.7 K/uL (4.8-10.8) 02/25/18 21:30 RBC 4.09 Mil/uL (3.80-5.20) 02/25/18 21:30 Hgb 14.0 g/dL (12.0-16.0) D 02/25/18 21: Hct 41.0 % (34.0-47.0) 02/25/18 21:30 MCV 100.3 fl (81.0-99.0) H 02/25/18 21:30 MCH 34.2 pg (27.0-31.0) H 02/25/18 21:30 MCHC 34.1 g/dL (33.0-37.0) 02/25/18 21:30 RDW 16.7 % (11.5-14.5) H 02/25/18 21:30 Plt Count 204 K/uL (130-400) 02/25/18 21:30 MPV 8.8 fl (7.2-11.7) 02/25/18 21:30 Neut % (Auto) 82.2 % (50.0-75.0) H 02/25/18 21:30 Lymph % (Auto) 11.1 % (20.0-40.0) L 02/25/18:30 Eagle % (Auto) 4.3 % (0.0-10.0) 02/25/18 21: Eos % (Auto) 0.5 % (0.0-4.0) 02/25/18 21:30 Baso % (Auto) 1.9 % (0.0-2.0) 02/25/18 21:30 Neut # (Auto) 7.2 K/uL (1.8-7.0) H 02/25/18 21:30 Lymph # (Auto) 1.0 K/uL (1.0-4.3) 02/25/18 21:30 Eagle # (Auto) 0.4 K/uL (0.0-0.8) 02/25/18 21:30 Eos # (Auto) 0.0 K/uL (0.0-0.7) 02/25/18 21:30 Baso # (Auto) 0.2 K/uL (0.0-0.2) 02/25/18 21:30 PT 12.4 Seconds (9.8-13.1) 02/25/18 22:30 INR 1.1 (0.9-1.2) 02/25/18 22:30 APTT 30.2 Seconds (25.6-37.1) 02/25/18 22:30 pCO2 24 mm/Hg (35-45) L 02/25/18 23:05 pO2 104 mm/Hg (80-100) H 02/25/18 23:05 HCO3 22.6 mmol/L (21-28) 02/25/18 23:05 ABG pH 7.50 (7.35-7.45) H 02/25/18 23:05 ABG Total CO2 19.4 mmol/L (22-28) L 02/25/18 23:05 ABG O2 Saturation 99.8 % (95-98) H 02/25/18 23:05 ABG Base Excess -2.8 mmol/L (-2.0-3.0) L 02/25/18 23:05 Sebastien Test Yes 02/25/18 23:05 ABG Potassium 3.8 mmol/L (3.6-5.2) 02/25/18 23:05 A-a O2 Difference 16.0 mm/Hg 02/25/18 23:05 Sodium 139.0 mmol/L (132-148) 02/25/18 23:05 Chloride 103.0 mmol/L (98-107) 02/25/18 23:05 Glucose 151 mg/dL (65-105) H 02/25/18 23:05 Lactate 5.6 mmol/L (0.7-2.1) H* 02/25/18 23:05 FiO2 21.0 % 02/25/18 23:05 Crit Value Called To Dr jay childers 02/25/18 23:05 Crit Value Called By Genaro 02/25/18 23:05 Crit Value Read Back Y 02/25/18 23:05 Blood Gas Notified Time 231702/25/18 23:05 Sodium 142 mmol/l (132-148) 02/26/18 04:20 Potassium 3.6 MMOL/L (3.6-5.0) 02/26/18 04:20 Chloride 97 mmol/L (98-107) L 02/26/18 04:20 Carbon Dioxide 19 mmol/L (22-30) L 02/26/18 04:20 Anion Gap 30 (10-20) H 02/26/18 04:20 BUN 19 mg/dl (7-17) H 02/26/18 04:20 Creatinine 0.5 mg/dl (0.7-1.2) L 02/26/18 04:20 Est GFR ( Amer) > 60 02/26/18 04:20 Est GFR (Non-Af Amer) > 60 02/26/18 04:20 POC Glucose (mg/dL) 167 mg/dL (65-110) H 02/27/18 11:07 Random Glucose 161 mg/dL (65-105) H 02/26/18 04:20 Lactic Acid 0.8 MMOL/L (0.7-2.1) 02/27/18 10:18 Calcium 8.6 mg/dL (8.4-10.2) 02/26/18 04:20 Total Bilirubin 0.8 mg/dl (0.2-1.3) 02/25/18 22:30 AST 42 U/L (14-36) H D 02/25/18 22:30 ALT 44 U/L (9-52) 02/25/18 22:30 Alkaline Phosphatase 104 U/L (38-126) 02/25/18 22:30 Total Protein 7.7 G/DL (6.3-8.2) 02/25/18 22:30 Albumin 4.4 g/dL (3.5-5.0) 02/25/18 22:30 Globulin 3.2 gm/dL (2.2-3.9) 02/25/18 22:30 Albumin/Globulin Ratio 1.4 (1.0-2.1) 02/25/18 22:30 Arterial Blood Potassium 3.8 mmol/L (3.6-5.2) 02/25/18 23:05 Urine Color Mary Lou (YELLOW) 02/26/18 08:24 Urine Clarity Slighty-cloudy (Clear) 02/26/18 08:24 Urine pH 5.0 (5.0-8.0) 02/26/18 08:24 Ur Specific Cocoa 1.026 (1.003-1.030) 02/26/18 08:24 Urine Protein 100 mg/dL (NEGATIVE) 02/26/18 08:24 Urine Glucose (UA) 50 mg/dL (Normal) 02/26/18 08:24 Urine Ketones 20 mg/dL (NEGATIVE) 02/26/18 08:24 Urine Blood Negative (NEGATIVE) 02/26/18 08:24 Urine Nitrate Negative (NEGATIVE) 02/26/18 08:24 Urine Bilirubin Negative (NEGATIVE) 02/26/18 08:24 Urine Urobilinogen 2.0 mg/dL (0.2-1.0) H 02/26/18 08:24 Ur Leukocyte Esterase Neg Brook/uL (Negative) 02/26/18 08:24 Urine RBC (Auto) < 1 /hpf (0-3) 02/26/18 08:24 Urine Microscopic WBC 3 /hpf (0-5) 02/26/18 08:24 Ur Squamous Epith Cells 4 /hpf (0-5) 02/26/18 08:24 Hyaline Casts 3-5 /hpf (0-2) H 02/26/18 08:24 Urine Opiates Screen Negative (NEGATIVE) 02/26/18 08:24 Urine Methadone Screen Negative (NEGATIVE) 02/26/18 08:24 Ur Barbiturates Screen Negative (NEGATIVE) 02/26/18 08:24 Carbamazepine < 3.0 ug/mL (4.0-12.0) L 02/25/18 22:30 Ur Phencyclidine Scrn Negative (NEGATIVE) 02/26/18 08:24 Ur Amphetamines Screen Negative (NEGATIVE) 02/26/18 08:24 U Benzodiazepines Scrn Negative (NEGATIVE) 02/26/18 08:24 U Oth Cocaine Metabols Negative (NEGATIVE) 02/26/18 08:24 U Cannabinoids Screen Negative (NEGATIVE) 02/26/18 08:24 Alcohol, Quantitative 63 mg/dl (0-10) H 02/26/18 04:20 - Hospital Course Hospital Course: 57 years old female who ambulates with walker has hx of DM II on Metformin, HTN, and multiple admissions for Alcohol intoxication and seizures. She presented to the ED after she was found sitting on the sidewalk intoxicated , with slurred speech, fine tremors, anxious with headache, nausea, and referred some vomits. In the ED CT of the head : no acute finding , old SDH Pt was admitted to Telemetry and monitored closely for ETOH withdrawal. She was started on IVF hydration, Thiamine , FA and RTC Librium. XRay of Hip/ Pelvis : neg for fracture. Pt felt better. PT consulted and rec JOHAN placement due to gait instability however pt refused and signed AMA despite explanation of risk - fall , SDH and event . Pt is alert, oriented and able to make decision for herself - she wants to go home bec she has cats at home who need to be fed. She verbalized understanding of consequences. While pt was waiting for ambulance to go home , she had slipped on the floor - this was witnessed by staff , she did not have any head trauma but landed on her buttocks. She denies pain , refused any further work up nor imaging. I again discussed with pt risk for signing AMA however she adamantly refuses to stay , she states that she has friends and neighbors who check on her daily. 1. Alcoholic Intoxication with impending withdrawal - Banana bag which includes Folic Acid , Thiamine, multivitamins given - librium round the clock - Ativan prn - cont Librium and taper off - Pt recommended JOHAN however pt refused 2. Head Trauma sec to Hx of Fall due to Gait Instability due to ETOH Abuse - CT head showed no fracture nor new hemorrhage. There is Left parietal scalp soft tissue injury and old SDH - Analgesics 3. Metabolic Acidosis prob sec to Metformin and sec to ETOH - IV fluids - d/c metformin 4. Hx of Seizure - cont Tegretol and Gabapentin 5. Dehydration - IV fluids 6. DM II - d/c Metformin, pt does not need oral hypoglycemics , her HgbA1C done a few mos ago was 4.5 - Regular insulin sliding scale according to Accucheck #. Stress Ulcer prophylaxis with Pepcid #. DVT prophylaxis with SCD - no anticoag sec to SDH Discharge Exam - Head Exam Head Exam: NORMOCEPHALIC. absent: ATRAUMATIC - Eye Exam Eye Exam: EOMI, Normal appearance Pupil Exam: NORMAL ACCOMODATION - ENT Exam ENT Exam: Mucous Membranes Moist, Normal External Ear Exam - Neck Exam Neck exam: Full Rom - Respiratory Exam Respiratory Exam: NORMAL BREATHING PATTERN. absent: Respiratory Distress - Cardiovascular Exam Cardiovascular Exam: REGULAR RHYTHM, +S1, +S2 - GI/Abdominal Exam GI & Abdominal Exam: Normal Bowel Sounds, Soft. absent: Tenderness - Extremities Exam Extremities exam: normal capillary refill, pedal pulses present Additional comments: able to move all extremities no pain on ROM - Back Exam Back exam: FULL ROM. absent: CVA tenderness (L), CVA tenderness (R), paraspinal tenderness, vertebral tenderness - Neurological Exam Neurological exam: Alert, CN II-XII Intact, Oriented x3, Reflexes Normal - Psychiatric Exam Psychiatric exam: Flat Affect - Skin Skin Exam: Dry, Normal Color, Warm Discharge Plan - Discharge Medications Prescriptions: chlordiazePOXIDE [Chlordiazepoxide HCl] 10 mg PO Q6 #10 cap Famotidine [Pepcid] 20 mg PO DAILY #30 tab - Follow Up Plan Condition: IMPROVED Disposition: AGAINST MEDICAL ADVICE Instructions: Alcohol Withdrawal (DC), Alcohol Abuse and Alcoholism (DC) Additional Instructions: ff up with PMD joaquin
[2018-02-27 15:41] VITALS: BP 136/90; PULSE 118; RESP 20; TEMP 99.7; O2SAT 94
== END 2018-02-27 18:30 | disposition left against medical advice (07) ==
LOC: H.ER 19:57 → INTOOBSV 02-26 00:17 → H.ERHOLD 02-26 00:17 → H.TEL 02-26 01:45
PROVIDERS: ADMIT Internal Medicine; ATTEND Internal Medicine
DX: F10.239 Alcohol dependence with withdrawal, unspecified (principal); F10.229 Alcohol dependence with intoxication, unspecified; Y90.8 Blood alcohol level of 240 mg/100 ml or more; E86.0 Dehydration; E87.2 Acidosis; R56.9 Unspecified convulsions; E11.9 Type 2 diabetes mellitus without complications; I10 Essential (primary) hypertension; S09.90XA Unspecified injury of head, initial encounter; R26.89 Other abnormalities of gait and mobility; F41.9 Anxiety disorder, unspecified; M19.90 Unspecified osteoarthritis, unspecified site; W01.0XXA Fall on same level from slipping, tripping and stumbling without subsequent striking against object, initial encounter; Z91.81 History of falling
CPT/HCPCS: 36415; 70450; 71045; 73521; 80048; 80053; 80156; 80320; 80324; 80345; 80346; 80349; 80353; 80358; 80361; 81003; 82803; 82948; 83605; 83992; 85025; 85610; 85730; 93005; 96372; 96374; 97116; 97161; 97530; 99285; G0378; G8978; G8979; J1650; J2060; J3411; J7030; J7042

== ENCOUNTER 2018-04-15 16:32 | Emergency (ER) | payer MEDICAID ==
[2018-04-15 16:32] VITALS: BMI 29.5
--- NOTE | 2018-04-15 19:08 | ED PDOC ---
HPI: Trauma/Fall - HPI Time Seen by Provider: 04/15/18 17:31 Chief Complaint (Nursing): Alcohol Ingestion Chief Complaint (Provider): fall History Per: Patient History/Exam Limitations: no limitations Injury Occurred (Timing): Just Before Arrival Additional Complaint(s): 57 y/o female well known to ER for alcohol abuse with a pmhx of subdural hematoma, anxiety, arthritis, depression, seizures, and HTN, brought in after witnessed fall while walking. Patient reports frequent falls due to chronic ataxic gait likely due to alcohol abuse. She reports headache x8 days s/p previous fall at home, but did not go to hospital at that time. She admits to drinking some alcohol today, but otherwise denies any drugs, and she reports that she feels fine and is requesting to be discharged. Against Medical Advice - AMA Patient Left Against Medical Advice: The patient declines admission to the hospital and wishes to leave the Emergency Department. This action is against my medical advice. This decision was made with informed refusal. The patient was told that admission to the hospital is necessary. Explanation of the reasons why were discussed. The risks of leaving were explained to the patient and include, but are not limited to, worsening of known or currently unknown conditions, permanent disability and from undiagnosed or untreated conditions. The patient has the capacity to make this informed decision and understands my explanation of the current medical problem and risks of leaving. The patient voluntarily accepts these risks and signed an AMA form documenting our conversation. The patient was given the opportunity to ask questions and reconsider. The patient was encouraged to return to the Emergency Department at any time for further care. Past Medical History Reviewed: Historical Data, Nursing Documentation, Vital Signs Vital Signs: Last Vital Signs Temp 98 F 04/15/18 19:11 Pulse 76 04/15/18 19:11 Resp 20 04/15/18 19:11 BP 120/70 04/15/18 19:11 Pulse Ox 98 04/15/18 19:11 - Medical History PMH: Anxiety, Arthritis, Depression, Fractures (right upper arm), HTN, Seizures Denies: HIV, Chronic Kidney Disease - Surgical History Surgical History: Tonsillectomy - Family History Family History: States: Unknown Family Hx - Social History Current smoker - smoking cessation education provided: No Alcohol: Occasional Drugs: Denies - Immunization History Hx Tetanus Toxoid Vaccination: No Hx Influenza Vaccination: No Hx Pneumococcal Vaccination: No - Home Medications Home Medications: Ambulatory Orders Medication Instructions Recorded Escitalopram [Lexapro] 10 mg PO DAILY 09/06/17 Folic Acid 1 mg PO DAILY #30 tab 09/07/17 Atorvastatin [Lipitor] 10 mg PO DAILY #30 tab 10/31/17 carBAMazepine [Tegretol] 400 mg PO Q12 #60 tab 11/17/17 Gabapentin [Neurontin] 600 mg PO TID #90 tab 02/03/18 Famotidine [Pepcid] 20 mg PO DAILY #30 tab 02/27/18 amLODIPine [Norvasc] 10 mg PO DAILY tab 02/27/18 chlordiazePOXIDE [Chlordiazepoxide 10 mg PO Q6 #10 cap 02/27/18 HCl] - Allergies Allergies/Adverse Reactions: Allergies Allergy/AdvReac Type Severity Reaction Status Date / Time No Known Allergies Allergy Verified 02/25/18 20:00 Review of Systems ROS Statement: Except As Marked, All Systems Reviewed And Found Negative Eyes: Negative for: Vision Change Skin: Positive for: Lesions (scalp) Neurological: Positive for: Headache. 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 Negative for: Motor/Sensory Deficits, Aphasia - ECG O2 Sat by Pulse Oximetry: 99 (RA) Pulse Ox Interpretation: Normal Medical Decision Making Medical Decision Making: Initial Impression: Head injury. Differential diagnoses include, but are not limited to traumatic brain injury. Plan: Patient does not want to stay and have any test does. Patient oriented x3, understands risks and benefits and is choosing to sign out AMA. This patient is choosing to leave against medical advice. The EP has personally explained to the pt that choosing to do so may result in permanent bodily harm or . The EP discussed at great length that without further evaluation and monitoring there may be unforeseen circumstances and/or deterioration causing permanent bodily harm or as a result of their choice. The pt verbalized these risks back to the physician in laymans terms. The pt is alert, oriented, and shows the mental capacity to make clear decisions regarding the pts health care at this time. The pt continues to wish to leave against medical advice. In light of the pts decision to leave AMA, follow-up has been arranged and the pt is aware of the importance of following up as instructed. The pt has been advised that they should return to the ED immediately if they change their mind at any time, or if thier condition begins to change or worsen in any way. Scribe Attestation: Documented by Chance Levine, acting as a scribe for Silvia Moreno MD. Provider Scribe Attestation: All medical record entries made by the Scribe were at my direction and personally dictated by me. I have reviewed the chart and agree that the record accurately reflects my personal performance of the history, physical exam, medical decision making, and the department course for this patient. I have also personally directed, reviewed, and agree with the discharge instructions and disposition. Disposition - Clinical Impression Clinical Impression: Head injury - Patient ED Disposition Is Patient to be Admitted: No Counseled Patient/Family Regarding: Diagnosis, Need For Followup - Disposition Disposition: Against Medical Advice Disposition Time: 17:15 Condition: UNKNOWN Additional Instructions: RETURN TO ER IMMEDIATELY FOR FURTHER WORKUP AND MANAGEMENT Instructions: Leaving Against Medical Advice Forms: [employer] (Khmer)
[2018-04-15 19:12] VITALS: BP 120/70; PULSE 76; RESP 20; TEMP 98
[2018-04-15 19:20] VITALS: O2SAT 99
== END 2018-04-15 19:11 | disposition left against medical advice (07) ==
LOC: H.ER 16:32
DX: F10.10 Alcohol abuse, uncomplicated (principal); S09.90XA Unspecified injury of head, initial encounter; W19.XXXA Unspecified fall, initial encounter; Y92.89 Other specified places as the place of occurrence of the external cause; F32.9 Major depressive disorder, single episode, unspecified; F41.9 Anxiety disorder, unspecified; I10 Essential (primary) hypertension; M19.90 Unspecified osteoarthritis, unspecified site; R56.9 Unspecified convulsions

== ENCOUNTER 2018-04-28 19:26 | Inpatient (IN) | payer MEDICAID ==
[2018-04-28 19:39] VITALS: BMI 27.3
[2018-04-28] MEDS ORDERED: Sodium Chloride 0.9% 1,000 ML IV STA (19:42)
[2018-04-28] MEDS ORDERED: Multivitamin (MVI) 10 ML, Thiamine 100 MG, Folic Acid 1 MG in Dextrose 5%/0.45% NS 1,00... IV ONE (19:42)
--- NOTE | 2018-04-28 20:21 | ED PDOC ---
HPI: Altered Mental Status Time Seen by Provider: 04/28/18 19:35 Chief Complaint (Nursing): Altered Mental Status Chief Complaint (Provider): Altered Mental Status History Per: Patient, EMS History/Exam Limitations: Clinical Condition (Altered mental status) Onset/Duration Of Symptoms: Mins Current Symptoms Are (Timing): Still Present Additional Complaint(s): 57 year old female presented to the ED via EMS with altered mental status. Patient was found on the floor of her apartment for an unknown period of time. Patient sleeps by herself and her neighbors had heard her screaming. The last time patient was seen was at least 2 days ago by neighbors. No history presented due to altered mental status. Swelling and injury to the left of face was noted. Patient is obtunded but responsive to painful stimuli and incontinent of urine. Patient is presumably intoxicated. According to previous charts, patient has a history of chronic alcohol use, seizures, and subdural hematoma. History obtained from EMS and previous charts. PCP: unknown NIHSS Stroke Scale - Date/Time Evaluation Performed Date Performed: 04/28/18 Time Performed: 19:40 When Was NIHSS Performed: Baseline - How Severe is the Stroke Level of Consciousness: 1=Drowsy LOC to Questions: 2=Neither correct LOC to commands: 0=Obeys both correctly Best Gaze: 1=Partial gaze palsy Visual: 0=No visual loss Facial: 1=Minor asymmetry Motor Arm - Left: 3=No effort against gravity (falls immediately) Motor Arm - Right: 0=No drift Motor Leg - Left: 3=No effort against gravity (falls immediately) Motor Leg - Right: 0=No drift Limb Ataxia: 0=Absent Sensory: 0=Normal Best Language: 1=Mild to moderate aphasia Dysarthia: 1=Mild to moderate slurring Extinction & Inattention (Neglect): 0=Normal, no object Score: 13 Severity Of Stroke: 5-15 = Moderate Stroke rTPA Inclusion/Exclusion - Refusal of Treatment Patient Refused Treatment: No - Inclusion Criteria for Altepase Patient is 18 years or Older: Yes Clinical DX Ischemic Stroke Cause Neurological Deficit: No Time of Onset Established Less Than 270 Mins Before TX Begin: No Risk/Benefit Discussed With Patient/Family Member Present: No - Exclusion Criteria for Altepase Uncontrolled Hypertension at Time of TX (SBP>185 or DBP>110): Yes Evidence of an Intracranial Hemorrhage: Yes Past Medical History Reviewed: Historical Data, Nursing Documentation, Vital Signs Vital Signs: Last Vital Signs Temp 98.8 F 04/28/18 19:32 Pulse 131 H 04/28/18 19:32 Resp 18 04/28/18 19:32 BP 166/107 H 04/28/18 19:32 Pulse Ox 94 L 04/28/18 19:32 - Medical History PMH: Anxiety, Arthritis, Depression, Fractures (right upper arm), HTN, Seizures Denies: HIV, Chronic Kidney Disease Other PMH: subdural hematoma - Surgical History Surgical History: Tonsillectomy - Family History Family History: States: Unknown Family Hx - Immunization History Hx Tetanus Toxoid Vaccination: No Hx Influenza Vaccination: No Hx Pneumococcal Vaccination: No - Home Medications Home Medications: Ambulatory Orders Medication Instructions Recorded Ibuprofen [Motrin Tab] 800 mg PO TID PRN 04/16/18 Phenytoin, Extended [Dilantin 100 mg PO TID 04/16/18 Kapseals] carBAMazepine [TEGretol] 200 mg PO BID 04/16/18 - Allergies Allergies/Adverse Reactions: Allergies Allergy/AdvReac Type Severity Reaction Status Date / Time No Known Allergies Allergy Verified 02/25/18 20:00 Review of Systems Review Of Systems: ROS cannot be obtained secondary to pt's inabilty to answer questions. Genitourinary Female: Positive for: Incontinence Neurological: Positive for: Altered Mental Status Physical Exam - Reviewed Nursing Documentation Reviewed: Yes Vital Signs Reviewed: Yes - Physical Exam Appears: Positive for: Non-toxic, No Acute Distress (not screaming or mourning) . Negative for: Well (disheveled) Head Exam: Positive for: ATRAUMATIC, NORMOCEPHALIC. Negative for: NORMAL INSPECTION (swelling of left face) Skin: Positive for: Normal Color, Warm, Dry Eye Exam: Positive for: PERRL, Other (Ecchymosis of left periorbital and gazed deviation to the left). Negative for: EOMI Neck: Positive for: Normal, Painless ROM, Supple Cardiovascular/Chest: Positive for: Regular Rate, Rhythm, Tachycardia, Other ( ecchymosis on lower part of sternum) Respiratory: Positive for: Normal Breath Sounds. Negative for: Wheezing, Respiratory Distress Gastrointestinal/Abdominal: Positive for: Normal Exam, Soft, Other (ecchymosos of LUQ). Negative for: Tenderness, Distended Back: Positive for: Normal Inspection. Negative for: Other (no ecchymosis or deformity) Extremity: Positive for: Normal ROM, Other (Chronic wound of right great toe distal aspect) Neurologic/Psych: Positive for: Alert, Oriented (x1), Aphasia, Facial Droop (on left side), Other (weakness of left arm with no weakness of right arm). Negative for: Motor/Sensory Deficits (of legs) - Laboratory Results Result Diagrams: 04/29/18 05:30 04/29/18 05:30 - ECG ECG: Positive for: Interpreted By Me, Viewed By Me ECG Rhythm: Positive for: Normal QRS, Normal ST Segment, Sinus Rhythm, Sinus Tachycardia Rate: 123 O2 Sat by Pulse Oximetry: 94 (RA) Pulse Ox Interpretation: Abnormal - Critical Care Total Time (In Min): 120 Documented Critical Care: Time excludes all time spent performint seperately billable procedures Medical Decision Making Medical Decision Making: Initial Impression: head injury, left side weakness, fall of unknown cause, possible alcohol intoxication Differentials: hypertensive ICH, CVA, intracranial bleeding with subdural hematoma with neuro deficits, syncope, acute renal failure, rhabdomyolysis Initial Plan: CT cervical spine CT head CT maxillofacial ECG Alcohol serum Ammonia CMP CPK Drug screen Troponin ED urine CBC Partial thromboplastin Prothrombin time Chest X-ray Dextrose 1000mL IV Sodium chloride 1000mL IV X-ray Pelvis 21:03 CT Head FINDINGS: Brain: There is a 4.8 x 8 cm intraparenchymal hemorrhage seen on the right image 17 in the right temporal lobe extending to the frontal lobe with intraventricular and subarachnoid hemorrhage. Blood layers in the subarachnoid spaces in the basilar cisterns tracking along the sylvian fissures. There is anterior interhemispheric blood. Peripheral subarachnoid hemorrhage in the right frontal lobe is noted. There is mass effect in the right cerebral hemisphere with compression of ventricular system and shift of the midline from [id number] of 5 mm. Sinuses: Normal as visualized. No acute sinusitis. Mastoid air cells: Normal as visualized. No mastoid effusion. Orbits: Orbit postop changes left orbit. Soft tissues: Normal. Vasculature: Hematoma formation posteriorly over the left frontal bone. No fracture is seen however. Nasal cavity: Old trauma left nasal bone. IMPRESSION: 1. There is a 4.8 x 8 cm intraparenchymal hemorrhage seen on the right image 17 in the right temporal lobe extending to the frontal lobe with intraventricular and subarachnoid hemorrhage. Blood layers in the subarachnoid spaces in the basilar cisterns tracking along the sylvian fissures. There is anterior interhemispheric blood. Peripheral subarachnoid hemorrhage in the right frontal lobe is noted. There is mass effect in the right cerebral hemisphere with compression of ventricular system and shift of the midline from [id number]-[id number] of 5 mm. 2. Hematoma formation posteriorly over the left frontal bone. No fracture is seen however. 21:[address] Steve after reviewing CT results. Dr. Steve recommends blood pressure control and admission to the ICU. He also recommends giving kepra but not mannitol. [id number] Meade who recommends conservative management and CT angio for final disposition. No mannitol recommended agrees with keppra and nicardipine. 212 Discussed with hospitalist for ICU admission. Discussed with Dr Arreola for admission. 21:17 CT cervical spine FINDINGS: Vertebrae: There is a stable mild cervical kyphosis. Hypertrophic change in the mid cervical spine anteriorly. Discs/Spinal canal/Neural foramina: There is degenerative disc disease with central and foraminal narrowing at multiple levels most prominent at C5-C6. Soft tissues: Soft tissue swelling in the left supraclavicular region is noted. Lung apices: Scarring in both apices. IMPRESSION: Negative acute. No significant change. 21:25 CT maxillofacial FINDINGS: Bones/joints: Chronic nasal bone fracture. Soft tissues: Soft tissue swelling anteriorly over the orbital region without underlying acute fracture. Orbits: Postop changes left orbit. Sinuses: Normal. No air-fluid levels. Brain: Known intraparenchymal subarachnoid and subdural blood products with midline shift as seen on head CT. IMPRESSION: Negative acute. Chronic facial changes. 21:[address] CT head angiography ordered. 2324 CT Angiography FINDINGS: Somewhat suboptimal bolus. No definitive aneurysm is seen. Right internal carotid artery: No acute findings. Intracranial segment is patent with no significant stenosis. No aneurysm. Right anterior cerebral artery: Unremarkable. No occlusion or significant stenosis. No aneurysm. Right middle cerebral artery: Unremarkable. No occlusion or significant stenosis. No aneurysm. Right posterior cerebral artery: Unremarkable. No occlusion or significant stenosis. No aneurysm. Right vertebral artery: Unremarkable as visualized. Left internal carotid artery: No acute findings. Intracranial segment is patent with no significant stenosis. No aneurysm. Left anterior cerebral artery: Unremarkable. No occlusion or significant stenosis. No aneurysm. Left middle cerebral artery: Unremarkable. No occlusion or significant stenosis. No aneurysm. Left posterior cerebral artery: Unremarkable. No occlusion or significant stenosis. No aneurysm. Left vertebral artery: Unremarkable as visualized. Basilar artery: Unremarkable. No occlusion or significant stenosis. No aneurysm. Brain: Again identified is intraparenchymal, subarachnoid and subdural blood with midline shift, see CT report. Bones/joints: Chronic appearing nasal bone fracture. Soft tissues: Soft tissue swelling anteriorly in the facial region. Orbits: Postop left orbit. IMPRESSION: No acute findings. Dictated and Authenticated by: Rory Robles MD 04/28/2018 11:25 PM Eastern Time ([place] & [place]) 2340 Dr. Meade was consulted again and recommends admitting patient to ICU. 0008 CT Chest FINDINGS: Lungs and pleural spaces: Trachea and main bronchi are patent.There is no pneumothorax. There is apical pleural parenchymal thickening on the right. There is atelectasis and scarring greatest in the lung bases. There is no lobar or segmental consolidation. There are no effusions. Heart and vasculature: Heart size is normal. There are coronary artery calcifications. Aorta and main pulmonary artery are normal in caliber. Mediastinum: The esophagus is unremarkable. There are no pathologically enlarged mediastinal nodes.Leigh are not optimally evaluated without contrast material. Thyroid: Thyroid is not optimally demonstrated. Bones/joints: Bony structures are osteopenic. There extensive degenerative changes in the right shoulder. There are postsurgical changes with streak artifact from sideplate and screws in the right shoulder. There are multiple bilateral rib fractures of varying ages. There is an old distal left clavicle fracture. Soft tissues: unremarkable IMPRESSION: No acute intrathoracic injury; mild cardiomegaly; right apical pleural- parenchymal opacity; multiple bilateral rib fractures of varying ages Additional nonemergent findings as described above. CT Abdomen/Pelvis FINDINGS: Lung bases: Refer to prior report for chest findings ABDOMEN: Liver: There is fatty infiltration of the liver. The liver is enlarged. Gallbladder and bile ducts: unremarkable Pancreas: Pancreas is mildly atrophic. Spleen: unremarkable Adrenals: There is diffuse nodular adrenal thickening bilaterally. Kidneys and ureters: unremarkable Stomach and bowel: Stomach is almost empty. Rotation is normal. There is fluid and air throughout the small bowel. There is no obstruction. Terminal ileum is unremarkable. Appendix is not visualized. There is no pericecal inflammation.Colon is incompletely distended which limits evaluation. There is scattered diverticulosis PELVIS: Appendix: See stomach and bowel Bladder: unremarkable Reproductive: Uterus is mildly enlarged with lobular contours. Adnexa are unremarkable. ABDOMEN and PELVIS: Intraperitoneal space: There is no free air or free fluid. Bones/joints: Bony structures are osteopenic with degenerative change There degenerative changes. Soft tissues: There is minimal bruising in the right buttock. There is bruising of the right hip. Vasculature: There are vascular calcifications. Lymph nodes: There is no pathologic adenopathy. IMPRESSION: Enlarged fatty liver, no acute solid visceral or bowel injury identified; probable fibroid uterus; diverticulosis Dictated and Authenticated by: Judith Echeverria MD 04/29/2018 12:08 AM Eastern Time ([place] & [place]) Scribe Attestation: Documented by Jose Artis acting as a scribe for Demetria Ames MD. Provider Scribe Attestation: All medical record entries made by the Scribe were at my direction and personally dictated by me. I have reviewed the chart and agree that the record accurately reflects my personal performance of the history, physical exam, medical decision making, and the department course for this patient. Disposition - Clinical Impression Clinical Impression: Intracranial hemorrhage, Hemorrhagic stroke, Hypertensive emergency, Head injury - Patient ED Disposition Is Patient to be Admitted: Yes Discussed With : Clair Sutton Will See Patient In The: ED Counseled Patient/Family Regarding: Studies Performed, Diagnosis - Disposition Disposition Time: 22:00 Condition: CRITICAL - Pt Status Changed To: Hospital Disposition Of: Inpatient - Admit Certification Admit to Inpatient:: After my assessment, the patient will require hospitalization for at least two midnights. This is because of the severity of symptoms shown, intensity of services needed, and/or the medical risk in this patient being treated as an outpatient. - POA Present On Arrival: Pressure Ulcer (right foot)
[2018-04-28] MEDS ORDERED: Labetalol 5 mg/ml Inj 20ML IVP STA (20:37)
[2018-04-28] MEDS ORDERED: levETIRAcetam 1,000 MG in Sodium Chloride 0.9% 100 ML IVPB ONE (20:56)
[2018-04-28 21:14] LABS: BASO # 0.1 K/uL (0.0-0.2); BASO % 0.6 % (0.0-2.0); HEMOGLOBIN 13.2 g/dL (12.0-16.0); LYMPH # 0.4 K/uL (1.0-4.3); LYMPH % 2.1 % (20.0-40.0); MEAN CORPUSCULAR HEMOGLOBIN 33.9 pg (27.0-31.0); MEAN CORPUSCULAR HGB CONC 32.9 g/dL (33.0-37.0); MEAN PLATELET VOLUME 9.9 fl (7.2-11.7); MONO # 1.3 K/uL (0.0-0.8); MONO % 8.1 % (0.0-10.0); NEUT # 14.7 K/uL (1.8-7.0); NEUT % 89.2 % (50.0-75.0); NRBC % 0.1 % (0.0-0.0); PLATELET COUNT 204 K/uL (130-400); RBC 3.89 Mil/uL (3.80-5.20); RED CELL DISTRIBUTION WIDTH 14.6 % (11.5-14.5)
[2018-04-28] MEDS: Nicardipine 20 MG/200 ML 20 MG/200 ML BAG IV ONE ×3 (21:14→21:44)
[2018-04-28 21:22] LABS: CALCIUM 9.2 mg/dL (8.4-10.2); GFR AFRICAN-AMERICAN > 60; GFR NON-AFRICAN AMERICAN > 60
[2018-04-28 21:25] LABS: ALB/GLOB RATIO 1.2 (1.0-2.1); ALBUMIN 4.6 g/dL (3.5-5.0); ALT/SGPT 24 U/L (9-52); AST/SGOT 55 U/L (14-36); BLOOD UREA NITROGEN 28 mg/dl (7-17)
[2018-04-28 21:27] LABS: PARTIAL THROMBOPLASTIN TIME 25.9 Seconds (25.6-37.1); PROTHROMBIN TIME 11.5 Seconds (9.8-13.1)
[2018-04-28 21:31] LABS: WHITE BLOOD COUNT 16.5 K/uL (4.8-10.8)
[2018-04-28 22:05] LABS: ANISOCYTOSIS SLIGHT; BANDS 3 % (0-2); BASOPHIL 1 % (0-2); LYMPHOCYTE 3 % (20-50); MONOCYTE 8 % (0-10); MYELOCYTE 2 % (0-0); NEUTROPHIL 83 % (42-75); PLATELET ESTIMATE NORMAL (NORMAL); TOTAL CELLS COUNTED 100
[2018-04-28 22:06] LABS: LARGE PLATELETS PRESENT; STOMATOCYTES SLIGHT
[2018-04-28] MEDS ORDERED: Iodixanol 320 MG/ML 100 ML BOTTLE IV ONE (22:12)
[2018-04-28] MEDS ORDERED: Sodium Chloride 0.9% 50 ML IV ONE (22:12)
[2018-04-28] MEDS ORDERED: Nicardipine 20 MG/200 ML 20 MG/200 ML BAG ONE (23:34)
[2018-04-28] MEDS ORDERED: Nicardipine 20 MG/200 ML 20 MG/200 ML BAG IV ONE (23:35)
--- NOTE | 2018-04-28 23:54 | CP.PCM.CON ---
History of Present Illness - History of Present Illness History of Present Illness: CC/Reason for ICU: Hypertensive crisis with ICH, altered mental status This is a y/o female with MHx significant for HTN, possible prior SDH and possible seizure disorder who is brought in by EMS with AMS after she was found down at home. She was last seen to be at baseline about 2 days prior. Apparently EMS was called after neighbors heard her screaming. Patient is arousable and can interact somewhat when awake, but appears to have an aphasia, and is unable to provide any history. Patient is incontinent of urine. Per chart , there is a history of EtOH abuse. ROS: Comprehensive ROS cannot be performed because patient is not able to communicate at this time MHx: HTN, depression/anxiety, ?Seizures, ?Prior SDH per chart SHx: Tonsillectomy Allergies: NKDA Medications: Per med rec Family Hx: Cannot obtain Social Hx: Lives at home alone; history of EtOH abuse Surrogate Dec Mkr: Pending Past Patient History - Infectious Disease Hx of Infectious Diseases: None - Past Medical History & Family History Past Medical History?: Yes - Past Social History Smoking Status: Never Smoked - CARDIAC Hx Hypertension: Yes - PULMONARY Hx Respiratory Disorders: No - NEUROLOGICAL Hx Seizures: Yes - HEENT Hx HEENT Problems: No - RENAL Hx Chronic Kidney Disease: No - ENDOCRINE/METABOLIC Hx Endocrine Disorders: Yes Hx Diabetes Mellitus Type 2: Yes - HEMATOLOGICAL/ONCOLOGICAL Hx Human Immunodeficiency Virus (HIV): No - INTEGUMENTARY Hx Dermatological Problems: No - MUSCULOSKELETAL/RHEUMATOLOGICAL Hx Arthritis: Yes Hx Fractures: Yes (right upper arm) - GASTROINTESTINAL Hx Gastrointestinal Disorders: No - GENITOURINARY/GYNECOLOGICAL Hx Genitourinary Disorders: No - PSYCHIATRIC Hx Anxiety: Yes Hx Depression: Yes - SURGICAL HISTORY Hx Tonsillectomy: Yes - ANESTHESIA Hx Anesthesia: Yes Hx Anesthesia Reactions: No Hx Malignant Hyperthermia: No Meds Allergies/Adverse Reactions: Allergies Allergy/AdvReac Type Severity Reaction Status Date / Time No Known Allergies Allergy Verified 02/25/18 20:00 - Medications Medications: Current Medications Acetaminophen (Tylenol 325 Mg Supp) 650 mg NC Q6 PRN PRN Reason: Fever >100.4 F Acetaminophen (Tylenol 325 Mg Supp) 650 mg NC Q6 PRN PRN Reason: Pain, Mild (1-3) Multivitamins/Vitamin C 10 ml/Thiamine HCl 100 mg/ Folic Acid 1 mg/ Dextrose/ Sodium Chloride 1,011.2 mls @ 125 mls/hr IV .Q8H6M ONE Stop: 04/29/18 03:47 Last Admin: 04/28/18 23:37 Dose: 125 mls/hr Nicardipine HCl (Cardene Iv Premix) 20 mg in 200 mls @ 50 mls/hr IV .Q4H ONE; 5 MG/HR PRN Reason: Protocol Stop: 04/29/18 01:03 Last Admin: 04/28/18 21:44 Dose: 50 mls/hr Nicardipine HCl (Cardene Iv Premix) 20 mg in 200 mls @ 100 mls/hr IV .Q2H ONE; 10 MG/HR PRN Reason: Protocol Stop: 04/29/18 01:34 Levetiracetam 500 mg/ Sodium (Chloride) 105 mls @ 210 mls/hr IVPB Q12 ROBYN Physical Exam - Constitutional Appears: No Acute Distress - Head Exam Additional comments: some contusions to head/face - Eye Exam Eye Exam: EOMI, PERRL - ENT Exam ENT Exam: Mucous Membranes Moist - Respiratory Exam Respiratory Exam: Clear to Auscultation Bilateral, NORMAL BREATHING PATTERN - Cardiovascular Exam Cardiovascular Exam: Tachycardia, REGULAR RHYTHM, +S1, +S2 - GI/Abdominal Exam GI & Abdominal Exam: Normal Bowel Sounds, Soft - Extremities Exam Additional comments: some bruising on trunk - Neurological Exam Additional comments: arousable; LUE and LLE weakness, L facial droop - Skin Skin Exam: Dry, Warm Results - Vital Signs Recent Vital Signs: Last Vital Signs Temp 98.9 F 04/28/18 22:39 Pulse 119 H 04/28/18 23:29 Resp 24 04/28/18 23:29 BP 177/89 H 04/28/18 23:29 Pulse Ox 94 L 04/28/18 23:43 - Labs Result Diagrams: 04/28/18 21:07 04/28/18 21:07 Labs: Laboratory Results - last 24 hr 04/28/18 04/28/18 04/28/18 20:44 21:07 21:07 WBC 16.5 H D RBC 3.89 Hgb 13.2 Hct 40.1 MCV 103.0 H D MCH 33.9 H MCHC 32.9 L RDW 14.6 H Plt Count 204 MPV 9.9 Neut % (Auto) 89.2 H Lymph % (Auto) 2.1 L [place] % (Auto) 8.1 Eos % (Auto) 0.0 Baso % (Auto) 0.6 Neut # (Auto) 14.7 H Lymph # (Auto) 0.4 L [place] # (Auto) 1.3 H Eos # (Auto) 0.0 Baso # (Auto) 0.1 Neutrophils % (Manual) 83 H Band Neutrophils % 3 H Lymphocytes % (Manual) 3 L Monocytes % (Manual) 8 Basophils % (Manual) 1 Myelocytes % 2 H Platelet Estimate Normal Large Platelets Present Anisocytosis (manual) Slight Macrocytosis (manual) Slight Stomatocytes Slight PT INR APTT Sodium 144 Potassium 4.6 Chloride 102 Carbon Dioxide 25 Anion Gap 22 H BUN 28 H Creatinine 0.8 Est GFR ( Amer) > 60 Est GFR (Non-Af Amer) > 60 POC Glucose (mg/dL) 175 H Random Glucose 194 H Lactic Acid Calcium 9.2 Total Bilirubin 1.6 H AST 55 H D ALT 24 Alkaline Phosphatase 123 Ammonia Total Creatine Kinase 264 H Troponin I 0.0600 Total Protein 8.3 H Albumin 4.6 Globulin 3.7 Albumin/Globulin Ratio 1.2 Alcohol, Quantitative < 10 04/28/18 04/28/18 04/28/18 21:07 21:07 21:07 WBC RBC Hgb Hct MCV MCH MCHC RDW Plt Count MPV Neut % (Auto) Lymph % (Auto) [place] % (Auto) Eos % (Auto) Baso % (Auto) Neut # (Auto) Lymph # (Auto) [place] # (Auto) Eos # (Auto) Baso # (Auto) Neutrophils % (Manual) Band Neutrophils % Lymphocytes % (Manual) Monocytes % (Manual) Basophils % (Manual) Myelocytes % Platelet Estimate Large Platelets Anisocytosis (manual) Macrocytosis (manual) Stomatocytes PT 11.5 INR 1.0 APTT 25.9 Sodium Potassium Chloride Carbon Dioxide Anion Gap BUN Creatinine Est GFR ( Amer) Est GFR (Non-Af Amer) POC Glucose (mg/dL) Random Glucose Lactic Acid 2.2 H Calcium Total Bilirubin AST ALT Alkaline Phosphatase Ammonia 32 Total Creatine Kinase Troponin I Total Protein Albumin Globulin Albumin/Globulin Ratio Alcohol, Quantitative - Imaging and Cardiology CT scan - head Status: Image reviewed by me, Report reviewed by me (Largely R sided hemorrhage) Assessment & Plan (1) Altered mental status Assessment and Plan: 57 y/o with R sided hemorrhagic stroke likely in setting of uncontrolled HTN. Also possible EtOH abuse. -admit ICU -head of bed up 30 deg -NPO, low rate IVF -q4h neuro checks -Continue nicardipine gtt to control SBP -Rec'd 1 g Keppra IV x 1 in ER, will continue from tmrw am at 500 mg iv q12h -Neurology, neurosurgery consult ([place]) -SCDs only for DVT PPx Status: Acute (2) Hemorrhagic stroke Status: Acute (3) Seizure disorder Status: Acute (4) Leukocytosis Status: Acute (5) Alcohol abuse Status: Chronic (6) DVT prophylaxis Status: Acute
--- NOTE | 2018-04-29 00:08 | CT ---
EXAM: CT Chest Without Intravenous Contrast CLINICAL HISTORY: 57 years old, female; Signs and symptoms; Other: Unresponsive; Additional info: Chest and abdominal injury TECHNIQUE: Axial computed tomography images of the chest without intravenous contrast. All CT scans at this facility use one or more dose reduction techniques, viz.: automated exposure control; ma/kV adjustment per patient size (including targeted exams where dose is matched to indication; i.e. head); or iterative reconstruction technique. Coronal and sagittal reformatted images were created and reviewed. COMPARISON: No relevant prior studies available. FINDINGS: Lungs and pleural spaces: Trachea and main bronchi are patent.There is no pneumothorax. There is apical pleural parenchymal thickening on the right. There is atelectasis and scarring greatest in the lung bases. There is no lobar or segmental consolidation. There are no effusions. Heart and vasculature: Heart size is normal. There are coronary artery calcifications. Aorta and main pulmonary artery are normal in caliber. Mediastinum: The esophagus is unremarkable. There are no pathologically enlarged mediastinal nodes.Leigh are not optimally evaluated without contrast material. Thyroid: Thyroid is not optimally demonstrated. Bones/joints: Bony structures are osteopenic. There extensive degenerative changes in the right shoulder. There are postsurgical changes with streak artifact from sideplate and screws in the right shoulder. There are multiple bilateral rib fractures of varying ages. There is an old distal left clavicle fracture. Soft tissues: unremarkable IMPRESSION: No acute intrathoracic injury; mild cardiomegaly; right apical pleural-parenchymal opacity; multiple bilateral rib fractures of varying ages Additional nonemergent findings as described above. EXAM: CT Abdomen and Pelvis Without Intravenous Contrast EXAM DATE/TIME: 04/28/2018 9:11 PM CLINICAL HISTORY: 57 years old, female; Signs and symptoms; Other: Unresponsive; Additional info: Chest and abdominal injury TECHNIQUE: Axial computed tomography images of the abdomen and pelvis without intravenous contrast. All CT scans at this facility use one or more dose reduction techniques, viz.: automated exposure control; ma/kV adjustment per patient size (including targeted exams where dose is matched to indication; i.e. head); or iterative reconstruction technique. Coronal and sagittal reformatted images were created and reviewed. COMPARISON: CT - CHEST,ABD,PEL W/IV CONT ONLY 2016-02-22 16:09 FINDINGS: Lung bases: Refer to prior report for chest findings ABDOMEN: Liver: There is fatty infiltration of the liver. The liver is enlarged. Gallbladder and bile ducts: unremarkable Pancreas: Pancreas is mildly atrophic. Spleen: unremarkable Adrenals: There is diffuse nodular adrenal thickening bilaterally. Kidneys and ureters: unremarkable Stomach and bowel: Stomach is almost empty. Rotation is normal. There is fluid and air throughout the small bowel. There is no obstruction. Terminal ileum is unremarkable. Appendix is not visualized. There is no pericecal inflammation.Colon is incompletely distended which limits evaluation. There is scattered diverticulosis PELVIS: Appendix: See stomach and bowel Bladder: unremarkable Reproductive: Uterus is mildly enlarged with lobular contours. Adnexa are unremarkable. ABDOMEN and PELVIS: Intraperitoneal space: There is no free air or free fluid. Bones/joints: Bony structures are osteopenic with degenerative change There degenerative changes. Soft tissues: There is minimal bruising in the right buttock. There is bruising of the right hip. Vasculature: There are vascular calcifications. Lymph nodes: There is no pathologic adenopathy. IMPRESSION: Enlarged fatty liver, no acute solid visceral or bowel injury identified; probable fibroid uterus; diverticulosis
[2018-04-29] MEDS: Nicardipine 20 MG/200 ML 20 MG/200 ML BAG IV ONE (00:30)
[2018-04-29] MEDS ORDERED: Pneumococcal 23-Valent Vaccine IM ONE (02:54)
[2018-04-29 06:09] LABS: HEMOGLOBIN 11.3 g/dL (12.0-16.0); MEAN CELL VOLUME 102.4 fl (81.0-99.0); MEAN CORPUSCULAR HEMOGLOBIN 33.6 pg (27.0-31.0); MEAN CORPUSCULAR HGB CONC 32.8 g/dL (33.0-37.0); RBC 3.36 Mil/uL (3.80-5.20); RED CELL DISTRIBUTION WIDTH 14.5 % (11.5-14.5); WHITE BLOOD COUNT 15.5 K/uL (4.8-10.8)
[2018-04-29 06:26] LABS: BLOOD UREA NITROGEN 23 mg/dl (7-17); CALCIUM 8.5 mg/dL (8.4-10.2); GFR AFRICAN-AMERICAN > 60; GFR NON-AFRICAN AMERICAN > 60
--- NOTE | 2018-04-29 07:28 | CP.CCUPN ---
CCU Subjective - Physician Review Events Since Last Encounter (Free Text): Patient lethergic, no fever, no vomiting, no distress, events reviewed CCU Objective - Vital Signs / Intake & Output Vital Signs (Last 4 hours): Vital Signs Temp Pulse Resp BP Pulse Ox 04/29/18 06:00 107 H 24 167/95 H 93 L 04/29/18 04:00 98 F 102 H 22 146/80 97 Intake and Output (Last 8hrs): Intake & Output 04/28/18 04/29/18 04/29/18 22:59 06:59 14:59 Intake Total 711 Output Total 400 Balance 311 Weight 191 lb 188 lb Intake: IV 632 Intake, Piggyback 79 Output: Urine 400 Urethral ([place]) 400 - Physical Exam Physical Exam Limitations: Positive for: Altered Mental Status Head: Positive for: Normocephalic, Other (left eye ecchymosis) Conjunctiva: Positive for: Normal Ears: Positive for: Normal Mouth: Positive for: Moist Mucous Membranes Pharnyx: Positive for: Normal Neck: Positive for: Normal Range of Motion Respiratory/Chest: Positive for: Clear to Auscultation Cardiovascular: Positive for: Regular Rate and Rhythm Abdomen: Positive for: Normal Bowel Sounds Upper Extremity: Positive for: Normal Inspection Lower Extremity: Positive for: Normal Inspection Neurological: Positive for: Other (left side weakness, left fascial droop) Skin: Positive for: Dry, Normal Color Psychiatric: Positive for: Other (lethergic) - Medications Active Medications: Active Medications Generic Name Dose Route Start Last Admin Trade Name Freq PRN Reason Stop Dose Admin Acetaminophen 650 mg 04/28/18 23:43 Tylenol 650 Mg Supp HI Q6 PRN Fever >100.4 F Acetaminophen 650 mg 04/28/18 23:44 Tylenol 650 Mg Supp HI Q6 PRN Pain, Mild (1-3) Levetiracetam 500 mg/ Sodium 105 mls @ 210 mls/hr 04/29/18 09:00 Chloride IVPB Q12 ROBYN Nicardipine HCl 20 mg in 200 mls @ 50 mls/hr 04/29/18 07:04 Cardene Iv Premix IV .Q4H ROBYN Protocol 5 MG/HR Potassium Chloride 50 mls @ 50 mls/hr 04/29/18 08:00 Potassium Cl 10meq/50ml Sterile Water IVPB 04/29/18 11:59 Q1 ROBYN Magnesium Sulfate 1 gm/ Sodium 102 mls @ 204 mls/hr 04/29/18 08:00 Chloride IVPB 04/29/18 08:29 ONCE ONE 1 GM/30 MIN - Patient Studies Lab Studies: Lab Studies 04/29/18 04/29/18 04/28/18 Range/Units 05:30 05:30 21:07 WBC 15.5 H (4.8-10.8) K/uL RBC 3.36 L (3.80-5.20) Mil/uL Hgb 11.3 L (12.0-16.0) g/dL Hct 34.5 (34.0-47.0) % MCV 102.4 H (81.0-99.0) fl MCH 33.6 H (27.0-31.0) pg MCHC 32.8 L (33.0-37.0) g/dL RDW 14.5 (11.5-14.5) % Plt Count 180 (130-400) K/uL MPV (7.2-11.7) fl Neut % (Auto) (50.0-75.0) % Lymph % (Auto) (20.0-40.0) % Divide % (Auto) (0.0-10.0) % Eos % (Auto) (0.0-4.0) % Baso % (Auto) (0.0-2.0) % Neut # (Auto) (1.8-7.0) K/uL Lymph # (Auto) (1.0-4.3) K/uL Divide # (Auto) (0.0-0.8) K/uL Eos # (Auto) (0.0-0.7) K/uL Baso # (Auto) (0.0-0.2) K/uL Neutrophils % (Manual) (42-75) % Band Neutrophils % (0-2) % Lymphocytes % (Manual) (20-50) % Monocytes % (Manual) (0-10) % Basophils % (Manual) (0-2) % Myelocytes % (0-0) % Platelet Estimate (NORMAL) Large Platelets Anisocytosis (manual) Macrocytosis (manual) Stomatocytes PT (9.8-13.1) Seconds INR (0.9-1.2) APTT (25.6-37.1) Seconds Sodium 141 (132-148) mmol/l Potassium 3.1 L (3.6-5.0) MMOL/L Chloride 100 (98-107) mmol/L Carbon Dioxide 28 (22-30) mmol/L Anion Gap 16 (10-20) BUN 23 H (7-17) mg/dl Creatinine 0.5 L (0.7-1.2) mg/dl Est GFR ( Amer) > 60 Est GFR (Non-Af Amer) > 60 POC Glucose (mg/dL) (65-110) mg/dL Random Glucose 247 H (65-105) mg/dL Lactic Acid 2.2 H (0.7-2.1) MMOL/L Calcium 8.5 (8.4-10.2) mg/dL Total Bilirubin (0.2-1.3) mg/dl AST (14-36) U/L ALT (9-52) U/L Alkaline Phosphatase (38-126) U/L Ammonia (11-51) umo/L Total Creatine Kinase 163 H (30-135) U/L Troponin I (0.00-0.120) ng/mL Total Protein (6.3-8.2) G/DL Albumin (3.5-5.0) g/dL Globulin (2.2-3.9) gm/dL Albumin/Globulin Ratio (1.0-2.1) Alcohol, Quantitative (0-10) mg/dl 04/28/18 04/28/18 04/28/18 Range/Units 21:07 21:07 21:07 WBC 16.5 H D (4.8-10.8) K/uL RBC 3.89 (3.80-5.20) Mil/uL Hgb 13.2 (12.0-16.0) g/dL Hct 40.1 (34.0-47.0) % MCV 103.0 H D (81.0-99.0) fl MCH 33.9 H (27.0-31.0) pg MCHC 32.9 L (33.0-37.0) g/dL RDW 14.6 H (11.5-14.5) % Plt Count 204 (130-400) K/uL MPV 9.9 (7.2-11.7) fl Neut % (Auto) 89.2 H (50.0-75.0) % Lymph % (Auto) 2.1 L (20.0-40.0) % Divide % (Auto) 8.1 (0.0-10.0) % Eos % (Auto) 0.0 (0.0-4.0) % Baso % (Auto) 0.6 (0.0-2.0) % Neut # (Auto) 14.7 H (1.8-7.0) K/uL Lymph # (Auto) 0.4 L (1.0-4.3) K/uL Divide # (Auto) 1.3 H (0.0-0.8) K/uL Eos # (Auto) 0.0 (0.0-0.7) K/uL Baso # (Auto) 0.1 (0.0-0.2) K/uL Neutrophils % (Manual) 83 H (42-75) % Band Neutrophils % 3 H (0-2) % Lymphocytes % (Manual) 3 L (20-50) % Monocytes % (Manual) 8 (0-10) % Basophils % (Manual) 1 (0-2) % Myelocytes % 2 H (0-0) % Platelet Estimate Normal (NORMAL) Large Platelets Present Anisocytosis (manual) Slight Macrocytosis (manual) Slight Stomatocytes Slight PT 11.5 (9.8-13.1) Seconds INR 1.0 (0.9-1.2) APTT 25.9 (25.6-37.1) Seconds Sodium (132-148) mmol/l Potassium (3.6-5.0) MMOL/L Chloride (98-107) mmol/L Carbon Dioxide (22-30) mmol/L Anion Gap (10-20) BUN (7-17) mg/dl Creatinine (0.7-1.2) mg/dl Est GFR ( Amer) Est GFR (Non-Af Amer) POC Glucose (mg/dL) (65-110) mg/dL Random Glucose (65-105) mg/dL Lactic Acid (0.7-2.1) MMOL/L Calcium (8.4-10.2) mg/dL Total Bilirubin (0.2-1.3) mg/dl AST (14-36) U/L ALT (9-52) U/L Alkaline Phosphatase (38-126) U/L Ammonia 32 (11-51) umo/L Total Creatine Kinase (30-135) U/L Troponin I (0.00-0.120) ng/mL Total Protein (6.3-8.2) G/DL Albumin (3.5-5.0) g/dL Globulin (2.2-3.9) gm/dL Albumin/Globulin Ratio (1.0-2.1) Alcohol, Quantitative (0-10) mg/dl 04/28/18 04/28/18 Range/Units 21:07 20:44 WBC (4.8-10.8) K/uL RBC (3.80-5.20) Mil/uL Hgb (12.0-16.0) g/dL Hct (34.0-47.0) % MCV (81.0-99.0) fl MCH (27.0-31.0) pg MCHC (33.0-37.0) g/dL RDW (11.5-14.5) % Plt Count (130-400) K/uL MPV (7.2-11.7) fl Neut % (Auto) (50.0-75.0) % Lymph % (Auto) (20.0-40.0) % Divide % (Auto) (0.0-10.0) % Eos % (Auto) (0.0-4.0) % Baso % (Auto) (0.0-2.0) % Neut # (Auto) (1.8-7.0) K/uL Lymph # (Auto) (1.0-4.3) K/uL Divide # (Auto) (0.0-0.8) K/uL Eos # (Auto) (0.0-0.7) K/uL Baso # (Auto) (0.0-0.2) K/uL Neutrophils % (Manual) (42-75) % Band Neutrophils % (0-2) % Lymphocytes % (Manual) (20-50) % Monocytes % (Manual) (0-10) % Basophils % (Manual) (0-2) % Myelocytes % (0-0) % Platelet Estimate (NORMAL) Large Platelets Anisocytosis (manual) Macrocytosis (manual) Stomatocytes PT (9.8-13.1) Seconds INR (0.9-1.2) APTT (25.6-37.1) Seconds Sodium 144 (132-148) mmol/l Potassium 4.6 (3.6-5.0) MMOL/L Chloride 102 (98-107) mmol/L Carbon Dioxide 25 (22-30) mmol/L Anion Gap 22 H (10-20) BUN 28 H (7-17) mg/dl Creatinine 0.8 (0.7-1.2) mg/dl Est GFR ( Amer) > 60 Est GFR (Non-Af Amer) > 60 POC Glucose (mg/dL) 175 H (65-110) mg/dL Random Glucose 194 H (65-105) mg/dL Lactic Acid (0.7-2.1) MMOL/L Calcium 9.2 (8.4-10.2) mg/dL Total Bilirubin 1.6 H (0.2-1.3) mg/dl AST 55 H D (14-36) U/L ALT 24 (9-52) U/L Alkaline Phosphatase 123 (38-126) U/L Ammonia (11-51) umo/L Total Creatine Kinase 264 H (30-135) U/L Troponin I 0.0600 (0.00-0.120) ng/mL Total Protein 8.3 H (6.3-8.2) G/DL Albumin 4.6 (3.5-5.0) g/dL Globulin 3.7 (2.2-3.9) gm/dL Albumin/Globulin Ratio 1.2 (1.0-2.1) Alcohol, Quantitative < 10 (0-10) mg/dl Laboratory Results - last 24 hr 04/28/18 04/28/18 04/28/18 20:44 21:07 21:07 WBC 16.5 H D RBC 3.89 Hgb 13.2 Hct 40.1 MCV 103.0 H D MCH 33.9 H MCHC 32.9 L RDW 14.6 H Plt Count 204 MPV 9.9 Neut % (Auto) 89.2 H Lymph % (Auto) 2.1 L Divide % (Auto) 8.1 Eos % (Auto) 0.0 Baso % (Auto) 0.6 Neut # (Auto) 14.7 H Lymph # (Auto) 0.4 L Divide # (Auto) 1.3 H Eos # (Auto) 0.0 Baso # (Auto) 0.1 Neutrophils % (Manual) 83 H Band Neutrophils % 3 H Lymphocytes % (Manual) 3 L Monocytes % (Manual) 8 Basophils % (Manual) 1 Myelocytes % 2 H Platelet Estimate Normal Large Platelets Present Anisocytosis (manual) Slight Macrocytosis (manual) Slight Stomatocytes Slight PT INR APTT Sodium 144 Potassium 4.6 Chloride 102 Carbon Dioxide 25 Anion Gap 22 H BUN 28 H Creatinine 0.8 Est GFR ( Amer) > 60 Est GFR (Non-Af Amer) > 60 POC Glucose (mg/dL) 175 H Random Glucose 194 H Lactic Acid Calcium 9.2 Total Bilirubin 1.6 H AST 55 H D ALT 24 Alkaline Phosphatase 123 Ammonia Total Creatine Kinase 264 H Troponin I 0.0600 Total Protein 8.3 H Albumin 4.6 Globulin 3.7 Albumin/Globulin Ratio 1.2 Alcohol, Quantitative < 10 04/28/18 04/28/18 04/28/18 21:07 21:07 21:07 WBC RBC Hgb Hct MCV MCH MCHC RDW Plt Count MPV Neut % (Auto) Lymph % (Auto) Divide % (Auto) Eos % (Auto) Baso % (Auto) Neut # (Auto) Lymph # (Auto) Divide # (Auto) Eos # (Auto) Baso # (Auto) Neutrophils % (Manual) Band Neutrophils % Lymphocytes % (Manual) Monocytes % (Manual) Basophils % (Manual) Myelocytes % Platelet Estimate Large Platelets Anisocytosis (manual) Macrocytosis (manual) Stomatocytes PT 11.5 INR 1.0 APTT 25.9 Sodium Potassium Chloride Carbon Dioxide Anion Gap BUN Creatinine Est GFR ( Amer) Est GFR (Non-Af Amer) POC Glucose (mg/dL) Random Glucose Lactic Acid 2.2 H Calcium Total Bilirubin AST ALT Alkaline Phosphatase Ammonia 32 Total Creatine Kinase Troponin I Total Protein Albumin Globulin Albumin/Globulin Ratio Alcohol, Quantitative 04/29/18 04/29/18 05:30 05:30 WBC 15.5 H RBC 3.36 L Hgb 11.3 L Hct 34.5 MCV 102.4 H MCH 33.6 H MCHC 32.8 L RDW 14.5 Plt Count 180 MPV Neut % (Auto) Lymph % (Auto) Divide % (Auto) Eos % (Auto) Baso % (Auto) Neut # (Auto) Lymph # (Auto) Divide # (Auto) Eos # (Auto) Baso # (Auto) Neutrophils % (Manual) Band Neutrophils % Lymphocytes % (Manual) Monocytes % (Manual) Basophils % (Manual) Myelocytes % Platelet Estimate Large Platelets Anisocytosis (manual) Macrocytosis (manual) Stomatocytes PT INR APTT Sodium 141 Potassium 3.1 L Chloride 100 Carbon Dioxide 28 Anion Gap 16 BUN 23 H Creatinine 0.5 L Est GFR ( Amer) > 60 Est GFR (Non-Af Amer) > 60 POC Glucose (mg/dL) Random Glucose 247 H Lactic Acid Calcium 8.5 Total Bilirubin AST ALT Alkaline Phosphatase Ammonia Total Creatine Kinase 163 H Troponin I Total Protein Albumin Globulin Albumin/Globulin Ratio Alcohol, Quantitative EKG/Cardiology Studies: Cardiology / EKG Studies 04/28/18 19:36 ELECTROCARDIOGRAM Stat Comment: Mode Of Transportation: Reason For Exam: ams Fingerstick Blood Sugar Results: 175 Critical Care Progress Note - Nutrition Nutrition: Nutrition Category Date Time Status NPO Diet [DIET] Diets 04/28/18 Breakfast Active Assessment/Plan - Assessment and Plan (Free Text) Assessment: A/P Altered mental status, ICH, HTN, h/o ETOH abuse, seizer disorder, h/o depression /anxiety, h/o SDH - Neurology follow up - Neurosurgery follow up - Neuro check - Continue meds - Pulmonary toilets
[2018-04-29] MEDS: Potassium CL 10 MEQ/50 ML 50 ML IVPB SCH ×6 (07:36→22:29)
[2018-04-29] MEDS: Nicardipine 20 MG/200 ML 20 MG/200 ML BAG IV SCH ×7 (07:46→22:27)
[2018-04-29 08:18] LABS: SQUAMOUS EPITHIAL < 1 /hpf (0-5); URINE BILIRUBIN NEGATIVE (NEGATIVE); URINE BLOOD NEGATIVE (NEGATIVE); URINE CLARITY CLEAR (Clear); URINE COLOR YELLOW (YELLOW); URINE GLUCOSE (UA) 150 mg/dL (Normal); URINE LEUKOCYTE ESTERASE NEG Leu/uL (Negative); URINE PROTEIN 30 mg/dL (NEGATIVE)
[2018-04-29 08:19] LABS: BARBITURATES, UR NEGATIVE (NEGATIVE); BENZODIAZEPINES, UR NEGATIVE (NEGATIVE); OPIATES, UR NEGATIVE (NEGATIVE); PHENCYCLIDINE, UR NEGATIVE (NEGATIVE)
[2018-04-29] MEDS ORDERED: levETIRAcetam 500 MG in Sodium Chloride 0.9% 100 ML IVPB SCH (09:00)
[2018-04-29] MEDS ORDERED: Sodium Chloride 3% 500 ML IV SCH (09:30)
[2018-04-29] MEDS ORDERED: Magnesium Sulfate 1 GM in Dextrose 5% In Water 100 ML IVPB ONE (09:30)
[2018-04-29] MEDS ORDERED: Sodium Chloride 3% 250 ML IV SCH (10:00)
[2018-04-29] MEDS ORDERED: Magnesium Sulfate 2 gm/50 ml 2 GM/50 ML BAG IV ONE (11:00)
--- NOTE | 2018-04-29 11:02 | CP.PCM.CON ---
History of Present Illness - History of Present Illness History of Present Illness: Mrs. Sanchez is a 57-year-old woman with a past medical history of alcoholism, hypertension, seizure disorder (non-compliance), who I know well from prior consultations, and was last seen at her baseline 3 days ago. She was found on the floor of her home, unconscious and brought in to the ED. CT scan of the head showed a large right MCA region intraparenchymal hemorrhage with subarachnoid and intraventricular components and midline shift. This morning, the patient was more obtunded. She is still able to move the right arm and leg , but has neglect of the left side as well as complete hemiplegia. She was evaluated by neurosurgery, but is not a good surgical candidate. Review of Systems - Review of Systems All systems: reviewed and no additional remarkable complaints except Past Patient History - Infectious Disease Hx of Infectious Diseases: None - Past Medical History & Family History Past Medical History?: Yes - Past Social History Smoking Status: Unknown If Ever Smoked - CARDIAC Hx Hypertension: Yes - PULMONARY Hx Respiratory Disorders: No - NEUROLOGICAL Hx Seizures: Yes - HEENT Hx HEENT Problems: No - RENAL Hx Chronic Kidney Disease: No - ENDOCRINE/METABOLIC Hx Endocrine Disorders: Yes - HEMATOLOGICAL/ONCOLOGICAL Hx Human Immunodeficiency Virus (HIV): No - INTEGUMENTARY Hx Dermatological Problems: No - MUSCULOSKELETAL/RHEUMATOLOGICAL Hx Arthritis: Yes Hx Falls: Yes Hx Fractures: Yes (right upper arm) - GASTROINTESTINAL Hx Gastrointestinal Disorders: No - GENITOURINARY/GYNECOLOGICAL Hx Genitourinary Disorders: No - PSYCHIATRIC Hx Anxiety: Yes Hx Depression: Yes Hx Substance Use: Yes - SURGICAL HISTORY Hx Tonsillectomy: Yes - ANESTHESIA Hx Anesthesia: Yes Hx Anesthesia Reactions: No Hx Malignant Hyperthermia: No Meds Allergies/Adverse Reactions: Allergies Allergy/AdvReac Type Severity Reaction Status Date / Time No Known Allergies Allergy Verified 02/25/18 20:00 - Medications Medications: Current Medications Acetaminophen (Tylenol 650 Mg Supp) 650 mg MT Q6 PRN PRN Reason: Fever >100.4 F Acetaminophen (Tylenol 650 Mg Supp) 650 mg MT Q6 PRN PRN Reason: Pain, Mild (1-3) Nicardipine HCl (Cardene Iv Premix) 20 mg in 200 mls @ 50 mls/hr IV .Q4H ROBYN; 5 MG/HR PRN Reason: Protocol Last Titration: 04/29/18 09:14 Dose: 7.5 mg/hr, 75 mls/hr Potassium Chloride (Potassium Cl 10meq/50ml Sterile Water) 50 mls @ 50 mls/hr IVPB Q1 ROBYN Stop: 04/29/18 11:59 Last Admin: 04/29/18 09:54 Dose: 50 mls/hr Sodium Chloride (Hypertonic Saline 3%) 250 mls @ 0 mls/hr IV .Q0M [facility] PRN Reason: As Directed Stop: 04/30/18 10:01 Last Admin: 04/29/18 10:32 Dose: 100 mls/hr Sodium Chloride (Hypertonic Saline 3%) 500 mls @ 40 mls/hr IV .[id number] [facility] Stop: 04/30/18 09:22 Magnesium Sulfate (Magnesium Sulfate 2 Gm/50 Ml Water) 2 gm in 50 mls @ 50 mls/ hr IV ONCE ONE PRN Reason: 2 GM/HR Stop: 04/29/18 11:59 Levetiracetam 1,000 mg/ Sodium (Chloride) 110 mls @ 210 mls/hr IVPB Q12 [facility] Physical Exam - Neurological Exam Neurological exam: Altered Additional comments: Left eye has periorbital echymosis and edema. Right eye ophthalmoplegia. Does not follow commands, but says a few words. Moves right arm spontaneously, but not left arm or leg. Responds to pain by verbally saying "ouch". Hyper- reflexive on the left with upgoing plantar response. Neglect of left side. GCS = 12 Results - Vital Signs Recent Vital Signs: Last Vital Signs Temp 98.3 F 04/29/18 07:38 Pulse 119 H 04/29/18 10:00 Resp 33 H 04/29/18 10:00 BP 156/82 H 04/29/18 10:00 Pulse Ox 92 L 04/29/18 10:00 - Labs Result Diagrams: 04/29/18 05:30 04/29/18 05:30 Labs: Laboratory Results - last 24 hr 04/28/18 04/28/18 04/28/18 07:45 20:44 21:07 WBC RBC Hgb Hct MCV MCH MCHC RDW Plt Count MPV Neut % (Auto) Lymph % (Auto) [place] % (Auto) Eos % (Auto) Baso % (Auto) Neut # (Auto) Lymph # (Auto) [place] # (Auto) Eos # (Auto) Baso # (Auto) Neutrophils % (Manual) Band Neutrophils % Lymphocytes % (Manual) Monocytes % (Manual) Basophils % (Manual) Myelocytes % Platelet Estimate Large Platelets Anisocytosis (manual) Macrocytosis (manual) Stomatocytes PT INR APTT Sodium 144 Potassium 4.6 Chloride 102 Carbon Dioxide 25 Anion Gap 22 H BUN 28 H Creatinine 0.8 Est GFR ( Amer) > 60 Est GFR (Non-Af Amer) > 60 POC Glucose (mg/dL) 175 H Random Glucose 194 H Lactic Acid Calcium 9.2 Total Bilirubin 1.6 H AST 55 H D ALT 24 Alkaline Phosphatase 123 Ammonia Total Creatine Kinase 264 H Troponin I 0.0600 Total Protein 8.3 H Albumin 4.6 Globulin 3.7 Albumin/Globulin Ratio 1.2 Urine Color Yellow Urine Clarity Clear Urine pH 5.0 Ur Specific [place] > 1.060 H Urine Protein 30 Urine Glucose (UA) 150 Urine Ketones Trace Urine Blood Negative Urine Nitrate Negative Urine Bilirubin Negative Urine Urobilinogen 2.0 H Ur Leukocyte Esterase Neg Urine RBC (Auto) 1 Urine Microscopic WBC < 1 Ur Squamous Epith Cells < 1 Urine Opiates Screen Urine Methadone Screen Ur Barbiturates Screen Ur Phencyclidine Scrn Ur Amphetamines Screen U Benzodiazepines Scrn U Oth Cocaine Metabols U Cannabinoids Screen Alcohol, Quantitative < 10 04/28/18 04/28/18 04/28/18 21:07 21:07 21:07 WBC 16.5 H D RBC 3.89 Hgb 13.2 Hct 40.1 MCV 103.0 H D MCH 33.9 H MCHC 32.9 L RDW 14.6 H Plt Count 204 MPV 9.9 Neut % (Auto) 89.2 H Lymph % (Auto) 2.1 L [place] % (Auto) 8.1 Eos % (Auto) 0.0 Baso % (Auto) 0.6 Neut # (Auto) 14.7 H Lymph # (Auto) 0.4 L [place] # (Auto) 1.3 H Eos # (Auto) 0.0 Baso # (Auto) 0.1 Neutrophils % (Manual) 83 H Band Neutrophils % 3 H Lymphocytes % (Manual) 3 L Monocytes % (Manual) 8 Basophils % (Manual) 1 Myelocytes % 2 H Platelet Estimate Normal Large Platelets Present Anisocytosis (manual) Slight Macrocytosis (manual) Slight Stomatocytes Slight PT 11.5 INR 1.0 APTT 25.9 Sodium Potassium Chloride Carbon Dioxide Anion Gap BUN Creatinine Est GFR ( Amer) Est GFR (Non-Af Amer) POC Glucose (mg/dL) Random Glucose Lactic Acid Calcium Total Bilirubin AST ALT Alkaline Phosphatase Ammonia 32 Total Creatine Kinase Troponin I Total Protein Albumin Globulin Albumin/Globulin Ratio Urine Color Urine Clarity Urine pH Ur Specific [place] Urine Protein Urine Glucose (UA) Urine Ketones Urine Blood Urine Nitrate Urine Bilirubin Urine Urobilinogen Ur Leukocyte Esterase Urine RBC (Auto) Urine Microscopic WBC Ur Squamous Epith Cells Urine Opiates Screen Urine Methadone Screen Ur Barbiturates Screen Ur Phencyclidine Scrn Ur Amphetamines Screen U Benzodiazepines Scrn U Oth Cocaine Metabols U Cannabinoids Screen Alcohol, Quantitative 04/28/18 04/29/18 04/29/18 21:07 05:30 05:30 WBC 15.5 H RBC 3.36 L Hgb 11.3 L Hct 34.5 MCV 102.4 H MCH 33.6 H MCHC 32.8 L RDW 14.5 Plt Count 180 MPV Neut % (Auto) Lymph % (Auto) [place] % (Auto) Eos % (Auto) Baso % (Auto) Neut # (Auto) Lymph # (Auto) [place] # (Auto) Eos # (Auto) Baso # (Auto) Neutrophils % (Manual) Band Neutrophils % Lymphocytes % (Manual) Monocytes % (Manual) Basophils % (Manual) Myelocytes % Platelet Estimate Large Platelets Anisocytosis (manual) Macrocytosis (manual) Stomatocytes PT INR APTT Sodium 141 Potassium 3.1 L Chloride 100 Carbon Dioxide 28 Anion Gap 16 BUN 23 H Creatinine 0.5 L Est GFR ( Amer) > 60 Est GFR (Non-Af Amer) > 60 POC Glucose (mg/dL) Random Glucose 247 H Lactic Acid 2.2 H Calcium 8.5 Total Bilirubin AST ALT Alkaline Phosphatase Ammonia Total Creatine Kinase 163 H Troponin I Total Protein Albumin Globulin Albumin/Globulin Ratio Urine Color Urine Clarity Urine pH Ur Specific [place] Urine Protein Urine Glucose (UA) Urine Ketones Urine Blood Urine Nitrate Urine Bilirubin Urine Urobilinogen Ur Leukocyte Esterase Urine RBC (Auto) Urine Microscopic WBC Ur Squamous Epith Cells Urine Opiates Screen Urine Methadone Screen Ur Barbiturates Screen Ur Phencyclidine Scrn Ur Amphetamines Screen U Benzodiazepines Scrn U Oth Cocaine Metabols U Cannabinoids Screen Alcohol, Quantitative 04/29/18 07:45 WBC RBC Hgb Hct MCV MCH MCHC RDW Plt Count MPV Neut % (Auto) Lymph % (Auto) [place] % (Auto) Eos % (Auto) Baso % (Auto) Neut # (Auto) Lymph # (Auto) [place] # (Auto) Eos # (Auto) Baso # (Auto) Neutrophils % (Manual) Band Neutrophils % Lymphocytes % (Manual) Monocytes % (Manual) Basophils % (Manual) Myelocytes % Platelet Estimate Large Platelets Anisocytosis (manual) Macrocytosis (manual) Stomatocytes PT INR APTT Sodium Potassium Chloride Carbon Dioxide Anion Gap BUN Creatinine Est GFR ( Amer) Est GFR (Non-Af Amer) POC Glucose (mg/dL) Random Glucose Lactic Acid Calcium Total Bilirubin AST ALT Alkaline Phosphatase Ammonia Total Creatine Kinase Troponin I Total Protein Albumin Globulin Albumin/Globulin Ratio Urine Color Urine Clarity Urine pH Ur Specific [place] Urine Protein Urine Glucose (UA) Urine Ketones Urine Blood Urine Nitrate Urine Bilirubin Urine Urobilinogen Ur Leukocyte Esterase Urine RBC (Auto) Urine Microscopic WBC Ur Squamous Epith Cells Urine Opiates Screen Negative Urine Methadone Screen Negative Ur Barbiturates Screen Negative Ur Phencyclidine Scrn Negative Ur Amphetamines Screen Negative U Benzodiazepines Scrn Negative U Oth Cocaine Metabols Negative U Cannabinoids Screen Negative Alcohol, Quantitative Assessment & Plan (1) Hemorrhagic stroke Assessment and Plan: I recommend the followin. ICU 2. Cardene drip to maintain sBP 110-160 3. Keep head of bed above 35 degrees 4. Bolus 3% 250 mL, and continue at 40 mL/hr with goal serum sodium of 145-150 and serum osmolarity less than 320 5. Keppra 1000 mg IV Q12 (first does now) 6. Avoid fever, hyperglycemia or hyponatremia, hold all anticoagulants or antiplatelet agents until further notice 7. Discuss code status with family 8. Case management consult 9. slag worker consult Thank you. Status: Acute Priority: High
--- NOTE | 2018-04-29 11:02 | CP.PCM.PN ---
Subjective - Date & Time of Evaluation Date of Evaluation: 04/29/18 Time of Evaluation: 11:00 - Subjective Subjective: dictated hypertensive hemorrhage R hemisphere rec medical mgmt f/u CT am Objective - Vital Signs/Intake and Output Vital Signs (last 24 hours): Temp Pulse Resp BP Pulse Ox 98.3 F 119 H 33 H 156/82 H 92 L 04/29/18 07:38 04/29/18 10:00 04/29/18 10:00 04/29/18 10:00 04/29/18 10:00 Intake and Output: 04/29/18 04/29/18 06:59 18:59 Intake Total 711 600 Output Total 400 Balance 311 600 - Medications Medications: Current Medications Acetaminophen (Tylenol 650 Mg Supp) 650 mg OR Q6 PRN PRN Reason: Fever >100.4 F Acetaminophen (Tylenol 650 Mg Supp) 650 mg OR Q6 PRN PRN Reason: Pain, Mild (1-3) Nicardipine HCl (Cardene Iv Premix) 20 mg in 200 mls @ 50 mls/hr IV .Q4H ROBYN; 5 MG/HR PRN Reason: Protocol Last Titration: 04/29/18 09:14 Dose: 7.5 mg/hr, 75 mls/hr Potassium Chloride (Potassium Cl 10meq/50ml Sterile Water) 50 mls @ 50 mls/hr IVPB Q1 ROBYN Stop: 04/29/18 11:59 Last Admin: 04/29/18 09:54 Dose: 50 mls/hr Sodium Chloride (Hypertonic Saline 3%) 250 mls @ 0 mls/hr IV .Q0M ROBNY PRN Reason: As Directed Stop: 04/30/18 10:01 Last Admin: 04/29/18 10:32 Dose: 100 mls/hr Sodium Chloride (Hypertonic Saline 3%) 500 mls @ 40 mls/hr IV .[id number] ROBYN Stop: 04/30/18 09:22 Magnesium Sulfate (Magnesium Sulfate 2 Gm/50 Ml Water) 2 gm in 50 mls @ 50 mls/ hr IV ONCE ONE PRN Reason: 2 GM/HR Stop: 04/29/18 11:59 Levetiracetam 1,000 mg/ Sodium (Chloride) 110 mls @ 210 mls/hr IVPB Q12 ROBYN - Labs Labs: 04/29/18 05:30 04/29/18 05:30 PT 11.5 Seconds (9.8-13.1) 04/28/18 21:07 INR 1.0 (0.9-1.2) 04/28/18 21:07 APTT 25.9 Seconds (25.6-37.1) 04/28/18 21:07
[2018-04-29] MEDS: levETIRAcetam 1,000 MG in Sodium Chloride 0.9% 100 ML IVPB SCH ×2 (11:03→20:31)
--- NOTE | 2018-04-29 12:32 | CT ---
PROCEDURE: CT HEAD WITHOUT CONTRAST. HISTORY: head injury COMPARISON: Noncontrast head CT 02/26/2018 TECHNIQUE: Axial computed tomography images were obtained through the head/brain without intravenous contrast. Radiation dose: Total exam DLP = 922.73 mGy-cm. This CT exam was performed using one or more of the following dose reduction techniques: Automated exposure control, adjustment of the mA and/or kV according to patient size, and/or use of iterative reconstruction technique. FINDINGS: HEMORRHAGE: A large intraparenchymal hemorrhage is identified with an epicenter at the right frontotemporal distribution exerting mass effect locally an in general somewhat, with a leftward midline shift of approximately 6 mm. Exact measurement of the intraparenchymal hemorrhages overestimated due to the heterogeneous distribution of hemorrhagic products, however, it appears to measure 4.8 x 6.8 x 6.0 cm (transverse by anteroposterior by superoinferior dimensions). The right lateral ventricle is largely effaced and intraparenchymal hemorrhage is identified at the left greater the right lateral ventricle atria. Subarachnoid hemorrhage partially opacifies the suprasellar and perimesencephalic cisterns as well as right frontal temporal sulci and sulcus at the right parietal lobe as well. hemorrhages also identified crossing the left sylvian fissure and extending anteriorly into the anterior hemispheric fissure. BRAIN: Supratentorial compartment as discussed above. Below the tentorium, trace hemorrhage is seen the pre pontine and pre medullary cisterns with limited cerebellar atrophy identified. VENTRICLES: See hemorrhage section above. CALVARIUM: No fracture the calvarium or skullbase identified although there is a moderate left parietal scalp hematoma identified. Limited left frontotemporal and periorbital preseptal soft tissue edema identified. PARANASAL SINUSES: Unremarkable as visualized. No significant inflammatory changes. MASTOID AIR CELLS: Unremarkable as visualized. No inflammatory changes. OTHER FINDINGS: Postop changes left orbital floor reiterated. IMPRESSION: A large intraparenchymal hemorrhage is identified at the deep right frontotemporal distribution causing a leftward midline shift and extending into the subarachnoid space including suprasellar and cistern and interhemispheric fissure, perimesencephalic cisterns and pre pontine and pre medullary cisterns. Numerous peripheral subarachnoid extension into the sulci is also identified as discussed above and including the left sylvian fissure. No displaced fracture although a moderate left parietal scalp hematoma is identified and mild scalp edema seen at the left frontoparietal distribution and preseptal periorbital soft tissue. Clinical and CT follow-up are advised. Concordant preliminary report from [facility],
--- NOTE | 2018-04-29 12:39 | CT ---
PROCEDURE: CT MAXILLOFACIAL BONES WITHOUT CONTRAST HISTORY: left facial injury COMPARISON: None TECHNIQUE: Contiguous axial CT images of the maxillofacial bones were obtained. Coronal and sagittal reformats were generated. Radiation dose: Total exam DLP = 759.58 mGy-cm. This CT exam was performed using one or more of the following dose reduction techniques: Automated exposure control, adjustment of the mA and/or kV according to patient size, and/or use of iterative reconstruction technique. FINDINGS: NASAL BONES: Chronic deformity from fracture the left and right nasal bones is seen once again. ORBITS: No acute fracture bilaterally. Postoperative changes are seen at left orbital floor once again. PARANASAL SINUSES/ MASTOIDS: Clear. MAXILLA: No fracture identified. Mild left premalar soft tissue edema identified extending into the left periorbital and left scalp soft tissues without related fracture. MANDIBLE/ TEMPOROMANDIBULAR JOINTS: Unremarkable. SKULL BASE: Unremarkable. TEMPORAL BONES: Middle ears and mastoid grossly unremarkable. OTHER FINDINGS: Intracranial hemorrhage predominate at the right fronto parietal distribution described in greater detail in separate head CT also performed 04/28/2018. Please separate report. IMPRESSION: No acute fracture throughout the facial bones. Old healed nasal bone fractures are identified with deformity stable. Postop changes left oral floor reiterated. Acute subacute left premalar, periorbital and frontal soft tissue edema/hematoma identified. Incidental intracranial hemorrhage described in great detail in separate head CT report 04/28/2018.
--- NOTE | 2018-04-29 12:51 | CT ---
PROCEDURE: CT Cervical Spine without contrast HISTORY: head injury COMPARISON: Noncontrast cervical spine CT 02/09/2016. TECHNIQUE: Axial computed tomography images were obtained of the cervical spine without the use of intravenous contrast. Coronal and sagittal reformatted images were created and reviewed. Radiation dose: Total exam DLP = 611.22 mGy-cm. This CT exam was performed using one or more of the following dose reduction techniques: Automated exposure control, adjustment of the mA and/or kV according to patient size, and/or use of iterative reconstruction technique. FINDINGS: VERTEBRAE: There is a further reversal the cervical curvature without definite fracture or spondylolisthesis appreciated. DISCS/SPINAL CANAL/NEURAL FORAMINA: There is a mild left C5 root foraminal stenosis appreciated due to degenerative facet joint and uncovertebral joint osteophytes. Multilevel moderate mid cervical spondylosis identified. There is a mild C5-6 central canal stenosis appreciated due to a disc osteophyte complex. No additional bony central stenosis appreciated. PARASPINAL SOFT TISSUES: Unremarkable. OTHER FINDINGS: Moderate superficial and deep left chest wall and supraclavicular soft tissue edema is identified extending to the left paraspinal soft tissues. IMPRESSION: No fracture or spondylolisthesis identified in the interval. Increased reversal of cervical curvature is evident. Multilevel cervical spondylosis appreciated predominate the mid cervical spine with mild left C5 neural foraminal stenosis evident and mild degenerative central stenosis also present. Moderate superficial and deep left chest wall and supraclavicular soft tissue edema is identified extending to the left paraspinal soft tissues.
--- NOTE | 2018-04-29 13:25 | CT ---
PROCEDURE: CT Angiography of the Brain. HISTORY: ICH COMPARISON: None available. TECHNIQUE: CT angiography of the intracranial arteries was performed. Coronal and sagittal maximum intensity projection reformated images were generated. Contrast Dose: Visipaque 320, 99 cc Radiation dose:Total exam DLP = 570.56 mGy-cm. This CT exam was performed using one or more of the following dose reduction techniques: Automated exposure control, adjustment of the mA and/or kV according to patient size, and/or use of iterative reconstruction technique. FINDINGS: INTERNAL CEREBRAL ARTERIES: Unremarkable. The skull base, petrous, cavernous and supraclinoid segments are bilaterally widely patent. ANTERIOR CEREBRAL ARTERIES: Unremarkable. A1 and A2 segments are widely patent. Smaller distal branches unremarkable, as visualized. MIDDLE CEREBRAL ARTERIES: Unremarkable. M1 and M2 segments are widely patent. Perisylvian branches grossly symmetric. POSTERIOR CIRCULATION: Basilar Artery: Unremarkable. Distal Vertebral Arteries: Unremarkable. Posterior Cerebral Arteries: Unremarkable. Posterior Inferior Cerebellar Arteries: Unremarkable. ANEURYSM/ VASCULAR MALFORMATIONS: No large aneurysm or arteriovascular malformation is encountered. Smaller right perisylvian aneurysms may be obscured by hemorrhage if present. OTHER FINDINGS: Intraparenchymal and subarachnoid hemorrhage is appreciated in greater detail in separate head CT also performed 04/28/2018. IMPRESSION: No vascular occlusion or marked stenosis appreciable on intracranial head CT. However, small vascular lesions would be difficult to evaluate, particularly at the right perisylvian distribution due to accentuated subarachnoid intraparenchymal hemorrhage in the brain as described in separate head CT 04/28/2018, present in the current examination as well. Concordant preliminary report from [facility], 04/28/2018.
[2018-04-29] MEDS ORDERED: Chlorhexidine Gluconate 1 APPL/PKT TP ONE (16:01)
[2018-04-29 19:03] LABS: BLOOD UREA NITROGEN 24 mg/dl (7-17); CALCIUM 8.2 mg/dL (8.4-10.2); GFR AFRICAN-AMERICAN > 60; GFR NON-AFRICAN AMERICAN > 60
[2018-04-30] MEDS: Nicardipine 20 MG/200 ML 20 MG/200 ML BAG IV SCH ×10 (00:50→22:49)
[2018-04-30 05:38] LABS: HEMOGLOBIN 11.2 g/dL (12.0-16.0); MEAN CELL VOLUME 104.6 fl (81.0-99.0); MEAN CORPUSCULAR HGB CONC 32.5 g/dL (33.0-37.0); RBC 3.28 Mil/uL (3.80-5.20); RED CELL DISTRIBUTION WIDTH 14.5 % (11.5-14.5); WHITE BLOOD COUNT 16.5 K/uL (4.8-10.8)
[2018-04-30 05:41] LABS: BLOOD UREA NITROGEN 26 mg/dl (7-17); CALCIUM 8.2 mg/dL (8.4-10.2); GFR AFRICAN-AMERICAN > 60; GFR NON-AFRICAN AMERICAN > 60
--- NOTE | 2018-04-30 08:20 | CON ---
HISTORY OF PRESENT ILLNESS: This is a 57-year-old woman well known to the ER. Apparently, habitual alcoholic who was found down, brought to the ER, found to be minimally responsive and having an intracranial hemorrhage. She does have a history of hypertension. She has a history of substance abuse. The rest of all her information reviewed in the EMR. PHYSICAL EXAMINATION: GENERAL: She is mumbling, but slurred speech, perseverating. HEENT: She does open her eyes to stimulus. She follows some, but not all commands. Pupils are equally reactive. She does have a facial palsy and a profound left hemiparesis. She is living with good strength on the right. LABORATORY DATA: CT of the brain shows a hemorrhage, primarily in the right basal ganglia and hemispheric area, ruptured into the subarachnoid space with a fair amount of subarachnoid blood and rupture into the right lateral ventricle. CT angiography was confirmed to rule out aneurysm and was negative. IMPRESSION AND PLAN: Right-sided hypertensive hemorrhage. There is no neurosurgical indication. At this point, I would certainly recommend continued medical management with head of bed elevation and dehydration. I see ____ type blood pressure control. I would follow up CT tomorrow morning. Carlos Meade MD
[2018-04-30] MEDS: levETIRAcetam 1,000 MG in Sodium Chloride 0.9% 100 ML IVPB SCH ×2 (08:43→20:35)
--- NOTE | 2018-04-30 09:16 | CP.PCM.PN ---
Subjective - Date & Time of Evaluation Date of Evaluation: 04/30/18 Time of Evaluation: 09:14 - Subjective Subjective: Ms. Sanchez was seen and examined at the bedside in ICU. She is able to open her eyes spontaneously with her pupils reactive to light accommodation 3 mm in size. She has right gaze palsy with left side paraplegia. She mumbles few words , some are clear and some are incomprehensible.She is able to move minimally on her right side especially the upper extremity. She remains on Cardene drip and BP-160/90 and heart rate above 120. She is currently on hypertonic at 40ml/hr. Her latest na- 142 and serum osmolality is 310. She had an episode of febrile last night. Septic work up done. Objective - Vital Signs/Intake and Output Vital Signs (last 24 hours): Temp Pulse Resp BP Pulse Ox 100.5 F H 123 H 29 H 160/96 H 100 04/30/18 08:00 04/30/18 08:00 04/30/18 08:00 04/30/18 08:00 04/30/18 08:00 Intake and Output: 04/30/18 04/30/18 06:59 18:59 Intake Total 1580 300 Output Total 375 Balance 1205 300 - Medications Medications: Current Medications Acetaminophen (Tylenol 650 Mg Supp) 650 mg [place] Q6 PRN PRN Reason: Fever >100.4 F Last Admin: 04/30/18 04:16 Dose: 650 mg Acetaminophen (Tylenol 650 Mg Supp) 650 mg MI Q6 PRN PRN Reason: Pain, Mild (1-3) Nicardipine HCl (Cardene Iv Premix) 20 mg in 200 mls @ 50 mls/hr IV .Q4H ROBYN; 5 MG/HR PRN Reason: Protocol Last Admin: 04/30/18 08:42 Dose: 10 mg/hr, 100 mls/hr Sodium Chloride (Hypertonic Saline 3%) 250 mls @ 0 mls/hr IV .Q0M ROBYN PRN Reason: As Directed Stop: 04/30/18 10:01 Last Admin: 04/29/18 10:32 Dose: 100 mls/hr Sodium Chloride (Hypertonic Saline 3%) 500 mls @ 40 mls/hr IV .[id number] ROBYN Stop: 04/30/18 09:22 Last Admin: 04/29/18 12:12 Dose: 40 mls/hr Levetiracetam 1,000 mg/ Sodium (Chloride) 110 mls @ 210 mls/hr IVPB Q12 ROBYN Last Admin: 04/30/18 08:43 Dose: 210 mls/hr - Labs Labs: 04/30/18 04:30 04/30/18 04:30 PT 11.5 Seconds (9.8-13.1) 04/28/18 21:07 INR 1.0 (0.9-1.2) 04/28/18 21:07 APTT 25.9 Seconds (25.6-37.1) 04/28/18 21:07 - Constitutional Appears: No Acute Distress - Head Exam Head Exam: NORMAL INSPECTION - Eye Exam Pupil Exam: PERRL Additional comments: right gaze palsy. - Neurological Exam Neurological Exam: Awake Neuro motor strength exam: Left Upper Extremity: 0, Right Upper Extremity: 2/1, Left Lower Extremity: 0, Right Lower Extremity: 0 Additional comments: awake, moves her right upper extremity spontaneously, sensation is intact. Assessment and Plan (1) Hemorrhagic stroke Assessment & Plan: Case discussed with Dr. Carmichael, continue all current medical regimen. Pending CT scan result. Recommend ID consult for (fever, elevated WBC), maintain head of bed elevated at least 30-40 degrees, blood pressure control, keep na level 145- 150 and serum osmolality below 320. Status: Acute
--- NOTE | 2018-04-30 09:40 | CT ---
PROCEDURE: CT HEAD WITHOUT CONTRAST. HISTORY: ICH COMPARISON: Noncontrast head CT 04/28/2018. TECHNIQUE: Axial computed tomography images were obtained through the head/brain without intravenous contrast. Radiation dose: Total exam DLP = 800.01 mGy-cm. This CT exam was performed using one or more of the following dose reduction techniques: Automated exposure control, adjustment of the mA and/or kV according to patient size, and/or use of iterative reconstruction technique. FINDINGS: HEMORRHAGE: No significant interval change in the volume of a right fronto temporal intraparenchymal hemorrhage measuring 4.8 x 6.8 x 6.1 cm. 6 mm leftward shift is appreciated, also not significantly changed. Anteroinferior subarachnoid hemorrhagic extension is unchanged including a minimally toward the left. Antral lateral right subarachnoid hemorrhage remains limited extending primarily to the right frontotemporal distribution but also affecting a few sulci at the right parietal lobe. There is further effacement on the right lateral ventricle due to increased edema surrounding the intraparenchymal hemorrhage. Further effacement of distant superior right cerebral sulci is also evident from the same etiology. Basilar cisterns remain patent although hemorrhage is again seen extending into the pre pontine/pre medullary space. BRAIN: Underlying diffuse cerebral atrophy is reiterated VENTRICLES: Effacement of the right lateral ventricle as discussed above. No definite hydrocephalus at the remaining ventricles. CALVARIUM: Calvarium is stable as well as moderate left parietal scalp hematoma and limited left frontotemporal and periorbital preseptal edema. PARANASAL SINUSES: Unremarkable as visualized. No significant inflammatory changes. MASTOID AIR CELLS: Unremarkable as visualized. No inflammatory changes. OTHER FINDINGS: None. IMPRESSION: Stable large intraparenchymal hemorrhage at the right frontotemporal distribution increased edema causing further effacement of the right lateral ventricle minimally and distance sulci at the right cerebral vertex though the midline shift is stable at 6 mm leftward. Additional subarachnoid hemorrhage again seen the right greater than left as discussed above as well as anterior to the jonathan and medulla. Basilar cisterns remain adequately patent. Continued clinical and CT monitoring are advised.
--- NOTE | 2018-04-30 10:14 | CP.PCM.HP ---
History of Present Illness - History of Present Illness History of Present Illness: This is a 57 y/o female admitted for change in mental status. She was found by her neighbors to be comatose.. Initial CT scan showed large area of hemorrhage at the right frontoparietal area. She was found unresponsive by neighbors and not known how many days she has been on that condition. She has a hx of depression, significant alcohol abuse very noncompliant with medications Has a hx of previous SH hx ? of DM 2 Present on Admission - Present on Admission Any Indicators Present on Admission: No History of DVT/PE: No History of Uncontrolled Diabetes: No Urinary Catheter: No Decubitus Ulcer Present: No Past Patient History - Infectious Disease Hx of Infectious Diseases: None - Past Medical History & Family History Past Medical History?: Yes - Past Social History Smoking Status: Unknown If Ever Smoked - CARDIAC Hx Hypertension: Yes - PULMONARY Hx Respiratory Disorders: No - NEUROLOGICAL Hx Seizures: Yes - HEENT Hx HEENT Problems: No - RENAL Hx Chronic Kidney Disease: No - ENDOCRINE/METABOLIC Hx Endocrine Disorders: Yes - HEMATOLOGICAL/ONCOLOGICAL Hx Human Immunodeficiency Virus (HIV): No - INTEGUMENTARY Hx Dermatological Problems: No - MUSCULOSKELETAL/RHEUMATOLOGICAL Hx Arthritis: Yes Hx Fractures: Yes (right upper arm) - GASTROINTESTINAL Hx Gastrointestinal Disorders: No - GENITOURINARY/GYNECOLOGICAL Hx Genitourinary Disorders: No - PSYCHIATRIC Hx Anxiety: Yes Hx Depression: Yes - SURGICAL HISTORY Hx Tonsillectomy: Yes - ANESTHESIA Hx Anesthesia: Yes Hx Anesthesia Reactions: No Hx Malignant Hyperthermia: No Meds Allergies/Adverse Reactions: Allergies Allergy/AdvReac Type Severity Reaction Status Date / Time No Known Allergies Allergy Verified 02/25/18 20:00 Physical Exam - Constitutional Additional comments: comatose - Eye Exam Additional comments: sluggish pupils reaction to light - Respiratory Exam Respiratory Exam: Clear to Auscultation Bilateral - Cardiovascular Exam Cardiovascular Exam: REGULAR RHYTHM - GI/Abdominal Exam GI & Abdominal Exam: Normal Bowel Sounds - Neurological Exam Additional comments: comatose left hemiplegia Results - Vital Signs Recent Vital Signs: Last Vital Signs Temp 100.5 F H 04/30/18 08:00 Pulse 113 H 04/30/18 10:00 Resp 24 04/30/18 10:00 BP 163/90 H 04/30/18 10:00 Pulse Ox 100 04/30/18 10:00 - Labs Result Diagrams: 05/02/18 04:45 05/02/18 04:45 Labs: Laboratory Results - last 24 hr 04/29/18 04/29/18 04/30/18 11:30 18:30 04:30 WBC 16.5 H RBC 3.28 L Hgb 11.2 L Hct 34.3 MCV 104.6 H D MCH 34.0 H MCHC 32.5 L RDW 14.5 Plt Count 180 Sodium 141 Potassium 3.5 L Chloride 102 Carbon Dioxide 26 Anion Gap 17 BUN 24 H Creatinine 0.5 L Est GFR ( Amer) > 60 Est GFR (Non-Af Amer) > 60 Random Glucose 188 H Serum Osmolality 307 H Calcium 8.2 L 04/30/18 04/30/18 04:30 04:30 WBC RBC Hgb Hct MCV MCH MCHC RDW Plt Count Sodium 142 Potassium 3.3 L Chloride 103 Carbon Dioxide 26 Anion Gap 16 BUN 26 H Creatinine 0.6 L Est GFR ( Amer) > 60 Est GFR (Non-Af Amer) > 60 Random Glucose 199 H Serum Osmolality 310 H Calcium 8.2 L Assessment & Plan (1) Hemorrhagic stroke Status: Acute (2) Hypertensive emergency Status: Acute (3) Alcohol abuse with intoxication Status: Acute (4) Diabetes mellitus type 2 in obese Status: Acute (5) Hypertensive encephalopathy Status: Acute - Assessment and Plan (Free Text) Plan: start accucheck ICU cardiology eval Neuro eval control BP check labs hydrate NPO\ antacid CXR showed no aspiration.
--- NOTE | 2018-04-30 10:20 | CP.PCM.PN ---
Subjective - Date & Time of Evaluation Date of Evaluation: 04/30/18 Time of Evaluation: 10:19 - Subjective Subjective: Patient continues to be comatose. Noted slight improvement of changes on CT scan Not on DNR No available next of kin Still with elevated WBC CXR showed no sign of aspiration Objective - Vital Signs/Intake and Output Vital Signs (last 24 hours): Temp Pulse Resp BP Pulse Ox 100.5 F H 113 H 24 163/90 H 100 04/30/18 08:00 04/30/18 10:00 04/30/18 10:00 04/30/18 10:00 04/30/18 10:00 Intake and Output: 04/30/18 04/30/18 06:59 18:59 Intake Total 1580 300 Output Total 375 Balance 1205 300 - Medications Medications: Current Medications Acetaminophen (Tylenol 650 Mg Supp) 650 mg [place] Q6 PRN PRN Reason: Fever >100.4 F Last Admin: 04/30/18 04:16 Dose: 650 mg Acetaminophen (Tylenol 650 Mg Supp) 650 mg LA Q6 PRN PRN Reason: Pain, Mild (1-3) Nicardipine HCl (Cardene Iv Premix) 20 mg in 200 mls @ 50 mls/hr IV .Q4H ROBYN; 5 MG/HR PRN Reason: Protocol Last Admin: 04/30/18 08:42 Dose: 10 mg/hr, 100 mls/hr Levetiracetam 1,000 mg/ Sodium (Chloride) 110 mls @ 210 mls/hr IVPB Q12 ROBYN Last Admin: 04/30/18 08:43 Dose: 210 mls/hr - Labs Labs: 04/30/18 04:30 04/30/18 04:30 PT 11.5 Seconds (9.8-13.1) 04/28/18 21:07 INR 1.0 (0.9-1.2) 04/28/18 21:07 APTT 25.9 Seconds (25.6-37.1) 04/28/18 21:07 - Eye Exam Additional comments: sluggishly reactive - ENT Exam ENT Exam: Mucous Membranes Moist - Cardiovascular Exam Cardiovascular Exam: REGULAR RHYTHM - GI/Abdominal Exam GI & Abdominal Exam: Normal Bowel Sounds - Neurological Exam Additional comments: comatose Assessment and Plan (1) Diabetes mellitus type 2 in obese Status: Acute (2) Hemorrhagic stroke Status: Acute (3) Hypertensive encephalopathy Status: Acute (4) Leukocytosis Status: Acute - Assessment and Plan (Free Text) Plan: Cont meds cont tx insulin coverage cont current nursing care
--- NOTE | 2018-04-30 10:43 | CP.PCM.PN ---
Subjective - Date & Time of Evaluation Date of Evaluation: 04/30/18 Time of Evaluation: 10:43 - Subjective Subjective: CT = no hydrocephalus rec cont medical mgmt Objective - Vital Signs/Intake and Output Vital Signs (last 24 hours): Temp Pulse Resp BP Pulse Ox 100.5 F H 113 H 24 163/90 H 100 04/30/18 08:00 04/30/18 10:00 04/30/18 10:00 04/30/18 10:00 04/30/18 10:00 Intake and Output: 04/30/18 04/30/18 06:59 18:59 Intake Total 1580 300 Output Total 375 Balance 1205 300 - Medications Medications: Current Medications Acetaminophen (Tylenol 650 Mg Supp) 650 mg [place] Q6 PRN PRN Reason: Fever >100.4 F Last Admin: 04/30/18 04:16 Dose: 650 mg Acetaminophen (Tylenol 650 Mg Supp) 650 mg [place] Q6 PRN PRN Reason: Pain, Mild (1-3) Nicardipine HCl (Cardene Iv Premix) 20 mg in 200 mls @ 50 mls/hr IV .Q4H ROBYN; 5 MG/HR PRN Reason: Protocol Last Admin: 04/30/18 08:42 Dose: 10 mg/hr, 100 mls/hr Levetiracetam 1,000 mg/ Sodium (Chloride) 110 mls @ 210 mls/hr IVPB Q12 ROBYN Last Admin: 04/30/18 08:43 Dose: 210 mls/hr Potassium Chloride (Potassium Cl 10meq/50ml Sterile Water) 50 mls @ 50 mls/hr IVPB Q1 ROBYN Stop: 04/30/18 12:59 - Labs Labs: 04/30/18 04:30 04/30/18 04:30 PT 11.5 Seconds (9.8-13.1) 04/28/18 21:07 INR 1.0 (0.9-1.2) 04/28/18 21:07 APTT 25.9 Seconds (25.6-37.1) 04/28/18 21:07
[2018-04-30] MEDS: Potassium CL 10 MEQ/50 ML 50 ML IVPB SCH ×2 (10:57→12:06)
[2018-04-30] MEDS ORDERED: Chlorhexidine Gluconate 1 APPL/PKT TP ONE (11:03)
--- NOTE | 2018-04-30 11:35 | CARD ---
APPROVED REPORT EKG Measurement Heart [id number] AL [id number] [id number] <Conclusion> Sinus tachycardia Possible Left atrial enlargement Borderline ECG
--- NOTE | 2018-04-30 13:37 | CP.PCM.PN ---
Subjective - Date & Time of Evaluation Date of Evaluation: 04/30/18 Time of Evaluation: 11:36 - Subjective Subjective: i d note patient examined ,emr reviewed s/p fall c haemorrhage right frontal parietal area has fever,leukocytosis possible aspiration start antibiotic rx c clindamycin/unasyn full consult to follow Objective - Vital Signs/Intake and Output Vital Signs (last 24 hours): Temp Pulse Resp BP Pulse Ox 100.0 F H 114 H 28 H 155/59 H 100 04/30/18 12:00 04/30/18 13:00 04/30/18 13:00 04/30/18 13:00 04/30/18 13:00 Intake and Output: 04/30/18 04/30/18 06:59 18:59 Intake Total 1580 800 Output Total 375 Balance 1205 800 - Medications Medications: Current Medications Acetaminophen (Tylenol 650 Mg Supp) 650 mg [place] Q6 PRN PRN Reason: Fever >100.4 F Last Admin: 04/30/18 11:02 Dose: 650 mg Acetaminophen (Tylenol 650 Mg Supp) 650 mg [place] Q6 PRN PRN Reason: Pain, Mild (1-3) Nicardipine HCl (Cardene Iv Premix) 20 mg in 200 mls @ 50 mls/hr IV .Q4H ROBYN; 5 MG/HR PRN Reason: Protocol Last Admin: 04/30/18 13:21 Dose: 10 mg/hr, 100 mls/hr Levetiracetam 1,000 mg/ Sodium (Chloride) 110 mls @ 210 mls/hr IVPB Q12 ROBYN Last Admin: 04/30/18 08:43 Dose: 210 mls/hr Clindamycin Phosphate (Cleocin) 600 mg in 50 mls @ 50 mls/hr IVPB Q8 ROBYN PRN Reason: Protocol Ampicillin Sodium/Sulbactam (Sodium 1.5 gm/ Sodium Chloride) 100 mls @ 100 mls/ hr IVPB Q6 ROBYN PRN Reason: Protocol - Labs Labs: 04/30/18 04:30 04/30/18 04:30 PT 11.5 Seconds (9.8-13.1) 04/28/18 21:07 INR 1.0 (0.9-1.2) 04/28/18 21:07 APTT 25.9 Seconds (25.6-37.1) 04/28/18 21:07
--- NOTE | 2018-04-30 14:30 | PQF GENQUE ---
Dr. Arreola, Are there any additional diagnoses to go along with the use of Mg Sulfate IV and IV Antihypertensives? OR: [place] OR: Other explanation of clinical finding B/P High :194/122 04/[address]:Impression: Stable large intraparenchymal hemorrhage at the right frontotemporal distribution increased edema causing further effacement of the right lateral ventricle minimally and distance sulci at the right cerebral vertex though the midline shift is stable at 6 mm leftward. Additional subarachnoid hemorrhage again seen the right greater than left as discussed above as well as anterior to the jonathan and medulla. Basilar cisterns remain adequately patent. Continued clinical and CT monitoring are advised. ER:Obtunded : Clinical Impression: Intracranial hemorrhage, Hemorrhagic stroke, Hypertensive emergency, Head injury H and P: admitted for change in mental status. She was found by her neighbors to be comatose.. Initial CT scan showed large area of hemorrhage at the right frontoparietal area. Hospitalist-Patient is arousable and can interact somewhat when awake, but appears to have an aphasia, and is unable to provide any history. -Altered mental status 57 y/o with R sided hemorrhagic stroke likely in setting of uncontrolled HTN. Also possible EtOH abuse. -admit ICU -head of bed up 30 deg -NPO, low rate IVF -q4h neuro checks -Continue nicardipine gtt to control SBP -Rec'd 1 g Keppra IV x 1 in ER, will continue from tmrw am at 500 mg iv q12h - Neurology, neurosurgery consult ([place]) -SCDs only for DVT PPx Status: Acute (2) Hemorrhagic stroke Status: Acute (3) Seizure disorder Status: Acute (4) Leukocytosis Status: Acute (5) Alcohol abuse Status: Chronic Neurology consult :She is still able to move the right arm and leg, but has neglect of the left side as well as complete hemiplegia--Hemorrhagic stroke Neuro Surgical : Right-sided hypertensive hemorrhage. There is no neurosurgical indication 04/29 Neuro Surgical note; hypertensive hemorrhage R hemisphere :rec medical mgmt 04/30 Attending: comatose This form is a permanent part of the medical record Clarification of your documentation is requested to better reflect the severity of illness and intensity of treatment of your patient. Indicators present [] Specify: [] [] Specify: [] [] Specify: [] [] Specify: [] Location in the medical record that reflects the above clinical findings: [] Treatment Provided: [] PHYSICIAN'S RESPONSE Based on your medical judgment of the clinical indicators outlined above please clarify the following: [] Practitioner response [] If unable to determine, please check the box, sign and date. Present On Admission (POA) Indicator: [] Present at the time of admission [] Not present at the time of admission [] Clinically Undetermined In responding to this query, please exercise your independent professional judgment. The fact that a question is asked does not imply that any particular answer is desired or expected. Thank you for your clarification on this documentation. If you have any questions please call. * Thank you, Apoorva Meehan RN ext. #[phone] MTDD
[2018-04-30] MEDS: Clindamycin 600mg/50ml D5W 600 MG/50 ML VIAL IVPB SCH (16:00)
[2018-04-30] MEDS ORDERED: Sodium Chloride 3% 500 ML IV SCH (16:00)
--- NOTE | 2018-04-30 16:38 | RAD ---
PROCEDURE: CHEST RADIOGRAPH, 1 VIEW HISTORY: aspiration COMPARISON: 04/28/2018 FINDINGS: LUNGS: Clear. PLEURA: No pneumothorax or pleural fluid seen. CARDIOVASCULAR: No radiographic findings to suggest acute or significant cardiovascular disease. OSSEOUS STRUCTURES: No significant abnormalities. VISUALIZED UPPER ABDOMEN: Normal. OTHER FINDINGS: None. IMPRESSION: No active disease. No acute/significant interval changes.
[2018-04-30 18:37] LABS: BLOOD UREA NITROGEN 23 mg/dl (7-17); CALCIUM 8.1 mg/dL (8.4-10.2); GFR AFRICAN-AMERICAN > 60; GFR NON-AFRICAN AMERICAN > 60
[2018-04-30] MEDS ORDERED: Potassium Chloride 20 mEq 100 ML IVPB ONE (21:10)
--- NOTE | 2018-05-01 00:21 | PN ---
DATE: 04/30/2018 CRITICAL CARE PROGRESS NOTE LOCATION: The patient in ICU bed 434. TIME SPENT: 35 minutes. SUBJECTIVE: The patient is seen and evaluated at the bedside. Past medical, surgical, social, family history reviewed. A 57-year-old female with a history significant for alcohol dependence, seizure disorder, noncompliant with the medications, multiple admissions in the hospital for seizure and change in the mental status, admitted with change in the mental status after being found unresponsive on the floor. CT showed intracerebral hematoma at the right frontotemporal distribution with increased edema causing further effacement of the right lateral ventricle minimally and distant sulci at the right cerebral vertex, though the midline shift is stable at 6 mm leftward, subarachnoid hemorrhage again seen in the right greater than left. Chest x-ray: No acute infiltrate, but for basal atelectasis. CT chest, abdomen and pelvis: Enlarged fatty liver, no acute solid visceral or bowel injury identified, probable fibroid uterus, and diverticulosis. Maxillofacial CT: No acute fracture throughout the facial bones, old healed nasal bone fracture with deformity stable, postop changes in left oral floor reiterated, acute/subacute left premalar, periorbital, and frontal soft tissue edema/hematoma identified. MEDICATIONS: Include potassium chloride 10 mEq 50 mL IVSS x1, nicardipine 20 mg/200 mL to maintain systolic pressure less than 160, Keppra 1000 mg every 12 hours, Tylenol 650 mg every 6 hours p.r.n., nicardipine drip as noted. LABORATORY DATA: WBC 16.5, hemoglobin 11.2, hematocrit 34.3, and platelet count 180. PT 11.5, INR 1, PTT 25.9. SMA-7: Sodium 142, potassium 3.3, chloride 103, CO2 of 26, blood urea nitrogen 26, creatinine 0.6, random glucose 199. Lactic acid 2.2. Calcium 8.2. Serum osmolality 310. IMPRESSION: 1. Neuro: Altered mental status, left frontotemporal intracerebral hemorrhage with further effacement of the bush-white matter. Continue 3% saline. Maintain serum osmolality less than 330. Leukocytosis with low-grade fever, unclear etiology about infection verus reactive to intracerebral hemorrhage. Infectious Disease consulted for further evaluation. 2. Renal: No acute abnormality except for hypokalemia. Supplement potassium. No history of diabetes. Maintain blood sugar less than 180 mg. Continue deep venous thrombosis prophylaxis. Hold anticoagulation. Venodyne boots in place. 3. Hematology: Platelet count and hemoglobin remain stable. Leukocytosis is reactive and/or due to infection. PLAN: Discussed with family. Updated clinical status. Continue current care. Currently remains in full code. Continue Keppra 1000 mg every 12 hours, nicardine drip, potassium supplement, levetiracetam 1000 mg every 12 hours. Junior Broderick MD MTDD
[2018-05-01] MEDS: Clindamycin 600mg/50ml D5W 600 MG/50 ML VIAL IVPB SCH ×3 (00:30→16:50)
[2018-05-01] MEDS: Nicardipine 20 MG/200 ML 20 MG/200 ML BAG IV SCH ×8 (01:44→21:53)
[2018-05-01 05:34] LABS: BASO % 0.1 % (0.0-2.0); EOS % 0.2 % (0.0-4.0); HEMOGLOBIN 12.1 g/dL (12.0-16.0); LYMPH # 1.1 K/uL (1.0-4.3); MEAN CELL VOLUME 104.9 fl (81.0-99.0); MEAN CORPUSCULAR HEMOGLOBIN 33.9 pg (27.0-31.0); MEAN CORPUSCULAR HGB CONC 32.4 g/dL (33.0-37.0); MEAN PLATELET VOLUME 9.2 fl (7.2-11.7); MONO # 1.6 K/uL (0.0-0.8); MONO % 10.5 % (0.0-10.0); NEUT # 12.9 K/uL (1.8-7.0); NEUT % 82.2 % (50.0-75.0); NRBC % 0.1 % (0.0-0.0); RBC 3.57 Mil/uL (3.80-5.20); RED CELL DISTRIBUTION WIDTH 14.8 % (11.5-14.5); WHITE BLOOD COUNT 15.7 K/uL (4.8-10.8)
[2018-05-01 05:39] LABS: BLOOD UREA NITROGEN 20 mg/dl (7-17); CALCIUM 8.2 mg/dL (8.4-10.2); GFR AFRICAN-AMERICAN > 60; GFR NON-AFRICAN AMERICAN > 60
[2018-05-01] MEDS ORDERED: Magnesium Sulfate 2 gm/50 ml 2 GM/50 ML BAG IVPB ONE (08:31)
--- NOTE | 2018-05-01 08:37 | CARD ---
APPROVED REPORT EKG Measurement Heart [id number] VT 136P53 [id number] <Conclusion> Sinus tachycardia with premature atrial complexes Otherwise normal ECG
[2018-05-01] MEDS: levETIRAcetam 1,000 MG in Sodium Chloride 0.9% 100 ML IVPB SCH ×2 (09:05→20:51)
[2018-05-01] MEDS: Potassium Chloride 20 mEq 100 ML IVPB SCH ×3 (11:00→20:51)
[2018-05-01] MEDS ORDERED: Chlorhexidine Gluconate 1 APPL/PKT TP ONE (12:29)
--- NOTE | 2018-05-01 17:58 | CP.PCM.CON ---
History of Present Illness - History of Present Illness History of Present Illness: PT WITH HEMORRHAGIC CVA AND OBTUNDED STATE. PTS BP WAS ELEVATED. ON CARDENE WITH BP RUNNING AROUND 160 SYSTOLIC. NO TACHY ARRYTHMIAS. VENTED. CHART REVIEWED. Past Patient History - Infectious Disease Hx of Infectious Diseases: None - Past Medical History & Family History Past Medical History?: Yes - Past Social History Smoking Status: Unknown If Ever Smoked - CARDIAC Hx Hypertension: Yes - PULMONARY Hx Respiratory Disorders: No - NEUROLOGICAL Hx Seizures: Yes - HEENT Hx HEENT Problems: No - RENAL Hx Chronic Kidney Disease: No - ENDOCRINE/METABOLIC Hx Endocrine Disorders: Yes - HEMATOLOGICAL/ONCOLOGICAL Hx Human Immunodeficiency Virus (HIV): No - INTEGUMENTARY Hx Dermatological Problems: No - MUSCULOSKELETAL/RHEUMATOLOGICAL Hx Arthritis: Yes Hx Fractures: Yes (right upper arm) - GASTROINTESTINAL Hx Gastrointestinal Disorders: No - GENITOURINARY/GYNECOLOGICAL Hx Genitourinary Disorders: No - PSYCHIATRIC Hx Anxiety: Yes Hx Depression: Yes - SURGICAL HISTORY Hx Tonsillectomy: Yes - ANESTHESIA Hx Anesthesia: Yes Hx Anesthesia Reactions: No Hx Malignant Hyperthermia: No Meds Allergies/Adverse Reactions: Allergies Allergy/AdvReac Type Severity Reaction Status Date / Time No Known Allergies Allergy Verified 02/25/18 20:00 - Medications Medications: Current Medications Acetaminophen (Tylenol 650 Mg Supp) 650 mg [place] Q6 PRN PRN Reason: Fever >100.4 F Last Admin: 05/01/18 09:11 Dose: 650 mg Acetaminophen (Tylenol 650 Mg Supp) 650 mg GA Q6 PRN PRN Reason: Pain, Mild (1-3) Folic Acid (Folic Acid) 1 mg NG DAILY ROBYN Nicardipine HCl (Cardene Iv Premix) 20 mg in 200 mls @ 50 mls/hr IV .Q4H ROBYN; 5 MG/HR PRN Reason: Protocol Last Admin: 05/01/18 17:49 Dose: 10 mg/hr, 100 mls/hr Levetiracetam 1,000 mg/ Sodium (Chloride) 110 mls @ 210 mls/hr IVPB Q12 ROBYN Last Admin: 05/01/18 09:05 Dose: 210 mls/hr Clindamycin Phosphate (Cleocin) 600 mg in 50 mls @ 50 mls/hr IVPB Q8 ROBYN PRN Reason: Protocol Last Admin: 05/01/18 16:50 Dose: 50 mls/hr Ampicillin Sodium/Sulbactam (Sodium 1.5 gm/ Sodium Chloride) 100 mls @ 100 mls/ hr IVPB Q6 [facility] PRN Reason: Protocol Last Admin: 05/01/18 16:51 Dose: 100 mls/hr Potassium Chloride (Potassium Chloride 20 Meq/100 Ml) 100 mls @ 50 mls/hr IVPB Q2 [facility] Stop: 05/01/18 21:59 Metoprolol Tartrate (Lopressor) 12.5 mg NG Q12 [facility] Multivitamins/Minerals (Therapeutic-M Tab) 1 tab PO DAILY [facility] Thiamine HCl (Vitamin B1 Tab) 100 mg NG DAILY [facility] Last Admin: 05/01/18 12:23 Dose: 100 mg Results - Vital Signs Recent Vital Signs: Last Vital Signs Temp 97.9 F 05/01/18 16:00 Pulse 107 H 05/01/18 17:00 Resp 16 05/01/18 17:00 BP 148/93 H 05/01/18 17:00 Pulse Ox 100 05/01/18 17:00 - Labs Result Diagrams: 05/02/18 04:45 05/02/18 04:45 Labs: Laboratory Results - last 24 hr 04/30/18 05/01/18 05/01/18 18:10 04:55 04:55 WBC 15.7 H RBC 3.57 L Hgb 12.1 Hct 37.4 MCV 104.9 H MCH 33.9 H MCHC 32.4 L RDW 14.8 H Plt Count 198 MPV 9.2 Neut % (Auto) 82.2 H Lymph % (Auto) 7.0 L [place] % (Auto) 10.5 H Eos % (Auto) 0.2 Baso % (Auto) 0.1 Neut # (Auto) 12.9 H Lymph # (Auto) 1.1 [place] # (Auto) 1.6 H Eos # (Auto) 0.0 Baso # (Auto) 0.0 Sodium 142 144 Potassium 3.2 L 3.5 L Chloride 104 103 Carbon Dioxide 25 29 Anion Gap 16 16 BUN 23 H 20 H Creatinine 0.5 L 0.5 L Est GFR ( Amer) > 60 > 60 Est GFR (Non-Af Amer) > 60 > 60 Random Glucose 194 H 183 H Serum Osmolality Calcium 8.1 L 8.2 L Troponin I 05/01/18 05/01/18 04:55 04:55 WBC RBC Hgb Hct MCV MCH MCHC RDW Plt Count MPV Neut % (Auto) Lymph % (Auto) [place] % (Auto) Eos % (Auto) Baso % (Auto) Neut # (Auto) Lymph # (Auto) [place] # (Auto) Eos # (Auto) Baso # (Auto) Sodium Potassium Chloride Carbon Dioxide Anion Gap BUN Creatinine Est GFR ( Amer) Est GFR (Non-Af Amer) Random Glucose Serum Osmolality 311 H Calcium Troponin I 0.0220 Assessment & Plan (1) Hemorrhagic stroke Status: Acute Priority: High (2) Hypertensive emergency Status: Acute (3) Alcohol abuse with intoxication Status: Acute (4) Alcohol withdrawal delirium Status: Acute (5) Hypokalemia Status: Acute - Assessment and Plan (Free Text) Assessment: CONT CARDENE REPLEAT LYTES GIVE MAG 2GM IVF FOR DECREASED URINE OUTPUT.
--- NOTE | 2018-05-01 19:09 | CP.PCM.PN ---
Subjective - Date & Time of Evaluation Date of Evaluation: 05/01/18 Time of Evaluation: 18:30 - Subjective Subjective: Patient is quite lethargic, has right sided gaze preference and is not following commands well. She has no seizures but her repeat CT head shows that she has different layers of hemorrhage with some hydrocephalus. Pupils equal and reactive with light. EOMI. +dolls eyes, + gag reglex, +corneals. She is not moving all extremities equally. +1 dtr ul and ll l. Toes downgoing. No clonus. Repeat ct head: shows no interval change in large right parietal hemorrhage, and right subarachnoid hemorrhage. Objective - Vital Signs/Intake and Output Vital Signs (last 24 hours): Temp Pulse Resp BP Pulse Ox 97.9 F 114 H 24 122/78 100 05/01/18 16:00 05/01/18 18:00 05/01/18 18:00 05/01/18 18:00 05/01/18 18:00 Intake and Output: 05/01/18 05/01/18 06:59 18:59 Intake Total 1810 2930 Output Total 800 1400 Balance 1010 1530 - Medications Medications: Current Medications Acetaminophen (Tylenol 650 Mg Supp) 650 mg [place] Q6 PRN PRN Reason: Fever >100.4 F Last Admin: 05/01/18 09:11 Dose: 650 mg Acetaminophen (Tylenol 650 Mg Supp) 650 mg [place] Q6 PRN PRN Reason: Pain, Mild (1-3) Folic Acid (Folic Acid) 1 mg NG DAILY ROBYN Nicardipine HCl (Cardene Iv Premix) 20 mg in 200 mls @ 50 mls/hr IV .Q4H ROBYN; 5 MG/HR PRN Reason: Protocol Last Titration: 05/01/18 18:15 Dose: 7.5 mg/hr, 75 mls/hr Levetiracetam 1,000 mg/ Sodium (Chloride) 110 mls @ 210 mls/hr IVPB Q12 [facility]YN Last Admin: 05/01/18 09:05 Dose: 210 mls/hr Clindamycin Phosphate (Cleocin) 600 mg in 50 mls @ 50 mls/hr IVPB Q8 [facility]YN PRN Reason: Protocol Last Admin: 05/01/18 16:50 Dose: 50 mls/hr Ampicillin Sodium/Sulbactam (Sodium 1.5 gm/ Sodium Chloride) 100 mls @ 100 mls/ hr IVPB Q6 ROBYN PRN Reason: Protocol Last Admin: 05/01/18 16:51 Dose: 100 mls/hr Potassium Chloride (Potassium Chloride 20 Meq/100 Ml) 100 mls @ 50 mls/hr IVPB Q2 [facility]YN Stop: 05/01/18 21:59 Metoprolol Tartrate (Lopressor) 12.5 mg NG Q12 [facility] Multivitamins/Minerals (Therapeutic-M Tab) 1 tab PO DAILY [facility] Thiamine HCl (Vitamin B1 Tab) 100 mg NG DAILY [facility]YN Last Admin: 05/01/18 12:23 Dose: 100 mg - Labs Labs: 05/01/18 04:55 05/01/18 04:55 PT 11.5 Seconds (9.8-13.1) 04/28/18 21:07 INR 1.0 (0.9-1.2) 04/28/18 21:07 APTT 25.9 Seconds (25.6-37.1) 04/28/18 21:07 Assessment and Plan - Assessment and Plan (Free Text) Assessment: 57 yr old woman with right parieto occipital hemorrhage, unchanged, with slightly worse mental status. Plan: 1. Continue keppra. Increase by giving extra 1000 mg iv dose now. 2. EEG am. Thank you Dr. bernard
[2018-05-01 19:28] LABS: BLOOD UREA NITROGEN 18 mg/dl (7-17); CALCIUM 7.6 mg/dL (8.4-10.2); GFR AFRICAN-AMERICAN > 60; GFR NON-AFRICAN AMERICAN > 60
[2018-05-01] MEDS ORDERED: Acetaminophen 650mg/20.3ml solution UD PO ONE (20:44)
[2018-05-02] MEDS: Potassium Chloride 20 mEq 100 ML IVPB SCH (01:01)
[2018-05-02] MEDS: Clindamycin 600mg/50ml D5W 600 MG/50 ML VIAL IVPB SCH ×3 (01:03→16:57)
[2018-05-02] MEDS: Nicardipine 20 MG/200 ML 20 MG/200 ML BAG IV SCH ×2 (02:09→05:04)
[2018-05-02] MEDS ORDERED: Acetaminophen 650mg/20.3ml solution UD PO ONE (04:59)
--- NOTE | 2018-05-02 05:12 | PN ---
DATE: 05/01/2018 CRITICAL CARE PROGRESS NOTE LOCATION: The patient in ICU, bed 434. TIME SPENT: 35 minutes. SUBJECTIVE: The patient is seen and evaluated at the bedside. Past medical, surgical, social and family history are reviewed. A 57-year-old female with history significant for alcohol dependence, seizure disorder, noncompliant with medications, multiple admissions in the hospital for seizure and change in the mental status, now admitted with left frontoparietal hemorrhage with edema, on 3% sodium, on hypertonic saline. Overnight, on Cardene drip. Blood pressure maintained, systolic 140 to 160. No seizure noted. Telemetry, sinus tachy. This morning, lethargic but arousable. Moves right arm and right leg. no movement on the left arm and left leg. Eyes open, slow to respond. PHYSICAL EXAMINATION: VITAL SIGNS: Temperature 100.1, heart rate 114, respiratory rate 23 to 26, blood pressure 145 to 160 over 78 to 84, saturation 100% on oxygen supplement 2 liters nasal cannula, intake 4715, output 1200. Positive balance 3515. Weight 188 pounds. THORACOABDOMINAL: No paradoxical moment of diaphragm. HEAD, EYES, EARS, NOSE, AND THROAT: Right gaze, preference. Pupils 3 to 4 mm, reactive. Conjunctivae pink. NECK: Supple. Trachea is central. CHEST: Bilateral breath sounds. Clear to auscultation. HEART: Rhythm regular. S1 and S2 normal intensity. No S3, S4, gallop. No audible murmur. ABDOMEN: Bowel sounds present, soft. Liver and spleen not palpable. Bladder not distended. EXTREMITIES: Unremarkable. NG tube in place. Medications given through the NG tube. Tolerating p.o. feeds. Add Glucerna 20 mL per hour, titrating to a goal rate of 55 mL/hour. CURRENT MEDICATIONS: Tylenol 650 every 6 p.r.n. for temp more than 100.4, Unasyn 1.5 gm IV every 6 hours, clindamycin 600 mg IV every 8 hours, Folic acid 1 mg NG daily, Keppra 1000 mg every 12 hours, Lopressor 12.5 mg every 12 hours, multivitamin one tablet daily, Cardene being weaned off, hypertonic saline at 30 mL per hour, thiamin 100 mg NG daily. LABORATORY DATA: WBC 15.7, hemoglobin 12.1, hematocrit 37.4, platelet count 198, neutrophils 82.2, lymphocytes 7, monocytes 10.5, PT 11.5, INR 1, PTT 25.9. SMA-7: Sodium 144, potassium 3.5, chloride 103, CO2 of 29. Blood urea nitrogen 20, creatinine 0.5, random glucose 183. Serum osmolality 311, calcium 8.2. Urinalysis negative. Toxicology screen negative. Alcohol level less than 10. Microbiology: Blood culture no growth reported. Electrocardiogram: Normal sinus rhythm at 115, QT interval 356, QT corrected at 492, premature atrial complexes. Chest x-ray, done on 04/30/2018, no active disease, no acute significant interval change. CT of head dated 04/30/2018, no significant interval change in the volume of right frontotemporal intraparenchymal hemorrhage, measured 4.8 x 6.8 x 6.1 cm, 6 mm leftward shift and inferior subarachnoid hemorrhage, extension unchanged. IMPRESSION: 1. Neurologic: Altered mental status, left frontotemporal intracerebral hemorrhage and subarachnoid hemorrhage, maintain on hypertonic saline, maintain serum osmolality less than 330, currently 311. Leukocytosis with low-grade fever, suspected aspiration, on Unasyn and clindamycin. 2. Pulmonary: Saturating over 94%. 3. Cardiac: Maintain blood pressure less than 160, on beta abhijit 12.5 mg every 12 hours. Wean out Cardene drip to systolic pressure less than 160. 4. Renal: No acute abnormality, except for hypokalemia, potassium being supplemented. 5. Endocrine: No history of diabetes or hypothyroidism. Maintain blood sugar less than 180 mg. 6. Hematology: Normal white count, leukocytosis, secondary to systemic inflammatory response syndrome and/or aspiration. PLAN: Continue current antibiotics. Normal hemoglobin and hematocrit. Platelet count normal. Deep venous thrombosis and gastrointestinal prophylaxis. Anticoagulation on hold, secondary to intracerebral hemorrhage. Continue Venodyne boots. NG tube inserted. Continue feeding as tolerated. Monitor for diarrhea. Continue thiamine, folic acid, multivitamin, Pepcid. Head of bed 30 degree up. Monitor for aspiration. Junior Broderick MD GOOD
[2018-05-02 05:31] LABS: HEMOGLOBIN 12.6 g/dL (12.0-16.0); MEAN CELL VOLUME 104.1 fl (81.0-99.0); MEAN CORPUSCULAR HEMOGLOBIN 34.4 pg (27.0-31.0); MEAN CORPUSCULAR HGB CONC 33.1 g/dL (33.0-37.0); RBC 3.67 Mil/uL (3.80-5.20); RED CELL DISTRIBUTION WIDTH 14.5 % (11.5-14.5); WHITE BLOOD COUNT 16.1 K/uL (4.8-10.8)
[2018-05-02 05:40] LABS: HDL CHOLESTEROL 53 MG/DL (30-70)
[2018-05-02 05:51] LABS: LDL CHOLESTEROL 101 mg/dL (0-129)
[2018-05-02 08:34] LABS: BLOOD UREA NITROGEN 19 mg/dl (7-17); GFR AFRICAN-AMERICAN > 60; GFR NON-AFRICAN AMERICAN > 60
[2018-05-02 08:35] LABS: ALBUMIN 3.7 g/dL (3.5-5.0); AST/SGOT 207 U/L (14-36); CALCIUM 8.1 mg/dL (8.4-10.2)
[2018-05-02 08:36] LABS: ALT/SGPT 111 U/L (9-52)
[2018-05-02] MEDS: Multivitamin With Minerals Tab PO SCH (08:57)
[2018-05-02] MEDS: levETIRAcetam 1,000 MG in Sodium Chloride 0.9% 100 ML IVPB SCH ×2 (09:00→21:11)
[2018-05-02 09:41] LABS: ALB/GLOB RATIO 1.1 (1.0-2.1)
--- NOTE | 2018-05-02 10:02 | CP.CCUPN ---
CCU Subjective - Physician Review Subjective (Free Text): Appears obtunded, not responsive to verbal stimuli, nor tactile stimulus, withdraws RUE to deep pain. Remains on Cardene drip this AM at 5 mg/hr, tolerating NGT feeds at 70 ml.hr. No further tachyarrhythmias, in sinus at 100- 110 / min. Other vitals and I/O's reviewed. Febrile to 102.5F overnight, marked positive fluid balance over the past 3 days. ROS: no other pertinent negs or positives on 10+ system review obtainable due to obtundation. PMSFH: All other Nursing and physician documentation reviewed to date; no new pertinent info noted relevant to current medical problems. EXAM- HEENT: no icterus, mild R gaze preference, pupils equal and reactive NECK: No JVD, supple, carotids equal upstroke bilat/no bruits CHEST: clear with diminished BS bilat, no wheezes audible. HEART: regular, distant, tachy S1S2, no rubs or murmurs ABD: soft, obese, no distention, no tympany, no palp tenderness, BS hypoactive EXT: There is no edema. No peripheral/ digital cyanosis, no calf tenderness or palpable cords, distal pulses intact and symmetrical NEURO: LUE flaccid, LLE: minimal withdrawal to pain, Motor 3-4/5 on R. SCDs on bilaterally. SKIN: no rashes, warm and dry. LABS: WBC= 16.1 HGB= 12.6 PLTs= 188K Db=111 K= 3.6 BT=669 HCO3= 26 BUN/Cr= 18/0.4 BS= 167 Phos= 3.7 Mg= 1.7 IMPRESSION / MAJOR PROBLEMS NOW: 1. Hemorrhagic CVA / hypertensive CVA with s/sx increased ICP 2. Accelerated HTN PLAN: 1. Off 3% Saline as per Neurology. 2. Added Amlodipine today, will increase metoprolol to 25-50 mg BID to control BP further, goal is SBP no higher than 140-150. 3. Elevate HOB 30, upto 45 degrees. 4. EEG and ECHO pending. 5. Repeat brain imaging to assess for any obstructive hydrocephalus. 6. Fevers may be centrally-mediated. Check Procalcitonin level. Empiric antibiotic coverage noted. 7. No spontaneous cough, may need airway protection with oral intubation. Discuss / Clarify Advance Directives ( if Any) with family. CCU Objective - Vital Signs / Intake & Output Vital Signs (Last 4 hours): Vital Signs Temp Pulse Resp BP Pulse Ox 05/02/18 09:03 109 H 158/96 H 05/02/18 08:56 104 H 149/89 05/02/18 08:00 100.7 F H 124 H 26 H 149/89 99 05/02/18 06:04 100.2 F H Intake and Output (Last 8hrs): Intake & Output 05/01/18 05/02/18 05/02/18 22:59 06:59 14:59 Intake Total 2480 1500 100 Output Total 1400 1100 Balance 1080 400 100 Intake: IV 1960 600 100 Intake, Piggyback 500 600 Tube Feeding 20 Free Water Flush 300 Output: Urine 1400 1100 Urethral ([place]) 1400 1100 Other: # Bowel Movements 0
--- NOTE | 2018-05-02 10:07 | CP.PCM.PN ---
Subjective - Date & Time of Evaluation Date of Evaluation: 05/02/18 Time of Evaluation: 10:03 - Subjective Subjective: Ms. Sanchez was seen and examined at the bedside in ICU. She opens her spontaneously with right gaze palsy. Her pupils are sluggishly reactive with 3 mm. She occasionally grunts and moves her right upper extremity. Her left side remains paraplegia. Her right upper extremity is with wrist restraint for patient safety. She is tolerating NGT feeding and remains on Cardene drip for blood pressure control. Hypertonic IVF was discontinue yesterday.She also has bilateral lower extremities SCD. She remains febrile with latest temp 101.5, on antibiotic therapy.There was no untoward events overnight. Objective - Vital Signs/Intake and Output Vital Signs (last 24 hours): Temp Pulse Resp BP Pulse Ox 100.7 F H 109 H 26 H 158/96 H 99 05/02/18 08:00 05/02/18 09:03 05/02/18 08:00 05/02/18 09:03 05/02/18 08:00 Intake and Output: 05/02/18 05/02/18 06:59 18:59 Intake Total 2050 100 Output Total 1100 Balance 950 100 - Medications Medications: Current Medications Acetaminophen (Tylenol 650 Mg Supp) 650 mg [place] Q6 PRN PRN Reason: Fever >100.4 F Last Admin: 05/01/18 09:11 Dose: 650 mg Acetaminophen (Tylenol 650 Mg Supp) 650 mg [place] Q6 PRN PRN Reason: Pain, Mild (1-3) Amlodipine Besylate (Norvasc) 10 mg PO DAILY ROBYN Last Admin: 05/02/18 09:03 Dose: 10 mg Folic Acid (Folic Acid) 1 mg NG DAILY ROBYN Last Admin: 05/02/18 08:56 Dose: 1 mg Nicardipine HCl (Cardene Iv Premix) 20 mg in 200 mls @ 50 mls/hr IV .Q4H ROBYN; 5 MG/HR PRN Reason: Protocol Last Titration: 05/02/18 07:15 Dose: 5 mg/hr, 50 mls/hr Levetiracetam 1,000 mg/ Sodium (Chloride) 110 mls @ 210 mls/hr IVPB Q12 ROBYN Last Admin: 05/02/18 09:00 Dose: 210 mls/hr Clindamycin Phosphate (Cleocin) 600 mg in 50 mls @ 50 mls/hr IVPB Q8 [facility]YN PRN Reason: Protocol Last Admin: 05/02/18 08:55 Dose: 50 mls/hr Ampicillin Sodium/Sulbactam (Sodium 1.5 gm/ Sodium Chloride) 100 mls @ 100 mls/ hr IVPB Q6 ROBYN PRN Reason: Protocol Last Admin: 05/02/18 09:41 Dose: 100 mls/hr Metoprolol Tartrate (Lopressor) 25 mg NG Q12 [facility] Multivitamins/Minerals (Therapeutic-M Tab) 1 tab PO DAILY [facility]YN Last Admin: 05/02/18 08:57 Dose: 1 tab Thiamine HCl (Vitamin B1 Tab) 100 mg NG DAILY [facility]YN Last Admin: 05/02/18 08:58 Dose: 100 mg - Labs Labs: 05/02/18 04:45 05/02/18 04:45 PT 11.5 Seconds (9.8-13.1) 04/28/18 21:07 INR 1.0 (0.9-1.2) 04/28/18 21:07 APTT 25.9 Seconds (25.6-37.1) 04/28/18 21:07 - Constitutional Appears: No Acute Distress - Head Exam Head Exam: NORMAL INSPECTION - Eye Exam Pupil Exam: PERRL Additional comments: right gazed palsy, 3 mm sluggish. - Neurological Exam Neurological Exam: Awake Neuro motor strength exam: Left Upper Extremity: 0, Right Upper Extremity: 2/1, Left Lower Extremity: 0, Right Lower Extremity: 0 Additional comments: awake, non verbal, occassional grunts and spontaneously moves her right upper extremity. Assessment and Plan (1) Hemorrhagic stroke Assessment & Plan: Case discussed with Dr. Carmichael, continue all current medical regimen, Pending EEG. Recommend keep heada of bed elevated at least 30 degrees, blood pressure control , normothermic, monitor CO2 level, and keppra level. If mental status decline, please repeat a CT scan of the head without contrast. Status: Acute
[2018-05-02] MEDS ORDERED: Metoprolol 1 mg/ml Inj IVP ONE ×2 (11:41→18:00)
--- NOTE | 2018-05-02 12:11 | RAD ---
HISTORY: trauma COMPARISON: 02/26/2008 FINDINGS: LUNGS: Lung volumes more shallow now. No consolidation. PLEURA: No significant pleural effusion identified, no pneumothorax apparent. CARDIOVASCULAR: Mild cardiomegaly -similar. Accentuated pulmonary vasculature -attributed to crowding. OSSEOUS STRUCTURES: Thoracic spondylosis. Deformity left lateral clavicle - unchanged inferred posttraumatic change. Orthopedic treatment and concomitant arthrosis over right shoulder. -similar VISUALIZED UPPER ABDOMEN: Normal. OTHER FINDINGS: A tubing projects over the right side of the neck its tip is difficult to see beyond the right lung apex. Correlate clinically some clear this is a central line in internal jugular vein or if this is extrinsic to the patient. Is not appreciated on the prior study IMPRESSION: No interval cardiopulmonary pathology noted. Other findings -as above.
--- NOTE | 2018-05-02 12:14 | CP.PCM.PN ---
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) otherwise she remains in grave condition Not a DNR status Objective - Vital Signs/Intake and Output Vital Signs (last 24 hours): Temp Pulse Resp BP Pulse Ox 100.7 F H 109 H 26 H 158/96 H 99 05/02/18 08:00 05/02/18 09:03 05/02/18 08:00 05/02/18 09:03 05/02/18 08:00 Intake and Output: 05/02/18 05/02/18 06:59 18:59 Intake Total 2050 435 Output Total 1100 Balance 950 435 - Medications Medications: Current Medications Acetaminophen (Tylenol 650 Mg Supp) 650 mg [place] Q6 PRN PRN Reason: Fever >100.4 F Last Admin: 05/01/18 09:11 Dose: 650 mg Acetaminophen (Tylenol 650 Mg Supp) 650 mg [place] Q6 PRN PRN Reason: Pain, Mild (1-3) Amlodipine Besylate (Norvasc) 10 mg PO DAILY ROBYN Last Admin: 05/02/18 09:03 Dose: 10 mg Folic Acid (Folic Acid) 1 mg NG DAILY ROBYN Last Admin: 05/02/18 08:56 Dose: 1 mg Nicardipine HCl (Cardene Iv Premix) 20 mg in 200 mls @ 50 mls/hr IV .Q4H ROBYN; 5 MG/HR PRN Reason: Protocol Last Titration: 05/02/18 10:30 Dose: 0 mg/hr, 0 mls/hr Levetiracetam 1,000 mg/ Sodium (Chloride) 110 mls @ 210 mls/hr IVPB Q12 ROBYN Last Admin: 05/02/18 09:00 Dose: 210 mls/hr Clindamycin Phosphate (Cleocin) 600 mg in 50 mls @ 50 mls/hr IVPB Q8 ROBYN PRN Reason: Protocol Last Admin: 05/02/18 08:55 Dose: 50 mls/hr Ampicillin Sodium/Sulbactam (Sodium 1.5 gm/ Sodium Chloride) 100 mls @ 100 mls/ hr IVPB Q6 ROBYN PRN Reason: Protocol Last Admin: 05/02/18 09:41 Dose: 100 mls/hr Metoprolol Tartrate (Lopressor) 25 mg NG Q12 [facility] Metoprolol Tartrate (Lopressor) 5 mg IVP ONCE ONE Stop: 05/02/18 18:01 Multivitamins/Minerals (Therapeutic-M Tab) 1 tab PO DAILY [facility] Last Admin: 05/02/18 08:57 Dose: 1 tab Thiamine HCl (Vitamin B1 Tab) 100 mg NG DAILY [facility] Last Admin: 05/02/18 08:58 Dose: 100 mg - Labs Labs: 05/02/18 04:45 05/02/18 04:45 PT 11.5 Seconds (9.8-13.1) 04/28/18 21:07 INR 1.0 (0.9-1.2) 04/28/18 21:07 APTT 25.9 Seconds (25.6-37.1) 04/28/18 21:07 - Head Exam Additional comments: comatose - ENT Exam ENT Exam: Mucous Membranes Moist - Respiratory Exam Respiratory Exam: Clear to Ausculation Bilateral - Cardiovascular Exam Cardiovascular Exam: REGULAR RHYTHM - GI/Abdominal Exam GI & Abdominal Exam: Normal Bowel Sounds Assessment and Plan (1) Diabetes mellitus type 2 in obese Status: Acute (2) Hemorrhagic stroke Status: Acute (3) Hypertensive encephalopathy Status: Acute (4) Leukocytosis Status: Acute - Assessment and Plan (Free Text) Plan: Cont meds cont iv fluids NGT feeding will try to arrange for LTAC care
--- NOTE | 2018-05-02 12:17 | CP.PCM.PN ---
Subjective - Date & Time of Evaluation Date of Evaluation: 05/02/18 Time of Evaluation: 12:15 - Subjective Subjective: Patient remains comatose noted slight increase in BP No change in status remains in grave prognosis. Objective - Vital Signs/Intake and Output Vital Signs (last 24 hours): Temp Pulse Resp BP Pulse Ox 100.7 F H 109 H 26 H 158/96 H 99 05/02/18 08:00 05/02/18 09:03 05/02/18 08:00 05/02/18 09:03 05/02/18 08:00 Intake and Output: 05/02/18 05/02/18 06:59 18:59 Intake Total 2050 435 Output Total 1100 Balance 950 435 - Medications Medications: Current Medications Acetaminophen (Tylenol 650 Mg Supp) 650 mg [place] Q6 PRN PRN Reason: Fever >100.4 F Last Admin: 05/01/18 09:11 Dose: 650 mg Acetaminophen (Tylenol 650 Mg Supp) 650 mg [place] Q6 PRN PRN Reason: Pain, Mild (1-3) Amlodipine Besylate (Norvasc) 10 mg PO DAILY [facility] Last Admin: 05/02/18 09:03 Dose: 10 mg Folic Acid (Folic Acid) 1 mg NG DAILY [facility]YN Last Admin: 05/02/18 08:56 Dose: 1 mg Nicardipine HCl (Cardene Iv Premix) 20 mg in 200 mls @ 50 mls/hr IV .Q4H ROBYN; 5 MG/HR PRN Reason: Protocol Last Titration: 05/02/18 10:30 Dose: 0 mg/hr, 0 mls/hr Levetiracetam 1,000 mg/ Sodium (Chloride) 110 mls @ 210 mls/hr IVPB Q12 [facility]YN Last Admin: 05/02/18 09:00 Dose: 210 mls/hr Clindamycin Phosphate (Cleocin) 600 mg in 50 mls @ 50 mls/hr IVPB Q8 ROBYN PRN Reason: Protocol Last Admin: 05/02/18 08:55 Dose: 50 mls/hr Ampicillin Sodium/Sulbactam (Sodium 1.5 gm/ Sodium Chloride) 100 mls @ 100 mls/ hr IVPB Q6 ROBYN PRN Reason: Protocol Last Admin: 05/02/18 09:41 Dose: 100 mls/hr Metoprolol Tartrate (Lopressor) 25 mg NG Q12 [facility] Metoprolol Tartrate (Lopressor) 5 mg IVP ONCE ONE Stop: 05/02/18 18:01 Multivitamins/Minerals (Therapeutic-M Tab) 1 tab PO DAILY [facility] Last Admin: 05/02/18 08:57 Dose: 1 tab Thiamine HCl (Vitamin B1 Tab) 100 mg NG DAILY [facility] Last Admin: 05/02/18 08:58 Dose: 100 mg - Labs Labs: 05/02/18 04:45 05/02/18 04:45 PT 11.5 Seconds (9.8-13.1) 04/28/18 21:07 INR 1.0 (0.9-1.2) 04/28/18 21:07 APTT 25.9 Seconds (25.6-37.1) 04/28/18 21:07 - Head Exam Additional comments: comatose - ENT Exam ENT Exam: Mucous Membranes Moist - Respiratory Exam Respiratory Exam: Clear to Ausculation Bilateral - Cardiovascular Exam Cardiovascular Exam: REGULAR RHYTHM - GI/Abdominal Exam GI & Abdominal Exam: Normal Bowel Sounds - Neurological Exam Additional comments: comatose left hemiplegia Assessment and Plan (1) Diabetes mellitus type 2 in obese Status: Acute (2) Hemorrhagic stroke Status: Acute (3) Hypertensive encephalopathy Status: Acute (4) Leukocytosis Status: Acute - Assessment and Plan (Free Text) Plan: Cont meds cont iv tx arrange for LTAC care
[2018-05-02] MEDS: Labetalol 5 mg/ml Inj 20ML IVP PRN (14:30)
--- NOTE | 2018-05-02 14:52 | PCM.PROC ---
Addendum entered and electronically signed by Smith De La Rosa MD 05/02/18 15: 25: Procedure done on an emergent basis on ICU for vasoactive medication Original Note: <Smith De La Rosa - Last Filed: 05/02/18 14:50> Procedures Attestation:: I certify that I have explained the specified Operation(s) or Procedure(s), risks, benefits and reasonable alternatives to the Patient and/or other person responsible. The opportunity was given to ask questions and all questions answered - Central Line Placement Left Femoral Aseptic technique was employed throughout the procedure: Hand Hygiene done prior to procedure, Full sterile barriers (mask, hair cover, sterile gown, sterile gloves), Full body sterile drape, Chloraprep Antiseptic: 2 minute prep for Femoral CVP Time Out Performed: Yes Pt. Placed on Pulse Ox Monitor: Yes Central Line Prep: Chlorhexidine-Alcohol Combination Local Anesthesia Used: Lidocaine 1% Amount of Anesthesia Used (mls): 5 Ultrasound Used for Placement: No Central Line Lumen Inserted: triple Central Line Length: 20 cm Post Procedure: Sutured in Place, Good Blood Return, All Ports Aspirated, Flushed, Capped, Sterile Dressing Applied Secured by: Suture Post procedure dressing: Chlorhexidine disc (Biopatch) Post Procedure X-Ray: No Patient Tolerated Procedure: Well, No Complications Immediate Complications: Hematoma at Puncture Site (3 cm) <Allen Bullard - Last Filed: 05/02/18 18:48> Procedures Attestation:: I certify that I have explained the specified Operation(s) or Procedure(s), risks, benefits and reasonable alternatives to the Patient and/or other person responsible. The opportunity was given to ask questions and all questions answered - Central Line Placement Left Femoral Additional Comments: Procedure supervised in its entirety at the bedside as performed by Dr. Dale De La Rosa. Small hematoma near insertion site due to unintentional arterial puncture, good hemostasis achieved with pressure dresiing. Patient tolerated procedure well.
--- NOTE | 2018-05-02 16:16 | CP.PCM.PN ---
Subjective - Date & Time of Evaluation Date of Evaluation: 05/02/18 Time of Evaluation: 18:00 - Subjective Subjective: PT CHANGED TO LABETALOL FOR BP AND HR CONTROL. MAY BE ETOH WITHDRAWAL. LESS ECTOPY ON MONITOR Objective - Vital Signs/Intake and Output Vital Signs (last 24 hours): Temp Pulse Resp BP Pulse Ox 102.1 F H 85 15 141/52 L 100 05/02/18 12:00 05/02/18 15:00 05/02/18 15:00 05/02/18 15:00 05/02/18 15:00 Intake and Output: 05/02/18 05/02/18 06:59 18:59 Intake Total 2050 1265 Output Total 1100 Balance 950 1265 - Medications Medications: Current Medications Acetaminophen (Tylenol 650mg/20.3ml Solution Ud) 650 mg NG Q4 PRN PRN Reason: Temperature Amlodipine Besylate (Norvasc) 10 mg PO DAILY [facility] Last Admin: 05/02/18 09:03 Dose: 10 mg Folic Acid (Folic Acid) 1 mg NG DAILY [facility] Last Admin: 05/02/18 08:56 Dose: 1 mg Nicardipine HCl (Cardene Iv Premix) 20 mg in 200 mls @ 50 mls/hr IV .Q4H [facility]YN; 5 MG/HR PRN Reason: Protocol Last Titration: 05/02/18 10:30 Dose: 0 mg/hr, 0 mls/hr Levetiracetam 1,000 mg/ Sodium (Chloride) 110 mls @ 210 mls/hr IVPB Q12 [facility] Last Admin: 05/02/18 09:00 Dose: 210 mls/hr Clindamycin Phosphate (Cleocin) 600 mg in 50 mls @ 50 mls/hr IVPB Q8 [facility] PRN Reason: Protocol Last Admin: 05/02/18 08:55 Dose: 50 mls/hr Ampicillin Sodium/Sulbactam (Sodium 1.5 gm/ Sodium Chloride) 100 mls @ 100 mls/ hr IVPB Q6 [facility]YN PRN Reason: Protocol Last Admin: 05/02/18 15:37 Dose: 100 mls/hr Labetalol HCl (Trandate) 20 mg IVP Q4 PRN PRN Reason: Systolic Blood Pressure Last Admin: 05/02/18 14:30 Dose: 20 mg Metoprolol Tartrate (Lopressor) 25 mg NG Q12 [facility] Metoprolol Tartrate (Lopressor) 5 mg IVP ONCE ONE Stop: 05/02/18 18:01 Multivitamins/Minerals (Therapeutic-M Tab) 1 tab PO DAILY [facility] Last Admin: 05/02/18 08:57 Dose: 1 tab Thiamine HCl (Vitamin B1 Tab) 100 mg NG DAILY [facility] Last Admin: 05/02/18 08:58 Dose: 100 mg - Labs Labs: 05/02/18 04:45 05/02/18 04:45 PT 11.5 Seconds (9.8-13.1) 04/28/18 21:07 INR 1.0 (0.9-1.2) 04/28/18 21:07 APTT 25.9 Seconds (25.6-37.1) 04/28/18 21:07 Assessment and Plan (1) Hemorrhagic stroke Status: Acute (2) Hypertensive emergency Status: Acute (3) Alcohol withdrawal delirium Status: Acute (4) Altered mental status Status: Acute - Assessment and Plan (Free Text) Plan: CONT CURRENT CARE. CAN USE CLONIDINE FOR BP CONTROL IN WITHDRAWAL. D/W ICU ATTENDING
[2018-05-02] MEDS: Acetaminophen 650mg/20.3ml solution UD NG PRN (19:31)
[2018-05-03] MEDS: Labetalol 5 mg/ml Inj 20ML IVP PRN ×2 (00:37→05:20)
[2018-05-03] MEDS: Clindamycin 600mg/50ml D5W 600 MG/50 ML VIAL IVPB SCH ×3 (00:38→17:58)
[2018-05-03] MEDS: Acetaminophen 650mg/20.3ml solution UD NG PRN ×4 (01:12→23:37)
[2018-05-03 05:50] LABS: BASO % 0.1 % (0.0-2.0); EOS # 0.1 K/uL (0.0-0.7); EOS % 0.5 % (0.0-4.0); HEMOGLOBIN 9.9 g/dL (12.0-16.0); LYMPH # 1.4 K/uL (1.0-4.3); LYMPH % 10.2 % (20.0-40.0); MEAN CELL VOLUME 104.2 fl (81.0-99.0); MEAN CORPUSCULAR HEMOGLOBIN 33.9 pg (27.0-31.0); MEAN CORPUSCULAR HGB CONC 32.6 g/dL (33.0-37.0); MEAN PLATELET VOLUME 9.8 fl (7.2-11.7); MONO % 14.5 % (0.0-10.0); NEUT # 10.1 K/uL (1.8-7.0); NEUT % 74.7 % (50.0-75.0); RBC 2.92 Mil/uL (3.80-5.20); RED CELL DISTRIBUTION WIDTH 14.4 % (11.5-14.5); WHITE BLOOD COUNT 13.5 K/uL (4.8-10.8)
[2018-05-03 06:02] LABS: BLOOD UREA NITROGEN 21 mg/dl (7-17); CALCIUM 7.5 mg/dL (8.4-10.2); GFR AFRICAN-AMERICAN > 60; GFR NON-AFRICAN AMERICAN > 60
[2018-05-03] MEDS ORDERED: Metoprolol 1 mg/ml Inj IVP ONE (06:45)
[2018-05-03] MEDS: levETIRAcetam 1,000 MG in Sodium Chloride 0.9% 100 ML IVPB SCH ×2 (10:04→20:19)
[2018-05-03] MEDS: Multivitamin With Minerals Tab PO SCH (10:06)
--- NOTE | 2018-05-03 10:44 | CP.PCM.PN ---
Subjective - Date & Time of Evaluation Date of Evaluation: 05/03/18 Time of Evaluation: 10:44 - Subjective Subjective: Ms. Sanchez was seen and examined at the bedside in ICU. She opens her spontaneously with right gaze palsy. Her pupils are sluggishly reactive with 3 mm. She occasionally grunts and moves her right upper extremity. GCS- 4. Her left side remains paraplegia. Her right upper extremity is with wrist restraint for patient safety. She is tolerating NGT feeding and remains on Cardene drip for blood pressure control. She also has bilateral lower extremities SCD. She remains afebrile overnight. There was no untoward events overnight. Objective - Vital Signs/Intake and Output Vital Signs (last 24 hours): Temp Pulse Resp BP Pulse Ox 99.3 F 95 H 21 176/91 H 100 05/03/18 08:00 05/03/18 10:10 05/03/18 10:00 05/03/18 10:10 05/03/18 10:00 Intake and Output: 05/03/18 05/03/18 06:59 18:59 Intake Total 700 250 Output Total 900 Balance -200 250 - Medications Medications: Current Medications Acetaminophen (Tylenol 650mg/20.3ml Solution Ud) 650 mg NG Q4 PRN PRN Reason: Temperature Last Admin: 05/03/18 06:49 Dose: 650 mg Amlodipine Besylate (Norvasc) 10 mg PO DAILY [facility] Last Admin: 05/03/18 10:10 Dose: 10 mg Clonidine HCl (Catapres) 0.2 mg NG BID [facility] Last Admin: 05/03/18 10:08 Dose: 0.2 mg Dimethicone (Proshield Plus Skin Protectant) 1 applic TOP Q8 [facility] Folic Acid (Folic Acid) 1 mg NG DAILY [facility] Last Admin: 05/03/18 10:08 Dose: 1 mg Nicardipine HCl (Cardene Iv Premix) 20 mg in 200 mls @ 50 mls/hr IV .Q4H [facility]YN; 5 MG/HR PRN Reason: Protocol Last Titration: 05/02/18 10:30 Dose: 0 mg/hr, 0 mls/hr Levetiracetam 1,000 mg/ Sodium (Chloride) 110 mls @ 210 mls/hr IVPB Q12 [facility] Last Admin: 05/03/18 10:04 Dose: 210 mls/hr Clindamycin Phosphate (Cleocin) 600 mg in 50 mls @ 50 mls/hr IVPB Q8 [facility] PRN Reason: Protocol Last Admin: 05/03/18 00:38 Dose: 50 mls/hr Ampicillin Sodium/Sulbactam (Sodium 1.5 gm/ Sodium Chloride) 100 mls @ 100 mls/ hr IVPB Q6 [facility] PRN Reason: Protocol Last Admin: 05/03/18 10:39 Dose: 100 mls/hr Labetalol HCl (Trandate) 20 mg IVP Q4 PRN PRN Reason: Systolic Blood Pressure Last Admin: 05/03/18 05:20 Dose: 20 mg Metoprolol Tartrate (Lopressor) 100 mg NG Q12 [facility] Last Admin: 05/03/18 10:09 Dose: 100 mg Multivitamins/Minerals (Therapeutic-M Tab) 1 tab PO DAILY [facility] Last Admin: 05/03/18 10:06 Dose: 1 tab Thiamine HCl (Vitamin B1 Tab) 100 mg NG DAILY [facility] Last Admin: 05/03/18 10:05 Dose: 100 mg - Labs Labs: 05/03/18 04:20 05/03/18 04:20 PT 11.5 Seconds (9.8-13.1) 04/28/18 21:07 INR 1.0 (0.9-1.2) 04/28/18 21:07 APTT 25.9 Seconds (25.6-37.1) 04/28/18 21:07 - Constitutional Appears: No Acute Distress - Eye Exam Additional comments: right gaze palsy - Neurological Exam Neurological Exam: Alert, Awake Neuro motor strength exam: Left Upper Extremity: 0, Right Upper Extremity: 0, Left Lower Extremity: 0, Right Lower Extremity: 0 Additional comments: GCS-4 Assessment and Plan (1) Hemorrhagic stroke Assessment & Plan: Case discussed with Dr. Carmichael, continue all current medical regimen, Pending EEG and CT scan of the head without contrast. Recommend keep head a of bed elevated at least 30 degrees, blood pressure control, normothermic, monitor CO2 level, and keppra level. Status: Acute
--- NOTE | 2018-05-03 11:25 | CP.PCM.PN ---
Subjective - Date & Time of Evaluation Date of Evaluation: 05/03/18 Time of Evaluation: 11:22 - Subjective Subjective: Patient remains in poor prognosis. Has no fever Noted increased response : increased movement of right extremities and improved gaze Bp remains elevated at times. Objective - Vital Signs/Intake and Output Vital Signs (last 24 hours): Temp Pulse Resp BP Pulse Ox 99.3 F 95 H 21 176/91 H 100 05/03/18 08:00 05/03/18 10:10 05/03/18 10:00 05/03/18 10:10 05/03/18 10:00 Intake and Output: 05/03/18 05/03/18 06:59 18:59 Intake Total 700 250 Output Total 900 Balance -200 250 - Medications Medications: Current Medications Acetaminophen (Tylenol 650mg/20.3ml Solution Ud) 650 mg NG Q4 PRN PRN Reason: Temperature Last Admin: 05/03/18 06:49 Dose: 650 mg Amlodipine Besylate (Norvasc) 10 mg PO DAILY [facility] Last Admin: 05/03/18 10:10 Dose: 10 mg Clonidine HCl (Catapres) 0.2 mg NG BID [facility] Last Admin: 05/03/18 10:08 Dose: 0.2 mg Dimethicone (Proshield Plus Skin Protectant) 1 applic TOP Q8 [facility] Folic Acid (Folic Acid) 1 mg NG DAILY [facility] Last Admin: 05/03/18 10:08 Dose: 1 mg Nicardipine HCl (Cardene Iv Premix) 20 mg in 200 mls @ 50 mls/hr IV .Q4H [facility]; 5 MG/HR PRN Reason: Protocol Last Titration: 05/02/18 10:30 Dose: 0 mg/hr, 0 mls/hr Levetiracetam 1,000 mg/ Sodium (Chloride) 110 mls @ 210 mls/hr IVPB Q12 [facility] Last Admin: 05/03/18 10:04 Dose: 210 mls/hr Clindamycin Phosphate (Cleocin) 600 mg in 50 mls @ 50 mls/hr IVPB Q8 [facility] PRN Reason: Protocol Last Admin: 05/03/18 00:38 Dose: 50 mls/hr Ampicillin Sodium/Sulbactam (Sodium 1.5 gm/ Sodium Chloride) 100 mls @ 100 mls/ hr IVPB Q6 [facility] PRN Reason: Protocol Last Admin: 05/03/18 10:39 Dose: 100 mls/hr Labetalol HCl (Trandate) 20 mg IVP Q4 PRN PRN Reason: Systolic Blood Pressure Last Admin: 05/03/18 05:20 Dose: 20 mg Metoprolol Tartrate (Lopressor) 100 mg NG Q12 [facility] Last Admin: 05/03/18 10:09 Dose: 100 mg Multivitamins/Minerals (Therapeutic-M Tab) 1 tab PO DAILY [facility] Last Admin: 05/03/18 10:06 Dose: 1 tab Thiamine HCl (Vitamin B1 Tab) 100 mg NG DAILY [facility] Last Admin: 05/03/18 10:05 Dose: 100 mg - Labs Labs: 05/03/18 04:20 05/03/18 04:20 PT 11.5 Seconds (9.8-13.1) 04/28/18 21:07 INR 1.0 (0.9-1.2) 04/28/18 21:07 APTT 25.9 Seconds (25.6-37.1) 04/28/18 21:07 - Head Exam Head Exam: NORMAL INSPECTION - Eye Exam Eye Exam: Normal appearance - ENT Exam ENT Exam: Mucous Membranes Moist - Respiratory Exam Respiratory Exam: Clear to Ausculation Bilateral - Cardiovascular Exam Cardiovascular Exam: REGULAR RHYTHM - GI/Abdominal Exam GI & Abdominal Exam: Normal Bowel Sounds - Neurological Exam Neurological Exam: Altered Assessment and Plan (1) Diabetes mellitus type 2 in obese Status: Acute (2) Hemorrhagic stroke Status: Acute (3) Hypertensive encephalopathy Status: Acute (4) Leukocytosis Status: Acute - Assessment and Plan (Free Text) Plan: Cont meds Cont tx Cont neb tx nursing support eval for ECHO telemetry 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
[2018-05-03] MEDS: Nicardipine 20 MG/200 ML 20 MG/200 ML BAG IV SCH ×2 (12:03→14:59)
--- NOTE | 2018-05-03 13:22 | CP.CCUPN ---
CCU Subjective - Physician Review Subjective (Free Text): Remains obtunded, Left hemiplegia evident, eyes open with R-wolf gaze, + intermittently moans, otherwise essentially aphasic; does not follow nor respond to any verbal commands nor moves purposefully to noxious stimuli, no abnormal posturing noted. SBP levels have been 160-170, HR 90. Off Cardene drip , tolerating NGT feeds at 70 ml/hr. No further tachyarrhythmias. Observed to have mild spontaneous cough during exam, non-productive. Other vitals and I/O's reviewed. Febrile to 101.7F overnight, marked positive fluid balance over the past 3 days, and + Diarrrhea. ROS: no other pertinent negs or positives on 10+ system review obtainable due to obtundation. PMSFH: Patients niece (also her health care proxy) relates patient is a chronic ETOH abuser as well as substance abuse (whatever she can get her hands on.), drinks 2 bottles of Vodka per day. All other Nursing and physician documentation reviewed to date; no new pertinent info noted relevant to current medical problems. EXAM- HEENT: no icterus, mild R gaze preference, pupils equal and reactive NECK: No JVD, supple, carotids equal upstroke bilat/no bruits CHEST: clear with diminished BS bilat, no wheezes audible. HEART: regular, distant, tachy S1S2, no rubs or murmurs ABD: soft, obese, no distention, no tympany, no palp tenderness, BS hypoactive EXT: There is no edema. No peripheral/ digital cyanosis, no calf tenderness or palpable cords, distal pulses intact and symmetrical NEURO: LUE flaccid, LLE: flaccid, no withdrawal to pain, Motor 3-4/5 on R. SCDs on bilaterally. SKIN: no rashes, warm and dry. LABS: WBC= 13.5 HGB= 9.9 PLTs= 178K Ye=094 K= 3.0 CL=99 HCO3= 32 BUN/Cr= 21/0.5 BS= 187 IMPRESSION / MAJOR PROBLEMS NOW: 1. Hemorrhagic CVA / hypertensive CVA with s/sx increased ICP 2. Accelerated HTN 3. h/o Chronic ETOH Abuse 4. h/o Chronic Substance Abuse PLAN: 1. Keep HOB elevated 30-45 degrees. Seizure precautions, on AED as per Neurology. 2. Anti-HTN meds increased today, clonidine added. Will need to resume Cardene. 3. ECHO and EEG pending. 4. Watch for s/sx of ETOH substance abuse withdrawal. UDS and serum ETOH were negative on admission. 5. Repeat brain imaging to assess for any obstructive hydrocephalus. 6. Fevers may be centrally-mediated. Check Procalcitonin level. Empiric antibiotic coverage noted. 7. Watch for need for airway protection. Discussed with Niece. She has had a discussion with the rest of the family members, and patients best friend, they have come to a decision for DNR and DNI status. She states he patient would not want to be kept alive on MV on nor artificial life support.
[2018-05-03] MEDS: Potassium Chloride 20 mEq 100 ML IVPB SCH ×2 (13:35→15:51)
--- NOTE | 2018-05-03 17:12 | CT ---
PROCEDURE: CT HEAD WITHOUT CONTRAST. HISTORY: follow up hemorrhagic stroke COMPARISON: 04/30/2018 TECHNIQUE: Axial computed tomography images were obtained through the head/brain without intravenous contrast. Radiation dose: Total exam DLP = 907 mGy-cm. This CT exam was performed using one or more of the following dose reduction techniques: Automated exposure control, adjustment of the mA and/or kV according to patient size, and/or use of iterative reconstruction technique. FINDINGS: HEMORRHAGE: The prior large right frontotemporal heterogeneous intraparenchymal hematoma with surrounding edema and leftward midline shift, approximately 6 mm is similar in appearance the extra-axial subarachnoid bleed is similar in appearance. No new areas of bleed are noted. The ipsilateral effacement of the right cerebral sulci is as before. BRAIN: No mass effect or edema. No atrophy or chronic microvascular ischemic changes. VENTRICLES: The by a lateral intraventricular blood is similar in appearance the compressed/effaced right lateral ventricle is as before. No increasing hydrocephalus noted. CALVARIUM: Unremarkable. PARANASAL SINUSES: Unremarkable as visualized. No significant inflammatory changes. MASTOID AIR CELLS: Unremarkable as visualized. No inflammatory changes. OTHER FINDINGS: A large left posterior frontal parietal scalp hematoma is as before. IMPRESSION: Large right fronto temporal probably parietal intra cerebral heterogeneous hematoma sub pulsing herniation is a consideration. With surrounding edema, is similar in appearance in size. No new bleed seen. The surrounding edema and right ipsilateral cerebral sulcal effacement is as before. The leftward midline shift of 6 mm is as before. Intraventricular blood in each posterior lateral ventricle is as before. No progressive hydrocephalus. The compression of the right lateral ventricle is as before. Possibly of right frontal developing infarct attributed to the leftward midline shift Large left posterior frontal parietal scalp hematoma as before.
[2018-05-03] MEDS: Proshield Plus GEL TOP SCH (17:50)
[2018-05-03] MEDS: Nicardipine HCl 40 MG/200 ML 40 MG/200 ML SOL IV SCH (20:14)
[2018-05-04] MEDS: Clindamycin 600mg/50ml D5W 600 MG/50 ML VIAL IVPB SCH ×3 (00:30→16:32)
[2018-05-04] MEDS: Proshield Plus GEL TOP SCH ×3 (01:00→16:33)
[2018-05-04] MEDS: Nicardipine HCl 40 MG/200 ML 40 MG/200 ML SOL IV SCH ×3 (01:08→21:14)
[2018-05-04] MEDS: Acetaminophen 650mg/20.3ml solution UD NG PRN ×3 (05:28→17:19)
[2018-05-04 05:44] LABS: MEAN CELL VOLUME 103.5 fl (81.0-99.0); MEAN CORPUSCULAR HEMOGLOBIN 33.9 pg (27.0-31.0); MEAN CORPUSCULAR HGB CONC 32.7 g/dL (33.0-37.0); RBC 3.25 Mil/uL (3.80-5.20); RED CELL DISTRIBUTION WIDTH 14.1 % (11.5-14.5)
[2018-05-04 06:08] LABS: BLOOD UREA NITROGEN 16 mg/dl (7-17); GFR AFRICAN-AMERICAN > 60; GFR NON-AFRICAN AMERICAN > 60
--- NOTE | 2018-05-04 07:43 | CARD ---
APPROVED REPORT EXAM: Two-dimensional and M-mode echocardiogram with Doppler and color Doppler. Other Information Quality : FairRhythm : NSR INDICATION Abnormal EKG/Arrhythmia TDS RISK FACTORS Hypertension Obesity 2D DIMENSIONS IVSd1.70 (0.7-1.1cm)LVDd4.88 (3.9-5.9cm) PWd1.22 (0.7-1.1cm)IVSs1.52 (0.8-1.2cm) LVDs3.27 (2.5-4.0cm)FS (%) 33.0 % PWs1.62 (0.8-1.2cm) M-Mode DIMENSIONS Left Atrium (MM)4.21 (2.5-4.0cm)Aortic Root3.82 (2.2-3.7cm) Aortic Cusp Exc.2.12 (1.5-2.0cm) Mitral Valve MV E Llplzhgn17.0cm/sMV A Njalbpqx54.5cm/sE/A ratio0.7 TDI Lateral E' Peak V9.45cm/sMedial E' Peak V13.69cm/sE/Lateral E'6.9 E/Medial E'4.7 Tricuspid Valve TR Peak Ftrsnhgs79yh/sTR Peak Gr.2wpQxMBPV31qnTe LEFT VENTRICLE The left ventricle is normal size. There is normal left ventricular wall thickness. Left ventricle systolic function is normal. The Ejection Fraction is 60-65%. There is normal LV segmental wall motion. Transmitral Doppler flow pattern is Grade I-abnormal relaxation pattern. RIGHT VENTRICLE The right ventricle is normal size. The right ventricular systolic function is normal. ATRIA The left atrium is mildly dilated. The right atrium size is normal. AORTIC VALVE The aortic valve is normal in structure. No aortic regurgitation is present. There is no aortic valvular stenosis. MITRAL VALVE Mitral annular calcification is mild to moderate. There is no mitral valve stenosis. There is no mitral valve regurgitation noted. TRICUSPID VALVE The tricuspid valve is normal in structure. There is no tricuspid valve regurgitation noted. PULMONIC VALVE The pulmonic valve is not well visualized. There is no pulmonic valvular regurgitation. GREAT VESSELS The aortic root is mildly enlarged. The IVC is mildly dilated. PERICARDIAL EFFUSION The pericardium appears normal. <Conclusion> The quality of images was poor due to obesity. The left ventricle is normal size. There is normal left ventricular wall thickness. There is normal LV segmental wall motion. Left ventricle systolic function is normal. The Ejection Fraction is 60-65%. Transmitral Doppler flow pattern is Grade I-abnormal relaxation pattern.
[2018-05-04] MEDS: levETIRAcetam 1,000 MG in Sodium Chloride 0.9% 100 ML IVPB SCH (08:44)
[2018-05-04] MEDS: Multivitamin With Minerals Tab PO SCH (08:45)
--- NOTE | 2018-05-04 09:38 | CP.CCUPN ---
CCU Subjective - Physician Review Subjective (Free Text): No improvement from obtundation, but she did get Ativan approx. 4 hours ago. Left hemiplegia persists, eyes open spontaneously, + intermittently moans, otherwise essentially aphasic; does not follow nor respond to any verbal commands nor moves purposefully to noxious stimuli, no abnormal posturing noted. SBP levels have been 150-160, HR 90-100s. Resumed Cardene drip, tolerating NGT feeds at 70 ml/hr. No further tachyarrhythmias. Given one dose of Ativan overnight for seizure activity. EEG frances yesterday as well as repeat CT Brain. Other vitals and I/O's reviewed. Febrile with T max 102.6F overnight, positive fluid balance over the past 3 days, and + Diarrrhea. ROS: no other pertinent negs or positives on system review obtainable due to obtundation. PMSFH: New information provided on May 02 by Radha- Patients niece (also her health care proxy) relates patient is a chronic ETOH abuser as well as substance abuse (whatever she can get her hands on.), drinks 2 bottles of Vodka per day. All other Nursing and physician documentation reviewed to date; no new pertinent info noted relevant to current medical problems. EXAM- HEENT: no icterus, pupils equal and reactive, mild R gaze yesterday, but midline position today with nystagmoid movements. NECK: No JVD, supple, carotids equal upstroke bilat/no bruits CHEST: clear with diminished BS bilat, no wheezes audible. HEART: regular, distant, tachy S1S2, no rubs or murmurs ABD: soft, obese, no distention, no tympany, no palp tenderness, BS hypoactive EXT: There is no edema. No peripheral/ digital cyanosis, no calf tenderness or palpable cords, distal pulses intact and symmetrical NEURO: LUE flaccid, LLE: flaccid, no withdrawal to pain, Motor 3-4/5 on R. SCDs on bilaterally. SKIN: no rashes, warm and dry. LABS: WBC= 16.0 HGB= 11.0 PLTs= 231K Zu=806 K= 3.5 CL=97 HCO3= 32 BUN/Cr= 16/0.5 BS= 170 IMPRESSION / MAJOR PROBLEMS NOW: 1. Hemorrhagic CVA / hypertensive CVA with s/sx increased ICP 2. Accelerated HTN 3. h/o Chronic ETOH Abuse 4. h/o Chronic Substance Abuse PLAN: 1. Keep HOB elevated 30-45 degrees. Seizure precautions, on AED as per Neurology: Keppra increased to 1000mg q12h. 2. Anti-HTN meds increased today, clonidine added yesterday and increased today, Hydralzine increased TO Q6H, added ACEi today. Resumed Cardene: try to wean off; goal for SBP 140s. . 3. ECHO results reviewed, no unexpected findings, and EEG results pending. 4. Watch for s/sx of ETOH substance abuse withdrawal. UDS and serum ETOH were negative on admission. 5. Repeat brain imaging results reviewed, no extension noted, no obstructive hydrocephalus. 6. Fevers centrally-mediated. Normal Procalcitonin level. Empiric antibiotic coverage noted, could stop. 7. Discussed with Niece yesterday: She has had a discussion with the rest of the family members, and patients best friend, they have come to a decision for DNR and DNI status. She states he patient would not want to be kept alive on MV on nor artificial life support.
[2018-05-04] MEDS ORDERED: levETIRAcetam 500 MG in Sodium Chloride 0.9% 100 ML IVPB ONE (09:40)
--- NOTE | 2018-05-04 09:42 | CP.PCM.PN ---
Subjective - Date & Time of Evaluation Date of Evaluation: 05/04/18 Time of Evaluation: 09:42 - Subjective Subjective: Ms. Sanchez was seen and examined at the bedside in ICU. She remains obtunded with her pupils are sluggishly reactive with 3 mm and + doll's eyes. She occasionally grunts, GCS- 4. Her left side remains paraplegia. She is tolerating NGT feeding and remains on Cardene drip for blood pressure control. She also has bilateral lower extremities SCD. She had episode febrile overnight which tylenol was given, latest temp 101.5. She had an episode of seizure activity early this am, ativan was given. CTH done yesterday showed large right fronto temporal probably parietal intra cerebral heterogenous hematoma sub pulsing herniation is a consideration. With surrounding edema, similar in size, no new bleed. The surrounding edema and right ipsilateral cerebral suical effacement is as before. The leftward midline shift of 6 mm is the same as before. Intraventricular blood in each posterior lateral ventricle is as before. No progressive hydrocephalus. The compression of the right lateral ventricle is as before. Possibly of right lateral ventricle is as before. Possibly of right frontal developing infarct attributed to the leftward midline shift. Large left posterior frontal parietal scalp hematoma. The patient is on DNR/DNI as of yesterday. There was no untoward events overnight. Objective - Vital Signs/Intake and Output Vital Signs (last 24 hours): Temp Pulse Resp BP Pulse Ox 100.7 F H 111 H 20 147/75 100 05/04/18 08:00 05/04/18 08:50 05/04/18 08:00 05/04/18 08:50 05/04/18 08:00 Intake and Output: 05/04/18 05/04/18 06:59 18:59 Intake Total 1250 Output Total 1800 Balance -550 - Medications Medications: Current Medications Acetaminophen (Tylenol 650mg/20.3ml Solution Ud) 650 mg NG Q4 PRN PRN Reason: Temperature Last Admin: 05/04/18 05:28 Dose: 650 mg Amlodipine Besylate (Norvasc) 10 mg PO DAILY [facility] Last Admin: 05/04/18 08:44 Dose: 10 mg Clonidine HCl (Catapres) 0.3 mg PO BID [facility] Last Admin: 05/04/18 08:49 Dose: 0.3 mg Dimethicone (Proshield Plus Skin Protectant) 1 applic TOP Q8 [facility] Last Admin: 05/04/18 08:45 Dose: 1 applic Enalapril Maleate (Vasotec) 10 mg PO BID [facility] Last Admin: 05/04/18 08:52 Dose: 10 mg Famotidine (Pepcid) 20 mg NG BID [facility] Folic Acid (Folic Acid) 1 mg NG DAILY [facility] Last Admin: 05/04/18 08:44 Dose: 1 mg Hydralazine HCl (Apresoline) 50 mg PO Q6 [facility] Clindamycin Phosphate (Cleocin) 600 mg in 50 mls @ 50 mls/hr IVPB Q8 [facility] PRN Reason: Protocol Last Admin: 05/04/18 08:43 Dose: 50 mls/hr Ampicillin Sodium/Sulbactam (Sodium 1.5 gm/ Sodium Chloride) 100 mls @ 100 mls/ hr IVPB Q6 [facility] PRN Reason: Protocol Last Admin: 05/04/18 05:00 Dose: 100 mls/hr Nicardipine HCl (Cardene 40mg/200ml Premixed) 40 mg in 200 mls @ 50 mls/hr IV .Q4H [facility]YN; 10 MG/HR PRN Reason: Protocol Last Admin: 05/04/18 07:41 Dose: 5 mg/hr, 25 mls/hr Levetiracetam 500 mg/ Sodium (Chloride) 105 mls @ 210 mls/hr IVPB ONCE ONE Stop: 05/04/18 10:09 Levetiracetam 1,500 mg/ Sodium (Chloride) 115 mls @ 215 mls/hr IVPB Q12 [facility] Labetalol HCl (Trandate) 20 mg IVP Q4 PRN PRN Reason: Systolic Blood Pressure Last Admin: 05/03/18 05:20 Dose: 20 mg Metoprolol Tartrate (Lopressor) 100 mg NG Q12 [facility] Last Admin: 05/04/18 08:50 Dose: 100 mg Multivitamins/Minerals (Therapeutic-M Tab) 1 tab PO DAILY [facility] Last Admin: 05/04/18 08:45 Dose: 1 tab Thiamine HCl (Vitamin B1 Tab) 100 mg NG DAILY [facility] Last Admin: 05/04/18 08:46 Dose: 100 mg - Labs Labs: 05/04/18 05:30 05/04/18 05:30 PT 11.5 Seconds (9.8-13.1) 04/28/18 21:07 INR 1.0 (0.9-1.2) 04/28/18 21:07 APTT 25.9 Seconds (25.6-37.1) 04/28/18 21:07 - Constitutional Appears: No Acute Distress - Head Exam Head Exam: NORMAL INSPECTION - Eye Exam Additional comments: 3 mm sluggish, + doll's eyes. - Neurological Exam Neuro motor strength exam: Left Upper Extremity: 0, Right Upper Extremity: 0, Left Lower Extremity: 0, Right Lower Extremity: 0 Additional comments: GCS-4 Assessment and Plan (1) Hemorrhagic stroke Assessment & Plan: Case discussed with Dr. Carmichael, continue all current medical regimen, Pending EEG and keppra results. Recommend keep head a of bed elevated at least 30 degrees, blood pressure control, normothermic, monitor CO2 level, and s/s seizures. Increase keppra dose to 1500 mg IVPB Q12 and additional dose of keppra this am, MRI of the brain when patient is stable Status: Acute
--- NOTE | 2018-05-04 14:49 | CP.PCM.PN ---
Subjective - Date & Time of Evaluation Date of Evaluation: 05/04/18 Time of Evaluation: 14:44 - Subjective Subjective: REMAINS OBTUNDED. Objective - Vital Signs/Intake and Output Vital Signs (last 24 hours): Temp Pulse Resp BP Pulse Ox 100.2 F H 89 16 135/79 100 05/04/18 12:00 05/04/18 13:00 05/04/18 13:00 05/04/18 13:00 05/04/18 13:00 Intake and Output: 05/04/18 05/04/18 06:59 18:59 Intake Total 1250 780 Output Total 1800 200 Balance -550 580 - Medications Medications: Current Medications Acetaminophen (Tylenol 650mg/20.3ml Solution Ud) 650 mg NG Q4 PRN PRN Reason: Temperature Last Admin: 05/04/18 09:59 Dose: 650 mg Amlodipine Besylate (Norvasc) 10 mg PO DAILY [facility] Last Admin: 05/04/18 08:44 Dose: 10 mg Clonidine HCl (Catapres) 0.3 mg PO BID [facility] Last Admin: 05/04/18 08:49 Dose: 0.3 mg Dimethicone (Proshield Plus Skin Protectant) 1 applic TOP Q8 [facility] Last Admin: 05/04/18 08:45 Dose: 1 applic Enalapril Maleate (Vasotec) 10 mg PO BID [facility] Last Admin: 05/04/18 08:52 Dose: 10 mg Famotidine (Pepcid) 20 mg NG BID [facility] Last Admin: 05/04/18 09:59 Dose: 20 mg Folic Acid (Folic Acid) 1 mg NG DAILY [facility] Last Admin: 05/04/18 08:44 Dose: 1 mg Hydralazine HCl (Apresoline) 50 mg PO Q6 [facility] Last Admin: 05/04/18 09:48 Dose: 50 mg Clindamycin Phosphate (Cleocin) 600 mg in 50 mls @ 50 mls/hr IVPB Q8 [facility]YN PRN Reason: Protocol Last Admin: 05/04/18 08:43 Dose: 50 mls/hr Ampicillin Sodium/Sulbactam (Sodium 1.5 gm/ Sodium Chloride) 100 mls @ 100 mls/ hr IVPB Q6 ROBYN PRN Reason: Protocol Last Admin: 05/04/18 09:52 Dose: 100 mls/hr Nicardipine HCl (Cardene 40mg/200ml Premixed) 40 mg in 200 mls @ 50 mls/hr IV .Q4H ROBYN; 10 MG/HR PRN Reason: Protocol Last Titration: 05/04/18 11:00 Dose: 2.5 mg/hr, 12.5 mls/hr Levetiracetam 1,500 mg/ Sodium (Chloride) 115 mls @ 215 mls/hr IVPB Q12 ROBYN Labetalol HCl (Trandate) 20 mg IVP Q4 PRN PRN Reason: Systolic Blood Pressure Last Admin: 05/03/18 05:20 Dose: 20 mg Metoprolol Tartrate (Lopressor) 100 mg NG Q12 [facility] Last Admin: 05/04/18 08:50 Dose: 100 mg Multivitamins/Minerals (Therapeutic-M Tab) 1 tab PO DAILY [facility] Last Admin: 05/04/18 08:45 Dose: 1 tab Thiamine HCl (Vitamin B1 Tab) 100 mg NG DAILY [facility] Last Admin: 05/04/18 08:46 Dose: 100 mg - Labs Labs: 05/04/18 05:30 05/04/18 05:30 PT 11.5 Seconds (9.8-13.1) 04/28/18 21:07 INR 1.0 (0.9-1.2) 04/28/18 21:07 APTT 25.9 Seconds (25.6-37.1) 04/28/18 21:07 - Constitutional Appears: Chronically Ill - Head Exam Head Exam: ATRAUMATIC, NORMAL INSPECTION, NORMOCEPHALIC - Eye Exam Eye Exam: EOMI, Normal appearance, PERRL. absent: Conjunctival injection, Nystagmus, Periorbital swelling, Periorbital tenderness, Scleral icterus Pupil Exam: NORMAL ACCOMODATION, PERRL - ENT Exam ENT Exam: Mucous Membranes Dry. absent: Normal External Ear Exam, Normal Oropharynx, TM's Normal Bilaterally - Neck Exam Neck Exam: absent: Lymphadenopathy, Meningismus, Tenderness, Thyromegaly - Respiratory Exam Respiratory Exam: Rhonchi, NORMAL BREATHING PATTERN. absent: Accessory Muscle Use, Chest Wall Tenderness, Decreased Breath Sounds, Clear to Ausculation Bilateral, Prolonged Expiratory Phase, Rales, Wheezes, Respiratory Distress, Stridor - Cardiovascular Exam Cardiovascular Exam: Tachycardia, +S1, +S2, Murmur. absent: Bradycardia, Clicks , Diastolic murmur, Gallop, Irregular Rhythm, REGULAR RHYTHM, JVD, RRR, Rubs, + S4 - GI/Abdominal Exam GI & Abdominal Exam: Soft, Normal Bowel Sounds. absent: Bruit, Distended, Firm , Guarding, Rigid, Tenderness, Diminished Bowel Sounds, Hernia, Hyperactive Bowel Sounds, Hypoactive Bowel Sounds, Organomegaly, Pulsatile Mass, Rebound, Mass - Extremities Exam Extremities Exam: Normal Capillary Refill, Pedal Edema. absent: Calf Tenderness , Full ROM, Joint Swelling, Normal Inspection, Tenderness - Back Exam Back Exam: NORMAL INSPECTION. absent: CVA tenderness (L), CVA tenderness (R), Full ROM, muscle spasm, paraspinal tenderness, rash noted, tenderness, vertebral tenderness - Neurological Exam Neurological Exam: Alert - Psychiatric Exam Additional comments: OBTUNDED - Skin Skin Exam: Dry, Intact, Normal Color, Warm. absent: Abrasion, Cyanosis, Diaphoretic, Erythema, Mottled, Pallor, Pallor, Petechiae, Rash, Urticaria, Vesicles Assessment and Plan (1) Hemorrhagic stroke Status: Acute (2) Hypertensive emergency Status: Acute (3) Alcohol withdrawal delirium Status: Acute (4) Altered mental status Status: Acute - Assessment and Plan (Free Text) Plan: PT NOW ON CLONIDINE, LABETALOL, ENALIPRIL, NORVASC, HYDRALAZINE. CARDENE RESTATED. BP NOW 134/77.
[2018-05-04] MEDS: levETIRAcetam 1,500 MG in Sodium Chloride 0.9% 100 ML IVPB SCH (21:09)
[2018-05-05] MEDS: Proshield Plus GEL TOP SCH ×2 (00:49→09:29)
[2018-05-05] MEDS: Clindamycin 600mg/50ml D5W 600 MG/50 ML VIAL IVPB SCH ×2 (00:50→09:23)
[2018-05-05 04:26] VITALS: O2SAT 100
[2018-05-05 06:11] LABS: HEMOGLOBIN 9.6 g/dL (12.0-16.0); MEAN CORPUSCULAR HEMOGLOBIN 34.4 pg (27.0-31.0); MEAN CORPUSCULAR HGB CONC 33.1 g/dL (33.0-37.0); RBC 2.79 Mil/uL (3.80-5.20); RED CELL DISTRIBUTION WIDTH 14.1 % (11.5-14.5); WHITE BLOOD COUNT 15.3 K/uL (4.8-10.8)
[2018-05-05 06:19] LABS: BLOOD UREA NITROGEN 19 mg/dl (7-17); CALCIUM 8.2 mg/dL (8.4-10.2); GFR AFRICAN-AMERICAN > 60; GFR NON-AFRICAN AMERICAN > 60
--- NOTE | 2018-05-05 08:13 | CP.CCUPN ---
CCU Subjective - Physician Review Events Since Last Encounter (Free Text): 05/05/18 08:10 Remains unresponsive, BP has been stable now on oral Anti-HTN meds, , oxy sat , maintaining well, good urine output, on tube feeding , K is low from this AM, will replace. CCU Objective - Vital Signs / Intake & Output Vital Signs (Last 4 hours): Vital Signs Pulse Resp BP Pulse Ox 05/05/18 06:45 75 10 L 120/80 100 05/05/18 06:00 76 10 L 120/67 100 05/05/18 05:00 77 10 L 123/66 100 Intake and Output (Last 8hrs): Intake & Output 05/04/18 05/05/18 05/05/18 22:59 06:59 14:59 Intake Total 1137 987 Output Total 1600 2200 Balance -463 -1213 Intake: IV 124 7 Intake, Piggyback 363 200 Tube Feeding 350 630 Free Water Flush 300 150 Output: Urine 1600 2200 Urethral ([place]) 1600 2200 - Physical Exam Narrative Physical Exam (Free Text): 05/05/18 08:12 P/E Neck: No JVD Lungs: no ronchi, crackles Abdomen: soft, BS +ve Ext: trace edema Heart: No gallop neuro: Unresponsive, Head: Positive for: Normocephalic, Other (left eye ecchymosis) Conjunctiva: Positive for: Normal Ears: Positive for: Normal Mouth: Positive for: Moist Mucous Membranes Pharnyx: Positive for: Normal Neck: Positive for: Normal Range of Motion Respiratory/Chest: Positive for: Clear to Auscultation Cardiovascular: Positive for: Regular Rate and Rhythm Abdomen: Positive for: Normal Bowel Sounds Upper Extremity: Positive for: Normal Inspection Lower Extremity: Positive for: Normal Inspection Neurological: Positive for: Other (left side weakness, left fascial droop) Skin: Positive for: Dry, Normal Color Psychiatric: Positive for: Other (lethergic) - Medications Active Medications: Active Medications Generic Name Dose Route Start Last Admin Trade Name Freq PRN Reason Stop Dose Admin Acetaminophen 650 mg 05/02/18 12:43 05/04/18 17:19 Tylenol 650mg/20.3ml Solution Ud NG 650 mg Q4 PRN Administration Temperature Amlodipine Besylate 10 mg 05/02/18 09:00 05/04/18 08:44 Norvasc PO 10 mg DAILY ROBYN Administration Clonidine HCl 0.3 mg 05/04/18 09:00 05/04/18 16:32 Catapres PO 0.3 mg BID ROBYN Administration Dimethicone 1 applic 05/03/18 17:00 05/05/18 00:49 Proshield Plus Skin Protectant TOP 1 applic Q8 ROBYN Administration Enalapril Maleate 10 mg 05/04/18 09:00 05/04/18 16:34 Vasotec PO 10 mg BID ROBYN Administration Famotidine 20 mg 05/04/18 09:00 05/04/18 16:33 Pepcid NG 20 mg BID ROBYN Administration Folic Acid 1 mg 05/02/18 09:00 05/04/18 08:44 Folic Acid NG 1 mg DAILY ROBYN Administration Hydralazine HCl 50 mg 05/04/18 10:00 05/05/18 03:07 Apresoline PO Not Given Q6 ROBYN Clindamycin Phosphate 600 mg in 50 mls @ 50 mls/hr 04/30/18 17:00 05/05/18 00 :50 Cleocin IVPB 50 mls/hr Q8 ROBYN Administration Protocol Ampicillin Sodium/Sulbactam 100 mls @ 100 mls/hr 04/30/18 16:00 05/05/18 03: 05 Sodium 1.5 gm/ Sodium Chloride IVPB 100 mls/hr Q6 ROBYN Administration Protocol Nicardipine HCl 40 mg in 200 mls @ 50 mls/hr 05/03/18 18:30 05/04/18 23:37 Cardene 40mg/200ml Premixed IV 0 mg/hr .Q4H ROBYN 0 mls/hr Protocol Titration 10 MG/HR Levetiracetam 1,500 mg/ Sodium 115 mls @ 215 mls/hr 05/04/18 21:00 05/04/18 21:09 Chloride IVPB 215 mls/hr Q12 ROBYN Administration Labetalol HCl 20 mg 05/02/18 12:54 05/03/18 05:20 Trandate IVP 20 mg Q4 PRN Administration Systolic Blood Pressure Metoprolol Tartrate 100 mg 05/04/18 09:00 05/04/18 20:06 Lopressor NG 100 mg Q12 ROBYN Administration Multivitamins/Minerals 1 tab 05/02/18 09:00 05/04/18 08:45 Therapeutic-M Tab PO 1 tab DAILY ROBYN Administration Thiamine HCl 100 mg 05/01/18 10:15 05/04/18 08:46 Vitamin B1 Tab NG 100 mg DAILY ROBYN Administration - Patient Studies Lab Studies: Microbiology Studies 04/29/18 19:30 Blood Culture - Final Blood NO GROWTH AFTER 5 DAYS Gram Stain - Final TEST NOT PERFORMED 04/29/18 18:30 Blood Culture - Final Blood NO GROWTH AFTER 5 DAYS Gram Stain - Final TEST NOT PERFORMED Lab Studies 05/05/18 05/05/18 Range/Units 06:08 06:08 WBC 15.3 H (4.8-10.8) K/uL RBC 2.79 L (3.80-5.20) Mil/uL Hgb 9.6 L (12.0-16.0) g/dL Hct 29.0 L (34.0-47.0) % MCV 104.0 H (81.0-99.0) fl MCH 34.4 H (27.0-31.0) pg MCHC 33.1 (33.0-37.0) g/dL RDW 14.1 (11.5-14.5) % Plt Count 251 (130-400) K/uL Sodium 146 (132-148) mmol/l Potassium 3.0 L (3.6-5.0) MMOL/L Chloride 105 (98-107) mmol/L Carbon Dioxide 34 H (22-30) mmol/L Anion Gap 10 (10-20) BUN 19 H (7-17) mg/dl Creatinine 0.5 L (0.7-1.2) mg/dl Est GFR ( Amer) > 60 Est GFR (Non-Af Amer) > 60 Random Glucose 184 H (65-105) mg/dL Calcium 8.2 L (8.4-10.2) mg/dL Laboratory Results - last 24 hr 05/05/18 05/05/18 06:08 06:08 WBC 15.3 H RBC 2.79 L Hgb 9.6 L Hct 29.0 L MCV 104.0 H MCH 34.4 H MCHC 33.1 RDW 14.1 Plt Count 251 Sodium 146 Potassium 3.0 L Chloride 105 Carbon Dioxide 34 H Anion Gap 10 BUN 19 H Creatinine 0.5 L Est GFR ( Amer) > 60 Est GFR (Non-Af Amer) > 60 Random Glucose 184 H Calcium 8.2 L Fingerstick Blood Sugar Results: 175 Critical Care Progress Note - Nutrition Nutrition: Nutrition Category Date Time Status NPO Diet [DIET] Diets 04/28/18 Breakfast Active Assessment/Plan - Assessment and Plan (Free Text) Assessment: IMPRESSION / MAJOR PROBLEMS NOW: 1. Hemorrhagic CVA / hypertensive CVA with s/sx increased ICP 2-Hypokalemia 2. Accelerated HTN 3. h/o Chronic ETOH Abuse 4. h/o Chronic Substance Abuse PLAN: 1- Kcl 40 meq by GT now and daily 1. Keep HOB elevated 30-45 degrees. On Keppra 1000 mg q 12 H, on AED as per Neurology. 2. On clonidine Amlodipine , Hydralzine and ACEi today. Off Cardene now goal for SBP 140s. . 3. ECHO results reviewed, no unexpected findings, and EEG results pending. 4. Watch for s/sx of ETOH substance abuse withdrawal. UDS and serum ETOH were negative on admission. 5. A febrile now, has been febrile , centrally-mediated. Normal Procalcitonin level. Empiric antibiotic coverage noted, could stop. 6. DNR and DNI now .
[2018-05-05] MEDS ORDERED: Potassium Chloride 20 mEq ER Tab PO SCH (09:00)
[2018-05-05] MEDS: levETIRAcetam 1,500 MG in Sodium Chloride 0.9% 100 ML IVPB SCH (09:26)
[2018-05-05] MEDS: Multivitamin With Minerals Tab PO SCH (09:30)
[2018-05-05 15:09] VITALS: RESP 9; TEMP 99.8
[2018-05-05 15:20] VITALS: BP 170/78; PULSE 87
--- NOTE | 2018-05-06 19:42 | CP.PCM.PN ---
Subjective - Date & Time of Evaluation Date of Evaluation: 05/04/18 Time of Evaluation: 11:00 - Subjective Subjective: Patient remains in grave prognosis. There is no improvement with clinical sx Objective - Vital Signs/Intake and Output Vital Signs (last 24 hours): Temp Pulse Resp BP Pulse Ox 99.8 F H 87 9 L 170/78 H 100 05/05/18 08:00 05/05/18 10:00 05/05/18 10:00 05/05/18 10:00 05/05/18 10:00 - Labs Labs: 05/05/18 06:08 05/05/18 06:08 PT 11.5 Seconds (9.8-13.1) 04/28/18 21:07 INR 1.0 (0.9-1.2) 04/28/18 21:07 APTT 25.9 Seconds (25.6-37.1) 04/28/18 21:07 - Head Exam Head Exam: NORMAL INSPECTION - Eye Exam Eye Exam: Normal appearance - ENT Exam ENT Exam: Mucous Membranes Moist - Respiratory Exam Respiratory Exam: Clear to Ausculation Bilateral - Cardiovascular Exam Cardiovascular Exam: Tachycardia - GI/Abdominal Exam GI & Abdominal Exam: Normal Bowel Sounds - Neurological Exam Additional comments: comatose Assessment and Plan (1) Diabetes mellitus type 2 in obese Status: Acute (2) Hemorrhagic stroke Status: Acute (3) Hypertensive encephalopathy Status: Acute (4) Leukocytosis Status: Acute - Assessment and Plan (Free Text) Plan: cont nursing support cont meds
--- NOTE | 2018-05-06 19:46 | CP.PCM.DIS ---
Provider - Provider Date of Admission: 04/28/18 23:32 Attending physician: Vinicius Arreola MD Time Spent in preparation of Discharge (in minutes): 15 Diagnosis - Discharge Diagnosis (1) Diabetes mellitus type 2 in obese Status: Acute (2) Hemorrhagic stroke Status: Acute (3) Hypertensive encephalopathy Status: Acute (4) Leukocytosis Status: Acute Hospital Course - Lab Results Lab Results: Micro Results 04/29/18 19:30 Blood Blood Culture - Final NO GROWTH AFTER 5 DAYS 04/29/18 19:30 Blood Gram Stain - Final TEST NOT PERFORMED 04/29/18 18:30 Blood Blood Culture - Final NO GROWTH AFTER 5 DAYS 04/29/18 18:30 Blood Gram Stain - Final TEST NOT PERFORMED 04/30/18 18:40 Urine,Catheterized Urine Culture - Final No Growth (<1,000 CFU/ML) 04/29/18 07:45 Naris MRSA Culture (Admit) - Final MRSA NOT DETECTED Most Recent Lab Values WBC 15.3 K/uL (4.8-10.8) H 05/05/18 06:08 RBC 2.79 Mil/uL (3.80-5.20) L 05/05/18 06:08 Hgb 9.6 g/dL (12.0-16.0) L 05/05/18 06:08 Hct 29.0 % (34.0-47.0) L 05/05/18 06:08 MCV 104.0 fl (81.0-99.0) H 05/05/18 06:08 MCH 34.4 pg (27.0-31.0) H 05/05/18 06:08 MCHC 33.1 g/dL (33.0-37.0) 05/05/18 06:08 RDW 14.1 % (11.5-14.5) 05/05/18 06:08 Plt Count 251 K/uL (130-400) 05/05/18 06:08 MPV 9.8 fl (7.2-11.7) 05/03/18 04:20 Neut % (Auto) 74.7 % (50.0-75.0) 05/03/18 04:20 Lymph % (Auto) 10.2 % (20.0-40.0) L 05/03/18 04:20 [place] % (Auto) 14.5 % (0.0-10.0) H 05/03/18 04:20 Eos % (Auto) 0.5 % (0.0-4.0) 05/03/18 04:20 Baso % (Auto) 0.1 % (0.0-2.0) 05/03/18 04:20 Neut # (Auto) 10.1 K/uL (1.8-7.0) H 05/03/18 04:20 Lymph # (Auto) 1.4 K/uL (1.0-4.3) 05/03/18 04:20 [place] # (Auto) 2.0 K/uL (0.0-0.8) H 05/03/18 04:20 Eos # (Auto) 0.1 K/uL (0.0-0.7) 05/03/18 04:20 Baso # (Auto) 0.0 K/uL (0.0-0.2) 05/03/18 04:20 Neutrophils % (Manual) 83 % (42-75) H 04/28/18 21:07 Band Neutrophils % 3 % (0-2) H 04/28/18 21:07 Lymphocytes % (Manual) 3 % (20-50) L 04/28/18 21:07 Monocytes % (Manual) 8 % (0-10) 04/28/18 21:07 Basophils % (Manual) 1 % (0-2) 04/28/18 21:07 Myelocytes % 2 % (0-0) H 04/28/18 21:07 Platelet Estimate Normal (NORMAL) 04/28/18 21:07 Large Platelets Present 04/28/18 21:07 Anisocytosis (manual) Slight 04/28/18 21:07 Macrocytosis (manual) Slight 04/28/18 21:07 Stomatocytes Slight 04/28/18 21:07 PT 11.5 Seconds (9.8-13.1) 04/28/18 21:07 INR 1.0 (0.9-1.2) 04/28/18 21:07 APTT 25.9 Seconds (25.6-37.1) 04/28/18 21:07 Sodium 146 mmol/l (132-148) 05/05/18 06:08 Potassium 3.0 MMOL/L (3.6-5.0) L 05/05/18 06:08 Chloride 105 mmol/L (98-107) 05/05/18 06:08 Carbon Dioxide 34 mmol/L (22-30) H 05/05/18 06:08 Anion Gap 10 (10-20) 05/05/18 06:08 BUN 19 mg/dl (7-17) H 05/05/18 06:08 Creatinine 0.5 mg/dl (0.7-1.2) L 05/05/18 06:08 Est GFR ( Amer) > 60 05/05/18 06:08 Est GFR (Non-Af Amer) > 60 05/05/18 06:08 POC Glucose (mg/dL) 175 mg/dL (65-110) H 04/28/18 20:44 Random Glucose 184 mg/dL (65-105) H 05/05/18 06:08 Serum Osmolality 301 mosm/kg (272-300) H 05/02/18 08:49 Lactic Acid 2.2 MMOL/L (0.7-2.1) H 04/28/18 21:07 Calcium 8.2 mg/dL (8.4-10.2) L 05/05/18 06:08 Phosphorus 3.7 mg/dl (2.5-4.5) 05/02/18 04:45 Magnesium 1.7 MG/DL (1.6-2.3) 05/02/18 04:45 Total Bilirubin 1.4 mg/dl (0.2-1.3) H 05/02/18 04:45 AST 207 U/L (14-36) H D 05/02/18 04:45 ALT 111 U/L (9-52) H D 05/02/18 04:45 Alkaline Phosphatase 107 U/L (38-126) 05/02/18 04:45 Ammonia 32 umo/L (11-51) 04/28/18 21:07 Total Creatine Kinase 163 U/L (30-135) H 04/29/18 05:30 Troponin I 0.0220 ng/mL (0.00-0.120) 05/01/18 04:55 Total Protein 6.9 G/DL (6.3-8.2) 05/02/18 04:45 Albumin 3.7 g/dL (3.5-5.0) 05/02/18 04:45 Globulin 3.2 gm/dL (2.2-3.9) 05/02/18 04:45 Albumin/Globulin Ratio 1.1 (1.0-2.1) 05/02/18 04:45 Triglycerides 201 mg/DL (0-149) H D 05/02/18 04:45 Cholesterol 210 mg/dL (0-199) H 05/02/18 04:45 LDL Cholesterol Direct 101 mg/dL (0-129) 05/02/18 04:45 HDL Cholesterol 53 MG/DL (30-70) 05/02/18 04:45 Procalcitonin 0.39 NG/ML (0.19-0.49) 05/03/18 04:20 Urine Color Yellow (YELLOW) 04/28/18 07:45 Urine Clarity Clear (Clear) 04/28/18 07:45 Urine pH 5.0 (5.0-8.0) 04/28/18 07:45 Ur Specific [place] > 1.060 (1.003-1.030) H 04/28/18 07:45 Urine Protein 30 mg/dL (NEGATIVE) 04/28/18 07:45 Urine Glucose (UA) 150 mg/dL (Normal) 04/28/18 07:45 Urine Ketones Trace mg/dL (NEGATIVE) 04/28/18 07:45 Urine Blood Negative (NEGATIVE) 04/28/18 07:45 Urine Nitrate Negative (NEGATIVE) 04/28/18 07:45 Urine Bilirubin Negative (NEGATIVE) 04/28/18 07:45 Urine Urobilinogen 2.0 mg/dL (0.2-1.0) H 04/28/18 07:45 Ur Leukocyte Esterase Neg [place]/uL (Negative) 04/28/18 07:45 Urine RBC (Auto) 1 /hpf (0-3) 04/28/18 07:45 Urine Microscopic WBC < 1 /hpf (0-5) 04/28/18 07:45 Ur Squamous Epith Cells < 1 /hpf (0-5) 04/28/18 07:45 Urine Opiates Screen Negative (NEGATIVE) 04/29/18 07:45 Urine Methadone Screen Negative (NEGATIVE) 04/29/18 07:45 Ur Barbiturates Screen Negative (NEGATIVE) 04/29/18 07:45 Ur Phencyclidine Scrn Negative (NEGATIVE) 04/29/18 07:45 Ur Amphetamines Screen Negative (NEGATIVE) 04/29/18 07:45 U Benzodiazepines Scrn Negative (NEGATIVE) 04/29/18 07:45 U Oth Cocaine Metabols Negative (NEGATIVE) 04/29/18 07:45 U Cannabinoids Screen Negative (NEGATIVE) 04/29/18 07:45 Alcohol, Quantitative < 10 mg/dl (0-10) 04/28/18 21:07 C. difficile Ag & Toxin Positive antigen (NEGATIVE) 05/02/18 09:31 - Hospital Course Hospital Course: This is a 57 y/o female admitted for hemorrhagic stroke with right sided hemiplegia. She was comatose the whole time that she was in ICU. She was started on antihypertensive agents, IV fluids, nutrition but despite all measures she deteriorated. She was placed on DNR status, She on May 05 2018. Discharge Exam - Head Exam Head Exam: NORMAL INSPECTION Discharge Plan - Follow Up Plan Condition: CRITICAL Disposition: WITH WITHOUT AUTOPSY Additional Instructions: Patient . No rescucitation was made as she was on DNR status
--- NOTE | 2018-05-07 02:57 | EEG ---
DATE: CHNICAL INFORMATION: Please repeat the following. This EEG required 16 electrodes configurating the 10-20 International electrode system. All electrodes are referenced to A1/A2, P1/P2 respectively. Continuous seizure monitoring was done using spike detection services. Posterior dominant rhythm shows a 4-5 Hz poorly formed rhythm with an admixture of frontal dominant triphasic present throughout the record. There were no subclinical seizures. There were no clinical seizures. There were no interictal epileptiform discharges. There was no normal sleep captured. IMPRESSION: Abnormal encephalopathic electroencephalogram with the presence of triphasic waves, indicates a severe metabolic encephalopathy. It could also be indicative of code stroke. In addition, diffuse thrombin indicates a severe encephalopathy. Clinical correlation is required. Michelle Carmichael MD
== END 2018-05-05 15:00 | DRG 810 ==
LOC: H.ER 19:26 → H.ERHOLD 23:32 → H.ICU/CCU 04-29 00:38
PROVIDERS: ADMIT Family Medicine; ATTEND Family Medicine
PROC: 3E0234Z Introduction of Serum, Toxoid and Vaccine into Muscle, Percutaneous Approach (ICD-10-PCS; 2018-04-29)
PROC: 04HL33Z Insertion of Infusion Device into Left Femoral Artery, Percutaneous Approach (ICD-10-PCS; principal; 2018-05-02)
PROC: 3E063XZ Introduction of Vasopressor into Central Artery, Percutaneous Approach (ICD-10-PCS; 2018-05-02)
DX: I60.8 Other nontraumatic subarachnoid hemorrhage (principal); I67.4 Hypertensive encephalopathy; E87.6 Hypokalemia; F10.231 Alcohol dependence with withdrawal delirium; I61.8 Other nontraumatic intracerebral hemorrhage; G81.94 Hemiplegia, unspecified affecting left nondominant side; I16.1 Hypertensive emergency; G93.6 Cerebral edema; G40.909 Epilepsy, unspecified, not intractable, without status epilepticus; H51.0 Palsy (spasm) of conjugate gaze; R47.01 Aphasia; D72.828 Other elevated white blood cell count; I10 Essential (primary) hypertension; E11.9 Type 2 diabetes mellitus without complications; Z66 Do not resuscitate; E66.9 Obesity, unspecified; Z68.32 Body mass index [BMI] 32.0-32.9, adult; F41.9 Anxiety disorder, unspecified; Z23 Encounter for immunization; Z91.14 Patient's other noncompliance with medication regimen; Z78.1 Physical restraint status